=== PATIENT | female | born 1945 | race Caucasian/White ===

== ENCOUNTER 2020-03-27 21:11 | Outpatient (REF) | payer MEDICARE, SELFPAY ==
[2020-03-27 19:52] LABS: HCT 45.9 % (36.0-46.0); HGB 14.8 g/dL (12.0-15.5); Mean Corp. HGB Concentration 32.2 g/dL (32.0-36.0); Mean Corpuscular Hemoglobin 27.8 pg (27.0-33.0); Mean Corpuscular Volume 86.1 fL (80-95); Mean Platelet Volume 10.8 fL (8.0-11.0); Platelet Count 323 x1000/uL (130-400); RBC 5.33 m/cumm (4.00-5.20); White Blood Cell Count 10.05 k/cumm (4.4-10.8)
[2020-03-27 20:01] LABS: ALT 26 U/L (14-59); AST 21 U/L (15-37); Alkaline Phosphatase 86 U/L (46-116); BUN 9 mg/dL (7-18); Bilirubin, Total 0.5 mg/dL (0.2-1.0); CREATININE 0.69 mg/dL (0.55-1.02); Calcium 9.3 mg/dL (8.5-10.1); Calculated LDL 105 mg/dL (<100); Chloride 105 mmol/L (98-107); Cholesterol 199 mg/dL (<200); Glucose 90 mg/dL (74-106); HDL Cholesterol 75 mg/dL (40-60); Potassium 3.7 mmol/L (3.5-5.1); Sodium 143 mmol/L (136-145); TSH 2.55 uIU/mL (0.36-3.74); Total Protein 7.1 g/dL (6.4-8.2); Triglyceride 96 mg/dL (<150)
[2020-03-27 20:11] LABS: Hemoglobin A1C 6.1 % (3.8-5.6)
[2020-03-27 20:20] LABS: FREE T4 1.17 ng/dL (0.76-1.46)
== END 2020-03-27 21:31 ==
LOC: LBN 21:11
PROVIDERS: PCP Nurse Practitioner Family; Visit Provider Nurse Practitioner Family
DX: R73.01 Impaired fasting glucose (principal); I10 Essential (primary) hypertension
CPT/HCPCS: 80053; 80061; 85027; 83036; 84439; 84443

== ENCOUNTER 2021-03-07 19:21 | Emergency (ER) | payer MEDICARE, SELFPAY ==
[2021-03-07 19:28] VITALS: TEMP 36.6
--- NOTE | 2021-03-07 19:30 | DI.CT_ITS ---
Exam(s) CT HEAD WO EXAM: CT HEAD WO CLINICAL HISTORY: Fall, posterior trauma. TECHNIQUE: Imaging Protocol: Axial computed tomography images with coronal and sagittal reformatted images were created and reviewed COMPARISON: No exams were available for comparison FINDINGS: There are no skull fractures nor fluid in the visualized paranasal sinuses. There is no evidence of intracranial hemorrhage, mass effect, or shift of midline structures. There are no extra-axial fluid collections. The ventricles are not enlarged or shifted and there is no blo od within the ventricular system nor within the basal cisterns. There is moderate periventricular hypodensity consistent with chronic small vessel disease. Moderate atrophy noted. IMPRESSION: No acute intracranial findings on this noninfused CT scan of the brain. There is bilateral periventricular hypodensity consistent with chronic small vessel disease. Mild-mo derate atrophy noted. RADIATION DOSE DELIVERED: 678.4mGy.cm Total DLP DATA REPOSITORY: All CT scans at this facility are submitted to the National Radiology Data Registry (NRDR) Dose Index Registry (DIR) with the [employer] (ACR). RADIATION OPTIMIZATION: All CT scans at this facility use at least one of these dose optimization te chniques: automated exposure control; mA and/or kV adjustment per patient size (includes targeted exa ms where dose is matched to clinical indication); or iterative reconstruction.
--- NOTE | 2021-03-07 19:45 | W.ED.GENAD ---
Discharge Plan Disposition Patient Disposition: HOME Condition: Good Discharge Details Clinical Impression: Closed head injury Primary Care Provider: Miladis Medina ED Provider: Robert Houser Home Meds and New Rx's Prescriptions: Continued aspirin 81 mg tablet,delayed release (DR/EC) 81 mg PO DAILY Qty: 90 RF: 4 atorvastatin 80 mg tablet 80 mg PO DAILY Qty: 90 RF: 4 losartan 25 mg tablet 25 mg PO DAILY Qty: 90 RF: 4 montelukast 10 mg tablet 10 mg PO DAILY Qty: 90 RF: 4 cyanocobalamin (vitamin B-12) [Vitamin B-12] 500 mcg tablet 500 mcg PO DAILY Qty: 90 RF: 4 carbidopa-levodopa 25-100 mg tablet 2 tab PO TID RF: 0 donepezil 10 mg tablet 10 mg PO DAILY Qty: 90 RF: 4 calcium carb,lactat-vitamin D3 200 mg calcium -250 unit tablet 1 tab PO DAILY RF: 0 Discharge Instructions Instructions: Head Injury (ED) Additional Instructions: CT scan of the head shows no evidence of traumatic injury. You may use Tylenol if needed for mild headache. Follow-up with primary care as needed. Return to ED for severe worsening headache, neurologic change, persistent vomiting. Referrals: Miladis Medina, [employer]PH[employer] MECH[employer]IC [Primary Care Provider] - Medical Decision Making <Jacobo Samuel MD - Last Filed: 03/07/21 19:50> This is a 75-year-old female with Parkinson's disease who presents with family. She was walking outside when she stepped in a hole, fell backwards and struck her head. There was no loss of consciousness, patient recalls the event. She developed a subtle bruise and mild headache. She is not anticoagulated but does take an aspirin 81 mg daily. Patient arrives to the ER pleasant, interactive, with no neurologic deficits. She does have several areas of bruising on her left superior occiput. Out of an abundance of caution, will obtain CT scan to rule out intracranial hemorrhage or bony injury. As it is change of shift, patient will be signed out to Dr. Houser pending review of her CT findings. <Robert Houser MD - Last Filed: 03/07/21 20:26> Patient signed out to me pending CT head which is come back negative. She had presented status post fall with head injury. Please see Dr. Samuel's note for details. Patient has had no mental status or neurologic changes here. She will be discharged home. Follow-up with primary care as needed. Return to ED for neurologic change, severe headache, vomiting, other concerns. HPI <Jacobo Samuel MD - Last Filed: 03/07/21 19:50> General Mode of arrival: ambulatory. Date/Time Provider Initiated Documentation: 03/07/21 19:21. Limitations to Documentation: no limitations. Information obtained by: patient and family. History of Present Illness 75 year old F presents to the emergency department with the chief complaint of Fall, mild posterior headache, described as mild, Quality is described as dull, and is localized to the head. Patient reports no radiation. Patient started experiencing this hour(s) and it has been constant. No relieving factors improve symptom(s), No exacerbating factors reported . Patient notes denies chest pain, headaches, syncope and weakness. Patient did receive the following treatments prior to arrival, none Related Data Home Medications Medication Instructions Recorded Confirmed aspirin 81 mg tablet,delayed 81 mg PO DAILY #90 tab 04/04/20 03/07/21 release atorvastatin 80 mg tablet 80 mg PO DAILY #90 tab 04/04/20 03/07/21 cyanocobalamin (vitamin B-12) 500 500 mcg PO DAILY #90 tab 04/04/20 03/07/21 mcg tablet losartan 25 mg tablet 25 mg PO DAILY #90 tab 04/04/20 03/07/21 montelukast 10 mg tablet 10 mg PO DAILY #90 tab 04/04/20 03/07/21 carbidopa 25 mg-levodopa 100 mg 2 tab PO TID tab 12/26/20 03/07/21 tablet donepezil 10 mg tablet 10 mg PO DAILY #90 tab 12/26/20 03/07/21 calcium carb,lactat-vitamin D3 1 tab PO DAILY 03/07/21 03/07/21 Previous Rx's Medication Instructions Recorded aspirin 81 mg tablet,delayed 81 mg PO DAILY #90 tab 04/04/20 release atorvastatin 80 mg tablet 80 mg PO DAILY #90 tab 04/04/20 cyanocobalamin (vitamin B-12) 500 500 mcg PO DAILY #90 tab 04/04/20 mcg tablet losartan 25 mg tablet 25 mg PO DAILY #90 tab 04/04/20 montelukast 10 mg tablet 10 mg PO DAILY #90 tab 04/04/20 donepezil 10 mg tablet 10 mg PO DAILY #90 tab 12/26/20 Allergies Allergy/AdvReac Type Severity Reaction Status Date / Time No Known Allergies Allergy Verified 03/07/21 19:31 General Stated Complaint: HeadInjury SKY: 2 Review of Systems <Jacobo Saumel MD - Last Filed: 03/07/21 19:50> Narrative: No prolonged loss of consciousness, patient that she recalls the event. No neck or back pain. No numbness or weakness of the extremities. She has otherwise been well and lives near family. 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 Sister No problems noted. Brother , 42 of [place] Heart disease Myocardial infarction Brother , at 49 of [place] Heart disease Myocardial infarction Brother , at 58 of [place] Heart disease Myocardial infarction Brother , at 61 of [place] Heart disease Myocardial infarction Brother , at 80 of fall No problems noted. Son , at 45 of [place] Heart disease Myocardial infarction Daughter No problems noted. Maternal Grandfather No problems noted. Maternal Grandmother No problems noted. Paternal Grandfather No problems noted. Paternal Grandmother No problems noted. Social History Smoking/Tobacco Use Status: Never Smoking risk assessment performed?: Yes Alcohol Intake: current Alcohol Intake frequency: a few times a month Drug use: Never Counseling given: No Household members: other Details: Camper until get apartment by June Housing: other Details: Camper until get apartment by June Pets and animals: No Sexually active: No Do you think of yourself as: straight/heterosexual Current gender identity: female What is your relationship status?: How often do you talk on the phone with friends or family?: three or more times per week How often do you get together with friends or relatives?: three or more times per week Do you belong to any clubs or organized social groups?: no Panel score (0-1 are the most socially isolated patients): 1 What type of physical activity do you participate in: walking Frequency: other Details: Some Shivani/Jehovah'S Witness: Synagogue Seatbelt use: always Drive intox or ride w/intox school bus driver: No Do you feel safe at home: Yes Do you feel safe in your relationship?: Yes History History 2 Para 2 Hx # Term Pregnancies Multiple births Hx # Pregnancies Ectopic pregnancies AB induced Hx Number of Living Children 1 AB spontaneous Exam <Jacobo Samuel MD - Last Filed: 03/07/21 19:50> Narrative Exam Narrative: GEN: awake, alert. Pleasant, well groomed, interactive. HEAD: Normocephalic, subtle left posterior/superior occiput ecchymosis with minimal swelling, no cephalohematoma ENT: Mucous membranes moist, oropharynx unremarkable, External ear exam unremarkable EYES: PERRL, EOMI NECK: Full ROM, no LISA, no menigismus, nontender no step-off or deformity CHEST/RESP: Nontender, clear to auscultation bilateral, no wheeze/rhonchi/rales CARDIOVASCULAR: RRR, no murmur, rub adriel. 2+ Rad pulse bilateral ABDOMEN: Soft, nontender, no mass. +Bowel sounds EXT: Full ROM, no edema, no rash Neuro: Grossly normal neurologic exam, conversant, interactive. Psych: Speech fluent, thoughts congruent, affect normal Course <Jacobo Samuel MD - Last Filed: 03/07/21 19:50> Vital Signs Vital signs: Vital Signs Temperature 36.6 C 03/07/21 19:28 Temperature 36.6 C 03/07/21 19:28 Respiratory Effort Non-Labored 03/07/21 19:38 Respiratory Depth Normal 03/07/21 19:38 Respiratory Pattern Normal 03/07/21 19:38 Pain Level 4 03/07/21 19:28 Sign Out <Jacobo Samuel MD - Last Filed: 03/07/21 19:50> Sign Out Data: Sign Out Comment: CT pending. Last updated by Jacobo Samuel MD at 03/07/21 19:50
--- NOTE | 2021-03-07 20:15 | DI.VRAD_ITS ---
PROCEDURE INFORMATION: Exam: CT Head Without Contrast Exam date and time: 03/07/2021 7:45 PM Age: 75 years old Clinical indication: Injury or trauma; Blunt trauma (contusions or hematomas); Patient HX: Fall, posterior trauma TECHNIQUE: Imaging protocol: Computed tomography of the head without contrast. COMPARISON: No relevant prior studies available. FINDINGS: Brain: There is no evidence for acute intra-axial or extra-axial hemorrhage. There is no intracranial mass or mass effect. The basilar cisterns are patent. There is moderate diffuse cerebral volume loss. There is normal reyna-white differentiation throughout the brain. There is no CT evidence of acute cortical infarct. There is mild patchy hypodensity within the periventricular and subcortical white matter in the frontoparietal regions suggesting mild chronic small vessel ischemic changes. Cerebral ventricles: There is moderate ventriculomegaly in proportion to the moderate diffuse cerebral volume loss. Paranasal sinuses: Visualized sinuses are unremarkable. No fluid levels. Mastoid air cells: Visualized mastoid air cells are well aerated. Bones/joints: Unremarkable. No acute fracture. Soft tissues: Unremarkable. IMPRESSION: 1. No acute intracranial process identified. 2. Moderate diffuse cerebral volume loss. 3. Findings of mild chronic small vessel ischemic changes. Dictated and Authenticated by: Jeffery Bolton MD. Ordering:BENEDICT Centeno MD
[2021-03-07] MEDS: Acetaminophen 500 MG TAB 1000 MG PO (20:35)
== END 2021-03-07 20:39 | disposition home or self-care (01) ==
PROVIDERS: Emergency Provider Emergency Medicine; PCP Nurse Practitioner Family
DX: S09.8XXA Other specified injuries of head, initial encounter (principal); W18.39XA Other fall on same level, initial encounter
CPT/HCPCS: 99284; 70450; 99283

== ENCOUNTER 2021-03-12 11:08 | Outpatient (CLI) | payer MEDICARE, SELFPAY ==
--- NOTE | 2021-03-12 11:00 | RT.EKG_ITS ---
APPROVED REPORT Exam: Resting ECG Reason for Exam: Dizzness Patient Location: O HR:61 bpm ECG Measurements Heart Rate 61 AXIS RI 117 P 50 QRSd 82 QRS 33 QT 410 T 46 QTc 412 Conclusion Sinus rhythm...normal P axis, V-rate 60- 99 Normal Electrocardiogram
== END 2021-03-12 11:09 | disposition home or self-care (01) ==
LOC: DI.CM 11:08
PROVIDERS: PCP Nurse Practitioner Family; Visit Provider Nurse Practitioner Family
DX: R55 Syncope and collapse (principal)
CPT/HCPCS: 93010

== ENCOUNTER 2021-03-23 00:35 | Outpatient (CLI) | payer MEDICARE, SELFPAY ==
--- NOTE | 2021-04-09 09:00 | W.ZIOMONITOR ---
Date of service: 04/09/21 Time of Service: 09:[address] [employer] Referring Provider:: daniel Indications:: Syncope Note: This is a 14-day monitor ordered for syncope. ?The patient was in normal sinus rhythm for the majority the recording with an average heart rate of 68 bpm. ?There were 38 runs of SVT with the longest lasting 11 beats. None of these were symptomatic. There were rare PACs. ?There are no episodes of ventricular tachycardia and rare PVCs. ?There were no episodes of atrial fibrillation, no pauses greater than 3 seconds and no evidence of high degree heart block. ?There were no patient triggered events.
== END 2021-03-23 00:36 | disposition home or self-care (01) ==
LOC: RT 00:35
PROVIDERS: PCP Nurse Practitioner Family; Visit Provider Nurse Practitioner Family
DX: R55 Syncope and collapse (principal)
CPT/HCPCS: 93246

== ENCOUNTER 2021-03-24 04:17 | Outpatient (CLI) | payer MEDICARE, SELFPAY ==
[2021-03-24 13:12] LABS: Abs Immature Grans 0.02 10^3/uL (0.0-0.06); Absolute Basophil Count 0.06 10^3/uL (0.0-0.2); Absolute Eosinophil Count 0.09 10^3/uL (0.0-0.7); Absolute Lymphocyte Count 2.84 10^3/uL (1.2-3.4); Absolute Monocyte Count 0.46 10^3/uL (0.1-0.8); Basophils % 0.7; Eosinophils % 1.1; HCT 44.2 % (36.0-46.0); HGB 14.5 g/dL (11.2-15.7); Immature Grans % 0.2; Lymphocytes % 33.1; MCH 27.9 pg (27.0-33.0); MCHC 32.8 % (32.0-36.0); MCV 85.2 fL (80-95); MPV 10.3 fL (8.0-11.0); Monocytes % 5.4; Neutrophils % 59.5; Nucleated RBC 0 %; Platelet Count 347 10^3/uL (130-400); RBC 5.19 10^6/uL (3.93-5.22); RDW 14.5 % (11.7-14.6); WBC 8.57 10^3/uL (4.4-10.8)
[2021-03-24 13:38] LABS: Hemoglobin A1C 5.9 % (<5.7)
[2021-03-24 14:43] LABS: ALT 14 U/L (14-59); AST 21 U/L (15-37); Albumin 3.6 g/dL (3.4-5.0); Alkaline Phosphatase 99 U/L (46-116); Anion Gap 10.7 mmol/L (3-11); BUN 15 mg/dL (7-18); Bilirubin, Total 0.6 mg/dL (0.2-1.0); CO2 29.3 mmol/L (21.0-32.0); CREATININE 0.9 mg/dL (0.55-1.02); Calcium 9.1 mg/dL (8.5-10.1); Calculated LDL 66 mg/dL (<100); Chloride 106 mmol/L (98-107); Cholesterol 160 mg/dL (<200); Glucose 125 mg/dL (74-106); HDL Cholesterol 65 mg/dL (40-60); Potassium 3.6 mmol/L (3.5-5.1); Sodium 146 mmol/L (136-145); Total Protein 6.5 g/dL (6.4-8.2); Triglyceride 147 mg/dL (<150)
== END 2021-03-24 04:18 | disposition home or self-care (01) ==
LOC: LBO 04:17
PROVIDERS: PCP Nurse Practitioner Family; Visit Provider Nurse Practitioner Family
DX: R55 Syncope and collapse (principal); R73.03 Prediabetes; E78.5 Hyperlipidemia, unspecified
CPT/HCPCS: 36415; 80053; 80061; 83036; 85025

== ENCOUNTER 2021-04-09 09:00 | Outpatient (CLI) | payer MEDICARE, SELFPAY | END 2021-04-09 09:01 | LOC: CARDO 04-14 10:42 | PROVIDERS: PCP Nurse Practitioner Family; Referring Provider Nurse Practitioner Family; Visit Provider Internal Medicine Cardiovascular Disease | DX: R55 Syncope and collapse (principal); I47.1 Supraventricular tachycardia | CPT/HCPCS: 93248 ==

== ENCOUNTER 2021-06-17 01:57 | Outpatient (CLI) | payer MEDICARE, SELFPAY ==
--- NOTE | 2021-06-17 07:00 | DI.RAD_ITS ---
Exam(s) XR SHOULDER RT COMPLETE 2+V EXAM: XR SHOULDER RT COMPLETE 2+V CLINICAL HISTORY: right shoulder pain,M25.511. TECHNIQUE: 2D digital imaging was performed of the right shoulder. Five images were obtained. AP i nternal and external, Grashey, Y-view and axillary views were obtained. COMPARISON: No exams were available for comparison FINDINGS: BONES: No acute fracture is present. No bony destructive lesion is seen. JOINTS: No dislocation present. Mild degenerative changes are seen at the acromioclavicular joint. T he glenohumeral joint appears well maintained. SOFT TISSUE: Normal. IMPRESSION: Mild degenerative changes of the right AC joint. DATA REPOSITORY: RADIATION DOSE DELIVERED:
== END 2021-06-17 02:17 ==
PROVIDERS: PCP Nurse Practitioner Family; Visit Provider Nurse Practitioner Family
DX: M25.511 Pain in right shoulder (principal); M19.011 Primary osteoarthritis, right shoulder
CPT/HCPCS: 73030

== ENCOUNTER 2021-07-28 00:54 | Outpatient (CLI) | payer MEDICARE, SELFPAY ==
--- NOTE | 2021-07-28 06:45 | DI.MRI_ITS ---
Exam(s) MR BRAIN WO EXAM: MR BRAIN WO CLINICAL HISTORY: Frequent falls, balance and speech changes,parkinsons,r29.6,g20 TECHNIQUE: Multiplanar multisequence MRI of the brain was performed. COMPARISON: CT CT HEAD WO from 03/07/2021 FINDINGS: VENTRICLES AND EXTRA AXIAL SPACES: Normal in size and morphology for the patient's age. The degree of ventricular enlargement appears to be consistent with the degree of sulcal enlargement. MIDLINE SHIFT: None. CEREBRAL PARENCHYMA: No focus of restricted diffusion to suggest acute infarct. No space-occupying le manuel identified. There are areas of hyperintense signal in the white matter on the FLAIR and T2 weigh carmela images most consistent with chronic microvascular ischemic disease. HEMORRHAGE: On the gradient images, there are multiple ???black dots??? in the cerebral and cerebella r hemispheres. The findings are most marked in the right parietal region. BRAINSTEM/CEREBELLUM: Normal. CALVARIUM: Normal. VISUALIZED PARANASAL SINUSES/MASTOIDS:Clear. [place]: Normal flow void. PIT[place]ARY GL[place]: Unremarkable. OTHER FINDINGS: None. IMPRESSION: 1. Age-appropriate cerebral atrophy and findings suggestive of chronic microvascular ischemic disease . 2. Multiple ???black dots??? seen in the cerebral and cerebellar hemispheres on the gradient images. Differential considerations include cerebral amyloid disease, hypertensive microhemorrhages, multipl e vascular malformations, or multifocal trauma. DATA REPOSITORY:
== END 2021-07-28 01:14 ==
PROVIDERS: PCP Nurse Practitioner Family; Visit Provider Nurse Practitioner Family
DX: R47.89 Other speech disturbances (principal); R26.89 Other abnormalities of gait and mobility; R29.6 Repeated falls; G20 Parkinson's disease; G31.89 Other specified degenerative diseases of nervous system
CPT/HCPCS: 70551

== ENCOUNTER 2021-10-07 11:17 | Observation (INO) | payer MEDICARE, SELFPAY ==
[2021-10-07] VITALS (46 sets, daily range): BP systolic 163–184; BP diastolic 60–102; PULSE 46–87; RESP 14–31; TEMP 36.2–36.7; O2SAT 82–100
--- NOTE | 2021-10-07 11:00 | RT.EKG_ITS ---
APPROVED REPORT Exam: Resting ECG Reason for Exam: possible stroke Patient Location: E HR:58 bpm ECG Measurements Heart Rate 58 AXIS VT 134 P 70 QRSd 84 QRS 57 QT 420 T 56 QTc 413 Conclusion Sinus bradycardia...rate< 60 Atrial premature complex...SV complex w/ short R-R interval
--- NOTE | 2021-10-07 11:30 | DI.RAD_ITS ---
Exam(s) XR PELVIS AP EXAM: XR PELVIS AP CLINICAL HISTORY: fall TECHNIQUE: COMPARISON: No exams were available for comparison FINDINGS: Single AP view was obtained. The bones of the hips and pelvis appear intact, no obvious fracture on this view. Please note that a single AP view is not adequate to exclude pelvic fracture. IMPRESSION: RADIATION DOSE DELIVERED: Total DLP
--- NOTE | 2021-10-07 11:34 | DI.RAD_ITS ---
Exam(s) XR CHEST 1V IN DI DEPT EXAM: XR CHEST 1V IN DI DEPT CLINICAL HISTORY: fall. TECHNIQUE: 2D digital imaging was performed. COMPARISON: No exams were available for comparison FINDINGS: LUNGS: Clear. No pleural abnormality seen. HEART: Normal. MEDIASTINUM: Normal. OTHER FINDINGS: None. IMPRESSION: No acute pulmonary findings. DATA REPOSITORY: RADIATION DOSE DELIVERED: Total DLP
[2021-10-07 11:39] LABS: Abs Immature Grans 0.03 10^3/uL (0.0-0.06); Absolute Basophil Count 0.06 10^3/uL (0.0-0.2); Absolute Eosinophil Count 0.12 10^3/uL (0.0-0.7); Absolute Lymphocyte Count 3.08 10^3/uL (1.2-3.4); Absolute Monocyte Count 0.74 10^3/uL (0.1-0.8); Absolute Neutrophil Count 4.98 10^3/uL (1.2-6.7); Basophils % 0.7; Eosinophils % 1.3; HCT 46.8 % (36.0-46.0); HGB 14.5 g/dL (11.2-15.7); Immature Grans % 0.3; Lymphocytes % 34.2; MCH 27.8 pg (27.0-33.0); MCV 89.8 fL (80-95); MPV 10.5 fL (8.0-11.0); Monocytes % 8.2; Neutrophils % 55.3; Nucleated RBC 0 %; Platelet Count 330 10^3/uL (130-400); RBC 5.21 10^6/uL (3.93-5.22); RDW 14.1 % (11.7-14.6); WBC 9.01 10^3/uL (4.4-10.8)
--- NOTE | 2021-10-07 11:50 | DI.CT_ITS ---
Exam(s) CT HEAD - STROKE PROTOCOL CT CERVICAL SPINE WO EXAM: CT HEAD - STROKE PROTOCOL COMPARISON: CT CT HEAD WO from 03/07/2021 FINDINGS: CT examination of the cervical spine was performed without contrast administration. There are marked degenerative changes of the cervical spine. There is no evidence of acute cervical spine fracture or dislocation. Intervertebral disc spaces are narrowed at multiple levels. Tracheolaryngeal structures appear intact. No cervical mass or adenopathy. There is an apparent right lobe thyroid nodule measuring up to 18 millimeters in diameter and additio nal thyroid nodules are probably present on the left. Additional evaluation with thyroid ultrasound recommended. Noncontrast cranial CT was performed. There are mild changes of cerebral atrophy.. No evidence of acute intracranial hemorrhage, mass effect, or midline shift. No calvarial fracture. The orbital and temporal bone structures appear intact. Visualized mastoid air cells and paranasal sinuses appear clear. IMPRESSION: No evidence of acute cervical spine injury. No evidence of acute intracranial process. Incidental finding of thyroid nodules, thyroid ultrasound recommended for follow up. Incidental Findings RADIATION DOSE DELIVERED: Total DLP Total DLP CTDIvol DATA REPOSITORY: All CT scans at this facility are submitted to the National Radiology Data Registry (NRDR) Dose Index Registry (DIR) with the [employer] (ACR). RADIATION OPTIMIZATION: All CT scans at this facility use at least one of these dose optimization te chniques: automated exposure control; mA and/or kV adjustment per patient size (includes targeted exa ms where dose is matched to clinical indication); or iterative reconstruction.
[2021-10-07 11:53] LABS: AST 19 U/L (15-37); Albumin 3.9 g/dL (3.4-5.0); Alkaline Phosphatase 94 U/L (46-116); Anion Gap 4.9 mmol/L (3-11); BUN 19 mg/dL (7-18); Bilirubin, Total 0.9 mg/dL (0.2-1.0); CO2 32.1 mmol/L (21.0-32.0); CREATININE 0.8 mg/dL (0.55-1.02); Calcium 9.4 mg/dL (8.5-10.1); Chloride 104 mmol/L (98-107); Glucose 92 mg/dL (74-106); INR 1.1 (0.9-1.1); PTT Activated 26.8 sec (21.0-27.5); Potassium 3.9 mmol/L (3.5-5.1); Sodium 141 mmol/L (136-145); Total Protein 7.2 g/dL (6.4-8.2); Troponin I < 50 ng/L (<or=60)
[2021-10-07 12:00] LABS: ALT < 6 U/L (14-59)
--- NOTE | 2021-10-07 12:00 | DI.MRI_ITS ---
Exam(s) MR BRAIN WO EXAM: MR BRAIN WO CLINICAL HISTORY: expressive aphasia, ?left facial droop TECHNIQUE: Multiplanar multisequence MRI of the brain was performed. COMPARISON: MR MR BRAIN WO from 07/28/2021 MR MR ANGIO BRAIN WO from 10/07/2021 FINDINGS: There is moderate generalized cerebral atrophy. There are mild periventricular signal changes noted consistent with microvascular ischemic change. No other significant signal abnormality identified in the brain on the T2, T1, or FLAIR imaging.. The orbital and temporal bone structures appear intact as does the pituitary. Diffusion weighted imaging shows no evidence of infarction. Susceptibility weighted imaging shows numerous focal signal voids consistent with numerous micro hemo rrhages, predominantly in posterior fossa and right occipital parietal region but also seen elsewhere throughout the brain. Findings are quite similar to findings seen on July 28 2021. This appea alexis may be seen in chronic microhemorrhages, although other etiologies including amyloid angiopathy and multiple cerebral vascular malformations may cause similar appearance period. There is normal flow void in the [place] vasculature. IMPRESSION: Stable appearance of previously noted presumed chronic microhemorrhages. No evidence of acute infarction or other significant change. DATA REPOSITORY:
--- NOTE | 2021-10-07 12:00 | DI.MRI_ITS ---
Exam(s) MR ANGIO BRAIN WO EXAM: MR ANGIO BRAIN WO CLINICAL HISTORY: expressive aphasia, ?left facial droop. TECHNIQUE: Multiplanar multisequence MRI was performed. COMPARISON: MR MR BRAIN WO from 07/28/2021 FINDINGS: MR angiography of the brain was performed utilizing 3D umpd-ra-lzssca imaging. Examination is of goo d technical quality. Left posterior cerebral artery is supplied mainly across the posterior communic ating artery. The visualized vertebral, basilar, and internal carotid arteries show normal caliber a nd no evidence of aneurysm or significant stenosis. The anterior, middle, and posterior cerebral art eries are unremarkable appearance with no gross aneurysm or stenosis. IMPRESSION: Negative MR angiography of the brain. DATA REPOSITORY:
--- NOTE | 2021-10-07 12:00 | DI.MRI_ITS ---
Exam(s) MR ANGIO NECK WO EXAM: MR ANGIO NECK WO CLINICAL HISTORY: expressive aphasia, ?left facial droop. TECHNIQUE: Multiplanar multisequence MRI was performed. COMPARISON: No exams were available for comparison FINDINGS: The examination was technically limited due to patient motion. 2D and 3D [id number] acquisitions were obtained. No gross occlusive or high-grade stenotic lesion of the common or internal carotid a rtery seen. Vertebral arteries appear grossly intact. IMPRESSION: Limited scan. No gross vascular occlusive or high-grade stenotic lesion. DATA REPOSITORY:
--- NOTE | 2021-10-07 12:05 | ED.GENADUL_ITS ---
Discharge Plan Disposition Condition: Stable Discharge Details Chief Complaint: CVA/TIA Admit Date/Time: 10/07/21 14:48 Admit Provider: Barrington Monique Attending Provider: Barrington Monique Primary Care Provider: Miladis Medina ED Provider: Kuldip Lennon Discharge Instructions Activity:: Activity as Tolerated Equipment/Supplies:: No Equipment Needed Diet:: As Tolerated Discharge Orders Discharge Orders: Discharge Order (Routine); Ordered 10/09/21 Ordered By: Kinza Lu Discharge Data Discharge Date/Time-TO BE ENTERED AT DEPARTURE: 10/07/21 16:13 Medical Decision Making 1210 --76-year-old female with history of Parkinson's dementia, hyperlipidemia, hypertension, CVAs, here having been found down on the ground with expressive aphasia. Possible syncope. Consider head and neck trauma. Patient is hypertensive. Concern for acute CVA. CT of the head and cervical spine was interpreted by radiology who I spoke with: Negative for acute process, thyroid nodules incidentally noted. No hemorrhage. Plan to proceed to MRI to assess for CVA not apparent on CT. Considered arrhythmia, EKG was reviewed and interpreted by me: Please see report, sinus bradycardia 58 bpm Initial labs reviewed: Nondiagnostic. Will add TSH. UA pending. -- MRI negative per radiology. Plan to hospitalize for syncope and continued expressive aphasia. I spoke with hospitalist, discussed ED presentation and course. They will admit patient. HPI General Mode of arrival: ambulatory . Date/Time Provider Initiated Documentation: 10/07/21 11:34 . Limitations to Documentation: no limitations . Information obtained by: patient . HPI Narrative: 76-year-old female with [facility] local problems including history of Parkinson's dementia, hypertension, hyperlipidemia, CVA with TIAs, presents with expressive aphasia. Patient found down by EMS with concern for left-sided weakness, repetitive words. Apparently patient noted that she passed out. Last known normal was 6 PM when she spoke with her daughter last night. Patient denies pain. History and review of systems limited secondary to expressive aphasia. Related Data Home Medications Medication Instructions Recorded Confirmed aspirin 81 mg tablet,delayed 81 mg PO DAILY #90 tab 04/04/20 10/07/21 release cyanocobalamin (vitamin B-12) 500 500 mcg PO DAILY #90 tab 04/04/20 10/07/21 mcg tablet carbidopa 25 mg-levodopa 100 mg 2 tab PO TID tab 12/26/20 10/07/21 tablet donepezil 10 mg tablet 10 mg PO DAILY #90 tab 12/26/20 10/07/21 calcium carb,lactat-vitamin D3 1 tab PO DAILY 03/07/21 10/07/21 atorvastatin 80 mg tablet 80 mg PO DAILY #90 tab 04/22/21 10/07/21 losartan 25 mg tablet 25 mg PO DAILY #90 tab 04/22/21 10/07/21 montelukast 10 mg tablet 10 mg PO DAILY #90 tab 04/22/21 10/07/21 Previous Rx's Medication Instructions Recorded aspirin 81 mg tablet,delayed 81 mg PO DAILY #90 tab 04/04/20 release cyanocobalamin (vitamin B-12) 500 500 mcg PO DAILY #90 tab 04/04/20 mcg tablet donepezil 10 mg tablet 10 mg PO DAILY #90 tab 12/26/20 atorvastatin 80 mg tablet 80 mg PO DAILY #90 tab 04/22/21 losartan 25 mg tablet 25 mg PO DAILY #90 tab 04/22/21 montelukast 10 mg tablet 10 mg PO DAILY #90 tab 04/22/21 Allergies Allergy/AdvReac Type Severity Reaction Status Date / Time No Known Allergies Allergy Verified 10/07/21 12:28 General Stated Complaint: CVA/TIA SKY: 2 Review of Systems Narrative: Limited secondary to expressive aphasia Cardiovascular Cardiovascular: Denies chest pain and Denies dyspnea Respiratory Respiratory: Denies dyspnea Gastrointestinal Gastrointestinal: Denies abdominal pain PFSH All Active Problems (Updated 10/07/21 @ 14:56 by Kinza Lu NP) Discharge planning issues (Acute) Syncopal episodes (Chronic) Closed head injury (Acute) 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 Neuro Parkinson disease (Chronic) Followed by [facility] Neuro Cerebrovascular disease (Chronic) Prediabetes (Chronic) Hyperlipidemia (Chronic) Essential hypertension (Chronic) Medical History Thyroid nodule Benign Surgical History History of section S/P colonoscopy (03/18/15) Family History Mother , 71 Depression Stroke CKD (chronic kidney disease) Father , 68 Heart disease Myocardial infarction Parkinson disease Sister No problems noted. Sister No problems noted. Brother , 42 of [place] Heart disease Myocardial infarction Brother , at 49 of [place] Heart disease Myocardial infarction Brother , at 58 of [place] Heart disease Myocardial infarction Brother , at 61 of [place] Heart disease Myocardial infarction Brother , at 80 of [place] No problems noted. Son , at 45 of [place] Heart disease Myocardial infarction Daughter No problems noted. Maternal Grandfather No problems noted. Maternal Grandmother No problems noted. Paternal Grandfather No problems noted. Paternal Grandmother No problems noted. Social History Smoking/Tobacco Use Status: Never Smoking risk assessment performed?: Yes Alcohol Intake: current Alcohol Intake frequency: a few times a month Drug use: Never Substance use type: does not use Counseling given: No Household members: other Details: Camper until get apartment by June Housing: other Details: Camper until get apartment by June Pets and animals: No Sexually active: No Do you think of yourself as: straight/heterosexual Current gender identity: female What is your relationship status?: How often do you talk on the phone with friends or family?: three or more times per week How often do you get together with friends or relatives?: three or more times per week Do you belong to any clubs or organized social groups?: no Panel score (0-1 are the most socially isolated patients): 1 What type of physical activity do you participate in: walking Frequency: other Details: Some Shivani/Cheondoism: Anabaptism Seatbelt use: always 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 Do you feel safe at home: Yes Do you feel safe in your relationship?: Yes History History 2 Para 2 Hx # Term Pregnancies Multiple births Hx # Pregnancies Ectopic pregnancies AB induced Hx Number of Living Children 1 AB spontaneous Exam Const General: cooperative and no acute distress HENMT Head: normocephalic and atraumatic Mouth: moist mucous membranes Eyes Conjunctivae: normal conjunctivae Sclera: normal sclerae EOM: EOM intact bilaterally Neck Neck: trachea midline and supple Resp Auscultation: clear to auscultation bilaterally, no rales, no rhonchi and no whe ezes Cardio Rate: regular rate and not tachycardic Rhythm: regular rhythm GI Palpation: soft, not firm, no guarding, no masses, not rigid and nontender Skin General skin exam: no rashes or lesions noted Neuro General: patient alert, patient awake, patient oriented x3, tone normal and moves all extremities Cranial Nerves: PERRL, accommodation normal, EOM intact bilaterally, no nystagmus, facial strength abnormal and tongue midline Speech: expressive aphasia Motor: strength 5/5 throughout and other (Question mild left facial) Sensory Exam: no sensory deficits noted Extrem General: no edema Psych Appearance: grossly normal Course Vital Signs Vital signs: Vital Signs Temperature 36.2 C L 10/07/21 11:15 Pulse 69 10/07/21 11:15 Respiratory Rate 17 10/07/21 11:15 Blood Pressure 173/76 H 10/07/21 11:15 Pulse Oximetry 100 10/07/21 11:15 Temperature 36.2 C L 10/07/21 11:15 Temperature Source Skin 10/07/21 11:15 Pulse 69 10/07/21 11:15 Respiratory Rate 16 10/07/21 11:26 Respiratory Effort 10/07/21 11:34 Respiratory Depth Normal 10/07/21 11:26 Respiratory Pattern Normal 10/07/21 11:26 Blood Pressure 173/76 H 10/07/21 11:15 Blood Pressure Position Supine 10/07/21 11:15 Pulse Oximetry 100 10/07/21 11:15 Oxygen Delivery Method Room Air 10/07/21 11:15 Oxygen Flow Rate 0 10/07/21 11:15 Lab/Test Results Lab/Test Results: Laboratory Tests Range/Units 10/07/21 10/07/21 10/07/21 11:20 11:20 11:20 WBC (4.4-10.8) 10^3/uL 9.01 RBC (3.93-5.22) 10^6/uL 5.21 Hgb (11.2-15.7) g/dL 14.5 Hct (36.0-46.0) % 46.8 H MCV (80-95) fL 89.8 MCH (27.0-33.0) pg 27.8 MCHC (32.0-36.0) % 31.0 L RDW (11.7-14.6) % 14.1 Plt Count (130-400) 10^3/uL 330 MPV (8.0-11.0) fL 10.5 Immature Gran % 0.3 Neutrophils % 55.3 Lymphocytes % 34.2 Monocytes % 8.2 Eosinophils % 1.3 Basophils % 0.7 Nucleated RBC % % 0 Absolute Neutrophils (1.2-6.7) 10^3/uL 4.98 Absolute Lymphocytes (1.2-3.4) 10^3/uL 3.08 Absolute Monocytes (0.1-0.8) 10^3/uL 0.74 Absolute Eosinophils (0.0-0.7) 10^3/uL 0.12 Absolute Basophils (0.0-0.2) 10^3/uL 0.06 PT (9.3-11.0) sec 11.0 INR (0.9-1.1) 1.1 APTT (21.0-27.5) sec 26.8 Sodium (136-145) mmol/L 141 Potassium (3.5-5.1) mmol/L 3.9 Chloride (98-107) mmol/L 104 Carbon Dioxide (21.0-32.0) mmol/L 32.1 H Anion Gap (3-11) mmol/L 4.9 BUN (7-18) mg/dL 19 H Creatinine (0.55-1.02) mg/dL 0.8 Estimated GFR/1.73 m2 (mL/min/1.73m2) >= 60.00 Glucose (74-106) mg/dL 92 Calcium (8.5-10.1) mg/dL 9.4 Total Bilirubin (0.2-1.0) mg/dL 0.9 AST (15-37) U/L 19 ALT (14-59) U/L < 6 L Alkaline Phosphatase (46-116) U/L 94 Troponin I (<or=60) ng/L < 50 Total Protein (6.4-8.2) g/dL 7.2 Albumin (3.4-5.0) g/dL 3.9
[2021-10-07 12:06] LABS: Creatine Kinase 50 U/L (26-192)
--- NOTE | 2021-10-07 12:15 | DI.RAD_ITS ---
Exam(s) XR SHOULDER LT COMPLETE 2+V EXAM: XR SHOULDER LT COMPLETE 2+V CLINICAL HISTORY: pain, fall TECHNIQUE: COMPARISON: CR XR SHOULDER RT COMPLETE 2+V from 06/17/2021 FINDINGS: Three views were obtained. There are small soft tissue calcifications projected adjacent to the bernarda ral head consistent with calcific peritendinitis, probably involving infraspinatus and possibly supra spinatus tendons. There is no evidence of acute fracture or dislocation. IMPRESSION: RADIATION DOSE DELIVERED: Total DLP
[2021-10-07 12:42] LABS: Bilirubin Negative (Negative); Blood Negative (Negative); Clarity Sl Cloudy (Clear); Glucose Negative (Negative); Ketones Negative (Negative); Leukocyte Esterase Negative (Negative); Nitrite Negative (Negative); Specific Gravity 1.015 (1.005-1.025); Urobilinogen 0.2 EU/dL (Up TO 0.2)
[2021-10-07 13:13] LABS: Lab Add On Test DONE
[2021-10-07 13:36] LABS: TSH (W/Ref FT4) 2.88 uIU/mL (0.36-3.74)
[2021-10-07] MEDS: ACETAMINOPHEN 1,000 MG/100 ML BTL 400 MG IVPB (14:12)
--- NOTE | 2021-10-07 14:51 | W.PM.HP.N ---
Date of service: 10/07/21 Time of Service: 14:51 Assessment and Plan Assessment and plan (1) Syncopal episodes: Status: Chronic Assessment and plan: longstanding issue, followed by neurology at [facility], MRI unchanged. was previously on cardiac event recorder with some SVT, no other dysrhythmias. will place on telemetry. orthostatic vitals fall precaution. acute CVA ruled out. 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 (4) Essential hypertension: Status: Chronic Assessment and plan: blood pressures elevated. will continue home medications and monitor, adjust as needed (5) Hyperlipidemia: Status: Chronic Assessment and plan: continue statin. (6) Discharge planning issues: Status: Acute Assessment and plan: case management will be following. ? needs placement PT consulted discussed with Dr Monique History of Present Illness History of Present Illness Chief Complaint: fall Narrative: 76 year old female with history of parkinsons dementia, syncopal episodes, followed by neurology at [facility], who presented to the ED by EMS after a syncopal episode where she was noted to have gargled speech, worse than her baseline. her work up in the ED included CT scan which was unremarkable so MRI ordered and found to have no findings to explain symptoms. Her labs, urine and rest of exam unremarkable. she was c/o right shoulder pain from fall and imaging shows no acute bony abnormality. Hospitalist was contacted to admit to med/surg for further monitoring and management. 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 Sister No problems noted. Brother , 42 of [place] Heart disease Myocardial infarction Brother , at 49 of [place] Heart disease Myocardial infarction Brother , at 58 of [place] Heart disease Myocardial infarction Brother , at 61 of [place] Heart disease Myocardial infarction Brother , at 80 of [place] No problems noted. Son , at 45 of [place] Heart disease Myocardial infarction Daughter No problems noted. Maternal Grandfather No problems noted. Maternal Grandmother No problems noted. Paternal Grandfather No problems noted. Paternal Grandmother No problems noted. Social History Smoking/Tobacco Use Status: Never Smoking risk assessment performed?: Yes Alcohol Intake: current Alcohol Intake frequency: a few times a month Drug use: Never Substance use type: does not use Counseling given: No Household members: other Details: Camper until get apartment by June Housing: other Details: Camper until get apartment by June Pets and animals: No Sexually active: No Do you think of yourself as: straight/heterosexual Current gender identity: female What is your relationship status?: How often do you talk on the phone with friends or family?: three or more times per week How often do you get together with friends or relatives?: three or more times per week Do you belong to any clubs or organized social groups?: no Panel score (0-1 are the most socially isolated patients): 1 What type of physical activity do you participate in: walking Frequency: other Details: Some Shivani/Congregation: Spiritism Seatbelt use: always Drive intox 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 Do you feel safe at home: Yes Do you feel safe in your relationship?: Yes History History 2 Para 2 Hx # Term Pregnancies Multiple births Hx # Pregnancies Ectopic pregnancies AB induced Hx Number of Living Children 1 AB spontaneous Meds Allergies and Home Medications Allergies Allergy/AdvReac Type Severity Reaction Status Date / Time No Known Allergies Allergy Verified 01/19/22 12:28 Home Medications Medication Instructions Recorded Confirmed Type aspirin 81 mg tablet,delayed 81 mg PO DAILY #90 tab 04/04/20 10/07/21 Rx release cyanocobalamin (vitamin B-12) 500 500 mcg PO DAILY #90 tab 04/04/20 10/07/21 Rx mcg tablet carbidopa 25 mg-levodopa 100 mg 2 tab PO TID tab 12/26/20 10/07/21 History tablet donepezil 10 mg tablet 10 mg PO DAILY #90 tab 12/26/20 10/07/21 Rx calcium carb,lactat-vitamin D3 1 tab PO DAILY 03/07/21 10/07/21 History atorvastatin 80 mg tablet 80 mg PO DAILY #90 tab 04/22/21 10/07/21 Rx losartan 25 mg tablet 25 mg PO DAILY #90 tab 04/22/21 10/07/21 Rx montelukast 10 mg tablet 10 mg PO DAILY #90 tab 04/22/21 10/07/21 Rx Exam Const General: cooperative, comfortable and no acute distress Nutritional Appearance: average body habitus and well nourished Orientation: alert, awake, oriented to person and confused [facility] Head: normal to inspection, normocephalic and atraumatic Mouth: oral mucosae normal Resp Effort & Inspection: normal respiratory effort Auscultation: clear to auscultation bilaterally Cardio Rate: regular rate Rhythm: regular rhythm Skin General skin exam: no rashes or lesions noted Neuro General: tone normal, no focal motor deficits and other (gait assisted, walker.) Cognition: abnormal cognition Speech: abnormal speech stuttering Gait: gait assisted Method: walker Motor: muscle tone normal throughout and tremor Results Labs Result diagrams: 10/08/21 06:24 10/08/21 06:24 Labs: Laboratory Results - last 24 hr 10/07/21 10/07/21 10/07/21 11:20 11:20 11:20 WBC 9.01 RBC 5.21 Hgb 14.5 Hct 46.8 H MCV 89.8 MCH 27.8 MCHC 31.0 L RDW 14.1 Plt Count 330 MPV 10.5 Immature Gran % 0.3 Neutrophils % 55.3 Lymphocytes % 34.2 Monocytes % 8.2 Eosinophils % 1.3 Basophils % 0.7 Nucleated RBC % 0 Absolute Neutrophils 4.98 Absolute Lymphocytes 3.08 Absolute Monocytes 0.74 Absolute Eosinophils 0.12 Absolute Basophils 0.06 PT 11.0 INR 1.1 APTT 26.8 Sodium 141 Potassium 3.9 Chloride 104 Carbon Dioxide 32.1 H Anion Gap 4.9 BUN 19 H Creatinine 0.8 Estimated GFR/1.73 m2 >= 60.00 Glucose 92 Calcium 9.4 Total Bilirubin 0.9 AST 19 ALT < 6 L Alkaline Phosphatase 94 Creatine Kinase Troponin I < 50 Total Protein 7.2 Albumin 3.9 TSH Urine Color Urine Clarity Urine pH Ur Specific [place] Urine Protein Urine Ketones Urine Blood Urine Nitrite Urine Bilirubin Urine Urobilinogen Ur Leukocyte Esterase Urine Glucose Add-On Test Request 10/07/21 10/07/21 10/07/21 11:20 11:20 11:20 WBC RBC Hgb Hct MCV MCH MCHC RDW Plt Count MPV Immature Gran % Neutrophils % Lymphocytes % Monocytes % Eosinophils % Basophils % Nucleated RBC % Absolute Neutrophils Absolute Lymphocytes Absolute Monocytes Absolute Eosinophils Absolute Basophils PT INR APTT Sodium Potassium Chloride Carbon Dioxide Anion Gap BUN Creatinine Estimated GFR/1.73 m2 Glucose Calcium Total Bilirubin AST ALT Alkaline Phosphatase Creatine Kinase 50 Troponin I Total Protein Albumin TSH 2.88 Urine Color Urine Clarity Urine pH Ur Specific [place] Urine Protein Urine Ketones Urine Blood Urine Nitrite Urine Bilirubin Urine Urobilinogen Ur Leukocyte Esterase Urine Glucose Add-On Test Request DONE 10/07/21 12:25 WBC RBC Hgb Hct MCV MCH MCHC RDW Plt Count MPV Immature Gran % Neutrophils % Lymphocytes % Monocytes % Eosinophils % Basophils % Nucleated RBC % Absolute Neutrophils Absolute Lymphocytes Absolute Monocytes Absolute Eosinophils Absolute Basophils PT INR APTT Sodium Potassium Chloride Carbon Dioxide Anion Gap BUN Creatinine Estimated GFR/1.73 m2 Glucose Calcium Total Bilirubin AST ALT Alkaline Phosphatase Creatine Kinase Troponin I Total Protein Albumin TSH Urine Color Straw Urine Clarity Sl Cloudy Urine pH 7.0 Ur Specific [place] 1.015 Urine Protein Negative Urine Ketones Negative Urine Blood Negative Urine Nitrite Negative Urine Bilirubin Negative Urine Urobilinogen 0.2 Ur Leukocyte Esterase Negative Urine Glucose Negative Add-On Test Request Last Vital Signs Temp 36.2 C L 10/07/21 11:15 Pulse 48 L 10/07/21 12:45 Resp 14 10/07/21 12:45 BP 163/60 H 10/07/21 12:45 Pulse Ox 100 10/07/21 12:45
[2021-10-07 15:55] LABS: Source Nasal/Nares
--- NOTE | 2021-10-07 18:05 | NUR.NOTE ---
Nursing Note: Andree (daughter) came to visit after work. Andree states that she is burnt out and needs assistance with her mum's care. Andree wants her mum to return home. Tori needs assistance with ADLs and ambulation.
[2021-10-07 20:15] LABS: COVID-19 PCR Negative (Negative)
[2021-10-07] MEDS: Carbidopa 25/Levodopa 100 TAB PO (20:19)
[2021-10-08] VITALS (8 sets, daily range): BP systolic 115–173; BP diastolic 68–93; PULSE 57–76; RESP 14–18; TEMP 36.3–37.1; O2SAT 95–97
[2021-10-08] MEDS: Normal Saline Flush 10 ML SYR IVP (00:11)
--- NOTE | 2021-10-08 00:13 | NUR.NOTE ---
Nursing Note: Ordered Labetalol not administered at this time as HR currently 57 and BP 115/74. Unable to document not given in NOV.
[2021-10-08 06:53] LABS: Abs Immature Grans 0.03 10^3/uL (0.0-0.06); Absolute Basophil Count 0.05 10^3/uL (0.0-0.2); Absolute Eosinophil Count 0.14 10^3/uL (0.0-0.7); Absolute Monocyte Count 0.72 10^3/uL (0.1-0.8); Basophils % 0.5; Eosinophils % 1.3; HCT 48.2 % (36.0-46.0); Immature Grans % 0.3; Lymphocytes % 27.6; MCH 27.4 pg (27.0-33.0); MCHC 31.1 % (32.0-36.0); MCV 88.1 fL (80-95); MPV 10.8 fL (8.0-11.0); Monocytes % 6.6; Neutrophils % 63.7; Nucleated RBC 0 %; Platelet Count 320 10^3/uL (130-400); RBC 5.47 10^6/uL (3.93-5.22); RDW-SD 45.1 fL; WBC 10.87 10^3/uL (4.4-10.8)
[2021-10-08 06:55] LABS: Absolute Neutrophil Count 6.92 10^3/uL (1.2-6.7)
[2021-10-08 07:07] LABS: Anion Gap 8.2 mmol/L (3-11); BUN 17 mg/dL (7-18); CO2 27.8 mmol/L (21.0-32.0); CREATININE 0.7 mg/dL (0.55-1.02); Calcium 9.2 mg/dL (8.5-10.1); Chloride 105 mmol/L (98-107); Glucose 83 mg/dL (74-106); Potassium 3.5 mmol/L (3.5-5.1); Sodium 141 mmol/L (136-145)
[2021-10-08] MEDS: Atorvastatin 40 MG TAB 80 MG PO (07:59)
[2021-10-08] MEDS: Losartan 25 MG TAB PO (07:59)
[2021-10-08] MEDS: Aspirin E.C. 81 MG TABEC PO (07:59)
[2021-10-08] MEDS: Calcium 600mg/Vit D 200U TAB 1 TAB PO (07:59)
[2021-10-08] MEDS: Carbidopa 25/Levodopa 100 TAB PO ×3 (07:59→19:18)
[2021-10-08] MEDS: Cyanocobalamin 500 MCG TAB PO (07:59)
[2021-10-08] MEDS: Montelukast 10 MG TAB PO (08:00)
[2021-10-08] MEDS: Donepezil 5 MG TAB 10 MG PO (08:00)
--- NOTE | 2021-10-08 09:54 | IN_ITS ---
Date of service: 10/08/21 Time of Service: 09:54 PT Notes Visit Reasons: Syncope Physical Therapy Inpatient Initial Evaluation Date: 10/08/2019 Referring Doctor: Kinza Lu NP PT Orders: PT CONSULT: Eval/treat Precautions: Fall. Standard. Activity as tolerated. Patient Profile/Admitting Diagnosis: Tori is a 76-year-old female who presented to the ED on 10/07/2021 due to a unwitnessed fall and difficulty expressing self. Patient is diagnosed with syncopal episode, closed head injury, dementia due to Parkinson's disease with behavioral disturbance, essential hypertension, hyperlipidemia. 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 Patient states that daughter Andree helps with anything she needs. She adds however that time he works during the day. She is independent with all mobility ADL performance. Has a front wheeled walker at home Equipment Owned/DME: [facility] Subjective: Agreeable to PT consult. Reports discomfort in both legs with weight bearing but she clarifies that they have gotten better compared to when she came in to the hospital. Denies headache, chest pain, and lightheadedness throughout session. Objective: General Observation: Seated on chair. Swelling to B legs and feet with R >> L. Mild erythema to B legs with R >> L. Mental Status: Alert and oriented as to herself. Goes in and out of lucid moments. Redirectible. Able to pay attention, focus, and respond appropriately. Pain: Mild ache in B legs ROM: Right Upper Extremity: Shoulder Flexion WFL. Shoulder abduction WFL. Elbow flexion WFL. Wrist flexion WFL. Functional opening and closing of hand WFL. Left Upper Extremity: Shoulder Flexion WFL. Shoulder abduction WFL. Elbow flexion WFL. Wrist flexion WFL. Functional opening and closing of hand WFL. Right Lower Extremity: Hip flexion WFL. Hip abduction WFL. Knee flexion WFL. Ankle dorsiflexion WFL. Ankle plantarflexion WFL. Left Lower Extremity: Hip flexion WFL. Hip abduction WFL. Knee flexion WFL. Ankle dorsiflexion WFL. Ankle plantarflexion WFL. Strength: Right Upper Extremity: Shoulder flexors 4-/5. Shoulder abductors 4-/5. Elbow flexors 4-/5. Elbow extensors 4-/5. Director Revenue strong. Left Upper Extremity: Shoulder flexors 4-/5. Shoulder abductors 4-/5. Elbow flexors 4-/5. Elbow extensors 4-/5. Director Revenue strong. Right Lower Extremity: Hip flexors 3/5. Hip abductors 3/5. Knee flexors 4-/5. Knee extensors 4-/5. Ankle dorsiflexors 4-/5. Ankle plantarflexors 4-/5. Left Lower Extremity: Hip flexors 3/5. Hip abductors 3/5. Knee flexors 4-/5. Knee extensors 4-/5. Ankle dorsiflexors 4-/5. Ankle plantarflexors 4-/5. Bed Mobility/Transfers: Sit to stand with contact-guard assist with moderate cues for hand placement Stand to sit with contact-guard assist with moderate cues for hand placement Bed to reclining chair with with contact-guard assist with moderate cues for hand placement Gait: Instructed patient with level surface ambulation of 250 feet requiring contact guard assist. Gabriela decreased. Step height decreased. Step length decreased. Reports minimal pain with weight bearing. Balance: Static Sitting: Normal Dynamic Sitting: Normal Static Standing: Fair Dynamic Standing: Fair Special Tests: Mobility Limitations Standardized Measure [facility] 6 clicks Basic Mobility Inpatient Short Form: Raw Score: 20 CMS Score: 36% deficit Informed Consent/Education: Patient was instructed in purpose of PT consult and plan of care. Agreeable to proceed with established PT POC to achieve personal goals. Assessment: Tori demonstrates functional mobility decline requiring assistance of 1 in the use of a front wheeled walker for all mobility ADL performance. Patient presents with clinical signs and symptoms consistent with current/admitting diagnoses that have resulted to mobility limitations, gait instability, generalized weakness, and overall ADL decline as demonstrated by t he following impairment level findings: 1. Decreased strength to B UE/LE major muscle groups 2. Impaired standing balance 3. Impaired activity tolerance 5. Shortness of breath 6. Swelling in the legs and feet Impairments are contributing to the following functional limitations: 1. Decline in transfer skills 2. Difficulty with ambulation without assistive device and physical assistance 3. Increased completion time for mobility ADL performance 4. Increased risk for falls 5. Difficulty with managing steps alone safely Patient is assessed as a 86314 moderate complexity based on the following: History: 76-year-old female with past medical history as indicated above Examination: Demonstrable impairment in strength, balance, and mobility level with underlying impairments and functional limitations as exhibited above as well as deficit score of 36% utilizing the [facility] Mobility Inpatient Short Form Presentation: Evolving Decision Makin moderate complexity complexity Goals: Goals X1 week 1. Supine-Sit independent 2. Sit-Supine independent 3. Sit-Stand independent 4. Stand-Sit independent with FWW 5. Bed-Chair independent with FWW 6. Chair-Bed independent with FWW 7. Supervision gait on level surface with use of FWW for at least 300 feet without report of pain nor dyspnea 8. Good static and dynamic standing balance/tolerance Plan of Care/Treatment Plan: 1-2x/day, 7 days/week x 1 week. Plan of care has been reviewed with the INSPECTOR BICYCLE providing the service under Physical Therapy direction. Initiate Physical Therapy intervention for pain management as needed, strengthening, bed mobility, transfers, gait, stairs, balance training, and use of assistive device. DISCHARGE RECOMMENDATIONS: [] Home with no services [] [] Home with services [specify] [] Home with outpatient PT [] [] SNF for continued rehabilitation [] [] Wireless Store Manager Care [] [X] SNF vs LTC vs SKILLED NURSING based on ability to participate and progress TREATMENT CODE/TIME: 54265 x 29 minutes beginning at 9:54 AM. Thank you for the opportunity to participate in the care of this patient. Karla Rene PT, DPT, CLT [facility] [place], [place]
[2021-10-08] MEDS: Potassium Chloride 20 MEQ TABCR PO ×3 (10:25→17:02)
--- NOTE | 2021-10-08 13:05 | PT.INTREAT ---
Date of service: 10/08/21 Time of Service: 13:05 PT Notes Visit Reasons: Syncope Physical Therapy Inpatient Treatment Note Date: 10/08/2019 Precautions: Fall. Standard. Activity as tolerated. Subjective: Agreeable to PT consult. Reports discomfort in both legs with weight bearing but she clarifies that they have gotten better compared to when she came in to the hospital. Denies headache, chest pain, and lightheadedness throughout session. Objective: General Observation: Seated on chair. Swelling to B legs and feet with R >> L. Mild erythema to B legs with R >> L. Mental Status: Alert and oriented as to herself. Goes in and out of lucid moments. Redirectible. Able to pay attention, focus, and respond appropriately. Pain: Mild ache in B legs Bed Mobility/Transfers: Sit to stand with contact-guard assist with moderate cues for hand placement Stand to sit with contact-guard assist with moderate cues for hand placement Bed to reclining chair with with contact-guard assist with moderate cues for hand placement Gait: Instructed patient with level surface ambulation of 200 feet +200 ft requiring standby assist. Gabriela decreased. Step height decreased. Step length decreased. Did not report any leg pain. Much more able to fall use for safe walking. Balance: Static Sitting: Normal Dynamic Sitting: Normal Static Standing: Fair Dynamic Standing: Fair Assessment: Tori demonstrates functional mobility decline requiring assistance of 1 in the use of a front wheeled walker for all mobility ADL performance. Word finding difficulty limiting ability to communicate but is able to follow instrtcutions. DISCHARGE RECOMMENDATIONS: [] Home with no services [] [] Home with services [specify] [] Home with outpatient PT [] [] SNF for continued rehabilitation [] [] Custodial Care [] [X] SNF vs LTC vs [facility] based on ability to participate and progress. May also benefit from 11/04 care at home. TREATMENT CODE/TIME: 05468 x 15 minutes, 111750m 14 minutes beginning at 13:05 PM
--- NOTE | 2021-10-08 16:51 | INITIAL_ITS ---
- If Service Date Differs Date of service: 10/08/21 Time of Service: 16:51 Care Management Initial Assess REASON FOR HOSPITALIZATION:: Syncope PAST MEDICAL HISTORY/PAST SURGICAL HISTORY:: Medical History . Thyroid nodule. Benign. Surgical History . History of section. S/P colonoscopy (03/18/15) PREVIOUS FUNCTIONAL STATUS/SOCIAL/FAMILY SUPPORTS:: Resides alone in [place]. Daughter Jasmin reports she is the only support person and DPOA. Tori struggles with recent falls and her and her daughter reports seeking increased service supports since June of last year. CURRENT FUNCTIONAL STATUS:: Tori is sitting up in her chair, visiting with her daughter. She is friendly in interaction. Neither Tori or her daughter are agreeable to considering SNFs at this time, they advocate for returning home, CM reviews community based supports. ADVANCE DIRECTIVES:: DPOA: Jasmin Has patient been provided with info about the portal/API?: Yes Did the patient sign up for the portal?: No CODE STATUS:: Full Code INSURANCE COVERAGE / FINANCIAL ISSUES:: Medicare. [place] CURRENT HOME/COMMUNITY SERVICES/EQUIPMENT:: None, currently. PRIMARY CARE PHYSICIAN:: Miladis Medina POTENTIAL DISCHARGE NEEDS:: Palliative Consult, [facility], follow up appointments, orders for [facility]. PATIENT/FAMILY EDUCATION NEEDS:: Review of community based supports, discharge recommendations. Jasmin reports her mother is not eligible for [place] [facility] med[place] and is not agreeable to any [id number] services such as assisted living or SNF. She is agreeable to private care providers (resources provided) and [facility]. ANTICIPATED BARRIERS TO DISCHARGE:: None identified. TRANSPORTATION:: Via private vehicle with her daughter. PLAN:: Tori will return home with her daughter, Jasmin. Referral sent to [facility] to re-connect to day services, new orders coordinated with [facility]: RN (med mgmt), PT (fall reduction), OT (personal care), WEBFOCUS DEVELOPER-care attendent, COMMUNITY AMBASSADOR ([place] [facility] [place] [facility] planning and service connection), Palliative referral for code status, goals of care with equipment operator intermodal yard planning and evaluation for Hospice.
--- NOTE | 2021-10-08 17:20 | W.PM.PROGNOT ---
Date of Service Date of service: 10/08/21 Time of Service: 17:20 Assessment and Plan Assessment and plan (1) Syncopal episodes: Status: Chronic Assessment and plan: longstanding issue, followed by neurology at [facility], MRI unchanged. was previously on cardiac event recorder with some SVT, no other dysrhythmias. will place on telemetry. orthostatic vitals fall precaution. acute CVA ruled out. (2) Closed head injury: Status: Acute Assessment and plan: no acute intracranial injury monitor closely (3) 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: Status: Chronic Assessment and plan: continue home medication followed by neurology at [facility] anticipate acute delirium with admission. (4) Essential hypertension: Status: Chronic Assessment and plan: blood pressures elevated. will continue home medications and monitor, adjust as needed (5) Hyperlipidemia: Status: Chronic Assessment and plan: continue statin. (6) Discharge planning issues: Status: Acute Assessment and plan: case management will be following. ? needs placement PT consulted discussed with Dr Monique Subjective Subjective Patient reports: no new complaints, feels better, tolerating liquids well, tolerating a regular diet, voiding w/o difficulty and afebrile; denies shortness of breath Exam Const General: cooperative, comfortable and no acute distress Nutritional Appearance: average body habitus and well nourished Orientation: alert, awake, oriented to person and confused HENMT Head: normal to inspection, normocephalic and atraumatic Mouth: oral mucosae normal Resp Effort & Inspection: normal respiratory effort Auscultation: clear to auscultation bilaterally Cardio Rate: regular rate Rhythm: regular rhythm Skin General skin exam: no rashes or lesions noted Neuro General: tone normal, no focal motor deficits and other (gait assisted, walker.) Cognition: abnormal cognition Speech: abnormal speech stuttering Gait: gait assisted Method: walker Motor: muscle tone normal throughout and tremor Objective Last Vital Signs Temp 37.1 C 10/08/21 15:09 Pulse 75 10/08/21 15:09 Resp 14 10/08/21 15:09 BP 164/74 H 10/08/21 15:09 Pulse Ox 97 10/08/21 15:09 Laboratory Results - last 24 hr 10/07/21 10/08/21 10/08/21 15:17 06:24 06:24 WBC 10.87 H RBC 5.47 H Hgb 15.0 Hct 48.2 H MCV 88.1 MCH 27.4 MCHC 31.1 L RDW 14.0 Plt Count 320 MPV 10.8 Immature Gran % 0.3 Neutrophils % 63.7 Lymphocytes % 27.6 Monocytes % 6.6 Eosinophils % 1.3 Basophils % 0.5 Nucleated RBC % 0 Absolute Neutrophils 6.92 H Absolute Lymphocytes 3.00 Absolute Monocytes 0.72 Absolute Eosinophils 0.14 Absolute Basophils 0.05 Sodium 141 Potassium 3.5 Chloride 105 Carbon Dioxide 27.8 Anion Gap 8.2 BUN 17 Creatinine 0.7 Estimated GFR/1.73 m2 >= 60.00 Glucose 83 Calcium 9.2 SARS-CoV-2 (PCR) Negative
[2021-10-09 03:16] VITALS: BP 173/77; PULSE 78; RESP 14; TEMP 36.8; O2SAT 94
[2021-10-09 07:35] VITALS: BP 161/82; PULSE 67; RESP 14; TEMP 36.9; O2SAT 97
[2021-10-09] MEDS: Atorvastatin 40 MG TAB 80 MG PO (08:02)
[2021-10-09] MEDS: Aspirin E.C. 81 MG TABEC PO (08:02)
[2021-10-09] MEDS: Cyanocobalamin 500 MCG TAB PO (08:03)
[2021-10-09] MEDS: Calcium 600mg/Vit D 200U TAB 1 TAB PO (08:03)
[2021-10-09] MEDS: Carbidopa 25/Levodopa 100 TAB PO ×2 (08:03→14:34)
[2021-10-09] MEDS: Montelukast 10 MG TAB PO (08:04)
[2021-10-09] MEDS: Losartan 25 MG TAB PO (08:04)
[2021-10-09] MEDS: Donepezil 5 MG TAB 10 MG PO (08:04)
--- NOTE | 2021-10-09 09:44 | INDS_ITS ---
Date of service: 10/09/21 Time of Service: 09:44 PT Notes Visit Reasons: Syncope Physical Therapy Inpatient Discharge Summary Date: 10/09/2019 Date of service: 10/08/2020 through 10/09/2021 Referring Doctor: Kinza Lu NP PT Orders: PT CONSULT: Eval/treat Precautions: Fall. Standard. Activity as tolerated. Patient Profile/Admitting Diagnosis: Tori is a 76-year-old female who presented to the ED on 10/07/2021 due to a unwitnessed fall and difficulty expressing self. Patient is diagnosed with syncopal episode, closed head injury, dementia due to Parkinson's disease with behavioral disturbance, essential hypertension, hyperlipidemia. 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 Patient states that daughter Andree helps with anything she needs. She adds however that time he works during the day. She is independent with all mobility ADL performance. Has a front wheeled walker at home Equipment Owned/DME: FWW Subjective: Agreeable to PT session. Denies headache, chest pain, and lightheadedness throughout session. Objective: General Observation: Seated on chair. Swelling to B legs and feet with R >> L. Mild erythema to B legs with R >> L. Mental Status: Alert and oriented as to herself. Goes in and out of lucid moments. Redirectible. Able to pay attention, focus, and respond appropriately. Pain: Denies ROM: Right Upper Extremity: Shoulder Flexion WFL. Shoulder abduction WFL. Elbow flexion WFL. Wrist flexion WFL. Functional opening and closing of hand WFL. Left Upper Extremity: Shoulder Flexion WFL. Shoulder abduction WFL. Elbow flexion WFL. Wrist flexion WFL. Functional opening and closing of hand WFL. Right Lower Extremity: Hip flexion WFL. Hip abduction WFL. Knee flexion WFL. Ankle dorsiflexion WFL. Ankle plantarflexion WFL. Left Lower Extremity: Hip flexion WFL. Hip abduction WFL. Knee flexion WFL. Ankle dorsiflexion WFL. Ankle plantarflexion WFL. Strength: Right Upper Extremity: Shoulder flexors 4-/5. Shoulder abductors 4-/5. Elbow flexors 4-/5. Elbow extensors 4-/5. Civil Engineering Specialist strong. Left Upper Extremity: Shoulder flexors 4-/5. Shoulder abductors 4-/5. Elbow flexors 4-/5. Elbow extensors 4-/5. Civil Engineering Specialist strong. Right Lower Extremity: Hip flexors 3/5. Hip abductors 3/5. Knee flexors 4-/5. Knee extensors 4-/5. Ankle dorsiflexors 4-/5. Ankle plantarflexors 4-/5. Left Lower Extremity: Hip flexors 3/5. Hip abductors 3/5. Knee flexors 4-/5. Knee extensors 4-/5. Ankle dorsiflexors 4-/5. Ankle plantarflexors 4-/5. Bed Mobility/Transfers: Sit to stand with supervision Stand to sit with supervision Bed to reclining chair with with supervision Gait: Instructed patient with level surface ambulation of 250 feet+ 250 feeet requiring contact supervision t. Gabriela decreased. Step height decreased. Step length decreased. Denies pain in B legs with weight bearing. Balance: Static Sitting: Normal Dynamic Sitting: Normal Static Standing: Fair Dynamic Standing: Fair Assessment: Patient presents with clinical signs and symptoms consistent with current/admitting diagnoses that have resulted to mobility limitations, gait instability, generalized weakness, and overall ADL decline as demonstrated by the following impairment level findings: 1. Decreased strength to B UE/LE major muscle groups 2. Impaired standing balance 3. Impaired activity tolerance 5. Shortness of breath 6. Swelling in the legs and feet Impairments are contributing to the following functional limitations: 1. Decline in transfer skills 2. Difficulty with ambulation without assistive device and physical assistance 3. Increased completion time for mobility ADL performance 4. Increased risk for falls 5. Difficulty with managing steps alone safely Goals: Goals X1 week 1. Supine-Sit independent NOT MET 2. Sit-Supine independent NOT MET 3. Sit-Stand independent NOT MET 4. Stand-Sit independent with FWW NOT MET 5. Bed-Chair independent with FWW NOT MET 6. Chair-Bed independent with FWW NOT MET 7. Supervision gait on level surface with use of FWW for at least 300 feet without report of pain nor dyspnea NOT MET 8. Good static and dynamic standing balance/tolerance NOT MET DISCHARGE RECOMMENDATIONS: [] Home with no services [] [X] Home with services patient will benefit from home health PT services in order to progress mobility level using least restrictive assistive ambulatory device, assess home safety, identify additional equipment needs, and establish a functional maintenance program that will increase ability of patient to remain at home. Will thrive well at home with 11/04 care. [] Home with outpatient PT [] [] SNF for continued rehabilitation [] [] Assisted Care [] [] SNF vs LTC vs [facility] based on ability to participate and progress. TREATMENT CODE/TIME: 91809 x 29 minutes beginning at 9:44 AM. Thank you for the opportunity to participate in the care of this patient. Karla Rene PT, DPT, CLT [facility] [place], [place]
--- NOTE | 2021-10-09 09:45 | CMDISCH_ITS ---
- If Service Date Differs Date of service: 10/09/21 Time of Service: 09:45 LACE Index Scoring Tool - Questions: Length of Stay (in days): 2 Acuity (Admit via E.D.?): Yes Comorbidities: Cerebrovascular Disease, Dementia E.D. Visits: 2 - Answers: Total Score: 12 Risk of Readmission: High Risk Care Management Discharge Reason for Hospitalization: Syncope Discharge Plan: Tori will return home with her daughter, Jasmin. Referral sent to [facility] to re-connect to day services, new orders coordinated with [facility]: RN (med mgmt), PT (fall reduction), OT (personal care), SOIL CONSERVATIONIST-care attendent, PHYSICIAN OFFICE ASSISTANT (senior living planning and service connection), Palliative referral for code status, goals of care with intermission coordinator planning and evaluation for Hospice. Patient/Family Education Needs: Review discharge instructions, discuss Ask Me Three. Services Needed at Discharge: Day Care (Referral to [facility] for [facility] ), DME Agency ([facility] ), Home Health Care Services (RN/PT/OT/SOIL CONSERVATIONIST/PHYSICIAN OFFICE ASSISTANT)
--- NOTE | 2021-10-09 09:45 | PDOC.CMDIS ---
- If Service Date Differs Date of service: 10/09/21 Time of Service: 09:45 LACE Index Scoring Tool - Questions: Length of Stay (in days): 2 Acuity (Admit via E.D.?): Yes Comorbidities: Cerebrovascular Disease, Dementia E.D. Visits: 2 - Answers: Total Score: 12 Risk of Readmission: High Risk Care Management Discharge Reason for Hospitalization: Syncope Discharge Plan: Tori will return home with her daughter, Jasmin. Referral sent to [facility] to re-connect to day services, new orders coordinated with [facility]: RN (med mgmt), PT (fall reduction), OT (personal care), CONVEYOR CONSOLE OPERATOR-care attendent, BUSINESS REPORTER (shelter planning and service connection), Palliative referral for code status, goals of care with head baggage porter planning and evaluation for Hospice. Patient/Family Education Needs: Review discharge instructions, discuss Ask Me Three. Services Needed at Discharge: Day Care (Referral to [facility] for [facility] ), DME Agency ([facility] ), Home Health Care Services (RN/PT/OT/CONVEYOR CONSOLE OPERATOR/BUSINESS REPORTER)
[2021-10-09 11:13] VITALS: BP 133/75; PULSE 70; RESP 14; TEMP 37.1; O2SAT 95
--- NOTE | 2021-10-09 13:20 | W.PM.DS.N ---
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: Status: Chronic (4) Essential hypertension: Status: Chronic (5) Hyperlipidemia: Status: Chronic Discharge Plan Disposition Patient Disposition: HOME W/HOME HEALTH SERVICE Condition: Stable Discharge Details Reason For Visit: Syncope Admit Date/Time: 10/07/21 14:48 Admit Provider: Barrington Monique Attending Provider: Barrington Monique [facility] Course: This is a 76 year old female with history of parkinsons dementia, syncopal episodes, followed by neurology at [facility], who presented to the ED by EMS after a syncopal episode where she was noted to have gargled speech, worse than her baseline. her work up in the ED included CT scan which was unremarkable so MRI ordered and found to have no findings to explain symptoms. Her labs, urine and rest of exam unremarkable. she was c/o right shoulder pain from fall and imaging shows no acute bony abnormality. Hospitalist was contacted to admit to med/surg for further monitoring and management. she continued to remain stable, normal vitals and no further syncope. She was evaluated by PT and it is felt she would benefit from home health services. she is being discharged with home health nursing, PT/OT and medical transcription editor. discharge discussed with Dr Monique. Home Meds and New Rx's Prescriptions: Continued aspirin 81 mg tablet,delayed release (DR/EC) 81 mg PO DAILY Qty: 90 RF: 4 cyanocobalamin (vitamin B-12) [Vitamin B-12] 500 mcg tablet 500 mcg PO DAILY Qty: 90 RF: 4 carbidopa-levodopa 25-100 mg tablet 2 tab PO TID RF: 0 donepezil 10 mg tablet 10 mg PO DAILY Qty: 90 RF: 4 atorvastatin 80 mg tablet 80 mg PO DAILY Qty: 90 RF: 4 losartan 25 mg tablet 25 mg PO DAILY Qty: 90 RF: 4 montelukast 10 mg tablet 10 mg PO DAILY Qty: 90 RF: 4 calcium carb,lactat-vitamin D3 200 mg calcium -250 unit tablet 1 tab PO DAILY RF: 0 Discharge Instructions Instructions: Syncope (DC) Stand Alone Forms: Nursing Discharge Form Referrals: Miladis Medina NP [Primary Care Provider] - (CALL FOR AN APPOINTMENT IN THE NEXT 2-3 WEEKS ) Activity:: Activity as Tolerated Equipment/Supplies:: No Equipment Needed Diet:: As Tolerated Discharge Orders Discharge Orders: Discharge Order (Routine); Ordered 10/09/21 Ordered By: Kinza Lu DS: Summary Time Spent with Patient providing and/or coordinating discharge services: Less than 30 minutes Status at Discharge Functional status at discharge: uses cane/walker Overall status at discharge: patient is progressing back to baseline Mental Status: mental status grossly normal Speech and Movement: speech and movement normal Mood: congruent mood Affect: normal affect Exam Const General: cooperative, comfortable and no acute distress Nutritional Appearance: average body habitus and well nourished Orientation: alert, awake, oriented to person and confused HENMT Head: normal to inspection, normocephalic and atraumatic Mouth: oral mucosae normal Resp Effort & Inspection: normal respiratory effort Auscultation: clear to auscultation bilaterally Cardio Rate: regular rate Rhythm: regular rhythm Skin General skin exam: no rashes or lesions noted Neuro General: tone normal, no focal motor deficits and other (gait assisted, walker.) Cognition: abnormal cognition Speech: abnormal speech stuttering Gait: gait assisted Method: walker Motor: muscle tone normal throughout and tremor Psych Mental Status: mental status grossly normal Speech and Movement: speech and movement normal Mood: congruent mood Affect: normal affect DS: Data Vitals/I&O Vitals and I&O: Vital Signs Temperature 37.1 C 10/09/21 11:13 Temperature Source Tympanic 10/09/21 11:13 Pulse 70 10/09/21 11:13 Pulse Rhythm Regular 10/09/21 10:11 Pulse 80 10/07/21 16:01 Respiratory Rate 14 10/09/21 11:13 Respiratory Effort 10/09/21 10:11 Respiratory Depth Normal 10/09/21 10:11 Respiratory Pattern Normal 10/09/21 10:11 Blood Pressure 133/75 10/09/21 11:13 Blood Pressure Mean 97 10/07/21 16:01 Blood Pressure Position Supine 10/07/21 11:15 Pulse Oximetry 95 10/09/21 11:13 Oxygen Delivery Method Room Air 10/09/21 11:13 Oxygen Flow Rate 0 10/09/21 11:13 Pain Level 0 10/09/21 11:13 Comment 10/08/21 00:02 Intake & Output 10/08/21 10/09/21 10/09/21 23:59 11:59 23:59 Intake Total 720 / 960 Output Total 1350 / 1350 1450 / 1750 300 / 1750 Balance -630 / -390 -1450 / -1750 -300 / -1750 Intake: Oral 720 / 960 Output: Urine 1350 / 1350 1450 / 1750 300 / 1750 Other: Urine Color Yellow Yellow Yellow Urine Appearance Clear Clear Clear Urine Odor Normal None None Comment Incontinent in brief & voided in toilet Voiding Methods Bedside Commode Bedside Commode Bedside Commode [facility] All Active Problems (Updated 10/07/21 @ 14:56 by Kinza Lu NP) Discharge planning issues (Acute) Syncopal episodes (Chronic) Closed head injury (Acute) 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 Sister No problems noted. Brother , 42 of [place] Heart disease Myocardial infarction Brother , at 49 of [place] Heart disease Myocardial infarction Brother , at 58 of [place] Heart disease Myocardial infarction Brother , at 61 of [place] Heart disease Myocardial infarction Brother , at 80 of fall No problems noted. Son , at 45 of [place] Heart disease Myocardial infarction Daughter No problems noted. Maternal Grandfather No problems noted. Maternal Grandmother No problems noted. Paternal Grandfather No problems noted. Paternal Grandmother No problems noted. Social History Smoking/Tobacco Use Status: Never Smoking risk assessment performed?: Yes Alcohol Intake: current Alcohol Intake frequency: a few times a month Drug use: Never Substance use type: does not use Counseling given: No Household members: other Details: Camper until get apartment by June Housing: other Details: Camper until get apartment by June Pets and animals: No Sexually active: No Do you think of yourself as: straight/heterosexual Current gender identity: female What is your relationship status?: How often do you talk on the phone with friends or family?: three or more times per week How often do you get together with friends or relatives?: three or more times per week Do you belong to any clubs or organized social groups?: no Panel score (0-1 are the most socially isolated patients): 1 What type of physical activity do you participate in: walking Frequency: other Details: Some Shivani/Episcopalian: Catholic Seatbelt use: always Drive intox or ride w/intox local [place] truck driver: No Do you feel safe at home: Yes Do you feel safe in your relationship?: Yes History History 2 Para 2 Hx # Term Pregnancies Multiple births Hx # Pregnancies Ectopic pregnancies AB induced Hx Number of Living Children 1 AB spontaneous
--- NOTE | 2021-10-09 14:38 | PDOC.HHF2F ---
Home Health Certification Home Health Certification: 1. Encounter Date and Reason I certify that Tori Krause was seen by Kinza Lu on 10/09/21 and that I had a [id number] encounter with this patient that meets the physician face to face encounter requirements. 2. Clinical Findings Supporting Skilled Need and Homebound Status I certify that home health services are medically necessary, include either intermittent fci and/or physical/speech therapy, and that this patient is homebound in that absences from the home require considerable and taxing effort and are infrequent or of short duration, or are attributable to the need to receive medical care. [X] (a) Attached documentation from encounter provides clinical findings supporting skilled need and homebound status (including what assistance patient requires to leave the home). The encounter with the patient was in whole, or in part, for the following medical condition, which is the primary reason for home health care: Syncope Fdc: routine nursing for evaluation, medication oversight, care Physical and occupational Therapy: routine evaluation, safety, recommendations VETERINARY X RAY OPERATOR: routine oversight Homebound: patient unable to safely leave the house unattended d/t cognitive impairment, unsteady gait. 3. Certification and Authentication I certify that I composed the above information based on my clinical judgement relating to this patient's medical condition and, if applicable, clinical findings communicated to me by the NPP or inpatient physician who performed the Home Health Referral. All further orders will be obtained through Miladis Mendoza NP (Community Based Physician - PCP)
[2021-10-09 15:06] VITALS: BP 131/80; PULSE 81; RESP 15; TEMP 37.2; O2SAT 96
== END 2021-10-09 16:45 | disposition home health service (06) ==
LOC: ER 14:19 → MS 16:13
PROVIDERS: Nurse Practitioner Acute Care; Physician Assistant; Admitting Provider Family Medicine; Emergency Provider Student in an Organized Health Care Education/Training Program; PCP Nurse Practitioner Family; Visit Provider Family Medicine
DX: R55 Syncope and collapse (principal); S09.90XA Unspecified injury of head, initial encounter; G20 Parkinson's disease; F02.80 Dementia in other diseases classified elsewhere, unspecified severity, without behavioral disturbance, psychotic disturbance, mood disturbance, and anxiety; I10 Essential (primary) hypertension; E78.5 Hyperlipidemia, unspecified; Z79.899 Other long term (current) drug therapy; I67.9 Cerebrovascular disease, unspecified; R73.03 Prediabetes; M25.511 Pain in right shoulder; W19.XXXA Unspecified fall, initial encounter; I47.1 Supraventricular tachycardia
CPT/HCPCS: 36415; 70544; 70547; 80048; 80053; 82550; 87635; 93005; 96374; 97110; 97162; 97530; 99285; 70450; 70551; 71045; 72125; 72170; 73030; 81003; 84443; 84484; 85025; 85610; 85730; 93010; 99217; 99219; 99226; G0378; J0131

== ENCOUNTER 2021-10-16 10:03 | Outpatient (REF) | payer MEDICARE, SELFPAY ==
[2021-10-16 11:06] LABS: Bilirubin Negative (Negative); Blood Negative (Negative); Clarity Clear (Clear); Glucose Negative (Negative); Ketones Negative (Negative); Leukocyte Esterase Trace (Negative); Nitrite Negative (Negative); Specific Gravity 1.015 (1.005-1.025); Urobilinogen 0.2 EU/dL (Up TO 0.2)
[2021-10-16 11:14] LABS: Bacteria Negative HPF (Negative); C & S Indicated? Yes; Casts Negative LPF (Negative); Crystals Negative HPF (Negative); Epithelial Cells Few HPF (Negative); Mucus Negative (Negative); RBC Negative HPF (0-2); WBC 0-2 HPF (0-5)
== END 2021-10-16 10:04 | disposition home or self-care (01) ==
LOC: LBN 10:03
PROVIDERS: PCP Nurse Practitioner Family; Visit Provider Nurse Practitioner Family
DX: N39.0 Urinary tract infection, site not specified (principal)
CPT/HCPCS: 81003; 81015; 87086

== ENCOUNTER 2021-11-05 18:17 | Outpatient (REF) | payer MEDICARE, SELFPAY ==
[2021-11-07 11:55] LABS: COVID-19 RT-PCR UVMMC Result Negative (Negative)
== END 2021-11-05 18:18 | disposition home or self-care (01) ==
LOC: LBN 18:17
PROVIDERS: PCP Nurse Practitioner Family; Visit Provider Nurse Practitioner Family
DX: Z20.822 Contact with and (suspected) exposure to COVID-19 (principal); J06.9 Acute upper respiratory infection, unspecified; R11.2 Nausea with vomiting, unspecified; M54.9 Dorsalgia, unspecified
CPT/HCPCS: U0003

== ENCOUNTER 2021-12-03 09:17 | Inpatient (IN) | payer MEDICARE, SELFPAY ==
[2021-12-03] VITALS (7 sets, daily range): BP systolic 142–177; BP diastolic 57–79; PULSE 64–78; RESP 16–18; TEMP 36.9–38.4; O2SAT 97–98
--- NOTE | 2021-12-03 09:30 | DI.RAD_ITS ---
Exam(s) XR ANKLE RT COMPLETE EXAM: XR ANKLE RT COMPLETE CLINICAL HISTORY: Recurrent falls, pain. TECHNIQUE: 2D digital imaging was performed. COMPARISON: CR RIGHT ANKLE 2 VIEW from 03/24/2012 FINDINGS: 3 views Mild soft tissue swelling but no evidence of fracture or widening of the mortise. Talar dome appears unremarkable. No obvious degenerative changes nor osseous tarsal coalition. Moderate size inferior calcaneal spur at as well as calcification at the posterior calices insertion. There is indistinctn ess of the anterior border of the Achilles tendon and abnormal density within the pre Achilles fat pa d. No radiopaque foreign body. No osseous lesions. There is no radiographic evidence of osteomyeli tis. IMPRESSION: No acute osseous findings. There is diffuse subcutaneous edema. Also abnormal appearance of the posterior soft tissues at the level of the Achilles tendon and pre Ac hilles fat pad DATA REPOSITORY: RADIATION DOSE DELIVERED:
--- NOTE | 2021-12-03 09:30 | RT.EKG_ITS ---
APPROVED REPORT Exam: Resting ECG Reason for Exam: recurrent falls Patient Location: E HR:60 bpm ECG Measurements Heart Rate 60 AXIS CA 121 P 59 QRSd 86 QRS 55 QT 407 T 32 QTc 405 Conclusion Sinus rhythm...normal P axis, V-rate 60- 99 Artifact present
--- NOTE | 2021-12-03 09:35 | ED.GENADUL_ITS ---
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, Syncopal episodes, Back pain, Recurrent falls Primary Care Provider: Miladis Medina ED Provider: Jacobo Samuel Home Meds and New Rx's Prescriptions: No Action aspirin 81 mg tablet,delayed release (DR/EC) 81 mg PO DAILY Qty: 90 4RF cyanocobalamin (vitamin B-12) [Vitamin B-12] 500 mcg tablet 500 mcg PO DAILY Qty: 90 4RF carbidopa-levodopa 25-100 mg tablet 2 tab PO TID 0RF donepezil 10 mg tablet 10 mg PO DAILY Qty: 90 4RF atorvastatin 80 mg tablet 80 mg PO DAILY Qty: 90 4RF losartan 25 mg tablet 25 mg PO DAILY Qty: 90 4RF montelukast 10 mg tablet 10 mg PO DAILY Qty: 90 4RF calcium carb,lactat-vitamin D3 200 mg calcium -250 unit tablet 1 tab PO DAILY 0RF Medical Decision Making This is a pleasant and delightful 76-year-old female with a history of Parkinson's. She lives alone with the help of caregivers to leave the home approximately 4 PM and return at 8 AM. Patient states she had normal evening last night and got herself into bed. She believes while getting up to try and go to the bathroom from her recliner chair, she fell off the side and became immobilized in between the chair and the table. Caregivers found her this morning and pressed her medic alert button with response by EMS. Patient was transferred uneventfully. She complained primarily of lumbar pain but also left and right posterior thorax pain. She states she has had at least 3 falls this week. She has not had any focal neurologic deficits and has not been acutely ill. Patient arrives to ER alert and interactive with a blood pressure 154/57, pulse 64. She is afebrile and oxygenating normally. She has bruising of the left chest posteriorly & is tender in the posterior thorax. The cervical and thoracic spine exam is unremarkable but she does demonstrate tenderness of the lumbar spine as well as mild tenderness of the right ankle. Patient IV access established, given parenteral analgesia, screening labs, EKG obtained and she is referred for advanced imaging. Patient's labs note a white count of 13, hematocrit 46, platelets 336. Chemistries are reassuring as is renal function and LFTs. Troponin negative. Urinalysis without evidence of UTI. Imaging of head, cervical spine, chest, abdomen and pelvis, thoracic and lumbar spine does not reveal acute traumatic injury. Please see the formal reports. X-ray of the right ankle was obtained with soft tissue swelling present but no evidence of fracture. I reexamined the patient after analgesia and she is comfortable while lying in bed. With movement or attempts at sitting up she has significant increase in her lumbar pain and is unable to sit up on her own Given her recurrent falls, generalized weakness, dementia, Parkinson's disease, and now inability to perform needed activities of daily living, I do feel she merits admission to the hospital. Patient and her daughter states she wishes to be full code. HPI General Mode of arrival: ambulatory . Date/Time Provider Initiated Documentation: 12/03/21 09:56 . Limitations to Documentation: no limitations . Information obtained by: patient . History of Present Illness 76 year old F presents to the emergency department with the chief complaint of Low back pain and recurrent falls, described as moderate, Quality is described as dull, and is localized to the chest, back, left and right. Patient reports no radiation. Patient started experiencing this hour(s) and it has been intermittent. improves with Rest improves symptom(s), Movement worsens symptoms . Patient notes weakness; denies chest pain, headaches, nausea/vomiting and syncope. Patient did receive the following treatments prior to arrival, none Related Data Home Medications Medication Instructions Recorded Confirmed aspirin 81 mg tablet,delayed 81 mg PO DAILY #90 tab 04/04/20 12/03/21 release cyanocobalamin (vitamin B-12) 500 500 mcg PO DAILY #90 tab 04/04/20 12/03/21 mcg tablet (Vitamin B-12) carbidopa 25 mg-levodopa 100 mg 2 tab PO TID tab 12/26/20 12/03/21 tablet donepezil 10 mg tablet 10 mg PO DAILY #90 tab 12/26/20 12/03/21 calcium carb and lactate 200 1 tab PO DAILY 03/07/21 12/03/21 mg-vitamin D3 6.25 mcg (250 unit) tablet atorvastatin 80 mg tablet 80 mg PO DAILY #90 tab 04/22/21 12/03/21 losartan 25 mg tablet 25 mg PO DAILY #90 tab 04/22/21 12/03/21 montelukast 10 mg tablet 10 mg PO DAILY #90 tab 04/22/21 12/03/21 Previous Rx's Medication Instructions Recorded aspirin 81 mg tablet,delayed 81 mg PO DAILY #90 tab 04/04/20 release cyanocobalamin (vitamin B-12) 500 500 mcg PO DAILY #90 tab 04/04/20 mcg tablet (Vitamin B-12) donepezil 10 mg tablet 10 mg PO DAILY #90 tab 12/26/20 atorvastatin 80 mg tablet 80 mg PO DAILY #90 tab 04/22/21 losartan 25 mg tablet 25 mg PO DAILY #90 tab 04/22/21 montelukast 10 mg tablet 10 mg PO DAILY #90 tab 04/22/21 Allergies Allergy/AdvReac Type Severity Reaction Status Date / Time No Known Allergies Allergy Verified 12/03/21 09:33 General Stated Complaint: Trauma SKY: 3 Review of Systems Narrative: Denies loss of consciousness. States she has had at least 2-3 other falls from their recliner this week. Complains of right ankle pain, right and left posterior thorax pain, lumbar pain. No head or neck pain. 8 systems were reviewed and otherwise negative. 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 Head/neck imaging, heart monitor with no identifiable cause Hyperlipidemia (Chronic) Essential hypertension (Chronic) Medical History Thyroid nodule Benign Surgical History History of section S/P colonoscopy (03/18/15) Family History Mother , 71 Depression Stroke CKD (chronic kidney disease) Father , 68 Heart disease Myocardial infarction Parkinson disease Sister No problems noted. Sister No problems noted. Brother , 42 of [place] Heart disease Myocardial infarction Brother , at 49 of [place] Heart disease Myocardial infarction Brother , at 58 of [place] Heart disease Myocardial infarction Brother , at 61 of [place] Heart disease Myocardial infarction Brother , at 80 of fall No problems noted. Son , at 45 of [place] Heart disease Myocardial infarction Daughter No problems noted. Maternal Grandfather No problems noted. Maternal Grandmother No problems noted. Paternal Grandfather No problems noted. Paternal Grandmother No problems noted. Social History Smoking/Tobacco Use Status: Never Smoking risk assessment performed?: Yes Alcohol Intake: current Alcohol Intake frequency: a few times a month Drug use: Never Substance use type: does not use Counseling given: No Household members: other Details: Camper until get apartment by June Housing: other Details: Camper until get apartment by June Pets and animals: No Sexually active: No Do you think of yourself as: straight/heterosexual Current gender identity: female What is your relationship status?: How often do you talk on the phone with friends or family?: three or more times per week How often do you get together with friends or relatives?: three or more times per week Do you belong to any clubs or organized social groups?: no Panel score (0-1 are the most socially isolated patients): 1 What type of physical activity do you participate in: walking Frequency: other Details: Some Shivani/Yazidism: Mu-Ism Seatbelt use: always Drive intox or ride w/intox deliver driver: No Do you feel safe at home: Yes Do you feel safe in your relationship?: Yes History History 2 Para 2 Hx # Term Pregnancies Multiple births Hx # Pregnancies Ectopic pregnancies AB induced Hx Number of Living Children 1 AB spontaneous Exam Narrative Exam Narrative: GEN: awake, alert, oriented 3. Pleasant, well groomed, interactive. HEAD: Normocephalic, atraumatic ENT: Mucous membranes dry, oropharynx unremarkable, External ear exam unremarkable EYES: PERRL, EOMI NECK: Full ROM, no LISA, no menigismus, no posterior tenderness, step-off or deformity CHEST/RESP: Left posterior thorax with small area of bruising, tender right posterior chest without bruising, no posterior thoracic step-off, tenderness or deformity. Clear to auscultation bilateral, no wheeze/rhonchi/rales CARDIOVASCULAR: RRR, no murmur, rub adriel. 2+ Rad pulse bilateral ABDOMEN: Soft, nontender, no mass. +Bowel sounds Back: Lumbar midline tenderness to palpation, no pelvic rock. EXT: Full ROM, no edema, no rash. Right ankle is tender to palpation without deformity or bruising. Neuro: Grossly normal neurologic exam, conversant, interactive. Psych: Speech fluent, thoughts congruent, affect normal Course Vital Signs Vital signs: Vital Signs Temperature 37.1 C 12/03/21 09:25 Pulse 64 12/03/21 09:25 Respiratory Rate 16 12/03/21 09:25 Blood Pressure 154/57 H 12/03/21 09:25 Pulse Oximetry 98 12/03/21 09:25 Temperature 37.1 C 12/03/21 09:25 Temperature Source Temporal Artery Scan 12/03/21 09:25 Pulse 64 12/03/21 09:25 Respiratory Rate 16 12/03/21 09:25 Respiratory Effort Non-Labored 12/03/21 09:30 Blood Pressure 154/57 H 12/03/21 09:25 Blood Pressure Position Supine 12/03/21 09:25 Pulse Oximetry 98 12/03/21 09:25 Oxygen Delivery Method Room Air 12/03/21 09:25 Oxygen Flow Rate 0 12/03/21 09:25 Pain Level 10 12/03/21 09:25
[2021-12-03 09:53] LABS: Abs Immature Grans 0.04 10^3/uL (0.0-0.06); Absolute Eosinophil Count 0.14 10^3/uL (0.0-0.7); Absolute Monocyte Count 1.33 10^3/uL (0.1-0.8); Basophils % 0.4; HCT 46.6 % (36.0-46.0); HGB 14.7 g/dL (11.2-15.7); Immature Grans % 0.3; Lymphocytes % 23.6; MCH 27.7 pg (27.0-33.0); MCHC 31.5 % (32.0-36.0); MCV 87.8 fL (80-95); MPV 10.4 fL (8.0-11.0); Monocytes % 9.7; Nucleated RBC 0 %; Platelet Count 336 10^3/uL (130-400); RBC 5.31 10^6/uL (3.93-5.22); RDW 14.1 % (11.7-14.6); RDW-SD 45.4 fL; WBC 13.66 10^3/uL (4.4-10.8)
[2021-12-03 09:54] LABS: Absolute Basophil Count 0.05 10^3/uL (0.0-0.2); Absolute Lymphocyte Count 3.22 10^3/uL (1.2-3.4); Absolute Neutrophil Count 8.88 10^3/uL (1.2-6.7)
[2021-12-03] MEDS: ACETAMINOPHEN 1,000 MG/100 ML BTL 400 MG IVPB (10:12)
[2021-12-03 10:13] LABS: ALT 24 U/L (14-59); AST 27 U/L (15-37); Albumin 3.4 g/dL (3.4-5.0); Alkaline Phosphatase 83 U/L (46-116); Anion Gap 4.3 mmol/L (3-11); BUN 14 mg/dL (7-18); Bilirubin, Total 0.8 mg/dL (0.2-1.0); CO2 33.7 mmol/L (21.0-32.0); CREATININE 0.7 mg/dL (0.55-1.02); Calcium 9.2 mg/dL (8.5-10.1); Chloride 106 mmol/L (98-107); Glucose 101 mg/dL (74-106); Magnesium 2.3 mg/dL (1.8-2.4); Potassium 3.5 mmol/L (3.5-5.1); Sodium 144 mmol/L (136-145); Total Protein 7.5 g/dL (6.4-8.2); Troponin I < 50 ng/L (<or=60)
[2021-12-03] MEDS: Normal Saline 1,000 ML 150 ML IV ×2 (10:13→20:15)
[2021-12-03] MEDS: MORPHine 4 MG/ML SYR 2 MG IVP (10:24)
[2021-12-03] MEDS: Normal Saline Flush 10 ML SYR IVP ×2 (10:25→20:22)
[2021-12-03] MEDS: Omnipaque 350 MG/ML 100 ML BTL IJ (11:12)
--- NOTE | 2021-12-03 11:20 | DI.CT_ITS ---
Exam(s) CT HEAD CERVICAL SPINE WO EXAM: CT HEAD CERVICAL SPINE WO CLINICAL HISTORY: recurrent falls, Pain. TECHNIQUE: Imaging Protocol: Axial computed tomography images with coronal and sagittal reformatted images were created and reviewed COMPARISON: CT CT CERVICAL SPINE WO from 10/07/2021 FINDINGS: BRAIN: There are no skull fractures nor fluid in the visualized paranasal sinuses. There is no evidence of intracranial hemorrhage, mass effect, or shift of midline structures. There are no extra-axial fluid collections. The ventricles are not enlarged or shifted and there is no blo od within the ventricular system nor within the basal cisterns. Periventricular hypodensity is again noted consistent with chronic small vessel disease changes. No evidence of obvious acute infarct. CERVICAL SPINE: There is no evidence of fracture nor listhesis. No significant prevertebral soft tissue swelling. Multilevel degenerative disc disease and degenerative facet arthropathy. There is fusion of the face t joints at C2-3. There is no significant facet joint malalignment. No significant osseous lesions evident. IMPRESSION: No acute intracranial findings on this noninfused CT scan of the brain.Chronic small-vessel white mat ter ischemic changes. No evidence of acute cervical spine fracture, malalignment, nor acute compromise of the cervical spin al canal. Chronic degenerative changes as described above. RADIATION DOSE DELIVERED: 1,310.55mGy.cm Total DLP DATA REPOSITORY: All CT scans at this facility are submitted to the National Radiology Data Registry (NRDR) Dose Index Registry (DIR) with the [employer] (A[employer]). RADIATION OPTIMIZATION: All CT scans at this facility use at least one of these dose optimization te chniques: automated exposure control; mA and/or kV adjustment per patient size (includes targeted exa ms where dose is matched to clinical indication); or iterative reconstruction.
--- NOTE | 2021-12-03 11:20 | DI.CT_ITS ---
Exam(s) CT CHEST/ABD/PEL W EXAM: CT CHEST/ABD/PEL W CLINICAL HISTORY: Falls, pain. R>L posterior Chest pain. TECHNIQUE: Imaging Protocol: Axial computed tomography images with coronal and sagittal reformatted images were created and reviewed CONTRAST MATERIAL: Intravenous: Omnipaque 350 Contrast volume:100 ml Oral: None COMPARISON: CT CT THORACIC LUMBAR SPINE REC from 12/03/2021 FINDINGS: CHEST: LUNGS: Left lung is clear. Mild infiltrate noted in the lateral basal segment of the right lower lob e. No pleural effusions. No focal findings in trachea and mainstem bronchi. MEDIASTINUM: There is no hilar nor mediastinal adenopathy. No mediastinal hematoma.Multiple thyroid n odules evident. CARDIAC: Heart size is normal. There is no pericardial effusion.Caliber of the thoracic aorta is wit hin normal limits. OSSEOUS: No significant osseous lesions.No fractures evident. ABDOMEN: There is no ascites. LIVER: There are no focal hepatic lesions nor dilatation of intrahepatic ducts. No a patent lacerati on evident. GALLBLADDER/BILIARY: No obvious gallbladder pathology. CBD is not dilated. PANCREAS: No evidence of pancreatic mass nor dilatation of the pancreatic duct. SPLEEN: Spleen is not enlarged. There are no intrasplenic lesions. No splenic laceration. Splenic a nd portal veins are patent. ADRENALS: There are no significant adrenal masses. KIDNEYS: No calculi nor hydronephrosis. No solid renal masses. No cysts evident. ABDOMINAL AORTA: Abdominal aorta is calcified but not enlarged. Common iliac arteries are also calci fied but not enlarged. LYMPH NODES: There is no retroperitoneal nor paraaortic adenopathy. ABDOMINAL WALL: No evidence of significant anterior abdominal wall nor inguinal hernia. GI: There is gastric wall thickening, somewhat difficult to assess without intraluminal oral contrast . PELVIS: LYMPH NODES: There is no intrapelvic nor inguinal adenopathy. GI: No evidence of appendicitis.No evidence of sigmoid diverticulitis. URINARY BLADDER: No calculi nor masses evident REPRODUCTIVE: Uterus and adnexal regions appear age-appropriate. No free fluid. OSSEOUS: No fractures. No significant osseous lesions. IMPRESSION: 1. No significant trauma sequelae in the chest, abdomen, and pelvis. 2. No fractures evident 3. Multiple thyroid gland nodules are noted. This can be further studied with ultrasound. 4. Mild infiltrate noted in the lateral basal segment of the right lower lobe. No pleural effusions. Report called by myself to ER physician. RADIATION DOSE DELIVERED: 1239.51 mGy.cm Total DLP DATA REPOSITORY: All CT scans at this facility are submitted to the National Radiology Data Registry (NRDR) Dose Index Registry (DIR) with the [employer] (ACR). RADIATION OPTIMIZATION: All CT scans at this facility use at least one of these dose optimization te chniques: automated exposure control; mA and/or kV adjustment per patient size (includes targeted exa ms where dose is matched to clinical indication); or iterative reconstruction.
--- NOTE | 2021-12-03 11:30 | DI.CT_ITS ---
Exam(s) CT THORACIC LUMBAR SPINE REC EXAM: CT THORACIC LUMBAR SPINE REC CLINICAL HISTORY: recurrent falls,b back ( Lumbar )pain TECHNIQUE: COMPARISON: No exams were available for comparison FINDINGS: THORACIC SPINAL COLUMN: No fractures nor listhesis. No facet malalignment. No osseous lesions evide nt. LUMBOSACRAL SPINAL COLUMN: No evidence of fracture. Multilevel degenerative disc disease. Mild degene rative anterolisthesis of L4 upon L5. No osseous lesions. No evidence of sacral fracture. IMPRESSION: No fractures evident in the thoracic and lumbar spines. No osseous lesions
[2021-12-03 12:16] LABS: Creatine Kinase 54 U/L (26-192)
[2021-12-03 12:17] LABS: Bilirubin Negative (Negative); Blood Negative (Negative); Clarity Clear (Clear); Glucose Negative (Negative); Ketones Negative (Negative); Leukocyte Esterase Negative (Negative); Nitrite Negative (Negative); Specific Gravity 1.025 (1.005-1.025); Urobilinogen 0.2 EU/dL (Up TO 0.2)
[2021-12-03 14:04] LABS: COVID-19 PCR Negative (Negative); Influenza A PCR Negative (Negative); Influenza B PCR Negative (Negative); RSV PCR Negative (Negative)
[2021-12-03 14:05] LABS: Source Nasopharynx
--- NOTE | 2021-12-03 14:10 | PDOC.ERCMIN ---
- If Service Date Differs Date of service: 12/03/21 Time of Service: 14:10 Care Management Initial Assess REASON FOR HOSPITALIZATION:: Back pain. PAST MEDICAL HISTORY/PAST SURGICAL HISTORY:: All Active Problems: Back pain (Acute), Recurrent falls (Acute),. 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 Cerebrovascular disease (Chronic), Prediabetes (Chronic), Syncopal episodes (Chronic) - Intermittent syncope. Head/neck imaging, heart monitor with no identifiable cause, Hyperlipidemia (Chronic), and. Essential hypertension (Chronic). Medical History: Thyroid nodule - Benign. Surgical History: History of section and S/P colonoscopy (03/18/15). PREVIOUS FUNCTIONAL STATUS/SOCIAL/FAMILY SUPPORTS:: Tori resides alone in a mobile home that she owns in [place]. Her daughter Andree is her DPOA. Andree reports that her mom has experienced a rapid physical and cognitive decline since the of her a few years ago. CURRENT FUNCTIONAL STATUS:: Tori is laying in bed when CM comes to meet with her. Her daughter, Andree, is present in the room. Andree reports that her mom has fallen 3 times just this week and cannot safely be home alone. She states Tori has a private caregiver from 8:30 to 4:30 Tuesday through Tuesday but states her mom really needs 24/7 caregivers. Andree is in the process of trying to find additionally caregivers, so Tori will have around the clock care at home. ADVANCE DIRECTIVES:: On file; daughter Andree Blum is appointed as Health Care Agent. Has patient been provided with info about the portal/API?: Yes Did the patient sign up for the portal?: No CODE STATUS:: Full Code INSURANCE COVERAGE / FINANCIAL ISSUES:: Medicare and [employer] Supplemental Insurance. CURRENT HOME/COMMUNITY SERVICES/EQUIPMENT:: Tori owns a FWW, wheelchair and a hospital bed and has a private caregiver from 8:30 am to 4:30 pm Tuesday through Tuesday. She had Home Health RN, PT, OT and PHYSICAL EDUCATION PROFESSOR services up until last week when Home Health terminated services. PRIMARY CARE PHYSICIAN:: Miladis Medina NP ([facility]). POTENTIAL DISCHARGE NEEDS:: Follow up appointment with PCP, Palliative Care consult, and potential rehab placement. PATIENT/FAMILY EDUCATION NEEDS:: Review of discharge instructions with Tori and daughter Andree, including medications and limitations; discuss Ask Me Three and self management. ANTICIPATED BARRIERS TO DISCHARGE:: None identified at this time. TRANSPORTATION:: Via private vehicle with Andree ortiz. PLAN:: Tori will likely be discharged home when medically cleared by provider. She will follow up with her PCP and plan of care as directed. Tori will be transported home by her daughter, Andree, via private vehicle when ready. CM will continue to support Tori, her family, and any discharge planning needs.
--- NOTE | 2021-12-03 15:02 | W.PM.HP.N ---
Date of service: 12/03/21 Time of Service: 15:02 Assessment and Plan Assessment and plan (1) Back pain: Status: Acute Assessment and plan: no findings on imaging. 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: Status: Chronic Assessment and plan: continue home medication anticipate acute delirium while hospitalized monitor closely safety precaution (5) Essential hypertension: Status: Chronic Assessment and plan: monitor continue home medications and adjust as needed (6) Hyperlipidemia: Status: Chronic Assessment and plan: continue atorvastatin (7) Cerebrovascular disease: Status: Chronic Assessment and plan: stable, continue asa, atorvastatin, (8) Discharge planning issues: Status: Acute Assessment and plan: anticipate discharge to rehab with possible LTC placement case management following discussed with DR Lovett History of Present Illness History of Present Illness Chief Complaint: falls Narrative: presents to the ED after having several falls at home. most recent she was wedged between chair and table with c/o lower back pain. work up and imaging in ED with no fractures. 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 Head/neck imaging, heart monitor with no identifiable cause Hyperlipidemia (Chronic) Essential hypertension (Chronic) Medical History Thyroid nodule Benign Surgical History History of section S/P colonoscopy (03/18/15) Family History Mother , 71 Depression Stroke CKD (chronic kidney disease) Father , 68 Heart disease Myocardial infarction Parkinson disease Sister No problems noted. Sister No problems noted. Brother , 42 of ID Heart disease Myocardial infarction Brother , at 49 of ID Heart disease Myocardial infarction Brother , at 58 of ID Heart disease Myocardial infarction Brother , at 61 of ID Heart disease Myocardial infarction Brother , at 80 of fall No problems noted. Son , at 45 of ID Heart disease Myocardial infarction Daughter No problems noted. Maternal Grandfather No problems noted. Maternal Grandmother No problems noted. Paternal Grandfather No problems noted. Paternal Grandmother No problems noted. Social History Smoking/Tobacco Use Status: Never Smoking risk assessment performed?: Yes Alcohol Intake: current Alcohol Intake frequency: a few times a month Drug use: Never Substance use type: does not use Counseling given: No Household members: other Details: Camper until get apartment by June Housing: other Details: Camper until get apartment by June Pets and animals: No Sexually active: No Do you think of yourself as: straight/heterosexual Current gender identity: female What is your relationship status?: How often do you talk on the phone with friends or family?: three or more times per week How often do you get together with friends or relatives?: three or more times per week Do you belong to any clubs or organized social groups?: no Panel score (0-1 are the most socially isolated patients): 1 What type of physical activity do you participate in: walking Frequency: other Details: Some Shivani/Roman Catholic: Scientology Seatbelt use: always 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 Do you feel safe at home: Yes Do you feel safe in your relationship?: Yes History History 2 Para 2 Hx # Term Pregnancies Multiple births Hx # Pregnancies Ectopic pregnancies AB induced Hx Number of Living Children 1 AB spontaneous Meds Allergies and Home Medications Allergies Allergy/AdvReac Type Severity Reaction Status Date / Time No Known Allergies Allergy Verified 12/03/21 09:33 Home Medications Medication Instructions Recorded Confirmed Type aspirin 81 mg tablet,delayed 81 mg PO DAILY #90 tab 04/04/20 12/03/21 Rx release cyanocobalamin (vitamin B-12) 500 500 mcg PO DAILY #90 tab 04/04/20 12/03/21 Rx mcg tablet (Vitamin B-12) carbidopa 25 mg-levodopa 100 mg 2 tab PO TID tab 12/26/20 12/03/21 History tablet donepezil 10 mg tablet 10 mg PO DAILY #90 tab 12/26/20 12/03/21 Rx calcium carb and lactate 200 1 tab PO DAILY 03/07/21 12/03/21 History mg-vitamin D3 6.25 mcg (250 unit) tablet atorvastatin 80 mg tablet 80 mg PO DAILY #90 tab 04/22/21 12/03/21 Rx losartan 25 mg tablet 25 mg PO DAILY #90 tab 04/22/21 12/03/21 Rx montelukast 10 mg tablet 10 mg PO DAILY #90 tab 04/22/21 12/03/21 Rx Exam Const General: cooperative, no acute distress, frail appearing and ill appearing chronically Nutritional Appearance: overweight Orientation: alert, awake and oriented x3 HENMT Head: normal to inspection Resp Effort & Inspection: normal respiratory effort Cardio Rate: regular rate Rhythm: regular rhythm GI Inspection: normal to inspection Palpation: soft Auscultation: normal bowel sounds Skin General skin exam: ecchymosis (bruises of various stages of healing) Neuro General: patient alert, patient awake and oriented Patient Orientation: Person and Confused Motor: muscle tone normal throughout Extrem General: other (resting tremor) Results Labs Result diagrams: 12/03/21 09:44 12/03/21 09:44 Labs: Laboratory Results - last 24 hr 12/03/21 12/03/21 12/03/21 09:44 09:44 09:44 WBC 13.66 H RBC 5.31 H Hgb 14.7 Hct 46.6 H MCV 87.8 MCH 27.7 MCHC 31.5 L RDW 14.1 Plt Count 336 MPV 10.4 Immature Gran % 0.3 Neutrophils % 65.0 Lymphocytes % 23.6 Monocytes % 9.7 Eosinophils % 1.0 Basophils % 0.4 Nucleated RBC % 0 Absolute Neutrophils 8.88 H Absolute Lymphocytes 3.22 Absolute Monocytes 1.33 H Absolute Eosinophils 0.14 Absolute Basophils 0.05 Sodium 144 Potassium 3.5 Chloride 106 Carbon Dioxide 33.7 H Anion Gap 4.3 BUN 14 Creatinine 0.7 Estimated GFR/1.73 m2 >= 60.00 Glucose 101 Calcium 9.2 Magnesium 2.3 Total Bilirubin 0.8 AST 27 ALT 24 Alkaline Phosphatase 83 Creatine Kinase 54 Troponin I < 50 Total Protein 7.5 Albumin 3.4 Urine Color Urine Clarity Urine pH Ur Specific [place] Urine Protein Urine Ketones Urine Blood Urine Nitrite Urine Bilirubin Urine Urobilinogen Ur Leukocyte Esterase Urine Glucose COVID-19 Source SARS-CoV-2 (PCR) Influenza Type A (PCR) Influenza Type B (PCR) RSV (PCR) 12/03/21 12/03/21 11:57 13:20 WBC RBC Hgb Hct MCV MCH MCHC RDW Plt Count MPV Immature Gran % Neutrophils % Lymphocytes % Monocytes % Eosinophils % Basophils % Nucleated RBC % Absolute Neutrophils Absolute Lymphocytes Absolute Monocytes Absolute Eosinophils Absolute Basophils Sodium Potassium Chloride Carbon Dioxide Anion Gap BUN Creatinine Estimated GFR/1.73 m2 Glucose Calcium Magnesium Total Bilirubin AST ALT Alkaline Phosphatase Creatine Kinase Troponin I Total Protein Albumin Urine Color Yellow Urine Clarity Clear Urine pH 6.0 Ur Specific [place] 1.025 Urine Protein Negative Urine Ketones Negative Urine Blood Negative Urine Nitrite Negative Urine Bilirubin Negative Urine Urobilinogen 0.2 Ur Leukocyte Esterase Negative Urine Glucose Negative COVID-19 Source Nasopharynx SARS-CoV-2 (PCR) Negative Influenza Type A (PCR) Negative Influenza Type B (PCR) Negative RSV (PCR) Negative Last Vital Signs Temp 37.7 C H 12/03/21 14:16 Pulse 71 12/03/21 14:16 Resp 16 12/03/21 14:16 BP 177/79 H 12/03/21 14:16 Pulse Ox 97 12/03/21 14:16
[2021-12-03] MEDS: Acetaminophen 325 MG TAB 650 MG PO ×2 (15:55→20:19)
[2021-12-03 19:35] LABS: Procalcitonin < 0.1 ng/mL
[2021-12-03] MEDS: cefTRIAXone 1,000 MG in Normal Saline 50 ML 100 MG IVPB (20:20)
[2021-12-03] MEDS: Carbidopa 25/Levodopa 100 TAB PO (20:20)
[2021-12-03] MEDS: Lidocaine 5% Patch 2 PATCH TP (20:21)
[2021-12-03] MEDS: DOXYCYCLINE 100 MG in Normal Saline 100 ML IVPB (22:37)
[2021-12-04] MEDS: Ketorolac 15 MG/ML VIAL IVP (01:28)
[2021-12-04] MEDS: Normal Saline 1,000 ML 150 ML IV ×2 (03:58→10:39)
[2021-12-04 07:36] LABS: Abs Immature Grans 0.05 10^3/uL (0.0-0.06); Absolute Basophil Count 0.05 10^3/uL (0.0-0.2); Absolute Eosinophil Count 0.13 10^3/uL (0.0-0.7); Absolute Lymphocyte Count 2.47 10^3/uL (1.2-3.4); Absolute Monocyte Count 1.11 10^3/uL (0.1-0.8); Absolute Neutrophil Count 8.26 10^3/uL (1.2-6.7); Basophils % 0.4; Eosinophils % 1.1; HCT 40.5 % (36.0-46.0); HGB 12.9 g/dL (11.2-15.7); Immature Grans % 0.4; Lymphocytes % 20.5; MCH 27.4 pg (27.0-33.0); MCHC 31.9 % (32.0-36.0); MCV 86.2 fL (80-95); MPV 10.9 fL (8.0-11.0); Monocytes % 9.2; Neutrophils % 68.4; Nucleated RBC 0 %; Platelet Count 290 10^3/uL (130-400); RDW 13.8 % (11.7-14.6); WBC 12.07 10^3/uL (4.4-10.8)
[2021-12-04 07:47] LABS: Anion Gap 7.6 mmol/L (3-11); BUN 14 mg/dL (7-18); CO2 27.4 mmol/L (21.0-32.0); CREATININE 0.6 mg/dL (0.55-1.02); Calcium 8.1 mg/dL (8.5-10.1); Chloride 105 mmol/L (98-107); Glucose 97 mg/dL (74-106); Potassium 3.2 mmol/L (3.5-5.1); Sodium 140 mmol/L (136-145)
[2021-12-04 08:00] VITALS: BP 168/85; PULSE 59; RESP 17; TEMP 37.3; O2SAT 96
--- NOTE | 2021-12-04 08:44 | IN_ITS ---
Date of service: 12/04/21 Time of Service: 08:54 PT Notes Visit Reasons: Back Pain Physical Therapy Inpatient Initial Evaluation Date: 12/04/2021 Referring Doctor: Kinza Lu NP PT Orders: PT CONSULT: Eval/treat Precautions: Fall. Standard. Activity as tolerated. Patient Profile/Admitting Diagnosis: Tori is a 76-year-old female with Parkinson's disease who presented to the ED on 12/03/2021 due to repeated falls.? Patient is diagnosed with back pain, dementia due to Parkinson's disease with behavioral disturbance, essential hypertension, hyperlipidemia and CVD. PMHX: All Active Problems?(Updated 12/03/21 @ 17:28 by Kinza Lu NP) Discharge planning issues (Acute) Back pain (Acute) Recurrent falls (Acute) Onychomycosis (Acute) Onychogryphosis (Acute) Parkinson disease (Chronic) 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 (Chronic) Followed by [facility]erebrovascular disease (Chronic) Prediabetes (Chronic) Syncopal episodes (Chronic) Intermittent syncope. Head/neck imaging, heart monitor with no identifiable causeHyperlipidemia (Chronic) Essential hypertension (Chronic) Medical History? Thyroid nodule Benign Surgical History? History of section S/P colonoscopy (03/18/15) Social History/Home Situation: Lives alone in a private home with 4 steps to enter.? has a caregiver during the day from 8 am to 4 pm. Patient states that daughter Andree helps with anything she needs.? She is independent with all mobility ADL performance using the FWW.? Has a front wheeled walker at home Equipment Owned/DME: [facility] Subjective:? Agreeable to PT consult.? Denies headache, chest pain, and lightheadedness throughout session. Objective: General Observation: Seated on chair.? TEDS to B legs.? IV through R UE. Mental Status: Alert and oriented x 4.?? Able to pay attention, focus, and respond appropriately. Pain: None reported ROM: Right Upper Extremity: ?Shoulder Flexion allows up to 75% of available motion. Shoulder abduction allows up to 75% of available motion. Elbow flexion WFL. Wrist flexion WFL. Functional opening and closing of hand WFL. Left Upper Extremity:? Shoulder Flexion allows up to 75% of available motion. Shoulder abduction allows up to 75% of available motion. Elbow flexion WFL. Wrist flexion WFL. Functional opening and closing of hand WFL. Right Lower Extremity: Hip flexion WFL. Hip abduction WFL. Knee flexion 30 to 90 degrees. Knee extension -30 degrees. Ankle dorsiflexion 10 degrees. Ankle plantarflexion WFL. Left Lower Extremity: Hip flexion WFL. Hip abduction WFL. Knee flexion 30 to 90 degrees. Knee extension -30 degrees. Ankle dorsiflexion 10 degrees. Ankle plantarflexion WFL. Strength: Right Upper Extremity: Shoulder flexors 3-/5. Shoulder abductors 3-/5. Elbow flexors 4-/5. Elbow extensors 4-/5. Product Marketing Consultant strong. Left Upper Extremity: Shoulder flexors 3-/5. Shoulder abductors 3-/5. Elbow flexors 4-/5. Elbow extensors 4-/5. Product Marketing Consultant strong. Right Lower Extremity: Hip flexors 3/5. Hip abductors 3/5. Knee flexors 3-/5. Knee extensors 3-/5. Ankle dorsiflexors 3-/5. Ankle plantarflexors 4-/5. Left Lower Extremity: Hip flexors 3/5. Hip abductors 3/5. Knee flexors 3-/5. Knee extensors 3-/5. Ankle dorsiflexors 3-/5. Ankle plantarflexors 4-/5. Bed Mobility/Transfers: Sit to stand with minimal assist with moderate cues for hand placement Stand to sit with contact-guard assist with moderate cues for hand placement Bed to reclining chair with with minimal assist of 2 with moderate cues for hand placement and walker management Reclining chair to bedside commode minimal assist of 2 with morning care provided with RODERICK [place] Gait: Instructed patient with level surface ambulation of 5 steps + 3 steps requiring minimal assist of 2. Gabriela decreased. Gait festinating. Pushes back upon standing up initially. Balance: Static Sitting: Normal Dynamic Sitting: Normal Static Standing: Fair Dynamic Standing: Fair Special Tests: Mobility Limitations Standardized Measure [facility] 6 clicks Basic Mobility Inpatient Short Form: Raw Score: 12? CMS Score: 69% deficit? ? ? Informed Consent/Education:? Patient was instructed in purpose of PT consult and plan of care. Agreeable to proceed with established PT POC to achieve personal goals. Assessment: Tori demonstrates functional mobility decline requiring assistance of 2 and the use of a front-wheeled walker for all mobility ADL performance.? Patient presents with clinical signs and symptoms consistent with current/admitting diagnoses that have resulted to mobility limitations, gait instability, generalized weakness, and overall ADL decline as demonstrated by the following impairment level findings: 1.? Decreased strength to B UE/LE? major muscle groups 2.? Impaired standing balance 3.? Impaired activity tolerance 5.? Shortness of breath 6.? Swelling in the legs and feet 7. Festinating gait Impairments are contributing to the following functional limitations: 1.? Decline in transfer skills 2.? Difficulty with ambulation without assistive device and physical assistance 3.? Increased completion time for mobility ADL performance 4.? Increased risk for falls 5.? Difficulty with managing steps alone safely Patient is assessed as a 97609 moderate complexity based on the following: History: 76-year-old female with past medical history as indicated above Examination: Demonstrable impairment in strength, balance, and mobility level with underlying impairments and functional limitations as exhibited above as well as deficit score of 69% utilizing the [facility] Mobility Inpatient Short Form Presentation: Evolving Decision Makin moderate complexity complexity Goals: Goals X1 week 1. Supine-Sit independent 2. Sit-Supine independent 3. Sit-Stand contact guard assist 4. Stand-Sit contact guard assist FWW 5. Bed-Chair contact guard assist with FWW 6. Chair-Bed contact guard assist with FWW 7.?Contact guard assist gait on level surface with use of FWW for at least 300 feet without report of pain nor dyspnea 8. Fair static and dynamic standing balance/tolerance Plan of Care/Treatment Plan: 1-2x/day, 7 days/week x 1 week. Plan of care has been reviewed with the GRAPPLER providing the service under Physical Therapy direction. Initiate Physical Therapy intervention for pain management as needed, strengthening, bed mobility, transfers, gait, stairs, balance training, and use of assistive device. DISCHARGE RECOMMENDATIONS: [] ? Home with no services [] [] ? Home with services [specify] [] ? Home with outpatient PT [] [] ? SNF for continued rehabilitation [] [] ? Penitentiary Care [] [X] ? SNF vs LTC vs [facility] based on ability to participate and progress TREATMENT CODE/TIME: 59245 x 20 minutes, 56205 x 40 minutes beginning at 8:44 AM. Thank you for the opportunity to participate in the care of this patient. Karla Rene PT, DPT, CLT [facility] [place], [place]
[2021-12-04] MEDS: Donepezil 5 MG TAB 10 MG PO (08:57)
[2021-12-04] MEDS: Losartan 25 MG TAB PO (08:57)
[2021-12-04] MEDS: Montelukast 10 MG TAB PO (08:57)
[2021-12-04] MEDS: Acetaminophen 325 MG TAB 650 MG PO ×4 (08:57→20:06)
[2021-12-04] MEDS: Cyanocobalamin 500 MCG TAB PO (08:57)
[2021-12-04] MEDS: Atorvastatin 40 MG TAB 80 MG PO (08:57)
[2021-12-04] MEDS: Carbidopa 25/Levodopa 100 TAB PO ×3 (08:57→20:06)
[2021-12-04] MEDS: Aspirin E.C. 81 MG TABEC PO (08:57)
[2021-12-04 09:50] LABS: Lab Add On Test DONE
[2021-12-04 10:05] LABS: Creatine Kinase 31 U/L (26-192)
--- NOTE | 2021-12-04 10:08 | PGE_ITS ---
Date of Service Date of service: 12/04/21 Time of Service: 10:19 Assessment and Plan Assessment and plan (1) Back pain: Start date: 12/04/21 Start time: 10:33 Status: Acute Assessment and plan: no findings on imaging. 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: Start date: 12/04/21 Start time: 10:34 Status: Chronic Assessment and plan: continue home medication anticipate acute delirium while hospitalized monitor closely safety precaution (5) Essential hypertension: Start date: 12/04/21 Start time: 10:34 Status: Chronic Assessment and plan: monitor continue home medications and adjust as needed (6) Hyperlipidemia: Start date: 12/04/21 Start time: 10:35 Status: Chronic Assessment and plan: continue atorvastatin (7) Cerebrovascular disease: Start date: 12/04/21 Start time: 10:35 Status: Chronic Assessment and plan: stable, continue asa, atorvastatin, (8) Discharge planning issues: Start date: 12/04/21 Start time: 10:35 Status: Acute Assessment and plan: anticipate discharge to rehab with possible LTC placement case management following discussed with DR Lovett Subjective Subjective Patient reports: no new complaints Interval history since last seen: Patient sitting up in chair. AAOx 3 at the time. she denies pain. Large Bm this am. Eating and drinking but not well. LE swollen, teds ordered. Patient will likely require SNIF. CK this am is improved. D/c IVF. She has had multiple falls at home and continues to fail at home. Would benefit from placement. Exam Const General: cooperative, no acute distress, frail appearing and ill appearing chronically Nutritional Appearance: overweight Orientation: alert, awake and oriented x3 HENMT Head: normal to inspection Resp Effort & Inspection: normal respiratory effort Cardio Rate: regular rate Rhythm: regular rhythm GI Inspection: normal to inspection Palpation: soft Auscultation: normal bowel sounds Skin General skin exam: ecchymosis (bruises of various stages of healing) Neuro General: patient alert, patient awake, patient oriented x3 and oriented Patient Orientation: Person and Confused (at times though not at this time.) Motor: muscle tone normal throughout Extrem General: other (resting tremor) Objective Last Vital Signs Temp 37.3 C 12/04/21 08:00 Pulse 59 L 12/04/21 08:00 Resp 17 12/04/21 08:00 BP 168/85 H 12/04/21 08:00 Pulse Ox 96 12/04/21 08:00 Laboratory Results - last 24 hr 12/03/21 12/03/21 12/03/21 09:44 09:44 11:57 WBC RBC Hgb Hct MCV MCH MCHC RDW Plt Count MPV Immature Gran % Neutrophils % Lymphocytes % Monocytes % Eosinophils % Basophils % Nucleated RBC % Absolute Neutrophils Absolute Lymphocytes Absolute Monocytes Absolute Eosinophils Absolute Basophils Sodium 144 Potassium 3.5 Chloride 106 Carbon Dioxide 33.7 H Anion Gap 4.3 BUN 14 Creatinine 0.7 Estimated GFR/1.73 m2 >= 60.00 Glucose 101 Calcium 9.2 Magnesium 2.3 Total Bilirubin 0.8 AST 27 ALT 24 Alkaline Phosphatase 83 Creatine Kinase 54 Troponin I < 50 Total Protein 7.5 Albumin 3.4 Procalcitonin Urine Color Yellow Urine Clarity Clear Urine pH 6.0 Ur Specific [place] 1.025 Urine Protein Negative Urine Ketones Negative Urine Blood Negative Urine Nitrite Negative Urine Bilirubin Negative Urine Urobilinogen 0.2 Ur Leukocyte Esterase Negative Urine Glucose Negative COVID-19 Source SARS-CoV-2 (PCR) Influenza Type A (PCR) Influenza Type B (PCR) RSV (PCR) Add-On Test Request 12/03/21 12/03/21 12/04/21 13:20 18:35 07:06 WBC RBC Hgb Hct MCV MCH MCHC RDW Plt Count MPV Immature Gran % Neutrophils % Lymphocytes % Monocytes % Eosinophils % Basophils % Nucleated RBC % Absolute Neutrophils Absolute Lymphocytes Absolute Monocytes Absolute Eosinophils Absolute Basophils Sodium 140 Potassium 3.2 L Chloride 105 Carbon Dioxide 27.4 Anion Gap 7.6 BUN 14 Creatinine 0.6 Estimated GFR/1.73 m2 >= 60.00 Glucose 97 Calcium 8.1 L Magnesium Total Bilirubin AST ALT Alkaline Phosphatase Creatine Kinase Troponin I Total Protein Albumin Procalcitonin < 0.1 Urine Color Urine Clarity Urine pH Ur Specific [place] Urine Protein Urine Ketones Urine Blood Urine Nitrite Urine Bilirubin Urine Urobilinogen Ur Leukocyte Esterase Urine Glucose COVID-19 Source Nasopharynx SARS-CoV-2 (PCR) Negative Influenza Type A (PCR) Negative Influenza Type B (PCR) Negative RSV (PCR) Negative Add-On Test Request 12/04/21 12/04/21 12/04/21 07:06 07:06 07:06 WBC 12.07 H RBC 4.70 Hgb 12.9 Hct 40.5 MCV 86.2 MCH 27.4 MCHC 31.9 L RDW 13.8 Plt Count 290 MPV 10.9 Immature Gran % 0.4 Neutrophils % 68.4 Lymphocytes % 20.5 Monocytes % 9.2 Eosinophils % 1.1 Basophils % 0.4 Nucleated RBC % 0 Absolute Neutrophils 8.26 H Absolute Lymphocytes 2.47 Absolute Monocytes 1.11 H Absolute Eosinophils 0.13 Absolute Basophils 0.05 Sodium Potassium Chloride Carbon Dioxide Anion Gap BUN Creatinine Estimated GFR/1.73 m2 Glucose Calcium Magnesium Total Bilirubin AST ALT Alkaline Phosphatase Creatine Kinase 31 Troponin I Total Protein Albumin Procalcitonin Urine Color Urine Clarity Urine pH Ur Specific [place] Urine Protein Urine Ketones Urine Blood Urine Nitrite Urine Bilirubin Urine Urobilinogen Ur Leukocyte Esterase Urine Glucose COVID-19 Source SARS-CoV-2 (PCR) Influenza Type A (PCR) Influenza Type B (PCR) RSV (PCR) Add-On Test Request DONE
[2021-12-04] MEDS: Potassium Chloride 20 MEQ TABCR 40 MEQ PO ×2 (10:39→16:16)
[2021-12-04] MEDS: DOXYCYCLINE 100 MG in Normal Saline 100 ML IVPB ×2 (10:39→21:19)
[2021-12-04] MEDS: Polyethylene Glycol 3350 17 GM PACKET PO (10:40)
[2021-12-04] MEDS: MAGNESIUM SULFATE 4 GM/100 ML BAG IVPB (10:40)
[2021-12-04] MEDS: Lidocaine Patch Removal 2 EACH TP (10:48)
--- NOTE | 2021-12-04 11:32 | PTTR_ITS ---
Date of service: 12/04/21 Time of Service: 11:32 PT Notes Visit Reasons: Back Pain Physical Therapy Inpatient treatment Note Date: 12/04/2021 Precautions: Fall. Standard. Activity as tolerated. Subjective:? Seeing a red baby behind PT early on. Agreeable to walking outside room. Objective: General Observation: Seated on chair.? TEDS to B legs.? IV through R UE. Mental Status: Hallucinating. Alert and oriented x 4.?? Able to pay attention, focus, and respond appropriately. Pain: None reported Bed Mobility/Transfers: Sit to stand with contact guard assist with moderate cues for hand placement Stand to sit with contact-guard assist with moderate cues for hand placement Gait: Instructed patient with level surface ambulation of 250 feet requiring contact guard assist with wheelchair follow of Nurse Narayan. Increasing step heigh and length with less festination. Balance: Static Sitting: Normal Dynamic Sitting: Normal Static Standing: Fair Dynamic Standing: Fair Assessment: Hallucinating at start of second session however patient performed much better with ambulation during the second session after intake of antiPD medications. DISCHARGE RECOMMENDATIONS: [] ? Home with no services [] [] ? Home with services [specify] [] ? Home with outpatient PT [] [] ? SNF for continued rehabilitation [] [] ? Residential Care [] [X] ? SNF vs LTC vs [facility] based on ability to participate and progress TREATMENT CODE/TIME: 30169 x 20 minutes, 53003 x 12 minutes beginning at 11:32 AM.
[2021-12-04] MEDS: Diclofenac 1% Gel 100 GM TUBE TP ×3 (13:48→21:19)
--- NOTE | 2021-12-04 14:18 | CMPROGNOTE_ITS ---
- If Service Date Differs Date of service: 12/04/21 Time of Service: 14:18 Care Management Progress Note S/O: Tori was sitting in her recliner chair visiting with her daughter when CM met with her. Tori has caregiver's Tuesday through Tuesday, but no weekend support. She would benefit from additional rehab to increase her strength and mobility prior to returning home. Tori has been working with PT and they recommend SNF vs LTC vs [facility] (based on ability to participate and progress). Tori along with her daughter agree to SNF placement for short term rehab, with a goal of Tori returning home to enjoy the summer months, with the help of her caregivers. They are not interested in LTC or an [facility] at this time. CM sent referral's to the [facility] at their request. In addition, CM provided patient and her daughter with LTM forms in the event that Tori needs intermediate designer care coverage in the future. A: 76 year old female admitted to [facility] on 12/03/2021 for Back Pain P: Tori will likely discharge to SNF for short term rehab when medically cleared by [facility]. Transportation will be dependent on her disposition. She will follow up with community providers and plan of care as directed.
[2021-12-04 15:34] VITALS: BP 164/75; PULSE 80; RESP 18; TEMP 37.7; O2SAT 94
[2021-12-04 20:04] LABS: Legionella Ag Detection Urine Negative (Negative)
[2021-12-04] MEDS: cefTRIAXone 1 GM/50 ML BAG IVPB (20:06)
[2021-12-04] MEDS: Docusate Sodium 100 MG CAP PO (20:06)
[2021-12-04] MEDS: Normal Saline Flush 10 ML SYR IVP (20:07)
[2021-12-04 23:25] VITALS: BP 148/69; PULSE 72; RESP 18; TEMP 37.2; O2SAT 97
[2021-12-05 06:57] VITALS: BP 168/76; PULSE 73; RESP 19; TEMP 36.8; O2SAT 96
[2021-12-05] MEDS: Diclofenac 1% Gel 100 GM TUBE TP ×4 (07:37→19:58)
[2021-12-05] MEDS: Atorvastatin 40 MG TAB 80 MG PO (07:37)
[2021-12-05] MEDS: Polyethylene Glycol 3350 17 GM PACKET PO (07:37)
[2021-12-05] MEDS: Cyanocobalamin 500 MCG TAB PO (07:38)
[2021-12-05] MEDS: Donepezil 5 MG TAB 10 MG PO (07:38)
[2021-12-05] MEDS: Carbidopa 25/Levodopa 100 TAB PO ×3 (07:38→19:56)
[2021-12-05] MEDS: Montelukast 10 MG TAB PO (07:38)
[2021-12-05] MEDS: Aspirin E.C. 81 MG TABEC PO (07:38)
[2021-12-05] MEDS: Acetaminophen 325 MG TAB 650 MG PO ×4 (07:38→19:56)
[2021-12-05] MEDS: Losartan 25 MG TAB PO (07:38)
[2021-12-05] MEDS: Docusate Sodium 100 MG CAP PO (07:38)
--- NOTE | 2021-12-05 08:58 | PGE_ITS ---
Date of Service Date of service: 12/05/21 Time of Service: 08:58 Assessment and Plan Assessment and plan (1) Pneumonia: Status: Acute Assessment and plan: respiratory status stable, has been afebrile and hemodynamically stable. continue ceftriaxone and doxycycline day 3/5 cultures remain negative acapella and i/s \ (2) Back pain: Status: Acute Assessment and plan: no findings on imaging. 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 increase losartan to 50 mg daily and continue to monitor. (6) Hyperlipidemia: Status: Chronic Assessment and plan: continue atorvastatin (7) DVT prophylaxis: Status: Acute Assessment and plan: teds enoxaparin (8) Discharge planning issues: Status: Acute Assessment and plan: patient changed to acute status in setting of pneumonia case management following anticipate discharge to senior living facility. discussed with DR Lovett (9) Hypokalemia: Status: Acute Assessment and plan: replete and follow. Exam Const General: cooperative, no acute distress, frail appearing and ill appearing chronically Nutritional Appearance: overweight Orientation: alert, awake and oriented x3 HENMT Head: normal to inspection Resp Effort & Inspection: normal respiratory effort Cardio Rate: regular rate Rhythm: regular rhythm GI Inspection: normal to inspection Palpation: soft Auscultation: normal bowel sounds Skin General skin exam: ecchymosis (bruises of various stages of healing) Neuro General: patient alert, patient awake and oriented Patient Orientation: Person and Confused Motor: muscle tone normal throughout Extrem General: other (resting tremor) Objective Last Vital Signs Temp 36.8 C 12/05/21 06:57 Pulse 73 12/05/21 06:57 Resp 19 12/05/21 06:57 BP 168/76 H 12/05/21 06:57 Pulse Ox 96 12/05/21 06:57 Laboratory Results - last 24 hr 12/03/21 12/04/21 12/04/21 11:57 07:06 07:06 Creatine Kinase 31 Urine Legionella Ag Negative Add-On Test Request DONE
--- NOTE | 2021-12-05 09:48 | PT.INTREAT ---
PT Notes Visit Reasons: Back Pain 12/05/2021 SUBJECTIVE: Pt is pleasant. She notes her back is feeling better. OBJECTIVE: TRANSFERS: Sit to stand: CGA with verbal cues Stand to sit: CGA with verbal cues GAIT Device: FWW Weight bearing: full Assist: CGA distance: 250' Deviation: cues for long stride length, assist with steering walker, w/c follow although she did not need this today. ASSESSMENT: Tolerating longer gait distance well. Toward the end of the walk she did not some low back discomfort. No LOB during gait. Some shuffling type gait pattern but able to correct with cues. PLAN: Continue per POC. Treatment time: 15' [id number] Deisi Nolan PTA Clinic location: [facility] [place], [place]
[2021-12-05 10:30] LABS: Anion Gap 7.5 mmol/L (3-11); BUN 9 mg/dL (7-18); CO2 26.5 mmol/L (21.0-32.0); CREATININE 0.7 mg/dL (0.55-1.02); Calcium 8.5 mg/dL (8.5-10.1); Chloride 106 mmol/L (98-107); Glucose 102 mg/dL (74-106); Magnesium 2.4 mg/dL (1.8-2.4); Sodium 140 mmol/L (136-145)
[2021-12-05] MEDS: DOXYCYCLINE 100 MG in Normal Saline 100 ML IVPB ×2 (11:00→22:06)
[2021-12-05 15:41] VITALS: BP 172/74; PULSE 73; RESP 17; TEMP 37.3; O2SAT 99
[2021-12-05] MEDS: Lidocaine 5% Patch 2 PATCH TP (19:56)
[2021-12-05] MEDS: cefTRIAXone 1 GM/50 ML BAG IVPB (19:56)
[2021-12-05] MEDS: Normal Saline Flush 10 ML SYR IVP (19:58)
[2021-12-05 23:40] VITALS: BP 173/75; PULSE 77; RESP 18; TEMP 36.9; O2SAT 97
[2021-12-06] MEDS: Enoxaparin 40 MG/0.4 ML SYR SC (08:05)
[2021-12-06] MEDS: Acetaminophen 325 MG TAB 650 MG PO ×4 (08:06→19:34)
[2021-12-06] MEDS: Docusate Sodium 100 MG CAP PO ×2 (08:06→19:34)
[2021-12-06] MEDS: Diclofenac 1% Gel 100 GM TUBE TP ×4 (08:06→19:33)
[2021-12-06] MEDS: Donepezil 5 MG TAB 10 MG PO (08:06)
[2021-12-06] MEDS: Polyethylene Glycol 3350 17 GM PACKET PO (08:06)
[2021-12-06] MEDS: Montelukast 10 MG TAB PO (08:07)
[2021-12-06] MEDS: Losartan 25 MG TAB PO ×2 (08:07→13:09)
[2021-12-06] MEDS: Carbidopa 25/Levodopa 100 TAB PO ×3 (08:07→19:34)
[2021-12-06] MEDS: Cyanocobalamin 500 MCG TAB PO (08:07)
[2021-12-06] MEDS: Aspirin E.C. 81 MG TABEC PO (08:07)
[2021-12-06] MEDS: Atorvastatin 40 MG TAB 80 MG PO (08:07)
[2021-12-06 08:08] VITALS: BP 146/79; PULSE 81; RESP 13; TEMP 38; O2SAT 98
[2021-12-06] MEDS: DOXYCYCLINE 100 MG in Normal Saline 100 ML IVPB ×2 (10:27→21:26)
[2021-12-06] MEDS: Lidocaine Patch Removal 2 EACH TP (10:27)
[2021-12-06] MEDS: Lactobacillus Acidophilus CAP 1 CAP PO ×2 (10:27→19:34)
--- NOTE | 2021-12-06 10:27 | PTTR_ITS ---
PT Notes Visit Reasons: Back Pain 12/06/2021 Declined x 2 due to back pain. Nursing aware. eDisi Nolan, RENAL DIALYSIS TECHNICIAN
--- NOTE | 2021-12-06 11:31 | PGE_ITS ---
Date of Service Date of service: 12/06/21 Time of Service: 11:31 Assessment and Plan Assessment and plan (1) Pneumonia: Status: Acute Assessment and plan: respiratory status stable,no oxygen requirements, temp max 38 this am. hemodynamically stable. continue ceftriaxone and doxycycline day 4/5 cultures remain negative continue to encourage acapella and i/s she has not agreed to get out of bed today, ? atelectasis. will repeat urine culture and CXR (2) Back pain: Status: Acute Assessment and plan: no findings on imaging. reports no pain to nursing, refused PT today secondary to reports of pain? continue scheduled apap and lidocaine patch, can have tramadol prn that she has not needed since admission ? back pain from remaining in bed too long. 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 increase losartan to 50 mg daily and continue to monitor. (6) Hyperlipidemia: Status: Chronic Assessment and plan: continue atorvastatin (7) DVT prophylaxis: Status: Acute Assessment and plan: teds enoxaparin (8) Discharge planning issues: Status: Acute Assessment and plan: patient changed to acute status in setting of pneumonia yesterday case management following anticipate [facility]. discussed with DR Lovett (9) Hypokalemia: Status: Resolved Assessment and plan: replete and follow. Subjective Subjective Patient reports: no new complaints, tolerating liquids well, tolerating a regular diet, voiding w/o difficulty and afebrile; denies shortness of breath Interval history since last seen: Exam Const General: cooperative, no acute distress, frail appearing and ill appearing chronically Nutritional Appearance: overweight Orientation: alert, awake and oriented x3 HENMT Head: normal to inspection Resp Effort & Inspection: normal respiratory effort Cardio Rate: regular rate Rhythm: regular rhythm GI Inspection: normal to inspection Palpation: soft Auscultation: normal bowel sounds Skin General skin exam: ecchymosis (bruises of various stages of healing) Neuro General: patient alert, patient awake and oriented Patient Orientation: Person and Confused Motor: muscle tone normal throughout Extrem General: other (resting tremor) Objective Last Vital Signs Temp 38 C H 03/20/22 08:08 Pulse 81 12/06/21 08:08 Resp 13 12/06/21 08:08 BP 146/79 H 12/06/21 08:08 Pulse Ox 98 12/06/21 08:08
[2021-12-06 12:12] LABS: HGB 13.9 g/dL (11.2-15.7); MCH 27.4 pg (27.0-33.0); MCHC 31.6 % (32.0-36.0); MCV 86.8 fL (80-95); MPV 10.4 fL (8.0-11.0); Platelet Count 391 10^3/uL (130-400); RBC 5.07 10^6/uL (3.93-5.22); RDW-SD 44.7 fL; WBC 11.21 10^3/uL (4.4-10.8)
[2021-12-06 12:23] LABS: Anion Gap 8.5 mmol/L (3-11); BUN 11 mg/dL (7-18); CO2 29.5 mmol/L (21.0-32.0); CREATININE 0.7 mg/dL (0.55-1.02); Calcium 8.8 mg/dL (8.5-10.1); Chloride 102 mmol/L (98-107); Glucose 89 mg/dL (74-106); Potassium 3.9 mmol/L (3.5-5.1); Sodium 140 mmol/L (136-145)
--- NOTE | 2021-12-06 12:38 | DI.RAD_ITS ---
Exam(s) XR CHEST 2V PA LATERAL EXAM: XR CHEST 2V PA LATERAL CLINICAL HISTORY: pneumonia. TECHNIQUE: 2D digital imaging was performed. COMPARISON: CR XR CHEST 1V IN DI DEPT from 10/07/2021 FINDINGS: 2 views: Heart size is normal. The mediastinum is not widened. Lungs are clear. No infiltrates nor pleural effusions. IMPRESSION: No acute pulmonary findings. DATA REPOSITORY: RADIATION DOSE DELIVERED:
--- NOTE | 2021-12-06 12:58 | DI.VRAD_ITS ---
PROCEDURE INFORMATION: Exam: XR Chest Exam date and time: 12/06/2021 12:38 PM Age: 76 years old Clinical indication: Other: Pneumonia TECHNIQUE: Imaging protocol: XR of the chest. Views: 2 views. COMPARISON: CT CHEST/ABD/PEL W 12/03/2021 11:20 AM FINDINGS: Lungs: No consolidation. Pleural spaces: No sizable pleural effusion. No pneumothorax. Heart/Mediastinum: Cardiomediastinal silhouette is within normal limits. Bones/joints: No acute displaced fracture or dislocation. IMPRESSION: No acute cardiopulmonary process. Dictated and Authenticated by: Gerry Soni MD. Ordering:NICOLE Echols MD
[2021-12-06 14:55] LABS: Bilirubin Negative (Negative); Blood Negative (Negative); Clarity Clear (Clear); Glucose Negative (Negative); Ketones Negative (Negative); Leukocyte Esterase Negative (Negative); Nitrite Negative (Negative); Urobilinogen 0.2 EU/dL (Up TO 0.2)
[2021-12-06 16:00] VITALS: BP 144/72; PULSE 57; RESP 12; TEMP 37.3; O2SAT 96
[2021-12-06] MEDS: Lidocaine 5% Patch 2 PATCH TP (19:33)
[2021-12-06] MEDS: cefTRIAXone 1 GM/50 ML BAG IVPB (19:33)
[2021-12-07 01:21] VITALS: BP 162/75; PULSE 72; RESP 14; TEMP 37.1; O2SAT 95
[2021-12-07 07:02] LABS: Abs Immature Grans 0.03 10^3/uL (0.0-0.06); Absolute Basophil Count 0.04 10^3/uL (0.0-0.2); Absolute Eosinophil Count 0.32 10^3/uL (0.0-0.7); Absolute Lymphocyte Count 2.47 10^3/uL (1.2-3.4); Absolute Monocyte Count 0.62 10^3/uL (0.1-0.8); Absolute Neutrophil Count 4.73 10^3/uL (1.2-6.7); Basophils % 0.5; Eosinophils % 3.9; HCT 45.4 % (36.0-46.0); HGB 14.1 g/dL (11.2-15.7); Immature Grans % 0.4; Lymphocytes % 30.1; MCH 27.1 pg (27.0-33.0); MCHC 31.1 % (32.0-36.0); MCV 87.3 fL (80-95); Monocytes % 7.6; Neutrophils % 57.5; Nucleated RBC 0 %; Platelet Count 380 10^3/uL (130-400); RDW 14.1 % (11.7-14.6); RDW-SD 45.6 fL; WBC 8.21 10^3/uL (4.4-10.8)
[2021-12-07 07:29] LABS: ALT 11 U/L (14-59); AST 14 U/L (15-37); Albumin 2.7 g/dL (3.4-5.0); Alkaline Phosphatase 82 U/L (46-116); Anion Gap 7.8 mmol/L (3-11); BUN 10 mg/dL (7-18); Bilirubin, Total 0.4 mg/dL (0.2-1.0); CO2 29.2 mmol/L (21.0-32.0); CREATININE 0.7 mg/dL (0.55-1.02); Calcium 9.1 mg/dL (8.5-10.1); Chloride 105 mmol/L (98-107); Glucose 117 mg/dL (74-106); Potassium 3.4 mmol/L (3.5-5.1); Sodium 142 mmol/L (136-145); Total Protein 6.9 g/dL (6.4-8.2)
[2021-12-07 07:42] VITALS: BP 112/64; PULSE 73; RESP 18; TEMP 36.7; O2SAT 96
[2021-12-07] MEDS: Diclofenac 1% Gel 100 GM TUBE TP ×4 (07:42→20:32)
[2021-12-07] MEDS: Polyethylene Glycol 3350 17 GM PACKET PO (07:42)
[2021-12-07] MEDS: Docusate Sodium 100 MG CAP PO ×2 (07:43→20:26)
[2021-12-07] MEDS: Losartan 25 MG TAB 50 MG PO (07:43)
[2021-12-07] MEDS: Acetaminophen 325 MG TAB 650 MG PO ×4 (07:43→20:25)
[2021-12-07] MEDS: Lactobacillus Acidophilus CAP 1 CAP PO ×2 (07:43→20:26)
[2021-12-07] MEDS: Atorvastatin 40 MG TAB 80 MG PO (07:45)
[2021-12-07] MEDS: Cyanocobalamin 500 MCG TAB PO (07:45)
[2021-12-07] MEDS: Aspirin E.C. 81 MG TABEC PO (07:45)
[2021-12-07] MEDS: Carbidopa 25/Levodopa 100 TAB PO ×3 (07:46→20:26)
[2021-12-07] MEDS: Donepezil 5 MG TAB 10 MG PO (07:46)
[2021-12-07] MEDS: Montelukast 10 MG TAB PO (07:46)
[2021-12-07] MEDS: Enoxaparin 40 MG/0.4 ML SYR SC (07:46)
[2021-12-07] MEDS: Lidocaine Patch Removal 2 EACH TP (07:47)
[2021-12-07 09:21] LABS: Streptococcus Pneumoniae Ag, U Negative (Negative)
--- NOTE | 2021-12-07 09:25 | W.PM.PROGNOT ---
Date of Service Date of service: 12/07/21 Time of Service: 09:25 Assessment and Plan Assessment and plan (1) Pneumonia: Status: Acute Assessment and plan: respiratory status stable,no oxygen requirements, continue ceftriaxone and doxycycline day 01/21 cultures remain negative continue to encourage acapella and i/s she has not agreed to get out of bed today, ? atelectasis. will repeat urine culture and CXR (2) Back pain: Status: Acute Assessment and plan: no findings on imaging. 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 . continue losartan at 50 mg daily and continue to monitor, adjust as needed. (6) Hyperlipidemia: Status: Chronic Assessment and plan: continue atorvastatin (7) Hypokalemia: Status: Resolved Assessment and plan: replete and follow. (8) DVT prophylaxis: Status: Acute Assessment and plan: teds enoxaparin (9) Discharge planning issues: Status: Acute Assessment and plan: patient changed to acute status in setting of pneumonia case management following [facility], referrals placed. will place palliative care consult for goals of care discussed with DR Lovett Subjective Subjective Patient reports: no new complaints, tolerating liquids well, tolerating a regular diet and afebrile; denies shortness of breath Interval history since last seen: no oxygen requirements or cough Exam Const General: cooperative, no acute distress, frail appearing and ill appearing chronically Nutritional Appearance: overweight Orientation: alert, awake and oriented x3 HENMT Head: normal to inspection Resp Effort & Inspection: normal respiratory effort Cardio Rate: regular rate Rhythm: regular rhythm GI Inspection: normal to inspection Palpation: soft Auscultation: normal bowel sounds Skin General skin exam: ecchymosis (bruises of various stages of healing) Neuro General: patient alert, patient awake and oriented Patient Orientation: Person and Confused Motor: muscle tone normal throughout Extrem General: other (resting tremor) Objective Last Vital Signs Temp 36.7 C 12/07/21 07:42 Pulse 73 03/21/22 07:42 Resp 18 12/07/21 07:42 BP 112/64 12/07/21 07:42 Pulse Ox 96 12/07/21 07:42 Laboratory Results - last 24 hr 12/06/21 12/06/21 12/06/21 12:00 12:00 14:45 WBC 11.21 H RBC 5.07 Hgb 13.9 Hct 44.0 MCV 86.8 MCH 27.4 MCHC 31.6 L RDW 14.0 Plt Count 391 D MPV 10.4 Immature Gran % Neutrophils % Lymphocytes % Monocytes % Eosinophils % Basophils % Nucleated RBC % Absolute Neutrophils Absolute Lymphocytes Absolute Monocytes Absolute Eosinophils Absolute Basophils Sodium 140 Potassium 3.9 Chloride 102 Carbon Dioxide 29.5 Anion Gap 8.5 BUN 11 Creatinine 0.7 Estimated GFR/1.73 m2 >= 60.00 Glucose 89 Calcium 8.8 Total Bilirubin AST ALT Alkaline Phosphatase Total Protein Albumin Urine Color Yellow Urine Clarity Clear Urine pH 6.0 Ur Specific [place] 1.010 Urine Protein Negative Urine Ketones Negative Urine Blood Negative Urine Nitrite Negative Urine Bilirubin Negative Urine Urobilinogen 0.2 Ur Leukocyte Esterase Negative Urine Glucose Negative 12/07/21 12/07/21 06:24 06:24 WBC 8.21 RBC 5.20 Hgb 14.1 Hct 45.4 MCV 87.3 MCH 27.1 MCHC 31.1 L RDW 14.1 Plt Count 380 MPV 11.0 Immature Gran % 0.4 Neutrophils % 57.5 Lymphocytes % 30.1 Monocytes % 7.6 Eosinophils % 3.9 Basophils % 0.5 Nucleated RBC % 0 Absolute Neutrophils 4.73 Absolute Lymphocytes 2.47 Absolute Monocytes 0.62 Absolute Eosinophils 0.32 Absolute Basophils 0.04 Sodium 142 Potassium 3.4 L Chloride 105 Carbon Dioxide 29.2 Anion Gap 7.8 BUN 10 Creatinine 0.7 Estimated GFR/1.73 m2 >= 60.00 Glucose 117 H Calcium 9.1 Total Bilirubin 0.4 AST 14 L ALT 11 L Alkaline Phosphatase 82 Total Protein 6.9 Albumin 2.7 L Urine Color Urine Clarity Urine pH Ur Specific [place] Urine Protein Urine Ketones Urine Blood Urine Nitrite Urine Bilirubin Urine Urobilinogen Ur Leukocyte Esterase Urine Glucose
--- NOTE | 2021-12-07 09:26 | CMPROGNOTE_ITS ---
- If Service Date Differs Date of service: 12/07/21 Time of Service: 09:26 Care Management Progress Note S/O: Tori was sitting up in her recliner chair when CM met with her. She denies pain and shared that she is agreeable to SNF for continued rehab. She would benefit from additional rehab to increase her strength and mobility prior to returning home. CM sent referral's to the [facility] and [facility] at pt's request. In addition, CM provided patient and her daughter with LTM forms in the event that Tori needs manager long term care care coverage in the future. Palliative met with patient today and the provider will plan to readdress her code status when her daughter (AMANUEL) is present. A: 76 year old female admitted to [facility] on 12/03/2021 for Back Pain P: Tori will likely discharge to SNF for short term rehab when medically cleared by M.D. SNF referral's are pending at [facility] and the [facility]. Transportation will be dependent on her disposition. She will follow up with community providers and plan of care as directed.
[2021-12-07] MEDS: DOXYCYCLINE 100 MG in Normal Saline 100 ML IVPB ×2 (10:14→21:23)
[2021-12-07] MEDS: Potassium Chloride 20 MEQ TABCR PO ×2 (10:15→16:13)
--- NOTE | 2021-12-07 11:32 | PT.INTREAT ---
Date of service: 12/07/21 Time of Service: 13:20 PT Notes Visit Reasons: Back Pain Physical Therapy Inpatient treatment Note Date: 12/07/2021 Precautions: Fall. Standard. Activity as tolerated. Subjective:? Seeing shoes under the bed this afternoon. Patient was informed that these shoes are actually bed controls in matias color. Reports pain in her R heel with ambulation but when given her padded slippers, she states she felt better. Agreeable to short-term rehab but wants to ultimately go home if she can. Objective: General Observation: Seated on chair.? TEDS to B legs.? IV through R UE. Mental Status: Hallucinating.? Alert and oriented x 4.?? Able to pay attention, focus, and respond appropriately. Pain: None reported Bed Mobility/Transfers: Sit to stand with minimal assist with moderate cues for hand placement Stand to sit with contact-guard assist with moderate cues for hand placement Gait: Instructed patient with level surface ambulation of 150 feet +150 feet requiring standby assist with wheelchair follow. Tremors and bradykinesia really limited patient's performance today. Step length decreased. Gait festinating. THERA EX: Patient with seated level exercises stand seated hip flexion x 10 and seated hip x 10 Balance: Static Sitting: Normal Dynamic Sitting: Normal Static Standing: Fair Dynamic Standing: Fair Assessment: Patient continuing to hallucinate. 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 DISCHARGE RECOMMENDATIONS: [] ? Home with no services [] [] ? Home with services [specify] [] ? Home with outpatient PT [] [X] ? SNF for continued rehabilitation. Patient will benefit from [facility] facility placement for continued skilled physical therapy services in order to progress mobility level, strength, and balance in preparation for a safe discharge to home. [] ? [facility] [] [] ? SNF vs LTC based on ability to participate and progress TREATMENT CODE/TIME: 05836 x 20 minutes, 14333 x 12 minutes beginning at 11:32 AM.
--- NOTE | 2021-12-07 14:27 | W.PALLCONSUL ---
Date of service: 12/07/21 Time of Service: 11:00 History of Present Illness Narrative: Ms. Valle is a 76 y/o F currently inpatient at [facility] after presentation to ED s/p falls at home, inpt for pain management, weakness, dementia and PD, needs ADL assistance; PMHx sig for Parkinson?s disease w/ dementia, HTN, CVD Hospital course: pt presented to [facility] ED on 12/03/21 s/p fall at home while alone the previous night, w/LB and R ankle pain; work up w/no acute findings, some soft tissue swelling in R ankle, no evidence of fracture; Tx for PNA w/ceftriaxone and doxycycline, stable, last abx dose administered today; plans for discharge to SNF; [facility] consult to review goals of care Pt sitting comfortably in recliner throughout visit; denies pain or discomfort, denies breathing complaints; appetite appropriate; aware of falls at home, does not remember falls bc was asleep at time of falls; Andree, daughter, is [facility], agreeable to provider calling daughter; aware of plan for discharge to SNF, agreeable, reports ?anything to keep me safe?, knows need additional assistance and therapy to work on ADL functions; Spoke to [facility]/daughter Andree: has not been able to find caregivers for 24/7 care required for pt to remain at home, 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; reports moved pt from [place] in November of 2019 after , has seen rapid decline in strength and mind over previous 3-4 mos w/increased caregiver requirements; Andree visits daily, often has to help w/pt?s hallucinations of believing children are in home, able to soothe appropriately, non-distressing; no hallucinations while hospitalized, pt w/confusion on location occassional; pain controlled, swelling improving Pt remains FULL CODE, not able to follow conversation during visit, will readdress outpatient w/[facility] present; daughter has AD forms on her, will f/u Goal: to go family camp in [place] this summer; remain safe Assessment and Plan Assessment and plan (1) Parkinson disease: Status: Chronic (2) 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: Status: Chronic (3) Pneumonia: Status: Acute (4) Recurrent falls: Status: Acute (5) Decreased activities of daily living (ADL): Status: Acute (6) Discharge planning issues: Status: Acute Assessment and plan: continue to follow, 1 mo f/u outpatient to review COLST at f/u w/[facility] present completed abx course for PNA today not safe to return home w/o 11/04 caregiving,requires assistance w/most ADLs, plan to move to SNF on d/c, pending usp placement; to continue OT/PT therapies at SNF Review of Systems Narrative: as per HPI PFSH All Active Problems (Updated 12/07/21 @ 14:33 by Karina Schwartz NP) Decreased activities of daily living (ADL) (Acute) DVT prophylaxis (Acute) Pneumonia (Acute) Discharge planning issues (Acute) Back pain (Acute) Recurrent falls (Acute) Onychomycosis (Acute) Onychogryphosis (Acute) Parkinson disease (Chronic) Followed by [facility] Neuro 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 Head/neck imaging, heart monitor with no identifiable cause Hyperlipidemia (Chronic) Essential hypertension (Chronic) Medical History Thyroid nodule Benign Surgical History History of section S/P colonoscopy (03/18/15) Family History Mother , 71 Depression Stroke CKD (chronic kidney disease) Father , 68 Heart disease Myocardial infarction Parkinson disease Sister No problems noted. Sister No problems noted. Brother , 42 of [place] Heart disease Myocardial infarction Brother , at 49 of [place] Heart disease Myocardial infarction Brother , at 58 of [place] Heart disease Myocardial infarction Brother , at 61 of [place] Heart disease Myocardial infarction Brother , at 80 of fall No problems noted. Son , at 45 of [place] Heart disease Myocardial infarction Daughter No problems noted. Maternal Grandfather No problems noted. Maternal Grandmother No problems noted. Paternal Grandfather No problems noted. Paternal Grandmother No problems noted. Social History Smoking/Tobacco Use Status: Never Smoking risk assessment performed?: Yes Alcohol Intake: current Alcohol Intake frequency: a few times a month Drug use: Never Substance use type: does not use Counseling given: No Household members: other Details: Camper until get apartment by June Housing: other Details: Camper until get apartment by June Pets and animals: No Sexually active: No Do you think of yourself as: straight/heterosexual Current gender identity: female What is your relationship status?: How often do you talk on the phone with friends or family?: three or more times per week How often do you get together with friends or relatives?: three or more times per week Do you belong to any clubs or organized social groups?: no Panel score (0-1 are the most socially isolated patients): 1 What type of physical activity do you participate in: walking Frequency: other Details: Some Shivani/Episcopalian: Episcopalian Seatbelt use: always Drive intox or ride w/intox bulk tank driver: No Do you feel safe at home: Yes Do you feel safe in your relationship?: Yes History History 2 Para 2 Hx # Term Pregnancies Multiple births Hx # Pregnancies Ectopic pregnancies AB induced Hx Number of Living Children 1 AB spontaneous Exam Const General: cooperative, comfortable and no acute distress Nutritional Appearance: overweight HENMT Head: normal to inspection Ears: hearing grossly normal bilaterally Resp Effort & Inspection: normal respiratory effort, able to speak in complete sentences, no audible wheezes and no cough Skin General skin exam: ecchymosis (bruises of various stages of healing, LUE dorsal hand) Neuro General: patient alert, patient awake and oriented Patient Orientation: Person and Confused Motor: muscle tone normal throughout Extrem General: other (resting tremor) Psych Appearance: grossly normal Attitude: cooperative Insight: limited Results Last Vital Signs Temp 98.1 F 12/07/21 07:42 Pulse 73 12/07/21 07:42 Resp 18 12/07/21 07:42 BP 112/64 12/07/21 07:42 Pulse Ox 96 12/07/21 07:42 Labs Result diagrams: 12/07/21 06:24 12/07/21 06:24 Labs: Laboratory Results - last 24 hr 12/03/21 12/06/21 12/07/21 11:57 14:45 06:24 WBC RBC Hgb Hct MCV MCH MCHC RDW Plt Count MPV Immature Gran % Neutrophils % Lymphocytes % Monocytes % Eosinophils % Basophils % Nucleated RBC % Absolute Neutrophils Absolute Lymphocytes Absolute Monocytes Absolute Eosinophils Absolute Basophils Sodium 142 Potassium 3.4 L Chloride 105 Carbon Dioxide 29.2 Anion Gap 7.8 BUN 10 Creatinine 0.7 Estimated GFR/1.73 m2 >= 60.00 Glucose 117 H Calcium 9.1 Total Bilirubin 0.4 AST 14 L ALT 11 L Alkaline Phosphatase 82 Total Protein 6.9 Albumin 2.7 L Urine Color Yellow Urine Clarity Clear Urine pH 6.0 Ur Specific [place] 1.010 Urine Protein Negative Urine Ketones Negative Urine Blood Negative Urine Nitrite Negative Urine Bilirubin Negative Urine Urobilinogen 0.2 Ur Leukocyte Esterase Negative Urine Glucose Negative Ur Strep pneumoniae Ag Negative 12/07/21 06:24 WBC 8.21 RBC 5.20 Hgb 14.1 Hct 45.4 MCV 87.3 MCH 27.1 MCHC 31.1 L RDW 14.1 Plt Count 380 MPV 11.0 Immature Gran % 0.4 Neutrophils % 57.5 Lymphocytes % 30.1 Monocytes % 7.6 Eosinophils % 3.9 Basophils % 0.5 Nucleated RBC % 0 Absolute Neutrophils 4.73 Absolute Lymphocytes 2.47 Absolute Monocytes 0.62 Absolute Eosinophils 0.32 Absolute Basophils 0.04 Sodium Potassium Chloride Carbon Dioxide Anion Gap BUN Creatinine Estimated GFR/1.73 m2 Glucose Calcium Total Bilirubin AST ALT Alkaline Phosphatase Total Protein Albumin Urine Color Urine Clarity Urine pH Ur Specific [place] Urine Protein Urine Ketones Urine Blood Urine Nitrite Urine Bilirubin Urine Urobilinogen Ur Leukocyte Esterase Urine Glucose Ur Strep pneumoniae Ag
[2021-12-07 15:44] VITALS: BP 138/75; PULSE 79; RESP 18; TEMP 36.9; O2SAT 96
[2021-12-07] MEDS: cefTRIAXone 1 GM/50 ML BAG IVPB (20:21)
[2021-12-07] MEDS: Normal Saline Flush 10 ML SYR IVP (20:21)
[2021-12-07] MEDS: Lidocaine 5% Patch 2 PATCH TP (20:29)
[2021-12-07 22:42] VITALS: BP 163/4; PULSE 57; RESP 18; TEMP 36.3; O2SAT 94
[2021-12-08 06:42] LABS: Abs Immature Grans 0.01 10^3/uL (0.0-0.06); Absolute Basophil Count 0.06 10^3/uL (0.0-0.2); Absolute Eosinophil Count 0.24 10^3/uL (0.0-0.7); Absolute Lymphocyte Count 2.49 10^3/uL (1.2-3.4); Absolute Monocyte Count 0.71 10^3/uL (0.1-0.8); Absolute Neutrophil Count 4.07 10^3/uL (1.2-6.7); Basophils % 0.8; Eosinophils % 3.2; HCT 42.9 % (36.0-46.0); HGB 13.2 g/dL (11.2-15.7); Immature Grans % 0.1; Lymphocytes % 32.8; MCH 27.2 pg (27.0-33.0); MCHC 30.8 % (32.0-36.0); MCV 88.5 fL (80-95); MPV 10.3 fL (8.0-11.0); Monocytes % 9.4; Neutrophils % 53.7; Nucleated RBC 0 %; Platelet Count 390 10^3/uL (130-400); RBC 4.85 10^6/uL (3.93-5.22); RDW 14.2 % (11.7-14.6); RDW-SD 45.7 fL; WBC 7.58 10^3/uL (4.4-10.8)
[2021-12-08 06:51] LABS: Anion Gap 5.3 mmol/L (3-11); BUN 12 mg/dL (7-18); CO2 30.7 mmol/L (21.0-32.0); CREATININE 0.7 mg/dL (0.55-1.02); Calcium 9.2 mg/dL (8.5-10.1); Chloride 106 mmol/L (98-107); Glucose 98 mg/dL (74-106); Potassium 4.3 mmol/L (3.5-5.1); Sodium 142 mmol/L (136-145)
[2021-12-08] MEDS: Diclofenac 1% Gel 100 GM TUBE TP ×4 (07:42→22:10)
[2021-12-08] MEDS: Enoxaparin 40 MG/0.4 ML SYR SC (07:42)
[2021-12-08] MEDS: Losartan 25 MG TAB 50 MG PO (07:43)
[2021-12-08] MEDS: Lactobacillus Acidophilus CAP 1 CAP PO ×2 (07:43→22:10)
[2021-12-08] MEDS: Montelukast 10 MG TAB PO (07:43)
[2021-12-08] MEDS: Donepezil 5 MG TAB 10 MG PO (07:43)
[2021-12-08] MEDS: Carbidopa 25/Levodopa 100 TAB PO ×3 (07:43→22:10)
[2021-12-08] MEDS: Cyanocobalamin 500 MCG TAB PO (07:43)
[2021-12-08] MEDS: Docusate Sodium 100 MG CAP PO ×2 (07:43→22:10)
[2021-12-08] MEDS: Acetaminophen 325 MG TAB 650 MG PO ×4 (07:43→22:10)
[2021-12-08] MEDS: Aspirin E.C. 81 MG TABEC PO (07:44)
[2021-12-08] MEDS: Potassium Chloride 20 MEQ TABCR PO (07:44)
[2021-12-08] MEDS: Lidocaine Patch Removal 2 EACH TP (07:44)
[2021-12-08] MEDS: Polyethylene Glycol 3350 17 GM PACKET PO (07:44)
[2021-12-08] MEDS: Atorvastatin 40 MG TAB 80 MG PO (07:44)
[2021-12-08] MEDS: DOXYCYCLINE 100 MG in Normal Saline 100 ML IVPB (10:09)
[2021-12-08 10:26] VITALS: BP 170/74; PULSE 67; RESP 18; TEMP 36.7; O2SAT 98
--- NOTE | 2021-12-08 11:08 | PT.INTREAT ---
Date of service: 12/08/21 Time of Service: 10:25 PT Notes Visit Reasons: Back Pain Inpatient Physical Therapy Treatment Note [facility] Date: 12/08/2021 PRECAUTIONS:Fall, Activities as tolerated. SUBJECTIVE: Stated she use to like to walk more but her foot hurts her now when she tries to walk. Kept asking if her brother was still here. Indicated in pm that she had to have a bowel movement. OBJECTIVE: PAIN: Sore right heel with walking BED MOBILITY/TRANSFERS Sit-stand: Min assist and verbal cueing Stand-sit: CGA GAIT Assistive Device: FWW Weight bearing: FWB Assist: SBA Distance: 190ft in am and 190ft in pm Ambulated chair to commode for bowel movement prior to ambulation in [place]. Deviation: Increased tremors with movement Ther exercises: Performed seated LAQs, hip flexion and hip abd/ add for 10 reps each. ASSESSMENT: Tolerated ambulation well with good effort given despite heel sensitivity. PLAN: Continue with strengthening and ambulation activity for improved ADL function. TREATMENT CODE/TIME: [id number] (15 minutes), 10:25 to 10:40 am, [id number] (30 minutes) 2:15 to 2:45 pm
--- NOTE | 2021-12-08 14:10 | W.PM.PROGNOT ---
Date of Service Date of service: 12/08/21 Time of Service: 14:17 Assessment and Plan Assessment and plan (1) Pneumonia: Status: Resolved Assessment and plan: respiratory status stable,no oxygen requirements, completed a 5 day course for CAP, cultures remain negative continue to encourage acapella and i/s (2) Back pain: Status: Acute Assessment and plan: no findings on imaging. 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 . continue losartan at 50 mg daily and continue to monitor, adjust as needed. (6) Hyperlipidemia: Status: Chronic Assessment and plan: continue atorvastatin (7) Hypokalemia: Status: Resolved Assessment and plan: replete and follow. (8) DVT prophylaxis: Status: Acute Assessment and plan: teds enoxaparin (9) Discharge planning issues: Status: Acute Assessment and plan: patient changed to acute status in setting of pneumonia case management following anticipate discharge to retirement facility, referrals placed. will place palliative care consult for goals of care discussed with DR Jett Subjective Subjective Patient reports: no new complaints, tolerating liquids well, tolerating a regular diet and afebrile Interval history since last seen: no oxygen requirements or cough Exam Const General: cooperative, no acute distress, frail appearing and ill appearing chronically Nutritional Appearance: overweight Orientation: alert, awake and oriented x3 HENMT Head: normal to inspection Resp Effort & Inspection: normal respiratory effort Cardio Rate: regular rate Rhythm: regular rhythm GI Inspection: normal to inspection Palpation: soft Auscultation: normal bowel sounds Skin General skin exam: ecchymosis (bruises of various stages of healing) Neuro General: patient alert, patient awake and oriented Patient Orientation: Person and Confused Motor: muscle tone normal throughout Extrem General: other (resting tremor) Objective Last Vital Signs Temp 36.7 C 12/08/21 10:26 Pulse 67 12/08/21 10:26 Resp 18 12/08/21 10:26 BP 170/74 H 12/08/21 10:26 Pulse Ox 98 12/08/21 10:26 Laboratory Results - last 24 hr 12/08/21 12/08/21 06:35 06:35 WBC 7.58 RBC 4.85 Hgb 13.2 Hct 42.9 MCV 88.5 MCH 27.2 MCHC 30.8 L RDW 14.2 Plt Count 390 MPV 10.3 Immature Gran % 0.1 Neutrophils % 53.7 Lymphocytes % 32.8 Monocytes % 9.4 Eosinophils % 3.2 Basophils % 0.8 Nucleated RBC % 0 Absolute Neutrophils 4.07 Absolute Lymphocytes 2.49 Absolute Monocytes 0.71 Absolute Eosinophils 0.24 Absolute Basophils 0.06 Sodium 142 Potassium 4.3 D Chloride 106 Carbon Dioxide 30.7 Anion Gap 5.3 BUN 12 Creatinine 0.7 Estimated GFR/1.73 m2 >= 60.00 Glucose 98 Calcium 9.2
--- NOTE | 2021-12-08 16:46 | NCONE_ITS ---
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 Krause is a 76 year-old, right-handed woman with Parkinsons and dementia. I was not able to get a very good exam today as I woke her from sleep. She was quite confused. What exam I did see is concerning for a component of Essential Tremor. I would not recommend making any changes today to her Sinemet regimen other than changing dosing times to her usual home times at [phone]. I will re- assess her tomorrow. History of Present Illness History of Present Illness Chief Complaint: Parkinsons Narrative: Handedness: right. Ms. Krause is a 76 year-old woman with Parkinsons, dementia, hypertension, and prior reported stroke. She was admitted on 12/03/21 after she fell at home where she lives alone. She was down from ~4pm until 8am the next morning. She has been treated for pneumonia. I have been consulted to review her PD medications in anticipation of discharge to SNF as she has been deemed no longer to live safely alone at home - and 11/04 home care is not available at this time. She has previously been seen by PD-specialist Dr. Omar Mccarthy at [facility], last seen May 2021. Per those notes, she had onset of tremors in 2017. She has a Fx of PD in her father. She was started Sinemet in April 2020 with good response. She is currently on Sinemet 2x25/100mg TID with home dosing at [id number]. At last visit, seen by KEVIN Valdez who wanted to increase Sinemet to QID - not clear why from the note. Perhaps there was some wearing off? Instead rec'd increasing to 2.5 tab TID. Unclear if this occurred. Otherwise, Ms. Krause was quite asleep when I saw her today. She was easily awoken but quite confused. She denied ever living in [place] and told me that she lives in [facility] with her parents and sister. 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 Head/neck imaging, heart monitor with no identifiable cause Hyperlipidemia (Chronic) Essential hypertension (Chronic) Medical History Thyroid nodule Benign Surgical History History of section S/P colonoscopy (03/18/15) Family History Mother , 71 Depression Stroke CKD (chronic kidney disease) Father , 68 Heart disease Myocardial infarction Parkinson disease Sister No problems noted. Sister No problems noted. Brother , 42 of [place] Heart disease Myocardial infarction Brother , at 49 of [place] Heart disease Myocardial infarction Brother , at 58 of [place] Heart disease Myocardial infarction Brother , at 61 of [place] Heart disease Myocardial infarction Brother , at 80 of fall No problems noted. Son , at 45 of [place] Heart disease Myocardial infarction Daughter No problems noted. Maternal Grandfather No problems noted. Maternal Grandmother No problems noted. Paternal Grandfather No problems noted. Paternal Grandmother No problems noted. Social History Smoking/Tobacco Use Status: Never Smoking risk assessment performed?: Yes Alcohol Intake: current Alcohol Intake frequency: a few times a month Drug use: Never Substance use type: does not use Counseling given: No Household members: other Details: Camper until get apartment by June Housing: other Details: Camper until get apartment by June Pets and animals: No Sexually active: No Do you think of yourself as: straight/heterosexual Current gender identity: female What is your relationship status?: How often do you talk on the phone with friends or family?: three or more times per week How often do you get together with friends or relatives?: three or more times per week Do you belong to any clubs or organized social groups?: no Panel score (0-1 are the most socially isolated patients): 1 What type of physical activity do you participate in: walking Frequency: other Details: Some Shivani/Confucianist: Yazdanism Seatbelt use: always Drive intox or ride w/intox hazardous materials driver: No Do you feel safe at home: Yes Do you feel safe in your relationship?: Yes History History 2 Para 2 Hx # Term Pregnancies Multiple births Hx # Pregnancies Ectopic pregnancies AB induced Hx Number of Living Children 1 AB spontaneous Visit Medication and Allergies Active Medications Generic Name Dose Route Start Last Admin Trade Name Freq PRN Reason Stop Dose Admin Acetaminophen 650 mg 12/03/21 16:00 12/08/21 16:21 Acetaminophen 325 Mg Tab PO 650 mg QID YVONNE Administration Acidophilus/Pectin 1 cap 12/06/21 08:30 12/08/21 07:43 Lactobacillus Acidophilus Cap PO 1 cap BID YVONNE Administration Albuterol/Ipratropium 3 ml 12/03/21 18:07 Albuterol/Ipratropium 3 Ml Upd Vial UPD Q4H PRN PRN Aspirin 81 mg 12/04/21 08:30 12/08/21 07:44 Aspirin E.C. 81 Mg Tabec PO 81 mg DAILY YVONNE Administration Atorvastatin Calcium 80 mg 12/04/21 08:30 12/08/21 07:44 Atorvastatin 40 Mg Tab PO 80 mg DAILY YVONNE Administration Calcium/Vitamin D 1 tab 12/04/21 08:30 12/08/21 07:42 Calcium 500mg/Vit D 200u Tab PO 1 tab DAILY YVONNE Administration Carbidopa/Levodopa 2 tab 12/03/21 20:00 12/08/21 13:05 Carbidopa 25/Levodopa 100 Tab PO 2 tab TID YVONNE Administration Cyanocobalamin 500 mcg 12/04/21 08:30 12/08/21 07:43 Cyanocobalamin 500 Mcg Tab PO 500 mcg DAILY YVONNE Administration Diclofenac Sodium 0 gm 12/04/21 12:00 12/08/21 16:21 Diclofenac 1% Gel 100 Gm Tube TP 1 applic QID YVONNE Administration Dimethicone/Zinc Oxide 0 gm 12/03/21 13:14 Jamila Protect Cream 142 Gm Tube TP PRN PRN Docusate Sodium 100 mg 12/04/21 20:00 12/08/21 07:43 Docusate Sodium 100 Mg Cap PO 100 mg BID YVONNE Administration Donepezil HCl 10 mg 12/04/21 08:30 12/08/21 07:43 Donepezil 5 Mg Tab PO 10 mg DAILY YVONNE Administration Enoxaparin Sodium 40 mg 12/06/21 08:30 12/08/21 07:42 Enoxaparin 40 Mg/0.4 Ml Syr SC 40 mg DAILY YVONNE Administration Sodium Chloride 500 mls @ 0 mls/hr 12/03/21 09:30 Saline 500ml Bag IV PRN PRN As Directed IV Miscellaneous Supplies 1 each 12/03/21 09:30 Iv Access IV DIRECTED YVONNE Lidocaine 2 patch 12/03/21 20:00 12/07/21 20:29 Lidocaine 5% Patch TP 2 patch Q24H YVONNE Administration Losartan Potassium 50 mg 12/07/21 08:30 12/08/21 07:43 Losartan 25 Mg Tab PO 50 mg DAILY YVONNE Administration Miscellaneous 2 each 12/04/21 08:00 12/08/21 07:44 Lidocaine Patch Removal TP 2 each Q24H YVONNE Administration Montelukast Sodium 10 mg 12/04/21 08:30 12/08/21 07:43 Montelukast 10 Mg Tab PO 10 mg DAILY YVONNE Administration Polyethylene Glycol 17 gm 12/04/21 08:30 12/08/21 07:44 Polyethylene Glycol 3350 17 Gm Packet PO 17 gm DAILY YVONNE Administration Potassium Chloride 20 meq 12/07/21 09:35 12/08/21 07:44 Potassium Chloride 20 Meq Tabcr PO 20 meq DAILY YVONNE Administration Sodium Chloride 0 ml 12/03/21 09:30 12/07/21 20:21 Normal Saline Flush 10 Ml Syr IVP 20 ml PRN PRN Administration Tramadol HCl 50 mg 12/03/21 16:03 Tramadol 50 Mg Tab PO TID PRN PRN Allergies No Known Allergies Allergy (Verified 12/03/21 09:33) Exam Narrative Exam Narrative: Physical Exam: Sinemet taken ~3hr prior Constitutional: Patient of apparent stated age, well nourished, well developed, sleeping Neck: Supple, no meningismus CV: RRR, S1, S2, no murmur Resp: CTAB Abd: Soft, nontender, nondistended Neuro: MS/Language/Speech: sleepy, easily arousable but keeps wanting to fall back asleep, oriented to self only, clear language (fluency and comprehension), mild- moderate dysarthria, mild-moderate hypophonia CN: PERRL, EOMI, visual resendez full, trigeminal sensation intact, no facial asymmetry, hearing intact, palate elevates symmetrically, tongue protrudes midline, SCM and trap strength intact Motor: Normal bulk and tone. Mild R cogwheel rigidity. FMM intact, no pronator drift. Mild diffuse bradykinesia. 5/5 strength in bilateral upper extremities. She told me that she could not move her legs and did not move them at the hips or knees. Did move at the ankles with 4/5 bilateral ankle dorsiflexion. Mild- moderate postural and action tremor of the UE. Sensation: Intact to PP throughout Reflexes: hyporeflexic throughout, downgoing toes Coordination: Finger to nose performed without dysmetria Gait: not tested Results Last Vital Signs Temp 98.1 F 12/08/21 10:26 Pulse 67 12/08/21 10:26 Resp 18 12/08/21 10:26 BP 170/74 H 12/08/21 10:26 Pulse Ox 98 12/08/21 10:26 Labs Result diagrams: 12/08/21 06:35 12/08/21 06:35 Labs: Laboratory Results - last 24 hr 12/08/21 12/08/21 06:35 06:35 WBC 7.58 RBC 4.85 Hgb 13.2 Hct 42.9 MCV 88.5 MCH 27.2 MCHC 30.8 L RDW 14.2 Plt Count 390 MPV 10.3 Immature Gran % 0.1 Neutrophils % 53.7 Lymphocytes % 32.8 Monocytes % 9.4 Eosinophils % 3.2 Basophils % 0.8 Nucleated RBC % 0 Absolute Neutrophils 4.07 Absolute Lymphocytes 2.49 Absolute Monocytes 0.71 Absolute Eosinophils 0.24 Absolute Basophils 0.06 Sodium 142 Potassium 4.3 D Chloride 106 Carbon Dioxide 30.7 Anion Gap 5.3 BUN 12 Creatinine 0.7 Estimated GFR/1.73 m2 >= 60.00 Glucose 98 Calcium 9.2
--- NOTE | 2021-12-08 18:43 | PDOC.CMPRO ---
- If Service Date Differs Date of service: 12/08/21 Time of Service: 18:43 Care Management Progress Note S/O: Tori was sitting up in her chair when CM met with her. She was pleasant in interaction. Tori has been declined by the [facility], and [facility] is currently not open to admission, therefore additional referrals will need to be sent for her placement. Family was not available to discuss this. Tori had a Neurology consultation today to discuss her Parkinson's medications. CM will continue to follow. A: 76 year old female admitted to [facility] on 12/03/2021 for Back Pain P: Tori will likely discharge to SNF for short term rehab when medically cleared by M.D. SNF referral's are pending at [facility] and the [facility]. Transportation will be dependent on her disposition. She will follow up with community providers and plan of care as directed.
[2021-12-08] MEDS: Lidocaine 5% Patch 2 PATCH TP (22:12)
[2021-12-08 22:17] VITALS: BP 170/75; PULSE 69; RESP 16; TEMP 36.7; O2SAT 96
[2021-12-09 07:22] VITALS: BP 146/81; PULSE 56; RESP 16; TEMP 36.1; O2SAT 98
[2021-12-09] MEDS: Enoxaparin 40 MG/0.4 ML SYR SC (09:15)
[2021-12-09] MEDS: Atorvastatin 40 MG TAB 80 MG PO (09:16)
[2021-12-09] MEDS: Montelukast 10 MG TAB PO (09:16)
[2021-12-09] MEDS: Acetaminophen 325 MG TAB 650 MG PO ×4 (09:16→20:45)
[2021-12-09] MEDS: Donepezil 5 MG TAB 10 MG PO (09:17)
[2021-12-09] MEDS: Carbidopa 25/Levodopa 100 TAB PO ×3 (09:17→20:46)
[2021-12-09] MEDS: Aspirin E.C. 81 MG TABEC PO (09:17)
[2021-12-09] MEDS: Cyanocobalamin 500 MCG TAB PO (09:18)
[2021-12-09] MEDS: Potassium Chloride 20 MEQ TABCR PO (09:18)
[2021-12-09] MEDS: Lactobacillus Acidophilus CAP 1 CAP PO ×2 (09:18→20:46)
[2021-12-09] MEDS: Lidocaine Patch Removal 2 EACH TP (09:20)
[2021-12-09] MEDS: Docusate Sodium 100 MG CAP PO (09:20)
[2021-12-09] MEDS: Polyethylene Glycol 3350 17 GM PACKET PO (09:21)
[2021-12-09] MEDS: Diclofenac 1% Gel 100 GM TUBE TP ×3 (09:25→20:46)
[2021-12-09] MEDS: Losartan 25 MG TAB 50 MG PO (09:25)
--- NOTE | 2021-12-09 11:57 | PTTR_ITS ---
Date of service: 12/09/21 Time of Service: 09:00 PT Notes Visit Reasons: Back Pain Inpatient Physical Therapy Treatment Note [facility] Date: 12/09/2021 PRECAUTIONS:Fall and activities as tolerated SUBJECTIVE: Indicated her right heel did not bother her walking today. Did have her slippers on instead of her hospital socks. OBJECTIVE: PAIN: No reports of pain offered, right heel is doing good today. Very talkative. Discussing her 2 marriages and traveling to [place]. BED MOBILITY/TRANSFERS Sit-stand: Min assist with hand placement and verbal cueing Stand-sit: Min assist with hand placement and verbal cueing GAIT Assistive Device: FWW Weight bearing: FWB Assist: SBA Distance: 150ft in am and 150ft in pm Also, ambulated chair to commode to urinate in am, nursing staff was informed of this. Did require assist with wiping post urination. Did not seem interesting trying to do this for herself. THEREX: Ankle pumps, LAQs, seated hip abd/add, seated hip flexion and bilateral UE shoulder flexion and shoulder horizontal abd/add for 10 reps each both in am and pm. UE rows and bicep curls also performed in pm. ASSESSMENT: Tolerated am session very well. Appeared more alert and eager to do exercises / walking. PLAN: Continue with current plan of care with focus on increased mobility. TREATMENT CODE/TIME: 75400 (15')/79255 (20') , 9:00 to 9:15 and 10:15 -10:35 am and 85673/ 92030 (25') 1:05 to 1:30 pm
--- NOTE | 2021-12-09 14:54 | CHAPLAIN ---
Tori was sitting up in her chair when I visited. She asked for a drink of Coke. After checking with her CRM MANAGER, I got the drink for her. She was watching tv and commenting on the footage recent hurricanes. She has a phone with her, but I wasn't clear if she uses it to call her daughter or not. I will continue to visit.
[2021-12-09 16:10] VITALS: BP 145/76; PULSE 72; RESP 20; TEMP 37; O2SAT 96
--- NOTE | 2021-12-09 16:10 | PGE_ITS ---
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 Krause is a 76 year-old, right-handed woman with Parkinsons and dementia. She also appears to have a component of Essential Tremor. Please change her Sinemet regimen to 25/100mg x2 TID to her home schedule at [phone]. I would also consider adding propranolol to 10mg BID for Essential Tremor component. I will continue to follow along. Subjective Subjective Interval history since last seen: I was able to speak with daughter Andree today. She felt PD symptoms were well- controlled at home with no wearing off. Dosing schedule currently not at same time as home dosing. Does have action tremor of the upper extremities. Andree isn't sure if she has had a prior stroke or not. Notes that Tori has favored the left hemibody for the last 1-2 years. Exam Narrative Exam Narrative: Physical Exam: Sinemet taken ~2hr prior Constitutional: Patient of apparent stated age, well nourished, well developed, sleeping Neuro: MS/Language/Speech: alert, oriented to self only, clear language (fluency and comprehension), mild dysarthria, mild-moderate hypophonia Motor: Normal bulk. Mild bilateral UE cogwheel rigidity complicated by bilateral grasp reflex. FMM intact, no pronator drift. Mild diffuse bradykinesia. 5/5 strength in bilateral upper extremities. Mild-moderate postural and action tremor of the UE bilaterally. Coordination: Finger to nose performed without dysmetria Gait: not tested Objective Last Vital Signs Temp 98.6 F 12/09/21 16:10 Pulse 72 12/09/21 16:10 Resp 20 12/09/21 16:10 BP 145/76 H 12/09/21 16:10 Pulse Ox 96 12/09/21 16:10
--- NOTE | 2021-12-09 17:02 | CMPROGNOTE_ITS ---
- If Service Date Differs Date of service: 12/09/21 Time of Service: 17:02 Care Management Progress Note S/O: Tori was sitting up in her chair when CM met with her. She was pleasant in interaction. Tori has been declined by the [facility], and [facility] is currently not open to admission. CM discussed this with Tori and her daughter Andree and additional referral's were then sent to [facility], [facility] and [facility] at their request. CM also discuss with Tori and Andree that there is a greater chance of SNF placement when referral's can be sent to all (or most) available SNF facilities. However, Andree has limited referral's to the nearest SNF's due to how far she can travel. Tori had a Neurology consultation yesterday to discuss her Parkinson's medications. CM will continue to follow. A: 76 year old female admitted to [facility] on 12/03/2021 for Back Pain P: Tori will likely discharge to SNF for short term rehab when medically cleared by M.D. SNF referral's are pending at [facility] and [facility]. [facility] declined. Transportation will be dependent on her disposition. She will follow up with community providers and plan of care as directed.
--- NOTE | 2021-12-09 17:39 | PGE_ITS ---
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 Denton. Medications retimed. Also started on propranolol for resting tremor 10 mg BID per her recommendation (2) Back pain: Start date: 12/09/21 Start time: 15:15 Status: Acute Assessment and plan: no findings on imaging. Improved pain continue scheduled apap and lidocaine patch, can have tramadol prn that she has not needed since admission continue PT/OT (3) Recurrent falls: Start date: 12/09/21 Start time: 15:15 Status: Acute Assessment and plan: fall precautions PT/OT (4) Essential hypertension: Start date: 12/09/21 Start time: 15:15 Status: Chronic Assessment and plan: blood pressure today with sbp 112, was running 150-170's, she is asymptomatic. . continue losartan at 50 mg daily and continue to monitor, adjust as needed. continue to monitor as she was also started on propranolol for essential tremor (5) Hyperlipidemia: Start date: 12/09/21 Start time: 15:15 Status: Chronic Assessment and plan: continue atorvastatin (6) Pneumonia: Start date: 12/09/21 Start time: 15:15 Status: Resolved Assessment and plan: respiratory status stable,no oxygen requirements, completed a 5 day course for CAP, cultures remain negative continue to encourage acapella and i/s (7) DVT prophylaxis: Start date: 12/09/21 Start time: 15:15 Status: Acute Assessment and plan: teds enoxaparin (8) Discharge planning issues: Start date: 12/09/21 Start time: 15:15 Status: Acute Assessment and plan: patient changed to acute status in setting of pneumonia case management following anticipate discharge to [place] [facility], referrals placed. will place palliative care consult for goals of care discussed with DR Jett Subjective Subjective Patient reports: feels better Interval history since last seen: Sitting up in chair. Daughter with her at bedside. States she feels better. Exam Const General: cooperative, no acute distress, frail appearing and ill appearing chronically Nutritional Appearance: overweight Orientation: alert, awake and oriented x3 HENMT Head: normal to inspection Eyes Pupils: PERRL EOM: EOM intact bilaterally Neck Neck: normal visual inspection, full ROM and no lymphadenopathy Chest Chest: normal inspection of the chest Resp Effort & Inspection: normal respiratory effort Auscultation: clear to auscultation bilaterally Cardio Jugular venous pressure: no JVD Rate: regular rate Rhythm: regular rhythm GI Inspection: normal to inspection Palpation: soft Auscultation: normal bowel sounds Skin General skin exam: ecchymosis (bruises of various stages of healing) Neuro General: patient alert, patient awake and oriented (Was able to carry conversation with this provider while daughter present. ) Patient Orientation: Person Motor: muscle tone normal throughout Extrem General: other (resting tremor) Objective Last Vital Signs Temp 37 C 12/09/21 16:10 Pulse 72 12/09/21 16:10 Resp 20 12/09/21 16:10 BP 145/76 H 12/09/21 16:10 Pulse Ox 96 12/09/21 16:10
[2021-12-09] MEDS: Normal Saline Flush 10 ML SYR IVP (20:46)
[2021-12-09] MEDS: Propranolol 10 MG TAB PO (20:46)
[2021-12-09] MEDS: Lidocaine 5% Patch 2 PATCH TP (21:40)
[2021-12-09 23:32] VITALS: BP 145/82; PULSE 59; RESP 17; TEMP 36.3; O2SAT 97
[2021-12-10 07:50] VITALS: BP 146/49; PULSE 66; RESP 17; TEMP 37; O2SAT 99
[2021-12-10 08:08] LABS: Platelet Count 466 10^3/uL (130-400)
[2021-12-10] MEDS: Enoxaparin 40 MG/0.4 ML SYR SC (08:38)
[2021-12-10] MEDS: Montelukast 10 MG TAB PO (08:38)
[2021-12-10] MEDS: Atorvastatin 40 MG TAB 80 MG PO (08:39)
[2021-12-10] MEDS: Potassium Chloride 20 MEQ TABCR PO (08:39)
[2021-12-10] MEDS: Acetaminophen 325 MG TAB 650 MG PO ×3 (08:39→21:44)
[2021-12-10] MEDS: Aspirin E.C. 81 MG TABEC PO (08:39)
[2021-12-10] MEDS: Cyanocobalamin 500 MCG TAB PO (08:39)
[2021-12-10] MEDS: Carbidopa 25/Levodopa 100 TAB PO ×3 (08:39→21:43)
[2021-12-10] MEDS: Donepezil 5 MG TAB 10 MG PO (08:39)
[2021-12-10] MEDS: Losartan 25 MG TAB 50 MG PO (08:40)
[2021-12-10] MEDS: Diclofenac 1% Gel 100 GM TUBE TP ×2 (08:40→21:44)
[2021-12-10] MEDS: Lidocaine Patch Removal 2 EACH TP (08:40)
[2021-12-10] MEDS: Lactobacillus Acidophilus CAP 1 CAP PO ×2 (08:40→21:44)
[2021-12-10] MEDS: Propranolol 10 MG TAB PO ×2 (08:41→21:44)
--- NOTE | 2021-12-10 09:32 | CMPROGNOTE_ITS ---
- If Service Date Differs Date of service: 12/10/21 Time of Service: 09:32 Care Management Progress Note S/O: Tori was sitting up in her reclining chair visiting with her daughter Andree when CM met with her. Tori was alert and pleasantly confused. SNF referral's are still pending. Pts daughter is going to call [place] tomorrow. A: 76 year old female admitted to [facility] on 12/03/2021 for Back Pain P: Tori will likely discharge to SNF for short term rehab when medically cleared by MSammiD. SNF referral's are pending at [facility] and [facility]. [facility]. Transportation will be dependent on her disposition. She will follow up with community providers and plan of care as directed.
--- NOTE | 2021-12-10 13:42 | PGE_ITS ---
Date of Service Date of service: 12/10/21 Time of Service: 13:42 Assessment and Plan Assessment and plan (1) Back pain: Status: Acute Assessment and plan: She suffered a fall at home with minor back injury. At this point her pain is well controlled. We will change her scheduled Tylenol to as needed as her only complaint today was too many pills. (2) Essential tremor: Status: Acute Assessment and plan: She started on propranolol yesterday. Only small amount of tremor today. (3) Decreased activities of daily living (ADL): Status: Acute Assessment and plan: She is very limited and unable to care for herself independently at this time. The plan is for correction facility referral. To date no available beds. (4) Recurrent falls: Status: Acute Assessment and plan: Unsteady on her feet. She continues to work with PT/OT. She is using a walker. (5) Parkinson disease: Status: Chronic Assessment and plan: Dose adjustment as per Dr. Denton. Appears well controlled at this time. 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 She states her daughter is working with her. Will likely need long-term support. (7) Discharge planning issues: Status: Acute Assessment and plan: Working with PT/OT, plan is for correction facility for short-term possible long-term placement. Subjective Subjective Interval history since last seen: Patient is calm and pleasantly demented. She states she did not know she had Parkinson's disease. The nurse says her memory waxes and wanes. At times she feels there someone else in the room with her, at other times she is able to recall when she went to bed, when she got up, what she ate. She is not complaining of any back pain or other discomfort at this time. She has been a 1 person assist to the commode. Exam Narrative Exam Narrative: On exam she is very pleasant and attentive. She is fully awake and alert. Her speech is clear. She is somewhat tremulous and has some obvious problems with overall cognition. Exam of her upper extremities show a mild baseline tremor and some cogwheeling on the right and left arm. Overall strength appears normal she is able to flex both legs at the knee and lift them off the chair. There is no focal weakness. Heart sounds are regular and strong, no detectable murmur. Lung sounds are clear on the right and left. No abdominal tenderness. Objective Last Vital Signs Temp 37.0 C 12/10/21 07:50 Pulse 66 12/10/21 07:50 Resp 17 12/10/21 07:50 BP 146/49 H 12/10/21 07:50 Pulse Ox 99 12/10/21 07:50 Laboratory Results - last 24 hr 12/10/21 07:06 Plt Count 466 H Reviewed Pertinent PMH: Yes
--- NOTE | 2021-12-10 15:09 | PTTR_ITS ---
Date of service: 12/10/21 Time of Service: 15:09 PT Notes Visit Reasons: Back Pain Physical Therapy Inpatient treatment Note Date: 12/11/2021 Precautions: Fall. Standard. Activity as tolerated. Subjective:?Did report pain in right heel at start of walking activity. Objective: General Observation: Seated on chair.? TEDS to B legs.? IV through R UE. Mental Status: Chronic word finding difficulty. Able to follow 2-step commands. Motor and verbal responses delayed. Pain: MIld discomfort in R heel that resolved with ambulation Bed Mobility/Transfers: Sit to stand with contact-guard assist with moderate cues for hand placement Stand to sit with standby assist with moderate cues for hand placement Gait: 300 feet with FWW, no wheelchair follow. Festinating gait, moderate cues given for increased step heigh and length. THERA EX: LAQ x 10, seated hip flexion x 10, seated hip abduction/adduction x 10, chair push ups x 10 4-stage Balance test: Unable to perform any of the 4 positions and therefore has increased risk for falls at this time. Balance: Static Sitting: Normal Dynamic Sitting: Normal Static Standing: Fair Dynamic Standing: Fair ASSESSMENT: Quality of gait performance primarily dependent on time when antiPD meds have been taken, patient performs better if therapy session is done within an hour or two of antiPD med intake. Risk for falls high DISCHARGE RECOMMENDATIONS: [] ? Home with no services [] [] ? Home with services [specify] [] ? Home with outpatient PT [] [X] ? SNF for continued rehabilitation.? Patient will benefit from intermediate facility placement for continued skilled physical therapy services in order to progress mobility level, strength, and balance in preparation for a safe discharge to home. [] ? [facility] [] [] ? SNF vs LTC based on ability to participate and progress TREATMENT CODE/TIME: 60647 x 15 minutes, 71864 x 13 minutes beginning at 15:09 PM.
[2021-12-10 15:29] VITALS: BP 131/71; PULSE 58; RESP 16; TEMP 36.3; O2SAT 95
[2021-12-10] MEDS: Docusate Sodium 100 MG CAP PO (21:43)
[2021-12-10] MEDS: Lidocaine 5% Patch 2 PATCH TP (21:45)
[2021-12-10 23:42] VITALS: BP 119/61; PULSE 60; RESP 16; TEMP 36.5; O2SAT 95
[2021-12-11] MEDS: traMADol 50 MG TAB PO (01:46)
[2021-12-11 07:32] VITALS: BP 146/77; PULSE 59; RESP 17; TEMP 36.6; O2SAT 96
[2021-12-11] MEDS: Potassium Chloride 20 MEQ TABCR PO (07:43)
[2021-12-11] MEDS: Enoxaparin 40 MG/0.4 ML SYR SC (07:43)
[2021-12-11] MEDS: Atorvastatin 40 MG TAB 80 MG PO (07:43)
[2021-12-11] MEDS: Montelukast 10 MG TAB PO (07:44)
[2021-12-11] MEDS: Lactobacillus Acidophilus CAP 1 CAP PO (07:44)
[2021-12-11] MEDS: Propranolol 10 MG TAB PO (07:44)
[2021-12-11] MEDS: Losartan 25 MG TAB 50 MG PO (07:44)
[2021-12-11] MEDS: Cyanocobalamin 500 MCG TAB PO (07:44)
[2021-12-11] MEDS: Donepezil 5 MG TAB 10 MG PO (07:44)
[2021-12-11] MEDS: Docusate Sodium 100 MG CAP PO (07:44)
[2021-12-11] MEDS: Aspirin E.C. 81 MG TABEC PO (07:44)
[2021-12-11] MEDS: Carbidopa 25/Levodopa 100 TAB PO ×2 (07:44→13:10)
[2021-12-11] MEDS: Lidocaine Patch Removal 2 EACH TP (07:45)
--- NOTE | 2021-12-11 11:09 | PT.INDS ---
Date of service: 12/11/21 Time of Service: 11:09 PT Notes Visit Reasons: Back Pain Physical Therapy Inpatient Discharge Summary Date: 12/11/2021 Dates of Service: 12/04/2021 through 12/11/2021 Referring Doctor: Kinza Lu NP PT Orders: PT CONSULT: Eval/treat Precautions: Fall. Standard. Activity as tolerated. Patient Profile/Admitting Diagnosis: Tori converts to swing bed level I as of today for continued rehabilitation. Tori is a 76-year-old female with Parkinson's disease who presented to the ED on 12/03/2021 due to repeated falls.? Patient is diagnosed with back pain,? dementia due to Parkinson's disease with behavioral disturbance, essential hypertension, hyperlipidemia and CVD. 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 Head/neck imaging, heart monitor with no identifiable causeHyperlipidemia (Chronic) Essential hypertension (Chronic) Medical History? Thyroid nodule Benign Surgical History? History of section S/P colonoscopy (03/18/15) Social History/Home Situation: Lives alone in a private home with 4 steps to enter.? has a caregiver during the day from 8 am to 4 pm.? Patient states that daughter Andree helps with anything she needs.?? She is independent with all mobility ADL performance using the FWW.? Has a front wheeled walker at home Equipment Owned/DME: FWW Subjective:? Agreeable to PT session.? Denies headache, chest pain, and lightheadedness throughout session. Did report mild discomfort on her R heel at start of ambulation activity. Objective: General Observation: Seated on chair.? TEDS to B legs.? IV access through R UE. Parkinsonian tremors to B UE that increases with movement. Mental Status: Alert and oriented x 4.?? Able to pay attention, focus, and respond appropriately. Pain: 1-2/10 in R heel ROM: Right Upper Extremity: ?Shoulder Flexion allows up to 75% of available motion. Shoulder abduction allows up to 75% of available motion. Elbow flexion WFL. Wrist flexion WFL. Functional opening and closing of hand WFL. Left Upper Extremity:? Shoulder Flexion allows up to 75% of available motion. Shoulder abduction allows up to 75% of available motion. Elbow flexion WFL. Wrist flexion WFL. Functional opening and closing of hand WFL. Right Lower Extremity: Hip flexion WFL. Hip abduction WFL. Knee flexion 30 to 90 degrees. Knee extension -30 degrees.? Ankle dorsiflexion 10 degrees. Ankle plantarflexion WFL. Left Lower Extremity:? Hip flexion WFL. Hip abduction WFL. Knee flexion 30 to 90 degrees. Knee extension -30 degrees.? Ankle dorsiflexion 10 degrees. Ankle plantarflexion WFL. Strength: Right Upper Extremity: Shoulder flexors 3-/5. Shoulder abductors 3-/5. Elbow flexors 4-/5. Elbow extensors 4-/5. Data Processing Systems Consultant strong. Left Upper Extremity: Shoulder flexors 3-/5. Shoulder abductors 3-/5. Elbow flexors 4-/5. Elbow extensors 4-/5. Data Processing Systems Consultant strong. Right Lower Extremity: Hip flexors 3/5. Hip abductors 3/5. Knee flexors 3-/5. Knee extensors 3-/5. Ankle dorsiflexors 3-/5. Ankle plantarflexors 4-/5. Left Lower Extremity: Hip flexors 3/5. Hip abductors 3/5. Knee flexors 3-/5. Knee extensors 3-/5. Ankle dorsiflexors 3-/5. Ankle plantarflexors 4-/5. Bed Mobility/Transfers: Sit to stand with standby assist Stand to sit with standby assist Bed to reclining chair with standby assist Reclining chair to bedside commode standby assist Gait: 200 + 100 feet using FWW with moderate cue given for increased step height and step length with standby assist. Requires walker assistance and verbal as well as tactile cueing during directional changes for safety. MIld limp on R noted. THERA EX: LAQ, seated hip flexion, seated hip abduction x 10 reps using 3 pound ankle weights. Chair push-ups x10. NuStep with resistance of 9 for a duration of 3 minutes with good response. Balance: Static Sitting: Normal Dynamic Sitting: Normal Static Standing: Fair Dynamic Standing: Fair Assessment: Tori demonstrates functional mobility decline requiring assistance of 2 and the use of a front-wheeled walker for all mobility ADL performance.? Patient presents with clinical signs and symptoms consistent with current/admitting diagnoses that have resulted to mobility limitations, gait instability, generalized weakness, and overall ADL decline as demonstrated by the following impairment level findings: 1.? Decreased strength to B UE/LE? major muscle groups 2.? Impaired standing balance 3.? Impaired activity tolerance 5.? Shortness of breath 6.? Swelling in the legs and feet 7.? Festinating gait Impairments are contributing to the following functional limitations: 1.? Decline in transfer skills 2.? Difficulty with ambulation without assistive device and physical assistance 3.? Increased completion time for mobility ADL performance 4.? Increased risk for falls 5.? Difficulty with managing steps alone safely Goals: Goals X1 week 1. Supine-Sit independent NOT MET 2. Sit-Supine independent NOT MET 3. Sit-Stand contact guard assist MET 4. Stand-Sit contact guard assist FWW MET 5. Bed-Chair contact guard assist with FWW MET 6. Chair-Bed contact guard assist with FWW MET 7.?Contact guard assist gait on level surface with use of FWW for at least 300 feet without report of pain nor dyspnea MET 8. Fair static and dynamic standing balance/tolerance MET DISCHARGE RECOMMENDATIONS: [] ? Home with no services [] [] ? Home with services [specify] [] ? Home with outpatient PT [] [X] ? SNF for continued rehabilitation. Patient will benefit from detention facility placement for continued skilled physical therapy services in order to progress mobility level, strength, and balance in preparation for a safe discharge to home. [] ? [facility] [] TREATMENT CODE/TIME: 67243 x 20 minutes, 69601 x 16 minutes beginning at 11:09 AM. Thank you for the opportunity to participate in the care of this patient. Karla Rene PT, DPT, CLT [facility] [place], [place]
[2021-12-11 15:42] VITALS: BP 147/68; PULSE 57; RESP 20; TEMP 36.6; O2SAT 97
--- NOTE | 2021-12-11 16:21 | PHA.REVIEW ---
Pharmacy Admission Review - Admission Clinical Review (Last Reviewed 12/03/21 @ 09:37 by Jacobo Samuel MD) Essential tremor (Acute) Decreased activities of daily living (ADL) (Acute) DVT prophylaxis (Acute) Discharge planning issues (Acute) Back pain (Acute) Recurrent falls (Acute) No Known Allergies Allergy (Verified 12/03/21 09:33) Resuscitation Status Full Code Height 5 ft Weight 67.3 kg - Renal Dosing Renal Dosing: BUN 12 mg/dL (7-18) 12/08/21 06:35 Creatinine 0.7 mg/dL (0.55-1.02) 12/08/21 06:35 Medications needing adjustments: Reviewed (SCr: 0.7, eCrCl: 59.4mL/min (using adjusted body weight). All medications dosed appropriately.) - Anticoagulation Anticoagulation: Hgb 13.2 g/dL (11.2-15.7) 12/08/21 06:35 Hct 42.9 % (36.0-46.0) 12/08/21 06:35 Plt Count 466 10^3/uL (130-400) H 12/10/21 07:06 Creatinine 0.7 mg/dL (0.55-1.02) 12/08/21 06:35 DVT Prophylaxis: Reviewed Medications: Enoxaparin (Enoxaparin 40mg SC Q24H.) - Opiate Usage Evaluate Pain Scale/Pains Meds: Reviewed (Pain scale ratings 0 since 12/04/21. PRN Tramadol ordered.) Scheduled Bowel Reg ordered if on Opiates?: Yes (Miralax [facility]) - Relevant Labs Sodium 142 mmol/L (136-145) 12/08/21 06:35 Potassium 4.3 mmol/L (3.5-5.1) D 12/08/21 06:35 Chloride 106 mmol/L (98-107) 12/08/21 06:35 Magnesium 2.4 mg/dL (1.8-2.4) 12/05/21 10:00 Electrolytes, C-Reactive P, ESR: Reviewed - DM Control DM Control: Glucose 98 mg/dL (74-106) 12/08/21 06:35 Insulin Dosing: N/A - Heart Failure/ME Heart Failure/ME: Troponin I < 50 ng/L (<or=60) 12/03/21 09:44 EF%, DEENA's, B-Blockers, Diuretics: N/A - BP Control BP Control: Blood Pressure 147/68 Blood Pressure 146/77 If elevated: Reviewed (Blood pressure slightly elevated. Home dose of Losartan increased to 50mg daily.) - Qtc Review If Elevated: N/A (QTc: 405 on admission.) - IV to PO Switch IV Medications: Reviewed - Home Meds Home Med List reviewed: Reviewed Relevent Home Meds Not ordered & why?: All home meds ordered. - Current meds Current Medication Order Review: Reviewed - Comments Comments/Follow Ups: Continue to monitor labs, vitals and for medication changes.
--- NOTE | 2021-12-11 16:47 | DSE_ITS ---
Date of service: 12/11/21 Time of Service: 16:47 DS: Diagnosis Discharge Diagnosis (1) Back pain: Status: Acute Asessment and Plan: Patient suffered a fall at home. The injuries were mostly superficial and she has largely recovered from them. She is working with physical therapy and receiving as needed pain medication. (2) Essential tremor: Status: Acute Asessment and Plan: Seen by neurology during this admission. She was started on propranolol 10 mg twice daily. (3) Decreased activities of daily living (ADL): Status: Acute Asessment and Plan: Patient has worsening dementia and is no longer able to care for herself at home independently. (4) Recurrent falls: Status: Acute Asessment and Plan: Patient has underlying Parkinson's disease and is unstable on her feet. She is now at the point where she is having frequent falls with injury. (5) Parkinson disease: Status: Chronic Asessment and Plan: She is on Sinemet 3 times daily with reasonable control of her Diana's. Discharge Plan Disposition Patient Disposition: [facility] SWING BED LEVEL 1 Condition: Stable Discharge Details Reason For Visit: Back Pain Admit Date/Time: 12/06/21 08:00 Admit Provider: Tong Lovett Attending Provider: Tong Lovett [facility] Hospital Course: This is a 76-year-old woman who came to the ED after some falls at home. She injured her back when she was wedged between the bed table in her bed. She has a known history of Parkinson's and dementia. Work-up in the ED showed no evidence of any fracture. She has some swelling of her right ankle. She worked with physical therapy and received as needed pain medication and is now doing well from a pain control point of view. The feeling is she is not appropriate for discharge home. Family has not been able to secure 24/7 care at home and is interested in rehab placement. She is being discharged to swing bed level 1 for continued physical therapy in anticipation of eventual SNF placement. Home Meds and New Rx's Prescriptions: New diclofenac sodium 1 % Gel 2 g topical QID Qty: 100 0RF tramadol 50 mg Tablet 50 mg PO TID PRN PRNQty: 20 0RF Continued aspirin 81 mg tablet,delayed release (DR/EC) 81 mg PO DAILY Qty: 90 4RF cyanocobalamin (vitamin B-12) [Vitamin B-12] 500 mcg tablet 500 mcg PO DAILY Qty: 90 4RF carbidopa-levodopa 25-100 mg tablet 2 tab PO TID 0RF donepezil 10 mg tablet 10 mg PO DAILY Qty: 90 4RF atorvastatin 80 mg tablet 80 mg PO DAILY Qty: 90 4RF losartan 25 mg tablet 25 mg PO DAILY Qty: 90 4RF montelukast 10 mg tablet 10 mg PO DAILY Qty: 90 4RF calcium carb,lactat-vitamin D3 200 mg calcium -250 unit tablet 1 tab PO DAILY 0RF Discharge Instructions Activity:: Activity as Tolerated Equipment/Supplies:: No Equipment Needed Diet:: As Tolerated Discharge Orders Discharge Orders: Discharge Order (Routine); Ordered 12/11/21 Ordered By: Eliceo Martines DS: Summary Time Spent with Patient providing and/or coordinating discharge services: Greater than 30 minutes Status at Discharge Functional status at discharge: uses cane/walker Overall status at discharge: patient is back to baseline Mental Status: other (Progressive dementia) Speech and Movement: speech and movement normal (Tremor is diminished) Mood: other (Progressive dementia) Affect: normal affect Exam Narrative Exam Narrative: Exam on the day of discharge she was pleasantly demented. She seemed to remember me from yesterday. She was sitting comfortably in her recliner. She seems to attend to TV and seems very content and comfortable. She had no labored respiration, no cough. Her vitals were all stable. Neurologically there were no changes from the exam yesterday. Tremor was notably diminished. Psych Mental Status: other (Progressive dementia) Speech and Movement: speech and movement normal (Tremor is diminished) Mood: other (Progressive dementia) Affect: normal affect DS: Data Vitals/I&O Vitals and I&O: Vital Signs Temperature 36.6 C 12/11/21 15:42 Temperature Source Tympanic 12/11/21 15:42 Pulse 57 L 12/11/21 15:42 Pulse Rhythm Regular 12/11/21 07:45 Respiratory Rate 20 12/11/21 15:42 Respiratory Effort Non-Labored 12/11/21 07:45 Respiratory Depth Normal 12/11/21 07:45 Respiratory Pattern Normal 12/11/21 07:45 Blood Pressure 147/68 H 12/11/21 15:42 Blood Pressure Position Supine 12/03/21 09:25 Pulse Oximetry 97 12/11/21 15:42 Oxygen Delivery Method Room Air 12/11/21 15:42 Oxygen Flow Rate 0 12/11/21 15:42 Pain Level 0 12/11/21 07:32 Comment 12/03/21 22:18 Intake & Output 12/10/21 12/11/21 12/11/21 23:59 11:59 23:59 Intake Total 300 / 850 780 / 1020 240 / 1020 Output Total 725 / 1875 750 / 1050 300 / 1050 Balance -425 / -1025 30 / -30 -60 / -30 Intake: Oral 300 / 850 780 / 1020 240 / 1020 Output: Urine 725 / 1875 750 / 1050 300 / 1050 Other: Urine Color Yellow Yellow Yellow Urine Appearance Cloudy Clear Clear Urine Odor Normal None None Comment Could not measure void patient was dry Voiding Methods Bedside Commode Bedside Commode Bedside Commode [facility] All Active Problems Essential tremor (Acute) Decreased activities of daily living (ADL) (Acute) DVT prophylaxis (Acute) Discharge planning issues (Acute) Back pain (Acute) Recurrent falls (Acute) Onychomycosis (Acute) Onychogryphosis (Acute) Parkinson disease (Chronic) Followed by [facility] 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 Head/neck imaging, heart monitor with no identifiable cause Hyperlipidemia (Chronic) Essential hypertension (Chronic) Medical History Thyroid nodule Benign Surgical History History of section S/P colonoscopy (03/18/15) Family History Mother , 71 Depression Stroke CKD (chronic kidney disease) Father , 68 Heart disease Myocardial infarction Parkinson disease Sister No problems noted. Sister No problems noted. Brother , 42 of [place] Heart disease Myocardial infarction Brother , at 49 of [place] Heart disease Myocardial infarction Brother , at 58 of [place] Heart disease Myocardial infarction Brother , at 61 of [place] Heart disease Myocardial infarction Brother , at 80 of fall No problems noted. Son , at 45 of [place] Heart disease Myocardial infarction Daughter No problems noted. Maternal Grandfather No problems noted. Maternal Grandmother No problems noted. Paternal Grandfather No problems noted. Paternal Grandmother No problems noted. Social History Smoking/Tobacco Use Status: Never Smoking risk assessment performed?: Yes Alcohol Intake: current Alcohol Intake frequency: a few times a month Drug use: Never Substance use type: does not use Counseling given: No Household members: other Details: Camper until get apartment by June Housing: other Details: Camper until get apartment by June Pets and animals: No Sexually active: No Do you think of yourself as: straight/heterosexual Current gender identity: female What is your relationship status?: How often do you talk on the phone with friends or family?: three or more times per week How often do you get together with friends or relatives?: three or more times per week Do you belong to any clubs or organized social groups?: no Panel score (0-1 are the most socially isolated patients): 1 What type of physical activity do you participate in: walking Frequency: other Details: Some Shivani/Scientology: [employer] Seatbelt use: always Drive intox or ride w/intox wheelchair van driver: No Do you feel safe at home: Yes Do you feel safe in your relationship?: Yes History History 2 Para 2 Hx # Term Pregnancies Multiple births Hx # Pregnancies Ectopic pregnancies AB induced Hx Number of Living Children 1 AB spontaneous
== END 2021-12-11 17:13 | disposition swing bed (61) | DRG 551 ==
LOC: ER 13:06 → MS 12-04 09:42
PROVIDERS: Nurse Practitioner Acute Care; Nurse Practitioner Family; Admitting Provider Internal Medicine; Emergency Provider Emergency Medicine; PCP Nurse Practitioner Family; Visit Provider Internal Medicine
DX: M54.9 Dorsalgia, unspecified (principal); J18.9 Pneumonia, unspecified organism; W07.XXXA Fall from chair, initial encounter; Z91.81 History of falling; G20 Parkinson's disease; S20.222A Contusion of left back wall of thorax, initial encounter; F02.80 Dementia in other diseases classified elsewhere, unspecified severity, without behavioral disturbance, psychotic disturbance, mood disturbance, and anxiety; E78.5 Hyperlipidemia, unspecified; I67.9 Cerebrovascular disease, unspecified; R73.03 Prediabetes; R55 Syncope and collapse; E87.6 Hypokalemia; G25.0 Essential tremor; Y92.009 Unspecified place in unspecified non-institutional (private) residence as the place of occurrence of the external cause
CPT/HCPCS: 36415; 74177; 80048; 80053; 82550; 84145; 85027; 87040; 87449; 87637; 93005; 96361; 96365; 96375; 97110; 97161; 97530; 99222; 99232; 99285; J1650; 70450; 71046; 71260; 72125; 73610; 81003; 83735; 84484; 85025; 85049; 87899; 93010; 99219; 99220; 99225; 99233; 99239; G0378; J0131; J0696; J1885; J2270; J3475; J3490

== ENCOUNTER → 2021-12-08 14:11 | Outpatient (BNVA) | payer MEDICARE, SELFPAY | PROVIDERS: PCP Nurse Practitioner Family; Referring Provider Nurse Practitioner Family; Visit Provider Psychiatry & Neurology Neurology | DX: R69 Illness, unspecified (principal) ==

== ENCOUNTER 2021-12-11 17:06 | Inpatient (IN) | payer MEDICARE, SELFPAY ==
--- NOTE | 2021-12-11 17:10 | W.PM.HP.N ---
Date of service: 12/11/21 Time of Service: 17:10 Assessment and Plan Assessment and plan (1) Back pain: Status: Acute Assessment and plan: She suffered a fall at home with minor back injury. At this point her pain is well controlled. We will change her scheduled Tylenol to as needed as her only complaint today was too many pills. (2) Essential tremor: Status: Acute Assessment and plan: She started on propranolol yesterday. Only small amount of tremor today. (3) Decreased activities of daily living (ADL): Status: Acute Assessment and plan: She is very limited and unable to care for herself independently at this time. The plan is for fpc facility referral. To date no available beds. (4) Recurrent falls: Status: Acute Assessment and plan: Unsteady on her feet. She continues to work with PT/OT. She is using a walker. (5) Parkinson disease: Status: Chronic Assessment and plan: Dose adjustment as per Dr. Denton. Appears well controlled at this time. 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 She states her daughter is working with her. Will likely need long-term support. (7) Discharge planning issues: Status: Acute Assessment and plan: Working with PT/OT, plan is for fpc facility for short-term possible long-term placement. History of Present Illness History of Present Illness Chief Complaint: Parkinson's disease/dementia/loss of ADLs Narrative: This is a 76-year-old woman who is transitioning from acute to swing bed status. She was admitted because of a fall with back injury. The back injuries were superficial and she is largely recovered from them but still has an inability to care for self at home and remains a fall risk. She is transitioning to a fpc facility when a bed becomes available. Review of Systems Narrative: Patient has dementia and is unable to give much of a review of systems but in general she is comfortable and with minimal complaints. She does not have a cough, no shortness of breath. She has not complained of any chest pain. She is eating and drinking fine. No problems with bowel or bladder function. 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 Head/neck imaging, heart monitor with no identifiable cause Hyperlipidemia (Chronic) Essential hypertension (Chronic) Medical History Thyroid nodule Benign Surgical History History of section S/P colonoscopy (03/18/15) Family History Mother , 71 Depression Stroke CKD (chronic kidney disease) Father , 68 Heart disease Myocardial infarction Parkinson disease Sister No problems noted. Sister No problems noted. Brother , 42 of [place] Heart disease Myocardial infarction Brother , at 49 of [place] Heart disease Myocardial infarction Brother , at 58 of [place] Heart disease Myocardial infarction Brother , at 61 of [place] Heart disease Myocardial infarction Brother , at 80 of fall No problems noted. Son , at 45 of [place] Heart disease Myocardial infarction Daughter No problems noted. Maternal Grandfather No problems noted. Maternal Grandmother No problems noted. Paternal Grandfather No problems noted. Paternal Grandmother No problems noted. Social History Smoking/Tobacco Use Status: Never Smoking risk assessment performed?: Yes Alcohol Intake: current Alcohol Intake frequency: a few times a month Drug use: Never Substance use type: does not use Counseling given: No Household members: other Details: Camper until get apartment by June Housing: other Details: Camper until get apartment by June Pets and animals: No Sexually active: No Do you think of yourself as: straight/heterosexual Current gender identity: female What is your relationship status?: How often do you talk on the phone with friends or family?: three or more times per week How often do you get together with friends or relatives?: three or more times per week Do you belong to any clubs or organized social groups?: no Panel score (0-1 are the most socially isolated patients): 1 What type of physical activity do you participate in: walking Frequency: other Details: Some Shivani/Samaritan: Episcopal Seatbelt use: always Drive intox or ride w/intox bellman driver: No Do you feel safe at home: Yes Do you feel safe in your relationship?: Yes History History 2 Para 2 Hx # Term Pregnancies Multiple births Hx # Pregnancies Ectopic pregnancies AB induced Hx Number of Living Children 1 AB spontaneous Meds Allergies and Home Medications Allergies Allergy/AdvReac Type Severity Reaction Status Date / Time No Known Allergies Allergy Verified 12/03/21 09:33 Home Medications Medication Instructions Recorded Confirmed Type aspirin 81 mg tablet,delayed 81 mg PO DAILY #90 tab 04/04/20 12/03/21 Rx release cyanocobalamin (vitamin B-12) 500 500 mcg PO DAILY #90 tab 04/04/20 12/03/21 Rx mcg tablet (Vitamin B-12) carbidopa 25 mg-levodopa 100 mg 2 tab PO TID tab 12/26/20 12/03/21 History tablet donepezil 10 mg tablet 10 mg PO DAILY #90 tab 12/26/20 12/03/21 Rx calcium carb and lactate 200 1 tab PO DAILY 03/07/21 12/03/21 History mg-vitamin D3 6.25 mcg (250 unit) tablet atorvastatin 80 mg tablet 80 mg PO DAILY #90 tab 04/22/21 12/03/21 Rx losartan 25 mg tablet 25 mg PO DAILY #90 tab 04/22/21 12/03/21 Rx montelukast 10 mg tablet 10 mg PO DAILY #90 tab 04/22/21 12/03/21 Rx diclofenac sodium 1 % topical gel 2 g TOPICAL QID #100 g 12/11/21 Rx tramadol 50 mg tablet 50 mg PO TID PRN PRN #20 tab 12/11/21 Rx Exam Narrative Exam Narrative: On exam she is a pleasantly demented female with out significant distress. She can answer questions but they are somewhat repetitive. She had a resting tremor on admission which has since improved since starting propranolol. She still has some cogwheeling on both upper extremities. She has been working with physical therapy and is weightbearing and using a walker reasonably well. Her vital signs have all been stable. She is showing no new neurologic deficits. PAWSS Pt Consumed Any Amount of Alcohol Within the Last 30 days OR had positive SAHIL Upon Admission: No
--- NOTE | 2021-12-11 17:24 | PT.INIE ---
Date of service: 12/11/21 Time of Service: 15:49 PT Notes Visit Reasons: SWING BED 1 Swing Bed Level 1 Physical Therapy Initial Evaluation Date: 12/11/2021 Referring Doctor: Eliceo Martines MD PT Orders: PT CONSULT: Extended stay weakness Precautions: Fall. Standard. Activity as tolerated. Patient Profile/Admitting Diagnosis: Tori converts to swing bed level I as of today for continued rehabilitation.? Tori is a 76-year-old female with Parkinson's disease who presented to the ED on 12/03/2021 due to repeated falls.? Patient is diagnosed with back pain,? dementia due to Parkinson's disease with behavioral disturbance, essential hypertension, hyperlipidemia and CVD. PMHX: All Active Problems?(Updated 12/03/21 @ 17:28 by Kinza Lu NP) Discharge planning issues (Acute) Back pain (Acute) Recurrent falls (Acute) Onychomycosis (Acute) Onychogryphosis (Acute) Parkinson disease (Chronic) Followed by [facility] Neuro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 (Chronic) Followed by [facility] NeuroCerebrovascular disease (Chronic) Prediabetes (Chronic) Syncopal episodes (Chronic) Intermittent syncope. Head/neck imaging, heart monitor with no identifiable causeHyperlipidemia (Chronic) Essential hypertension (Chronic) Medical History? Thyroid nodule Benign Surgical History? History of section S/P colonoscopy (03/18/15) Social History/Home Situation: Lives alone in a private home with 4 steps to enter.? has a caregiver during the day from 8 am to 4 pm.? Patient states that daughter Andree helps with anything she needs.?? She is independent with all mobility ADL performance using the FWW.? Has a front wheeled walker at home Equipment Owned/DME: FWW Subjective:? Agreeable to PT consult.? Denies headache, chest pain, and lightheadedness throughout session.? Did report mild discomfort on her R heel at start of ambulation activity. Objective: General Observation: Seated on chair.? TEDS to B legs.? IV access through R UE. Parkinsonian tremors to B UE that increases with movement. Mental Status: Alert and oriented x 4.?? Able to pay attention, focus, and respond appropriately. Word finding difficulty. Pain: 1-2/10 in R heel ROM: Right Upper Extremity: ?Shoulder Flexion allows up to 75% of available motion. Shoulder abduction allows up to 75% of available motion. Elbow flexion WFL. Wrist flexion WFL. Functional opening and closing of hand WFL. Left Upper Extremity:? Shoulder Flexion allows up to 75% of available motion. Shoulder abduction allows up to 75% of available motion. Elbow flexion WFL. Wrist flexion WFL. Functional opening and closing of hand WFL. Right Lower Extremity: Hip flexion WFL. Hip abduction WFL. Knee flexion WFL. Knee extension WFL.? Ankle dorsiflexion to neutral. Ankle plantarflexion WFL. Left Lower Extremity:? Hip flexion WFL. Hip abduction WFL. Knee flexion WFL. Knee extension WFL.? Ankle dorsiflexion to neutral. Ankle plantarflexion WFL. Strength: Right Upper Extremity: Shoulder flexors 3-/5. Shoulder abductors 3-/5. Elbow flexors 4-/5. Elbow extensors 4-/5. Cardiovascular Specialist strong. Left Upper Extremity: Shoulder flexors 3-/5. Shoulder abductors 3-/5. Elbow flexors 4-/5. Elbow extensors 4-/5. Cardiovascular Specialist strong. Right Lower Extremity: Hip flexors 4-/5. Hip abductors 4-/5. Knee flexors 4-/5. Knee extensors 4-/5. Ankle dorsiflexors 4-/5. Ankle plantarflexors 4-/5. Left Lower Extremity: Hip flexors 4-/5. Hip abductors 4-/5. Knee flexors 4-/5. Knee extensors 4-/5. Ankle dorsiflexors 4-/5. Ankle plantarflexors 4-/5. Bed Mobility/Transfers: Sit to stand with standby assist Stand to sit with standby assist Bed to reclining chair with standby assist Reclining chair to bedside commode standby assist Gait: 200 + 100 feet using FWW with moderate cue given for increased step height and step length with standby assist.? Requires walker assistance and verbal as well as tactile cueing during directional changes for safety. No limp on R seen. THERA EX: LAQ, seated hip flexion, seated hip abduction x 10 reps using 3 pound ankle weights.? Chair push-ups x10.? NuStep with resistance of 9 for a duration of 3 minutes with good response. Balance: Static Sitting: Normal Dynamic Sitting: Normal Static Standing: Fair Dynamic Standing: Fair Special Tests: Mobility Limitations Standardized Measure [facility] AM-PAC 6 clicks Basic Mobility Inpatient Short Form: Raw Score: 23? CMS Score: 11% deficit? ? ? Informed Consent/Education:? Patient was instructed in purpose of PT consult and plan of care. Agreeable to proceed with established PT POC to achieve personal goals. Assessment: Tori demonstrates functional mobility decline requiring assistance of 1 and the use of a front-wheeled walker for all mobility ADL performance.? Patient presents with clinical signs and symptoms consistent with current/admitting diagnoses that have resulted to mobility limitations, gait instability, generalized weakness, and overall ADL decline as demonstrated by the following impairment level findings: 1.? Decreased strength to B UE/LE? major muscle groups 2.? Impaired standing balance 3.? Impaired activity tolerance 5.? Shortness of breath 6.? Swelling in the legs and feet 7.? Festinating gait Impairments are contributing to the following functional limitations: 1.? Decline in transfer skills 2.? Difficulty with ambulation without assistive device and physical assistance 3.? Increased completion time for mobility ADL performance 4.? Increased risk for falls 5.? Difficulty with managing steps alone safely Patient is assessed as a [id number] moderate complexity based on the following: History: 76-year-old female with past medical history as indicated above Examination: Demonstrable impairment in strength, balance, and mobility level with underlying impairments and functional limitations as exhibited above as well as deficit score of 69% utilizing the [facility] Mobility Inpatient Short Form Presentation: Evolving Decision Makin moderate complexity complexity Goals: Goals X1 week 1. Supine-Sit independent 2. Sit-Supine independent 3. Sit-Stand independent 4. Stand-Sit independent FWW 5. Bed-Chair independent with FWW 6. Chair-Bed independent with FWW 7.? Supervision gait on level surface with use of FWW for at least 300 feet without report of pain nor dyspnea 8. Good static and dynamic standing balance/tolerance Plan of Care/Treatment Plan: 1-2x/day, 7 days/week x 1 week. Plan of care has been reviewed with the DIRECTOR MORTGAGE providing the service under Physical Therapy direction. Continue Physical Therapy intervention for pain management as needed, strengthening, bed mobility, transfers, gait, stairs, balance training, and use of assistive device. DISCHARGE RECOMMENDATIONS: [] ? Home with no services [] [] ? Home with services [specify] [] ? Home with outpatient PT [] [X] ? SNF for continued rehabilitation.? Patient will benefit from snf facility placement for continued skilled physical therapy services in order to progress mobility level, strength, and balance in preparation for a safe discharge to home. [] ? [facility] [facility] [employer]ing Machine Operator [facility] [] TREATMENT CODE/TIME: 26543 x 20 minutes, 54227? x 10 minutes beginning at 15:49 PM. Thank you for the opportunity to participate in the care of this patient. Karla Rene PT, DPT, CLT [facility] [place], [place]
[2021-12-11 19:35] VITALS: BP 148/82; PULSE 70; RESP 18; TEMP 37; O2SAT 96
[2021-12-11] MEDS: Lactobacillus Acidophilus CAP 1 CAP PO (19:45)
[2021-12-11] MEDS: Docusate Sodium 100 MG CAP PO (19:45)
[2021-12-11] MEDS: Propranolol 10 MG TAB PO (19:45)
[2021-12-11] MEDS: Carbidopa 25/Levodopa 100 TAB PO (19:45)
[2021-12-11] MEDS: Diclofenac 1% Gel 100 GM TUBE TP (19:46)
[2021-12-11] MEDS: Lidocaine 5% Patch 2 PATCH TP (19:46)
[2021-12-12 07:45] VITALS: BP 154/70; PULSE 61; RESP 17; TEMP 36.9; O2SAT 95
[2021-12-12] MEDS: Polyethylene Glycol 3350 17 GM PACKET PO (07:46)
[2021-12-12] MEDS: Montelukast 10 MG TAB PO (07:46)
[2021-12-12] MEDS: Atorvastatin 40 MG TAB 80 MG PO (07:46)
[2021-12-12] MEDS: Aspirin E.C. 81 MG TABEC PO (07:47)
[2021-12-12] MEDS: Losartan 25 MG TAB 50 MG PO (07:47)
[2021-12-12] MEDS: Donepezil 5 MG TAB 10 MG PO (07:47)
[2021-12-12] MEDS: Carbidopa 25/Levodopa 100 TAB PO ×3 (07:47→20:12)
[2021-12-12] MEDS: Propranolol 10 MG TAB PO ×2 (07:47→20:11)
[2021-12-12] MEDS: Potassium Chloride 20 MEQ TABCR PO (07:47)
[2021-12-12] MEDS: Lactobacillus Acidophilus CAP 1 CAP PO ×2 (07:48→20:11)
[2021-12-12] MEDS: Lidocaine Patch Removal 2 EACH TP (07:48)
[2021-12-12] MEDS: Docusate Sodium 100 MG CAP PO ×2 (07:48→20:11)
[2021-12-12] MEDS: Cyanocobalamin 500 MCG TAB PO (07:48)
[2021-12-12] MEDS: Normal Saline Flush 10 ML SYR IVP (07:49)
[2021-12-12] MEDS: Enoxaparin 40 MG/0.4 ML SYR SC (07:49)
[2021-12-12] MEDS: Diclofenac 1% Gel 100 GM TUBE TP ×4 (07:49→20:16)
--- NOTE | 2021-12-12 13:22 | PT.INTREAT ---
Date of service: 12/12/21 Time of Service: 09:15 PT Notes Visit Reasons: Parkinson's/dementia/frequent falls/loss of ADLs Inpatient Physical Therapy Treatment Note [facility] Date: 12/12/2021 PRECAUTIONS:Fall and activities as tolerated SUBJECTIVE: Stated she was too tired to walk first thing this morning, but willing prior to lunch. Did not sleep well last night. OBJECTIVE: PAIN: Pain with walking in right heel again today, despite use of slippers. BED MOBILITY/TRANSFERS Up in chair when I arrived today Sit-stand: CGA Stand-sit: CGA GAIT Assistive Device: FWW Weight bearing: FWB Assist: SBA to CGA Distance: 100ft and 160ft THEREX: LAQs, seated hip flexion, seated hip abduction, each with 3# ankle weights and tactile/ verbal guidance for 10 reps x 2 sets. NuStep prior to lunch for 3 minutes 5 seconds. ASSESSMENT: Tolerated ther exercises in internet project manager and ambulation/NuStep prior to lunch well. PLAN: Continue with current POC with focus on improved functional mobility. TREATMENT CODE/TIME: 93357 (15') 9:15 to 9:30 am and 77291 (18') 12:00 to 12:18 pm
[2021-12-12 19:55] VITALS: BP 122/74; PULSE 68; RESP 20; TEMP 36.7; O2SAT 94
[2021-12-12] MEDS: Lidocaine 5% Patch 2 PATCH TP (20:12)
[2021-12-13 07:55] VITALS: BP 121/72; PULSE 68; RESP 18; TEMP 37.2; O2SAT 96
[2021-12-13] MEDS: Diclofenac 1% Gel 100 GM TUBE TP ×4 (08:20→20:11)
[2021-12-13] MEDS: Atorvastatin 40 MG TAB 80 MG PO (08:20)
[2021-12-13] MEDS: Enoxaparin 40 MG/0.4 ML SYR SC (08:20)
[2021-12-13] MEDS: Polyethylene Glycol 3350 17 GM PACKET PO (08:20)
[2021-12-13] MEDS: Montelukast 10 MG TAB PO (08:20)
[2021-12-13] MEDS: Potassium Chloride 20 MEQ TABCR PO (08:21)
[2021-12-13] MEDS: Donepezil 5 MG TAB 10 MG PO (08:21)
[2021-12-13] MEDS: Aspirin E.C. 81 MG TABEC PO (08:21)
[2021-12-13] MEDS: Propranolol 10 MG TAB PO ×2 (08:21→20:10)
[2021-12-13] MEDS: Docusate Sodium 100 MG CAP PO ×2 (08:21→20:10)
[2021-12-13] MEDS: Losartan 25 MG TAB 50 MG PO (08:21)
[2021-12-13] MEDS: Lactobacillus Acidophilus CAP 1 CAP PO ×2 (08:21→20:10)
[2021-12-13] MEDS: Carbidopa 25/Levodopa 100 TAB PO ×3 (08:21→20:10)
[2021-12-13] MEDS: Cyanocobalamin 500 MCG TAB PO (08:21)
--- NOTE | 2021-12-13 09:15 | CM.SWINGPC ---
- If Service Date Differs Date of service: 12/11/21 Time of Service: 09:15 Swingbed Plan of Care Plan of care: SWING BED PROGRAM ACTIVITIES/DISCHARGE PLAN OF CARE ACTIVITIES PLAN Date: 12/11/21 Identified Need: Life Enrichment during extended hospitalization Intervention/Plan: Activity CART, visitors Initials: SUSIE DISCHARGE PLAN Date: 12/11/21 Identified Need: SNF, disposition, L/T Medicaid attainment Intervention/Plan: Skilled services for rehab while awaiting placement; coordinated discharge efforts ongoin, application provided to daughter. Initials: SUSIE
--- NOTE | 2021-12-13 09:18 | CMSA_ITS ---
- If Service Date Differs Date of service: 12/13/21 Time of Service: 09:18 SB Psychosocial/Act.Assessment - Hospital Admission Admission Date: 12/06/21 Admission From:: Home Diagnosis:: Back Pain, frequent falls - Swing Bed Admission Swing Bed Admit Date:: 12/11/21 Swing Bed Level of Care: Level 1/SNF - Social Supports PREVIOUS FUNCTIONAL STATUS/SOCIAL/FAMILY SUPPORTS:: Tori resides alone in a mobile home that she owns in [place]. Her daughter Andree is her DPOA. Andree reports that her mom has experienced a rapid physical and cognitive decline since the of her a few years ago. - Prior to Admission Living Arrangements/Environment Prior to Admission:: Tori has a private caregiver from 8:30 to 4:30 Tuesday through Tuesday, Andree states her mom really needs 24/7 caregivers. Andree is in the process of trying to find additionally caregivers, so Tori will have around the clock care at home. Tori owns a FWW, wheelchair and a hospital bed. She had Home Health RN, PT, OT and MANAGER STEEL services up until a week before admission-when Home Health terminated services. - Work History Employment Status:: Retired - Lyons: No Lyons's Spouse: No - Benefits Financial: Medicare, Commerical ([place] ) - Voodoo Active Latter Day Member:: No Will Latter Day Members or Anesthesia Tech Visit:: No - Advance Directives for Healthcare Advance Directives for Healthcare: Advance Directives If no AD, do you want more information:: Yes Advance Directive Agent: On file; daughter Andree Blum is appointed as Health Care Agent. - Medical History PAST MEDICAL HISTORY/PAST SURGICAL HISTORY:: All Active Problems: Back pain (Acute), Recurrent falls (Acute),. 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 Cerebrovascular disease (Chronic), Prediabetes (Chronic), Syncopal episodes (Chronic) - Intermittent syncope. Head/neck imaging, heart monitor with no identifiable cause, Hyperlipidemia (Chronic), and. Essential hypertension (Chronic). Medical History: Thyroid nodule - Benign. Surgical History: History of section and S/P colonoscopy (03/18/15). - Admission Data Reason for Swing Bed Admission:: Outpatient service fail. Referrals placed September 2021 for MANAGER STEEL-specific to L/T Care planning and service connection. Services terminated one week prior to admission-additional lack of service availability for time clock mechanic care. Patient has declined further since September admission with no known community based intervention to ensure success or deter admission to [facility]. Now, Tori and her daughter require the same support to complete long-term planning, without the safety and benefit of Tori remaining at home and at a diminished functional level than two monthes prior. CM will support Tori in securing SNF placement, completing L/T JACY brenda, connecting with manager beverage or specialist on asset management and long-term care planning. Discharge Plan:: As above; SNF, L/T care planning. Assessment: SNF-L/T planning. Psychiatric Secretary: Nanette Tellez Date Assessment was completed:: 12/13/21
[2021-12-13 11:28] LABS: Platelet Count 531 10^3/uL (130-400)
--- NOTE | 2021-12-13 12:40 | PT.INTREAT ---
Date of service: 12/13/21 Time of Service: 09:15 PT Notes Visit Reasons: Parkinson's/Dementia/Frequent Falls/Loss of ADLs Inpatient Physical Therapy Treatment Note [facility] Date: 12/13/2021 PRECAUTIONS:Fall and activities as tolerated SUBJECTIVE: Stated she was too tired to walk first thing this morning, but willing prior to lunch. Did not sleep well last night. OBJECTIVE: ? PAIN: No pain in back or feet today with mobilization. ? BED MOBILITY/TRANSFERS? Up in chair when I arrived today? Sit-stand: CGA? Stand-sit: CGA ? GAIT? Assistive Device: FWW ? Weight bearing: FWB Assist: SBA to CGA ? Distance:? 160ft x 2? THEREX: LAQs, seated hip flexion, seated hip abduction, each with 3# ankle weights and tactile/ verbal guidance for 10 reps x 2 sets. NuStep prior to lunch for 4 minutes 5 seconds, but noted patient having difficulties with keeping left hand on handle today. ? ASSESSMENT:? Tolerated skilled PT session well today. But did find it interesting that she was having a hard time remembering to keep her leftt hand on NuStep handle today, had been able to do this yesterday. PLAN: Continue with current POC, with focus on improved functional mobility. TREATMENT CODE/TIME: 67609 / 02739, (30') 9:15 to 9:45 am
[2021-12-13 19:31] VITALS: BP 124/62; PULSE 73; RESP 15; TEMP 37.2; O2SAT 96
[2021-12-13] MEDS: Lidocaine 5% Patch 2 PATCH TP (20:10)
[2021-12-14 08:14] VITALS: BP 117/76; PULSE 64; RESP 18; TEMP 36.6; O2SAT 97
[2021-12-14] MEDS: Montelukast 10 MG TAB PO (08:22)
[2021-12-14] MEDS: Polyethylene Glycol 3350 17 GM PACKET PO (08:22)
[2021-12-14] MEDS: Donepezil 5 MG TAB 10 MG PO (08:22)
[2021-12-14] MEDS: Potassium Chloride 20 MEQ TABCR PO (08:22)
[2021-12-14] MEDS: Atorvastatin 40 MG TAB 80 MG PO (08:22)
[2021-12-14] MEDS: Carbidopa 25/Levodopa 100 TAB PO ×3 (08:22→19:51)
[2021-12-14] MEDS: Propranolol 10 MG TAB PO ×2 (08:22→19:51)
[2021-12-14] MEDS: Lactobacillus Acidophilus CAP 1 CAP PO ×2 (08:22→19:51)
[2021-12-14] MEDS: Aspirin E.C. 81 MG TABEC PO (08:23)
[2021-12-14] MEDS: Diclofenac 1% Gel 100 GM TUBE TP ×4 (08:23→19:51)
[2021-12-14] MEDS: Losartan 25 MG TAB 50 MG PO (08:23)
[2021-12-14] MEDS: Lidocaine Patch Removal 2 EACH TP (08:23)
[2021-12-14] MEDS: Enoxaparin 40 MG/0.4 ML SYR SC (08:23)
[2021-12-14] MEDS: Docusate Sodium 100 MG CAP PO ×2 (08:23→19:51)
[2021-12-14] MEDS: Cyanocobalamin 500 MCG TAB PO (08:23)
--- NOTE | 2021-12-14 10:57 | PTTR_ITS ---
Date of service: 12/14/21 Time of Service: 10:57 PT Notes Visit Reasons: Parkinson's/Dementia/Frequent Falls/Loss of ADLs Inpatient Physical Therapy Treatment [facility] Date: 12/14/2021 PRECAUTIONS: Fall. Activity as tolerated. SUBJECTIVE: Agreeable to PT session. States that her right heel does not hurt as much. OBJECTIVE:? PAIN: 2?3/10 pain in the right heel that subsided with ambulation ? BED MOBILITY/TRANSFERS? Sit-stand: Standby assist? Stand-sit: Standby assist ? GAIT? Assistive Device: FWW ? Weight bearing: FWB Assist: Standby assist ? Distance: 200 feet +200 feet Deviation: Height and length increasing. Posture improving. ? THEREX: Chair push-ups x10 with cues for hand placement onto armrest. NuStep with a duration of 5 minutes and 27 seconds with a resistance of 13 however had a hard time keeping left hand on hand requiring tactile assistance from PT for re-positioning. ? ASSESSMENT: Quality of gait and posture improving. Pain in the right heel diminishing. Tremor continuing to limit ability to grasp onto objects with left hand more affected than the right. DISCHARGE RECOMMENDATIONS: [] Home with no services [] [] Home with services [specify] [] Home with outpatient PT [] [X] SNF for continued rehabilitation. Patient will benefit from group home facility placement for continued skilled physical therapy services in order to progress mobility level, strength, and balance in preparation for a safe discharge to home. [] Environmental Services Coordinator Care [] [] SNF versus LTC based on ability to participate and progress [] TREATMENT CODE/TIME: 68949 x 15 minutes, 12127 x 13 minutes beginning at 10:57 AM. ?
--- NOTE | 2021-12-14 13:12 | CMPROGNOTE_ITS ---
- If Service Date Differs Date of service: 12/14/21 Time of Service: 13:12 Care Management Progress Note S/O: Tori was sitting up in her reclining chair when CM met with her. She was pleasant and able to engage in conversation. CM spoke with pts daughter Andree to discuss correction planning. CM provided Andree with LTM forms to fill out when Tori was first admitted. Yesterday, Andree notified CM that she is unwilling to submit the LTM application stating that her mom has assets and would be penalized 40% if she were to get LTM. Andree is aware that LTC placement requires a payer source such as LTM or would need to be self pay. Andree reiterates that she is not interested in LTC placement. CM shared that with Andree that the Hospitalists feel that Tori will require 24/7 caregivers moving forward, and Andree verbalizes understanding. Andree shared that Tori has caregivers M-F, and she is actively seeing full caregiver support for weekends. Andree is going reach out to her family and friends via Facebook and see if she can hire weekend caregivers out of pocket. CM provided Andree with multiple home caregiver resources. Andree has also been in contact with the [facility]. A: 76 year old female admitted to [facility] on 12/03/2021 for Back Pain P: Tori transitioned to SWB1 status for additional rehab prior to returning home. Pts daughter Andree elects not to fill out LTM forms for LTC placement, due to Tori's ability to afford her own caregivers. Tori will discharge home with 24/7 caregiver support per [facility] when SWB1 stay is complete. Tori will transport via [facility] and follow up with community providers and plan of care as directed.
[2021-12-14] MEDS: Lidocaine 5% Patch 2 PATCH TP (19:50)
[2021-12-14 20:23] VITALS: BP 118/62; PULSE 64; RESP 18; TEMP 37.1; O2SAT 97
--- NOTE | 2021-12-15 06:56 | PGE_ITS ---
Date of Service Date of service: 12/14/21 Time of Service: 06:56 Assessment and Plan Assessment and plan (1) Back pain: Assessment and plan: She suffered a fall at home with minor back injury. At this point her pain is well controlled. We will change her scheduled Tylenol to as needed as her only complaint today was too many pills. (2) Essential tremor: Assessment and plan: She started on propranolol yesterday. Only small amount of tremor today. (3) Decreased activities of daily living (ADL): Assessment and plan: She is very limited and unable to care for herself independently at this time. The plan is for senior living facility referral. To date no available beds. (4) Recurrent falls: Assessment and plan: Unsteady on her feet. She continues to work with PT/OT. She is using a walker. (5) Parkinson disease: Assessment and plan: Dose adjustment as per Dr. Denton. Appears well controlled at this time. (6) 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: Assessment and plan: Limited cognition. She states her daughter is working with her. Will likely need long-term support. (7) Discharge planning issues: Status: Deleted Assessment and plan: Working with PT/OT, plan is for senior living facility for short-term possible long-term placement. Exam Narrative Exam Narrative: On exam she is a pleasantly demented female with out significant distress. She can answer questions but they are somewhat repetitive. She had a resting tremor on admission which has since improved since starting propranolol. She still has some cogwheeling on both upper extremities. She has been working with physical therapy and is weightbearing and using a walker reasonably well. Her vital signs have all been stable. She is showing no new neurologic deficits. Objective Last Vital Signs Temp 37.1 C 12/14/21 20:23 Pulse 64 12/14/21 20:23 Resp 18 12/14/21 20:23 BP 118/62 12/14/21 20:23 Pulse Ox 97 12/14/21 20:23 PAWSS Pt Consumed Any Amount of Alcohol Within the Last 30 days OR had positive SAHIL Upon Admission: No
[2021-12-15 07:47] VITALS: BP 137/76; PULSE 61; RESP 17; TEMP 36.7; O2SAT 95
[2021-12-15] MEDS: Lidocaine Patch Removal 2 EACH TP (09:00)
[2021-12-15] MEDS: Carbidopa 25/Levodopa 100 TAB PO ×3 (09:28→19:34)
[2021-12-15] MEDS: Polyethylene Glycol 3350 17 GM PACKET PO (09:28)
[2021-12-15] MEDS: Atorvastatin 40 MG TAB 80 MG PO (09:29)
[2021-12-15] MEDS: Lactobacillus Acidophilus CAP 1 CAP PO ×2 (09:29→19:34)
[2021-12-15] MEDS: Potassium Chloride 20 MEQ TABCR PO (09:30)
[2021-12-15] MEDS: Cyanocobalamin 500 MCG TAB PO (09:31)
[2021-12-15] MEDS: Losartan 25 MG TAB 50 MG PO (09:31)
[2021-12-15] MEDS: Montelukast 10 MG TAB PO (09:31)
[2021-12-15] MEDS: Aspirin E.C. 81 MG TABEC PO (09:31)
[2021-12-15] MEDS: Donepezil 5 MG TAB 10 MG PO (09:32)
[2021-12-15] MEDS: Propranolol 10 MG TAB PO ×2 (09:32→19:34)
[2021-12-15] MEDS: Docusate Sodium 100 MG CAP PO ×2 (09:32→19:34)
[2021-12-15] MEDS: Enoxaparin 40 MG/0.4 ML SYR SC (09:34)
[2021-12-15] MEDS: Diclofenac 1% Gel 100 GM TUBE TP ×3 (11:59→16:26)
--- NOTE | 2021-12-15 13:28 | PT.INTREAT ---
PT Notes Visit Reasons: Parkinson's/Dementia/Frequent Falls/Loss of ADLs Inpatient Physical Therapy Treatment Note [facility] Date: 12/15/21 OBJECTIVE: Sit-stand: CGA/min assist Stand-sit: CGA GAIT Assistive Device: FWW Weight bearing: Full Assist: CGA Distance: 200ft THEREX: Pt completed UE and LE strengthening ther ex as per flow sheet while seated. Pt completed sit to stands x 4 due to pts requiring a change of her under garments and robe. ASSESSMENT: Pt tolerated today's session well. Pt has difficulty with her initial standing but once standing does well. PLAN: Cont as per PT POC as per pacheco. TREATMENT CODE/TIME: 25 min ARTURO YOO
--- NOTE | 2021-12-15 15:33 | PT.INTREAT ---
Date of service: 12/15/21 Time of Service: 14:15 PT Notes Visit Reasons: Parkinson's/Dementia/Frequent Falls/Loss of ADLs Inpatient Physical Therapy Treatment Note [facility] Date: 12/15/2021 PRECAUTIONS:Fall and activities as tolerated SUBJECTIVE: Very upset that her daughter came to visit her but did not wake her up from her nap to talk with her. OBJECTIVE: PAIN: Back sensitivity requiring readjustment of pillow in her recliner chair to get it comfortable. No other complaints of pain offered. BED MOBILITY/TRANSFERS Up in chair when I arrived. Sit-stand: CGA and verbal cueing Stand-sit: CGA and verbal cueing GAIT Assistive Device: FWW Weight bearing: FWB Assist: SBA Distance: 200ft x 2 Upon arrival to patient's room she indicated she needed to use restroom to have a bowel movement, but only urinated. Did wipe herself post urination today and wash hands in sink with assistance to adjust water and get soap/ paper towels. THEREX: Performed NuStep x 5 minutes 17 seconds while in PT office. Continues to have difficulty keeping left hand on the handle. Was able to get hand back on left handle with verbal cueing this afternoon. ASSESSMENT: Tolerated pm session with good effort given. PLAN: Continue with current plan of care with focus on improved functional mobility. TREATMENT CODE/TIME: 13536/56526, (35') 2:15 to 2:50 pm
[2021-12-15] MEDS: Lidocaine 5% Patch 2 PATCH TP (19:33)
[2021-12-15 19:39] VITALS: BP 139/63; PULSE 73; RESP 20; TEMP 37; O2SAT 96
[2021-12-16 08:01] VITALS: BP 116/74; PULSE 76; RESP 18; TEMP 37.3; O2SAT 96
[2021-12-16] MEDS: Polyethylene Glycol 3350 17 GM PACKET PO (08:37)
[2021-12-16] MEDS: Atorvastatin 40 MG TAB 80 MG PO (08:37)
[2021-12-16] MEDS: Enoxaparin 40 MG/0.4 ML SYR SC (08:37)
[2021-12-16] MEDS: Aspirin E.C. 81 MG TABEC PO (08:38)
[2021-12-16] MEDS: Potassium Chloride 20 MEQ TABCR PO (08:38)
[2021-12-16] MEDS: Donepezil 5 MG TAB 10 MG PO (08:38)
[2021-12-16] MEDS: Diclofenac 1% Gel 100 GM TUBE TP ×4 (08:38→20:16)
[2021-12-16] MEDS: Docusate Sodium 100 MG CAP PO ×2 (08:38→20:14)
[2021-12-16] MEDS: Losartan 25 MG TAB 50 MG PO (08:38)
[2021-12-16] MEDS: Montelukast 10 MG TAB PO (08:38)
[2021-12-16] MEDS: Propranolol 10 MG TAB PO ×2 (08:38→20:14)
[2021-12-16] MEDS: Carbidopa 25/Levodopa 100 TAB PO ×3 (08:38→20:14)
[2021-12-16] MEDS: Cyanocobalamin 500 MCG TAB PO (08:38)
[2021-12-16] MEDS: Lidocaine Patch Removal 2 EACH TP (08:39)
[2021-12-16] MEDS: Lactobacillus Acidophilus CAP 1 CAP PO ×2 (08:39→20:14)
--- NOTE | 2021-12-16 14:44 | PTTR_ITS ---
PT Notes Visit Reasons: Parkinson's/Dementia/Frequent Falls/Loss of ADLs Inpatient Physical Therapy Treatment Note [facility] Date: 12/16/21 SUBJECTIVE: Tori states that she is really tired this am. Indicated that she stayed up late last night and has been up since 4am. She just got out of the shower, of which she walked to and from. She is tired. She refuses PT this pm stating she just vomited and loose stools. She currently is not well, and afraid to move. OBJECTIVE: [] BED MOBILITY/TRANSFERS Sit-stand: CGA Stand-sit: CGA GAIT Assistive Device: FWW Weight bearing: FWB Assist: CGA Distance: 320' THEREX: attempted a global strengthening routine with her, however she only pe rforms 5 sit to stand ex, and decided she was done. Refused to participate in any further ex. ASSESSMENT: tolerated session fair. C/o feeling tired t/o am session. Refused pm session. PLAN: will continue to work on her global LE strengthening to improve her functional mobility following PT POC. TREATMENT CODE/TIME: am: 20 min [id number]
[2021-12-16 19:37] VITALS: BP 155/76; PULSE 70; RESP 17; TEMP 36.4; O2SAT 95
[2021-12-16] MEDS: Lidocaine 5% Patch 2 PATCH TP (20:15)
[2021-12-17 07:03] LABS: Platelet Count 497 10^3/uL (130-400)
[2021-12-17 07:38] VITALS: BP 137/78; PULSE 58; RESP 16; TEMP 36.2; O2SAT 96
[2021-12-17] MEDS: Carbidopa 25/Levodopa 100 TAB PO ×3 (08:27→19:43)
[2021-12-17] MEDS: Montelukast 10 MG TAB PO (08:27)
[2021-12-17] MEDS: Atorvastatin 40 MG TAB 80 MG PO (08:27)
[2021-12-17] MEDS: Aspirin E.C. 81 MG TABEC PO (08:27)
[2021-12-17] MEDS: Potassium Chloride 20 MEQ TABCR PO (08:27)
[2021-12-17] MEDS: Losartan 25 MG TAB 50 MG PO (08:27)
[2021-12-17] MEDS: Cyanocobalamin 500 MCG TAB PO (08:27)
[2021-12-17] MEDS: Propranolol 10 MG TAB PO ×2 (08:28→19:43)
[2021-12-17] MEDS: Enoxaparin 40 MG/0.4 ML SYR SC (08:28)
[2021-12-17] MEDS: Lactobacillus Acidophilus CAP 1 CAP PO ×2 (08:28→19:43)
[2021-12-17] MEDS: Donepezil 5 MG TAB 10 MG PO (08:28)
[2021-12-17] MEDS: Docusate Sodium 100 MG CAP PO ×2 (08:28→19:43)
[2021-12-17] MEDS: Polyethylene Glycol 3350 17 GM PACKET PO (08:28)
[2021-12-17] MEDS: Lidocaine Patch Removal 2 EACH TP (09:17)
[2021-12-17] MEDS: Diclofenac 1% Gel 100 GM TUBE TP ×3 (09:23→17:38)
--- NOTE | 2021-12-17 11:30 | W.NUTRFU ---
Date of service: 12/17/21 Time of Service: 11:30 Nutrition Note NOTE: Tori is following regular meal plan. Daughter helps with menus. PO intake excellent and weight stable and appropriate for age. Not at nutritional risk. Will continue to follow and support. Time Spent in Nutritional Counseling and Treatment: 0
--- NOTE | 2021-12-17 12:36 | PCNE_ITS ---
Date of service: 12/17/21 Time of Service: 12:36 History of Present Illness Narrative: Toir is a 76 year old female with a past medical history significant for dementia and parkinsons who had a fall at home. She was home with caregivers (not 24/7) prior to being admitted. She was seen by Karina Schwartz NP during her acute admission. She has since transitioned to swing bed level of care. Her daughter is working on securing 24/7 caregivers in Tori's home for discharge. Tori was seen in her hospital room. She was up in the recliner at the time of the visit. She thought she was in [place], [place] at the hospital, she also thought it was the beginning of December, both very close. She was easily reoriented. She reports that she lives in [place]. She verbalizes the plan to return to her home. She states the only half-way she would go to is the [facility], she has had family there in the past. She was able to tell me that her granddaughter, Karlie, is in college in [place] and has one year left. Tori has advanced directives on file. Her daughter, Andree, is her health care agent. Her advanced directives state that she would want CPR and also that she would only want treatment to sustain her life if she an communicate with friends and family, be able to care for herself, not be in pain, and be conscious and aware of her surroundings. They also state that she would be willing to be on a ventilator for a short time to see if she will get better. She is not sure today if she would want to be on a ventilator. She does not want a feeding tube and she would want Abx. We reviewed her CODE status. She states she has not thought a lot about it. We will continue to discuss, hopefully next time with her daughter present. Assessment and Plan Assessment and plan (1) 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: (2) Parkinson disease: (3) Cerebrovascular disease: (4) Recurrent falls: (5) Decreased activities of daily living (ADL): (6) Palliative care patient: Status: Acute Assessment and plan: Tori is a very pleasant 76 year old female with a past medical history significant for Parkinson's with dementia and falls at home. She is currently admitted to swing bed level of care while her daughter, Andree arranges for her to have 24/7 caregivers at home. She was able to engage in the conversation and provide what appears to be accurate information. She has advanced directives on file. Her daughter, Andree, is her health care agent. She is a FULL CODE. We reviewed CODE STATUS. She is not sure she would want to be on a ventilator. She would like to review this again in the presence of her daughter. She will benefit from ongoing Palliative care in the setting of parkinson's disease with dementia and decreased ability to care for herself at home. She is agreeable to be followed by Palliative. Follow up PRN while hospitalized and after discharge home. Review of Systems Narrative: as per HPI PFSH All Active Problems (Updated 12/17/21 @ 13:33 by Justyna Gutiererz NP) Palliative care patient (Acute) Onychomycosis (Acute) Onychogryphosis (Acute) Prediabetes (Chronic) Medical History Back pain Cerebrovascular disease Decreased activities of daily living (ADL) 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 Followed by [facility] [place] [facility] Essential hypertension Essential tremor Hyperlipidemia Parkinson disease Followed by [facility] Recurrent falls Syncopal episodes Intermittent syncope. Head/neck imaging, heart monitor with no identifiable cause Thyroid nodule Benign Surgical History History of section S/P colonoscopy (03/18/15) Family History Mother , 71 Depression Stroke CKD (chronic kidney disease) Father , 68 Heart disease Myocardial infarction Parkinson disease Sister No problems noted. Sister No problems noted. Brother , 42 of [place] Heart disease Myocardial infarction Brother , at 49 of [place] Heart disease Myocardial infarction Brother , at 58 of [place] Heart disease Myocardial infarction Brother , at 61 of [place] Heart disease Myocardial infarction Brother , at 80 of fall No problems noted. Son , at 45 of [place] Heart disease Myocardial infarction Daughter No problems noted. Maternal Grandfather No problems noted. Maternal Grandmother No problems noted. Paternal Grandfather No problems noted. Paternal Grandmother No problems noted. Social History (Reviewed 12/17/21 @ 13:25 by TAWNYA Murdock Smoking/Tobacco Use Status: Never Smoking risk assessment performed?: Yes Alcohol Intake: current Alcohol Intake frequency: a few times a month Drug use: Never Substance use type: does not use Counseling given: No Household members: other Details: Camper until get apartment by June Housing: other Details: Camper until get apartment by June Pets and animals: No Sexually active: No Do you think of yourself as: straight/heterosexual Current gender identity: female What is your relationship status?: How often do you talk on the phone with friends or family?: three or more times per week How often do you get together with friends or relatives?: three or more times per week Do you belong to any clubs or organized social groups?: no Panel score (0-1 are the most socially isolated patients): 1 What type of physical activity do you participate in: walking Frequency: other Details: Some Shivani/Church: [employer] Seatbelt use: always Drive intox or ride w/intox local bulk driver: No Do you feel safe at home: Yes Do you feel safe in your relationship?: Yes History History 2 Para 2 Hx # Term Pregnancies Multiple births Hx # Pregnancies Ectopic pregnancies AB induced Hx Number of Living Children 1 AB spontaneous Exam Narrative Exam Narrative: General: elderly female, sitting up in the recliner in her hospital room. She is awake and alert. She was able to hold a conversation and give what appears to be accurate information. She thought she was in [place], [place] at the hospital and thought it was early December but was reoriented easily. Speech is slow. HEENT: normocephalic, atraumatic, EOMI, mucous membranes moist. Neck: supple, no JVD. Cardiovascular: heart sounds regular, nontachycardic. Respiratory: respirations appear even and unlabored, lung sounds are clear throughout. GI: +BS, abdomen soft, nondistended, nontender on palpation. Extremities: moves all 4 extremities, no edema. Results Last Vital Signs Temp 36.2 C L 12/17/21 07:38 Pulse 58 L 12/17/21 07:38 Resp 16 12/17/21 07:38 BP 137/78 12/17/21 07:38 Pulse Ox 96 12/17/21 07:38 Labs Result diagrams: 12/17/21 06:30 Labs: Laboratory Results - last 24 hr 12/17/21 06:30 Plt Count 497 H
--- NOTE | 2021-12-17 15:11 | PT.INTREAT ---
PT Notes Visit Reasons: Parkinson's/Dementia/Frequent Falls/Loss of ADLs Inpatient Physical Therapy Treatment Note [facility] Date: 12/17/21 SUBJECTIVE: Tori states that she is very sleepy today. She offers no other complaints. OBJECTIVE: [] BED MOBILITY/TRANSFERS pt seated in recliner Sit-stand: CGA Stand-sit: CGA GAIT Assistive Device: FWW Weight bearing: FWB Assist: CGA Distance: 300' in am and 300' in pm THEREX: global LE strength and stabilization routine. See flowsheet for details. ASSESSMENT: tolerated session well. Pt did not feel as though she could do any more due to fatigue. PLAN: continue to progress her strength and functional mobility following PT POC. TREATMENT CODE/TIME: 20 min in am and 15 min in pm. [id number]
[2021-12-17] MEDS: Lidocaine 5% Patch 2 PATCH TP (19:44)
[2021-12-17 19:54] VITALS: BP 130/80; PULSE 72; RESP 16; TEMP 36.6; O2SAT 93
[2021-12-18 07:32] VITALS: BP 105/70; PULSE 70; RESP 16; TEMP 37.2; O2SAT 97
[2021-12-18] MEDS: Polyethylene Glycol 3350 17 GM PACKET PO (08:29)
[2021-12-18] MEDS: Enoxaparin 40 MG/0.4 ML SYR SC (08:29)
[2021-12-18] MEDS: Diclofenac 1% Gel 100 GM TUBE TP ×4 (08:29→20:16)
[2021-12-18] MEDS: Cyanocobalamin 500 MCG TAB PO (08:30)
[2021-12-18] MEDS: Atorvastatin 40 MG TAB 80 MG PO (08:30)
[2021-12-18] MEDS: Propranolol 10 MG TAB PO ×2 (08:30→20:03)
[2021-12-18] MEDS: Carbidopa 25/Levodopa 100 TAB PO ×3 (08:30→20:03)
[2021-12-18] MEDS: Losartan 25 MG TAB 50 MG PO (08:30)
[2021-12-18] MEDS: Lactobacillus Acidophilus CAP 1 CAP PO ×2 (08:30→20:02)
[2021-12-18] MEDS: Donepezil 5 MG TAB 10 MG PO (08:30)
[2021-12-18] MEDS: Docusate Sodium 100 MG CAP PO ×2 (08:30→20:02)
[2021-12-18] MEDS: Montelukast 10 MG TAB PO (08:30)
[2021-12-18] MEDS: Potassium Chloride 20 MEQ TABCR PO (08:31)
[2021-12-18] MEDS: Aspirin E.C. 81 MG TABEC PO (08:31)
[2021-12-18] MEDS: Lidocaine Patch Removal 2 EACH TP (08:52)
[2021-12-18 15:09] VITALS: BP 95/60; PULSE 79; RESP 15; TEMP 37; O2SAT 96
--- NOTE | 2021-12-18 15:28 | PT.INTREAT ---
PT Notes Visit Reasons: Parkinson's/Dementia/Frequent Falls/Loss of ADLs Inpatient Physical Therapy Treatment Note [facility] Date: 12/18/21 SUBJECTIVE: Tori states that she is tired of sitting. OBJECTIVE: [] BED MOBILITY/TRANSFERS pt seated in recliner Sit-stand:SBA Stand-sit: SBA GAIT Assistive Device: FWW Weight bearing: FWB Assist: CGA/SBA Distance: 400' in pm THEREX: global LE strength and stabilization routine. See flowsheet for details. ASSESSMENT: tolerated session well. Offered no complaints to me during todays pm session. She did seem a little more confused. PLAN: continue to progress her strength and functional mobility following PT POC. TREATMENT CODE/TIME: 22 min [id number], [id number]
[2021-12-18] MEDS: Lidocaine 5% Patch 2 PATCH TP (20:03)
[2021-12-18] MEDS: traMADol 50 MG TAB PO (21:02)
[2021-12-19 08:15] VITALS: BP 107/75; PULSE 68; RESP 16; TEMP 36.7; O2SAT 98
[2021-12-19] MEDS: Diclofenac 1% Gel 100 GM TUBE TP ×4 (08:35→20:38)
[2021-12-19] MEDS: Enoxaparin 40 MG/0.4 ML SYR SC (08:35)
[2021-12-19] MEDS: Potassium Chloride 20 MEQ TABCR PO (08:36)
[2021-12-19] MEDS: Cyanocobalamin 500 MCG TAB PO (08:36)
[2021-12-19] MEDS: Docusate Sodium 100 MG CAP PO ×2 (08:36→20:38)
[2021-12-19] MEDS: Lactobacillus Acidophilus CAP 1 CAP PO ×2 (08:36→20:37)
[2021-12-19] MEDS: Montelukast 10 MG TAB PO (08:36)
[2021-12-19] MEDS: Donepezil 5 MG TAB 10 MG PO (08:36)
[2021-12-19] MEDS: Carbidopa 25/Levodopa 100 TAB PO ×3 (08:36→20:38)
[2021-12-19] MEDS: Polyethylene Glycol 3350 17 GM PACKET PO (08:36)
[2021-12-19] MEDS: Atorvastatin 40 MG TAB 80 MG PO (08:36)
[2021-12-19] MEDS: Losartan 25 MG TAB 50 MG PO (08:36)
[2021-12-19] MEDS: Propranolol 10 MG TAB PO ×2 (08:37→20:38)
[2021-12-19] MEDS: Lidocaine Patch Removal 2 EACH TP (08:37)
[2021-12-19] MEDS: Aspirin E.C. 81 MG TABEC PO (08:37)
--- NOTE | 2021-12-19 11:26 | PT.INTREAT ---
PT Notes Visit Reasons: Parkinson's/Dementia/Frequent Falls/Loss of ADLs Inpatient Physical Therapy Treatment Note [facility] Date: 12/19/21 OBJECTIVE: Sit-stand: CGA/Min assistx1 Stand-sit: CGA GAIT Assistive Device: FWW Weight bearing: full Assist: CGA/SBA Distance: 400ft THEREX: Pt completed UE and LE strengthening ther ex as per flow sheet. ASSESSMENT: Pt tolerated today's session well. Pt did c/o some slight dizziness upon standing but resolved quickly and did not reoccur. PLAN: Cont as per PT POC. TREATMENT CODE/TIME: 9:05-9:27 (23) ARTURO TP
--- NOTE | 2021-12-19 16:26 | PGE_ITS ---
Date of Service Date of service: 12/19/21 Time of Service: 16:26 Assessment and Plan Assessment and plan (1) Back pain: Start date: 12/19/21 Start time: 12:00 Assessment and plan: She suffered a fall at home with minor back injury. At this point her pain is well controlled. Tylenol as needed (2) Essential tremor: Start date: 12/19/21 Start time: 12:00 Assessment and plan: She started on propranolol yesterday. Only small amount of tremor today. (3) Decreased activities of daily living (ADL): Start date: 12/19/21 Start time: 12:00 Assessment and plan: She is very limited and unable to care for herself independently at this time. (4) Recurrent falls: Start date: 12/19/21 Start time: 12:00 Assessment and plan: Unsteady on her feet. She continues to work with PT/OT. She is using a walker. Will stay in SB 1 then return home when time frame completed (5) Parkinson disease: Start date: 12/19/21 Start time: 12:00 Assessment and plan: Dose adjustment as per Dr. Denton. Appears well controlled at this time. 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 She states her daughter is working with her. Will likely need long-term support. (7) Discharge planning issues: Start date: 12/19/21 Start time: 12:00 Status: Deleted Assessment and plan: Working with PT/OT, plan for her to stay here on SB 1 then return home with home care. Discussed with Dr. Lovett Subjective Subjective Patient reports: no new complaints Interval history since last seen: Sitting up in chair asleep. Wakes easily, confused. Oriented to self. No comp laints. Exam Narrative Exam Narrative: General: elderly female, sitting up in the recliner in her hospital room. She is asleep, wakes easily oriented only to self, likely though due to being tired. Speech is slow. HEENT: normocephalic, atraumatic, EOMI, mucous membranes moist. Neck: supple, no JVD. Cardiovascular: heart sounds regular, nontachycardic. Respiratory: respirations appear even and unlabored, lung sounds are clear throughout. GI: +BS, abdomen soft, nondistended, nontender on palpation. Extremities: moves all 4 extremities, no edema. Objective Last Vital Signs Temp 36.7 C 12/19/21 08:15 Pulse 68 12/19/21 08:15 Resp 16 12/19/21 08:15 BP 107/75 12/19/21 08:15 Pulse Ox 98 12/19/21 08:15 PAWSS Pt Consumed Any Amount of Alcohol Within the Last 30 days OR had positive SAHIL Upon Admission: No
[2021-12-19 20:13] VITALS: BP 146/82; PULSE 79; RESP 16; TEMP 36.3; O2SAT 94
[2021-12-19] MEDS: Lidocaine 5% Patch 2 PATCH TP (20:38)
[2021-12-20 08:05] VITALS: BP 121/69; PULSE 68; RESP 18; TEMP 37.8; O2SAT 96
[2021-12-20] MEDS: Enoxaparin 40 MG/0.4 ML SYR SC (08:53)
[2021-12-20] MEDS: Diclofenac 1% Gel 100 GM TUBE TP ×4 (08:54→20:12)
[2021-12-20] MEDS: Cyanocobalamin 500 MCG TAB PO (08:54)
[2021-12-20] MEDS: Docusate Sodium 100 MG CAP PO ×2 (08:54→20:11)
[2021-12-20] MEDS: Aspirin E.C. 81 MG TABEC PO (08:54)
[2021-12-20] MEDS: Donepezil 5 MG TAB 10 MG PO (08:54)
[2021-12-20] MEDS: Losartan 25 MG TAB 50 MG PO (08:54)
[2021-12-20] MEDS: Carbidopa 25/Levodopa 100 TAB PO ×3 (08:54→20:11)
[2021-12-20] MEDS: Polyethylene Glycol 3350 17 GM PACKET PO (08:54)
[2021-12-20] MEDS: Propranolol 10 MG TAB PO ×2 (08:55→20:11)
[2021-12-20] MEDS: Lactobacillus Acidophilus CAP 1 CAP PO ×2 (08:55→20:11)
[2021-12-20] MEDS: Montelukast 10 MG TAB PO (08:55)
[2021-12-20] MEDS: Atorvastatin 40 MG TAB 80 MG PO (08:55)
[2021-12-20] MEDS: Potassium Chloride 20 MEQ TABCR PO (08:55)
[2021-12-20] MEDS: Lidocaine Patch Removal 2 EACH TP (08:55)
--- NOTE | 2021-12-20 12:16 | PT.INTREAT ---
PT Notes Visit Reasons: Parkinson's/Dementia/Frequent Falls/Loss of ADLs Inpatient Physical Therapy Treatment Note [facility] Date: 12/20/21 PRECAUTIONS:[] SUBJECTIVE: Pt reports that her back is sore today. OBJECTIVE: Sit-stand: Min x q Stand-sit: CGA GAIT Assistive Device: FWW Weight bearing: Full Assist: CGA Distance: Approx 400ft THEREX: Pt refused exercises today due to back and hip pain. ASSESSMENT: Pt was slightly confused today. Pt was not able to tolerate as much with her session today due to pain. PLAN: Cont as per PT POC. TREATMENT CODE/TIME: ARTURO
[2021-12-20] MEDS: traMADol 50 MG TAB PO (13:39)
[2021-12-20 20:04] VITALS: BP 123/62; PULSE 76; RESP 19; TEMP 37.5; O2SAT 96
[2021-12-20] MEDS: Lidocaine 5% Patch 2 PATCH TP (20:11)
[2021-12-21 07:58] VITALS: BP 131/80; PULSE 66; RESP 17; TEMP 36.3; O2SAT 97
--- NOTE | 2021-12-21 08:59 | INPN_ITS ---
Date of service: 12/21/21 Time of Service: 08:59 PT Notes Visit Reasons: Parkinson's/Dementia/Frequent Falls/Loss of ADLs Swing Bed Level 1 Physical Therapy Progress Notes Date: 12/21/2021 Dates of Service: 12/12/2021 through 12/21/2021 Precautions: Fall. Standard. Activity as tolerated. Subjective:? Agreeable to PT. Denies any pain in right heel. Objective: General Observation: Seated on chair.? Parkinsonian tremors to B UE that increase with movement. Mental Status: Alert and oriented to self.? Word finding difficulty. Pain: Denies ROM: Right Upper Extremity: Shoulder Flexion WFL. Shoulder abduction WFL. Elbow flexion WFL. Wrist flexion WFL. Functional opening and closing of hand WFL. Left Upper Extremity: Shoulder Flexion WFL. Shoulder abduction WFL. Elbow flexion WFL. Wrist flexion WFL. Functional opening and closing of hand WFL. Right Lower Extremity: Hip flexion WFL. Hip abduction WFL. Knee flexion WFL. Ankle dorsiflexion WFL. Ankle plantarflexion WFL. Left Lower Extremity: Hip flexion WFL. Hip abduction WFL. Knee flexion Strength: Right Upper Extremity: Shoulder flexors 4/5. Shoulder abductors 4/5. Elbow flexors 4/5. Elbow extensors 4/5. Executive Sales Assistant strong. Left Upper Extremity: Shoulder flexors 4/5. Shoulder abductors 4/5. Elbow flexors 4/5. Elbow extensors 4/5. Executive Sales Assistant strong. Right Lower Extremity: Hip flexors 4/5. Hip abductors 4/5. Knee flexors 4/5. Knee extensors 4/5. Ankle dorsiflexors 4/5. Ankle plantarflexors 4/5. Left Lower Extremity: HHip flexors 4/5. Hip abductors 4/5. Knee flexors 4/5. Knee extensors 4/5. Ankle dorsiflexors 4/5. Ankle plantarflexors 4/5. Bed Mobility/Transfers: Sit to stand with standby assist Stand to sit with standby assist Bed to reclining chair with standby assist Reclining chair to bedside commode standby assist Gait: 460 feet using FWW with minimal cue given for increased step height and step length with standby assist.? Continues to require moderate verbal cueing for improved step pattern. THERA EX: Sidestep to right and left x10 for 2 sets, mini squats with bilateral UV support x10 for 2 sets, and bilateral braces with UEs support x7 sets, and chair push-ups x10. Balance: Static Sitting: Normal Dynamic Sitting: Normal Static Standing: Fair Dynamic Standing: Fair Special Tests: Mobility Limitations Standardized Measure [facility] AM-PAC 6 clicks Basic Mobility Inpatient Short Form: Raw Score: 23? CMS Score: 11% deficit? ? ? Informed Consent/Education:? Patient was instructed in purpose of PT consult and plan of care. Agreeable to proceed with established PT POC to achieve personal goals. Assessment: Tori demonstrates functional mobility decline requiring assistance of 1 and the use of a front-wheeled walker for all mobility ADL performance.? Patient presents with clinical signs and symptoms consistent with current/admitting diagnoses that have resulted to mobility limitations, gait instability, generalized weakness, and overall ADL decline as demonstrated by the following impairment level findings: 1.? Increasing strength to B UE/LE? major muscle groups 2.? Increasing standing balance 3.? Increasing activity tolerance 4.? Festinating gait Impairments are contributing to the following functional limitations: 1.? Decline in transfer skills 2.? Difficulty with ambulation without assistive device 3.? Increased completion time for mobility ADL performance 4.? Increased risk for falls 5.? Difficulty with managing steps alone safely Patient is assessed as a 09707 moderate complexity based on the following: History: 76-year-old female with past medical history as indicated above Examination: Demonstrable impairment in strength, balance, and mobility level with underlying impairments and functional limitations as exhibited above as well as deficit score of 69% utilizing the [facility] Mobility Inpatient Short Form Presentation: Evolving Decision Makin moderate complexity complexity Goals: Goals X1 week 1. Supine-Sit independent NOT MET 2. Sit-Supine independent NOT MET 3. Sit-Stand independent NOT MET 4. Stand-Sit independent FWW NOT MET 5. Bed-Chair independent with FWW NOT MET 6. Chair-Bed independent with FWW NOT MET 7.? Supervision gait on level surface with use of FWW for at least 300 feet without report of pain nor dyspnea NOT MET 8.? Good static and dynamic standing balance/tolerance NOT MET Plan of Care/Treatment Plan: 1-2x/day, 7 days/week x 1 week. Plan of care has been reviewed with the CHARTER BUS DRIVER providing the service under Physical Therapy direction. Continue Physical Therapy intervention for pain management as needed, strengthening, bed mobility, transfers, gait, stairs, balance training, and use of assistive device. DISCHARGE RECOMMENDATIONS: [] ? Home with no services [] [] ? Home with services [specify] [] ? Home with outpatient PT [] [X] ? SNF for continued rehabilitation.? Patient will benefit from half-way facility placement for continued skilled physical therapy services in order to progress mobility level, strength, and balance in preparation for a safe discharge to home. [X] ? Jail Care. May potentially be a long-term care resident due to impaired cognition and limited safety awareness. TREATMENT CODE/TIME: 66942 x 21 minutes beginning at 8:59 AM. Thank you for the opportunity to participate in the care of this patient. Karla Rene PT, DPT, CLT [facility] [place], [place]
[2021-12-21] MEDS: Enoxaparin 40 MG/0.4 ML SYR SC (09:40)
[2021-12-21] MEDS: Polyethylene Glycol 3350 17 GM PACKET PO (09:40)
[2021-12-21] MEDS: Lidocaine Patch Removal 2 EACH TP (09:41)
[2021-12-21] MEDS: Diclofenac 1% Gel 100 GM TUBE TP ×3 (09:41→19:12)
[2021-12-21] MEDS: Carbidopa 25/Levodopa 100 TAB PO ×3 (09:42→19:09)
[2021-12-21] MEDS: Lactobacillus Acidophilus CAP 1 CAP PO ×2 (09:42→19:09)
[2021-12-21] MEDS: Montelukast 10 MG TAB PO (09:42)
[2021-12-21] MEDS: Docusate Sodium 100 MG CAP PO ×2 (09:43→19:09)
[2021-12-21] MEDS: Cyanocobalamin 500 MCG TAB PO (09:43)
[2021-12-21] MEDS: Losartan 25 MG TAB 50 MG PO (09:43)
[2021-12-21] MEDS: Potassium Chloride 20 MEQ TABCR PO (09:43)
[2021-12-21] MEDS: Donepezil 5 MG TAB 10 MG PO (09:44)
[2021-12-21] MEDS: Atorvastatin 40 MG TAB 80 MG PO (09:44)
[2021-12-21] MEDS: Aspirin E.C. 81 MG TABEC PO (09:44)
[2021-12-21] MEDS: Propranolol 10 MG TAB PO ×2 (09:45→19:09)
--- NOTE | 2021-12-21 12:59 | PT.INTREAT ---
Date of service: 12/21/21 Time of Service: 11:44 PT Notes Visit Reasons: Parkinson's/Dementia/Frequent Falls/Loss of ADLs Inpatient Physical Therapy Treatment Note [facility] Date: 12/21/2021 PRECAUTIONS: Dementia, activity as tolerated SUBJECTIVE: Tori is pleasant and agreeable to participating in PT. She states that she is feeling tired today, but otherwise feels good. OBJECTIVE: PAIN: No c/o pain BED MOBILITY/TRANSFERS Sit-stand: CGA Stand-sit: CGA GAIT Assistive Device: FWW Weight bearing: Full Assist: SBA Distance: 600' Deviation: Minimal cueing required for increased step height THEREX: Patient was instructed in a standing LE strengthening program, as per flow sheet. She requires CGA with all exercises completed in standing due to confusion and slight unsteadiness. She also requires visual and verbal cueing for proper exercise performance. ASSESSMENT: Patient tolerated session without complaint. She tolerated a progression in gait distance with FWW support, requiring minimal cueing for increased step height for safety. She demonstrates steady gait and pacing. PLAN: Continue with gait training and global strengthening for improved activity tolerance and mobility. TREATMENT CODE/TIME: 16 minutes; 88503 (11:44)
--- NOTE | 2021-12-21 18:23 | W.PALLCONSUL ---
Date of service: 12/21/21 Time of Service: 15:30 History of Present Illness Narrative: Ms. Valle is a 76 y/o F currently inpatient at [facility] 2/ weakness w/decreased ADL, pending SNF bed availability; PMHx sig for Parkinson?s disease w/ dementia, HTN, CVD; present today is daughter/HCA Andree Interval Hx since 12/07/21 [facility] consult: previous hospitalization 12/03-12/11 r/t PD w/dementia, pain, weakness requiring ADL assistance; swing bed on 12/11/21 pending SNF bed availability; [facility] visit 12/17: AD states would want CPD, only wants Tx to sustain life and communicate w/friends/family, care for self, not in pain, be conscious and aware of surroundings; would try ventilator for short time if would get better but maybe not today (to be readdressed); no feeding tube, yes antibiotics Andree reports still working on caregivers for /7 care at home, cannot find weekend/overnight coverage, has 3-4 willing caregivers lined up for other shifts, will continue to work on this; plan to stay in hospital through 30 days of coverage while lining up home caregivers; will not go to SNF during interim; Andree concern over upcoming personal procedure and if pt d/c?d during this time, wants to ensure pt will still be in hospital; wondering about living will updates, was given trial attorney?s name by staff; already established w/[facility], [facility] not enough but willing to have on board w/d/c; continues w/goals of going to camp in [place], has caregiver lined up already; pt denies pain, appetite; reports continues to work w/PT, feeling weak; CM reports spoke to Andree regarding payment coverage for hospital stay and different options for discharge; Assessment and Plan Assessment and plan (1) Palliative care patient: Status: Acute Assessment and plan: continue to follow through discharge (2) Decreased activities of daily living (ADL): Assessment and plan: AMANUEL Candelario to work on 7 caregiver support/schedule; already working w/CoA, CC; will have [facility] upon discharge as well; reviewed family member/non-medical support for gap coverage; reviewed SNF for safer placement, do not want to pay for this; CM involved and reviewed all medical, legal and financial information w/HCA (3) 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: (4) Essential tremor: Assessment and plan: started propranolol 12/18, no tremor noted during visit Review of Systems Constitutional Constitutional: Reports as per [facility] PFSH All Active Problems Palliative care patient (Acute) Onychomycosis (Acute) Onychogryphosis (Acute) Prediabetes (Chronic) Medical History Back pain Cerebrovascular disease Decreased activities of daily living (ADL) 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 Head/neck imaging, heart monitor with no identifiable cause Thyroid nodule Benign Surgical History History of section S/P colonoscopy (03/18/15) Family History Mother , 71 Depression Stroke CKD (chronic kidney disease) Father , 68 Heart disease Myocardial infarction Parkinson disease Sister No problems noted. Sister No problems noted. Brother , 42 of ID Heart disease Myocardial infarction Brother , at 49 of ID Heart disease Myocardial infarction Brother , at 58 of ID Heart disease Myocardial infarction Brother , at 61 of ID Heart disease Myocardial infarction Brother , at 80 of fall No problems noted. Son , at 45 of ID Heart disease Myocardial infarction Daughter No problems noted. Maternal Grandfather No problems noted. Maternal Grandmother No problems noted. Paternal Grandfather No problems noted. Paternal Grandmother No problems noted. Social History Smoking/Tobacco Use Status: Never Smoking risk assessment performed?: Yes Alcohol Intake: current Alcohol Intake frequency: a few times a month Drug use: Never Substance use type: does not use Counseling given: No Household members: other Details: Camper until get apartment by June Housing: other Details: Camper until get apartment by June Pets and animals: No Sexually active: No Do you think of yourself as: straight/heterosexual Current gender identity: female What is your relationship status?: How often do you talk on the phone with friends or family?: three or more times per week How often do you get together with friends or relatives?: three or more times per week Do you belong to any clubs or organized social groups?: no Panel score (0-1 are the most socially isolated patients): 1 What type of physical activity do you participate in: walking Frequency: other Details: Some Shivani/Rastafari: Anglican Seatbelt use: always Drive intox or ride w/intox parts delivery driver: No Do you feel safe at home: Yes Do you feel safe in your relationship?: Yes History History 2 Para 2 Hx # Term Pregnancies Multiple births Hx # Pregnancies Ectopic pregnancies AB induced Hx Number of Living Children 1 AB spontaneous Exam Narrative Exam Narrative: pt sitting comfortably in chair at time of visit; daughter Andree visiting, daughter spoke over pt frequently Const General: cooperative, comfortable and no acute distress HENMT Head: normocephalic and atraumatic Ears: hearing grossly normal bilaterally Resp Effort & Inspection: normal respiratory effort, able to speak in complete sentences, no audible wheezes and no cough Skin General skin exam: no rashes or lesions noted Neuro Cognition: abnormal cognition Psych Appearance: grossly normal Speech and Movement: speech clear Mood: congruent mood Affect: normal affect Attitude: cooperative Insight: limited Judgment: limited Results Last Vital Signs Temp 97.3 F L 12/21/21 07:58 Pulse 66 12/21/21 07:58 Resp 17 12/21/21 07:58 BP 131/80 12/21/21 07:58 Pulse Ox 97 12/21/21 07:58 Labs Result diagrams: 12/17/21 06:30
[2021-12-21 19:00] VITALS: BP 125/75; PULSE 77; RESP 16; O2SAT 95
[2021-12-21] MEDS: Lidocaine 5% Patch 2 PATCH TP (19:08)
[2021-12-21 19:15] VITALS: BP 125/75; PULSE 77; RESP 18; TEMP 37.1; O2SAT 97
[2021-12-21] MEDS: traMADol 50 MG TAB PO (20:43)
[2021-12-22 08:00] VITALS: BP 108/68; PULSE 61; RESP 16; TEMP 36.8; O2SAT 96
[2021-12-22] MEDS: Potassium Chloride 20 MEQ TABCR PO (08:10)
[2021-12-22] MEDS: Carbidopa 25/Levodopa 100 TAB PO ×3 (08:10→19:16)
[2021-12-22] MEDS: Aspirin E.C. 81 MG TABEC PO (08:10)
[2021-12-22] MEDS: Losartan 25 MG TAB 50 MG PO (08:10)
[2021-12-22] MEDS: Docusate Sodium 100 MG CAP PO ×2 (08:11→19:13)
[2021-12-22] MEDS: Propranolol 10 MG TAB PO ×2 (08:11→19:15)
[2021-12-22] MEDS: Donepezil 5 MG TAB 10 MG PO (08:11)
[2021-12-22] MEDS: Montelukast 10 MG TAB PO (08:11)
[2021-12-22] MEDS: Lactobacillus Acidophilus CAP 1 CAP PO ×2 (08:11→19:16)
[2021-12-22] MEDS: Cyanocobalamin 500 MCG TAB PO (08:12)
[2021-12-22] MEDS: Atorvastatin 40 MG TAB 80 MG PO (08:12)
[2021-12-22] MEDS: Polyethylene Glycol 3350 17 GM PACKET PO (08:12)
[2021-12-22] MEDS: Enoxaparin 40 MG/0.4 ML SYR SC (08:12)
[2021-12-22] MEDS: Diclofenac 1% Gel 100 GM TUBE TP ×4 (08:13→19:17)
[2021-12-22] MEDS: Lidocaine Patch Removal 2 EACH TP (08:14)
[2021-12-22 15:47] VITALS: BP 118/71; PULSE 68; RESP 18; TEMP 36.9; O2SAT 94
--- NOTE | 2021-12-22 15:53 | PT.INTREAT ---
Date of service: 12/22/21 Time of Service: 11:26 PT Notes Visit Reasons: Parkinson's/Dementia/Frequent Falls/Loss of ADLs Inpatient Physical Therapy Treatment Note [facility] Date: 12/22/2021 PRECAUTIONS: Dementia, activity as tolerated SUBJECTIVE: Tori is pleasant and agreeable to participating in PT. She states that she is not feeling well today. OBJECTIVE: PAIN: No c/o pain BED MOBILITY/TRANSFERS Sit-stand: SBA Stand-sit: SBA GAIT Assistive Device: FWW Weight bearing: Full Assist: SBA Distance: 300' THEREX: Patient was instructed in a resisted UE and LE strengthening program, as per flow sheet. She utilizes 2.5# ankle weights and yellow Theraband with all exercises. She requires visual and verbal cueing for proper exercise performance. TOILETING: Patient toileted with assist. ASSESSMENT: Patient tolerated session without complaint. She tolerated a progression in ther ex, tolerating the addition of resistance. She demonstrates steady gait and pacing. PLAN: Continue with gait training and global strengthening for improved activity tolerance and mobility. TREATMENT CODE/TIME: Session 1: 24 minutes; [id number], 76740 (11:26) Session 2: 17 minutes; [id number] (14:23)
[2021-12-22] MEDS: Lidocaine 5% Patch 2 PATCH TP (19:16)
[2021-12-22 19:27] VITALS: BP 119/81; PULSE 74; RESP 20; TEMP 37.2; O2SAT 94
[2021-12-23] MEDS: traMADol 50 MG TAB PO (01:01)
[2021-12-23 08:00] VITALS: BP 146/75; PULSE 60; RESP 18; TEMP 36.8; O2SAT 97
[2021-12-23] MEDS: Polyethylene Glycol 3350 17 GM PACKET PO (09:02)
[2021-12-23] MEDS: Enoxaparin 40 MG/0.4 ML SYR SC (09:02)
[2021-12-23] MEDS: Potassium Chloride 20 MEQ TABCR PO (09:03)
[2021-12-23] MEDS: Carbidopa 25/Levodopa 100 TAB PO ×3 (09:03→20:52)
[2021-12-23] MEDS: Montelukast 10 MG TAB PO (09:03)
[2021-12-23] MEDS: Losartan 25 MG TAB 50 MG PO (09:03)
[2021-12-23] MEDS: Atorvastatin 40 MG TAB 80 MG PO (09:04)
[2021-12-23] MEDS: Docusate Sodium 100 MG CAP PO ×2 (09:04→20:53)
[2021-12-23] MEDS: Aspirin E.C. 81 MG TABEC PO (09:04)
[2021-12-23] MEDS: Donepezil 5 MG TAB 10 MG PO (09:04)
[2021-12-23] MEDS: Cyanocobalamin 500 MCG TAB PO (09:04)
[2021-12-23] MEDS: Propranolol 10 MG TAB PO ×2 (09:04→20:53)
[2021-12-23] MEDS: Lactobacillus Acidophilus CAP 1 CAP PO ×2 (09:05→20:53)
[2021-12-23] MEDS: Diclofenac 1% Gel 100 GM TUBE TP ×4 (09:05→21:26)
[2021-12-23] MEDS: Lidocaine Patch Removal 2 EACH TP (09:26)
[2021-12-23 19:31] VITALS: BP 127/72; PULSE 75; RESP 16; TEMP 37.1; O2SAT 95
[2021-12-23] MEDS: Lidocaine 5% Patch 2 PATCH TP (20:52)
[2021-12-24 07:29] VITALS: BP 120/72; PULSE 59; RESP 16; TEMP 36.6; O2SAT 99
[2021-12-24] MEDS: Polyethylene Glycol 3350 17 GM PACKET PO (09:35)
[2021-12-24] MEDS: Enoxaparin 40 MG/0.4 ML SYR SC (09:36)
[2021-12-24] MEDS: Diclofenac 1% Gel 100 GM TUBE TP ×4 (09:36→19:59)
[2021-12-24] MEDS: Losartan 25 MG TAB 50 MG PO (09:36)
[2021-12-24] MEDS: Donepezil 5 MG TAB 10 MG PO (09:37)
[2021-12-24] MEDS: Lactobacillus Acidophilus CAP 1 CAP PO ×2 (09:37→19:59)
[2021-12-24] MEDS: Carbidopa 25/Levodopa 100 TAB PO ×3 (09:38→19:59)
[2021-12-24] MEDS: Montelukast 10 MG TAB PO (09:38)
[2021-12-24] MEDS: Aspirin E.C. 81 MG TABEC PO (09:38)
[2021-12-24] MEDS: Atorvastatin 40 MG TAB 80 MG PO (09:38)
[2021-12-24] MEDS: Cyanocobalamin 500 MCG TAB PO (09:38)
[2021-12-24] MEDS: Propranolol 10 MG TAB PO ×2 (09:38→19:59)
[2021-12-24] MEDS: Potassium Chloride 20 MEQ TABCR PO (09:38)
[2021-12-24] MEDS: Docusate Sodium 100 MG CAP PO ×2 (09:38→19:59)
[2021-12-24] MEDS: Lidocaine Patch Removal 2 EACH TP (09:40)
[2021-12-24 09:45] VITALS: PULSE 73
--- NOTE | 2021-12-24 09:49 | CMPROGNOTE_ITS ---
- If Service Date Differs Date of service: 12/24/21 Time of Service: 09:49 Care Management Progress Note S/O: Tori was sitting in her chair with her cell phone in her lap when CM met with her. Tori has been visiting with her daughter daily, watching TV, using a sensory blanket. Increased confusion is noted by this sheet writer today. Tori shared with CM that she didn't know she was in the hospital and she wondered if her daughter knew she was here. Tori has been pleasant and agreeable thr oughout her admission. She continues to work with PT to improve her ability to transfer, mobility and strength. Per PT, Tori's ability to participate in PT this afternoon was limited d/t increased confusion. Anticipate Tori may discharge home next week 12/31/21 with pole shaver helper caregivers. SNF referral's are still pending in an effort to keep SNF option open if 24/7 caregiver support is not found. If SNF offer is received, Andree will need to accept or decline the offer. CM called each of the SNF's again today ([facility], [facility], [facility] and [facility]), no offers as of 12/25/21. CM will reach out to patient's daughter Andree early next week, to discuss discharge plans. Andree is aware that pt will need 24/7 caregivers to safely discharge home. A: 76 year old female admitted to [facility] on 12/03/2021 for Back Pain P: Tori transitioned to SWB1 status for additional rehab prior to returning home. Pts daughter Andree elects not to fill out LTM forms for LTC placement, due to Tori's ability to afford her own caregiver's. Tori will discharge home with 24/7 caregiver support per daughter Andree/HCA when SWB1 stay is complete. SNF referral's are still pending at [facility], [facility], [facility] and [facility]. CM called each facility again today on 12/25/21, no offers. Tori will transport home via angel Candelario, with 24/7 caregivers support and follow up with community providers and plan of care as directed.
--- NOTE | 2021-12-24 15:30 | PT.INTREAT ---
Date of service: 12/24/21 Time of Service: 11:10 PT Notes Visit Reasons: Parkinson's/Dementia/Frequent Falls/Loss of ADLs Inpatient Physical Therapy Treatment Note [facility] Date: 12/24/2021 PRECAUTIONS: Dementia, Activity as tolerated SUBJECTIVE: Tori is pleasant and agreeable to participating in PT. She states that she is feeling good today. OBJECTIVE: PAIN: NO c/o pain BED MOBILITY/TRANSFERS Sit-stand: CGA Stand-sit: CGA GAIT Assistive Device: FWW Weight bearing: Full Assist: SBA Distance: 10' + 75' + 225' Deviation: Brief LE tremor and Parkinsonian gait THEREX: Patient completes NuStep biking x10 minutes at level 5 resistance with direct supervision for safety. TOILETING: Patient toileted with assist ASSESSMENT: Patient tolerated session well without complaint. She continues to tolerate gait training well, although today demonstrates brief instances of LE tremors and Parkinsonian gait patterns. PLAN: Continue with global strengthening and gait and transfer training for improved mobility. TREATMENT CODE/TIME: 31 minutes; 46162 x2 (14:23)
[2021-12-24] MEDS: Lidocaine 5% Patch 2 PATCH TP (19:59)
[2021-12-24 22:12] VITALS: BP 104/66; PULSE 68; RESP 18; TEMP 36.9; O2SAT 99
[2021-12-25 08:12] VITALS: BP 145/85; PULSE 66; RESP 20; TEMP 36.5; O2SAT 93
[2021-12-25] MEDS: Polyethylene Glycol 3350 17 GM PACKET PO (09:49)
[2021-12-25] MEDS: Montelukast 10 MG TAB PO (09:51)
[2021-12-25] MEDS: Carbidopa 25/Levodopa 100 TAB PO ×3 (09:51→19:42)
[2021-12-25] MEDS: Atorvastatin 40 MG TAB 80 MG PO (09:52)
[2021-12-25] MEDS: Cyanocobalamin 500 MCG TAB PO (09:52)
[2021-12-25] MEDS: Donepezil 5 MG TAB 10 MG PO (09:52)
[2021-12-25] MEDS: Potassium Chloride 20 MEQ TABCR PO (09:52)
[2021-12-25] MEDS: Losartan 25 MG TAB 50 MG PO (09:52)
[2021-12-25] MEDS: Lactobacillus Acidophilus CAP 1 CAP PO ×2 (09:52→19:42)
[2021-12-25] MEDS: Propranolol 10 MG TAB PO ×2 (09:53→19:42)
[2021-12-25] MEDS: Diclofenac 1% Gel 100 GM TUBE TP ×3 (09:53→14:14)
[2021-12-25] MEDS: Aspirin E.C. 81 MG TABEC PO (09:53)
[2021-12-25] MEDS: Docusate Sodium 100 MG CAP PO ×2 (09:53→19:42)
[2021-12-25] MEDS: Enoxaparin 40 MG/0.4 ML SYR SC (09:53)
[2021-12-25] MEDS: Lidocaine Patch Removal 2 EACH TP (10:12)
--- NOTE | 2021-12-25 13:14 | PT.INTREAT ---
Date of service: 12/25/21 Time of Service: 11:23 PT Notes Visit Reasons: Parkinson's/Dementia/Frequent Falls/Loss of ADLs Inpatient Physical Therapy Treatment Note [facility] Date: 12/25/2021 PRECAUTIONS: Dementia, Activity as tolerated SUBJECTIVE: Tori is pleasant and agreeable to participating in PT. She reports that she is very tired today. OBJECTIVE: Patient appears more confused today than during previous sessions, reported observation to nursing staff. Patient refused afternoon PT session and continues to demonstrate increased confusion. PAIN: No c/o pain GAIT: Refused gait training in a.m. THEREX: Patient was instructed in a LE and UE strengthening program, completed in a seated position. Patient utilizes 2.5# ankle weights with all LE exercises, however was unable to utilize Theraband with UE exercises due to increased confusion today. ASSESSMENT: Patient tolerated session without complaint. She appears limited in ability to participate today due to increased confusion. PLAN: Continue with global strengthening and gait and transfer training for improved mobility. TREATMENT CODE/TIME: 10 minutes; [id number] (11:23)
--- NOTE | 2021-12-25 16:37 | PDOC.CMPRO ---
- If Service Date Differs Date of service: 12/25/21 Time of Service: 16:37 Care Management Progress Note Sharon checked with Tori's insurance. SWB1/SNF Coverage: 100 days total. 0-21 days: 100% Medicare 21-100 days: 20% [place], 80% Medicare
[2021-12-25] MEDS: Lidocaine 5% Patch 2 PATCH TP (19:42)
[2021-12-25 21:07] LABS: Bilirubin Negative (Negative); Blood Negative (Negative); Clarity Clear (Clear); Glucose Negative (Negative); Ketones Negative (Negative); Leukocyte Esterase Negative (Negative); Nitrite Negative (Negative); Specific Gravity 1.015 (1.005-1.025); Urobilinogen 0.2 EU/dL (Up TO 0.2)
[2021-12-26] MEDS: Melatonin 3 MG TAB PO (01:15)
[2021-12-26 07:20] VITALS: BP 145/77; PULSE 58; RESP 18; TEMP 36.6; O2SAT 100
[2021-12-26] MEDS: Potassium Chloride 20 MEQ TABCR PO (08:44)
[2021-12-26] MEDS: Polyethylene Glycol 3350 17 GM PACKET PO (08:44)
[2021-12-26] MEDS: Enoxaparin 40 MG/0.4 ML SYR SC (08:44)
[2021-12-26] MEDS: Atorvastatin 40 MG TAB 80 MG PO (08:45)
[2021-12-26] MEDS: Donepezil 5 MG TAB 10 MG PO (08:45)
[2021-12-26] MEDS: Propranolol 10 MG TAB PO ×2 (08:45→19:32)
[2021-12-26] MEDS: Carbidopa 25/Levodopa 100 TAB PO ×3 (08:45→19:31)
[2021-12-26] MEDS: Lactobacillus Acidophilus CAP 1 CAP PO ×2 (08:46→19:31)
[2021-12-26] MEDS: Docusate Sodium 100 MG CAP PO ×2 (08:46→19:31)
[2021-12-26] MEDS: Aspirin E.C. 81 MG TABEC PO (08:47)
[2021-12-26] MEDS: Cyanocobalamin 500 MCG TAB PO (08:47)
[2021-12-26] MEDS: Losartan 25 MG TAB 50 MG PO (08:47)
[2021-12-26] MEDS: Montelukast 10 MG TAB PO (08:47)
[2021-12-26] MEDS: Lidocaine Patch Removal 2 EACH TP (08:48)
[2021-12-26] MEDS: Diclofenac 1% Gel 100 GM TUBE TP ×3 (08:49→16:17)
--- NOTE | 2021-12-26 14:33 | W.PM.PROGNOT ---
Date of Service Date of service: 12/26/21 Time of Service: 10:15 Subjective Subjective Patient reports: no new complaints Interval history since last seen: sitting up in chair. She was sleeping. awoken. oriented to self. Follows commands. no new complaints. Exam Narrative Exam Narrative: General: elderly female, sitting up in the recliner in her hospital room. She is asleep, wakes easily oriented only to self, likely though due to being tired. Speech is slow. HEENT: normocephalic, atraumatic, EOMI, mucous membranes moist. Neck: supple, no JVD. Cardiovascular: heart sounds regular, nontachycardic. Respiratory: respirations appear even and unlabored, lung sounds are clear throughout. GI: +BS, abdomen soft, nondistended, nontender on palpation. Extremities: moves all 4 extremities, no edema. slight tremors when resting. skin is dry to bilateral LE Objective Last Vital Signs Temp 36.6 C 12/26/21 07:20 Pulse 58 L 12/26/21 07:20 Resp 18 12/26/21 07:20 BP 145/77 H 12/26/21 07:20 Pulse Ox 100 12/26/21 07:20 Laboratory Results - last 24 hr 12/25/21 17:12 Urine Color Yellow Urine Clarity Clear Urine pH 7.0 Ur Specific [place] 1.015 Urine Protein Negative Urine Ketones Negative Urine Blood Negative Urine Nitrite Negative Urine Bilirubin Negative Urine Urobilinogen 0.2 Ur Leukocyte Esterase Negative Urine Glucose Negative PAWSS Pt Consumed Any Amount of Alcohol Within the Last 30 days OR had positive SAHIL Upon Admission: No
[2021-12-26 16:06] VITALS: BP 107/62; PULSE 64; RESP 16; TEMP 36.9; O2SAT 98
[2021-12-26] MEDS: Lidocaine 5% Patch 2 PATCH TP (19:32)
[2021-12-27 07:45] VITALS: BP 140/67; PULSE 61; RESP 18; TEMP 36.4; O2SAT 96
[2021-12-27] MEDS: Aspirin E.C. 81 MG TABEC PO (09:28)
[2021-12-27] MEDS: Atorvastatin 40 MG TAB 80 MG PO (09:29)
[2021-12-27] MEDS: Docusate Sodium 100 MG CAP PO ×2 (09:30→20:50)
[2021-12-27] MEDS: Carbidopa 25/Levodopa 100 TAB PO ×3 (09:30→20:50)
[2021-12-27] MEDS: Cyanocobalamin 500 MCG TAB PO (09:30)
[2021-12-27] MEDS: Enoxaparin 40 MG/0.4 ML SYR SC (09:31)
[2021-12-27] MEDS: Lactobacillus Acidophilus CAP 1 CAP PO ×2 (09:31→20:50)
[2021-12-27] MEDS: Donepezil 5 MG TAB 10 MG PO (09:31)
[2021-12-27] MEDS: Losartan 25 MG TAB 50 MG PO (09:31)
[2021-12-27] MEDS: Montelukast 10 MG TAB PO (09:32)
[2021-12-27] MEDS: Lidocaine Patch Removal 2 EACH TP (09:32)
[2021-12-27] MEDS: Polyethylene Glycol 3350 17 GM PACKET PO (09:32)
[2021-12-27] MEDS: Propranolol 10 MG TAB PO ×2 (09:33→20:50)
[2021-12-27] MEDS: Potassium Chloride 20 MEQ TABCR PO (09:33)
[2021-12-27] MEDS: Diclofenac 1% Gel 100 GM TUBE TP ×4 (09:41→20:50)
[2021-12-27] MEDS: Lidocaine 5% Patch 2 PATCH TP (21:05)
[2021-12-28 02:40] VITALS: BP 143/81; PULSE 60; RESP 18; TEMP 36.7; O2SAT 95
[2021-12-28 07:34] VITALS: BP 127/72; PULSE 60; RESP 18; TEMP 36.2; O2SAT 98
[2021-12-28] MEDS: Atorvastatin 40 MG TAB 80 MG PO (08:59)
[2021-12-28] MEDS: Aspirin E.C. 81 MG TABEC PO (08:59)
[2021-12-28] MEDS: Cyanocobalamin 500 MCG TAB PO (09:00)
[2021-12-28] MEDS: Carbidopa 25/Levodopa 100 TAB PO ×3 (09:00→20:02)
[2021-12-28] MEDS: Docusate Sodium 100 MG CAP PO ×2 (09:01→20:02)
[2021-12-28] MEDS: Diclofenac 1% Gel 100 GM TUBE TP ×4 (09:01→20:03)
[2021-12-28] MEDS: Donepezil 5 MG TAB 10 MG PO (09:01)
[2021-12-28] MEDS: Enoxaparin 40 MG/0.4 ML SYR SC (09:01)
[2021-12-28] MEDS: Montelukast 10 MG TAB PO (09:02)
[2021-12-28] MEDS: Losartan 25 MG TAB 50 MG PO (09:02)
[2021-12-28] MEDS: Lactobacillus Acidophilus CAP 1 CAP PO ×2 (09:02→20:02)
[2021-12-28] MEDS: Lidocaine Patch Removal 2 EACH TP (09:02)
[2021-12-28] MEDS: Potassium Chloride 20 MEQ TABCR PO (09:02)
[2021-12-28] MEDS: Polyethylene Glycol 3350 17 GM PACKET PO (09:02)
[2021-12-28] MEDS: Propranolol 10 MG TAB PO ×2 (09:03→20:02)
--- NOTE | 2021-12-28 10:39 | INPN_ITS ---
Date of service: 12/28/21 Time of Service: 10:39 PT Notes Visit Reasons: Parkinson's/Dementia/Frequent Falls/Loss of ADLs Swing Bed Level 1 Physical Therapy Progress Notes Date: 12/28/2021 Dates of Service: 12/22/2021 through 12/28/2021 Precautions: Fall. Standard. Activity as tolerated. Subjective:? Agreeable to PT.? Denies any pain in right heel. Wants to go to the bank to make sure that her house gets taken away by nobody. Objective: General Observation: Seated on chair.? Parkinsonian tremors to B UE that increase with movement. Mental Status: Alert and oriented to self.?? Word finding difficulty. Stutters. Pain: Denies ROM: Right Upper Extremity: ? Shoulder Flexion WFL. Shoulder abduction WFL. Elbow flexion WFL. Wrist flexion WFL. Functional opening and closing of hand WFL. Left Upper Extremity:? Shoulder Flexion WFL. Shoulder abduction WFL. Elbow flexion WFL. Wrist flexion WFL. Functional opening and closing of hand WFL. Right Lower Extremity: Hip flexion WFL. Hip abduction WFL. Knee flexion WFL. Ankle dorsiflexion WFL. Ankle plantarflexion WFL. Left Lower Extremity: Hip flexion WFL. Hip abduction WFL. Knee flexion Strength: Right Upper Extremity: Shoulder flexors 4/5. Shoulder abductors 4/5. Elbow flexors 4/5. Elbow extensors 4/5. Spooling Operator strong. Left Upper Extremity: Shoulder flexors 4/5. Shoulder abductors 4/5. Elbow flexors 4/5. Elbow extensors 4/5. Spooling Operator strong. Right Lower Extremity: Hip flexors 4/5. Hip abductors 4/5. Knee flexors 4/5. Kn ee extensors 4/5. Ankle dorsiflexors 4/5. Ankle plantarflexors 4/5. Left Lower Extremity: HHip flexors 4/5. Hip abductors 4/5. Knee flexors 4/5. Knee extensors 4/5. Ankle dorsiflexors 4/5. Ankle plantarflexors 4/5. Bed Mobility/Transfers: Sit to stand with standby assist Stand to sit with standby assist Bed to reclining chair with standby assist Reclining chair to bedside commode standby assist Gait: 300 feet + 300 feet using FWW with minimal cue given for increased step height and step length with standby assist.? Continues to require moderate verbal cueing for improved step pattern. Trialled unassisted ambulation for 15 feet with no loss of balance. No shortness of breath. THERA EX: NuStep x 5 minutes with a resistance of 13. Balance: Static Sitting: Normal Dynamic Sitting: Normal Static Standing: Fair Dynamic Standing: Fair Special Tests: Mobility Limitations Standardized Measure [facility] AM-PAC 6 clicks Basic Mobility Inpatient Short Form: Raw Score: 23? CMS Score: 11% deficit? ? ? Informed Consent/Education:? Patient was instructed in purpose of PT consult and plan of care. Agreeable to proceed with established PT POC to achieve personal goals. Assessment: Tori is progressing well in terms of mobility level.? Barriers to thriving alone at home include impaired cognition and safety awareness. Will require 24/7 supervision. Patient presents with clinical signs and symptoms consistent with current/admitting diagnoses that have resulted to mobility limitations, gait instability, generalized weakness, and overall ADL decline as demonstrated by the following impairment level findings: 1.? Increasing strength to B UE/LE? major muscle groups 2.? Increasing standing balance 3.? Increasing activity tolerance 4.? Festinating gait Impairments are contributing to the following functional limitations: 1.? Decline in transfer skills 2.? Difficulty with ambulation without assistive device 3.? Increased completion time for mobility ADL performance 4.? Increased risk for falls 5.? Difficulty with managing steps alone safely Patient is assessed as a 07956 moderate complexity based on the following: History: 76-year-old female with past medical history as indicated above Examination: Demonstrable impairment in strength, balance, and mobility level with underlying impairments and functional limitations as exhibited above as well as deficit score of 69% utilizing the [facility] Mobility Inpatient Short Form Presentation: Evolving Decision Makin moderate complexity complexity Goals: Goals X1 week 1. Supine-Sit independent NOT MET, CONTINUE 2. Sit-Supine independent NOT MET, CONTINUE 3. Sit-Stand independent NOT MET, CONTINUE 4. Stand-Sit independent FWW NOT MET, CONTINUE 5. Bed-Chair independent with FWW NOT MET, CONTINUE 6. Chair-Bed independent with FWW NOT MET, CONTINUE 7.? Supervision gait on level surface with use of FWW for at least 300 feet without report of pain nor dyspnea NOT MET, CONTINUE 8.? Good static and dynamic standing balance/tolerance NOT MET, CONTINUE Plan of Care/Treatment Plan: 1-2x/day, 7 days/week x 1 week. Plan of care has been reviewed with the ENGINEERING INTERN providing the service under Physical Therapy direction. Continue Physical Therapy intervention for pain management as needed, strengthening, bed mobility, transfers, gait, stairs, balance training, and use of assistive device. DISCHARGE RECOMMENDATIONS: [] ? Home with no services [] [X] ? Home with services requiring 24/7 supervision for safety. [] ? Home with outpatient PT [] [X] ? SNF for continued rehabilitation.? Patient will benefit from [facility] facility placement for continued skilled physical therapy services in order to progress mobility level, strength, and balance. [] ? Assisted Care [] TREATMENT CODE/TIME: 89356 x 15 minutes, 48545 x 10 minutes beginning at 10:39 AM. Thank you for the opportunity to participate in the care of this patient. Karla Rene PT, DPT, CLT [facility] [place], [place]
[2021-12-28 19:43] VITALS: BP 106/69; PULSE 77; RESP 18; TEMP 36.7; O2SAT 94
[2021-12-28] MEDS: Lidocaine 5% Patch 2 PATCH TP (20:02)
[2021-12-29 06:25] VITALS: BP 136/74; PULSE 67; RESP 18; TEMP 36.8; O2SAT 97
[2021-12-29] MEDS: Lidocaine Patch Removal 2 EACH TP (08:16)
[2021-12-29] MEDS: Polyethylene Glycol 3350 17 GM PACKET PO (08:16)
[2021-12-29] MEDS: Enoxaparin 40 MG/0.4 ML SYR SC (08:16)
[2021-12-29] MEDS: Montelukast 10 MG TAB PO (08:17)
[2021-12-29] MEDS: Carbidopa 25/Levodopa 100 TAB PO ×3 (08:17→20:46)
[2021-12-29] MEDS: Potassium Chloride 20 MEQ TABCR PO (08:17)
[2021-12-29] MEDS: Donepezil 5 MG TAB 10 MG PO (08:17)
[2021-12-29] MEDS: Atorvastatin 40 MG TAB 80 MG PO (08:17)
[2021-12-29] MEDS: Losartan 25 MG TAB 50 MG PO (08:17)
[2021-12-29] MEDS: Aspirin E.C. 81 MG TABEC PO (08:18)
[2021-12-29] MEDS: Diclofenac 1% Gel 100 GM TUBE TP ×4 (08:18→20:48)
[2021-12-29] MEDS: Docusate Sodium 100 MG CAP PO ×2 (08:18→20:46)
[2021-12-29] MEDS: Cyanocobalamin 500 MCG TAB PO (08:18)
[2021-12-29] MEDS: Lactobacillus Acidophilus CAP 1 CAP PO ×2 (08:18→20:46)
[2021-12-29] MEDS: Propranolol 10 MG TAB PO ×2 (08:18→20:46)
[2021-12-29 13:49] VITALS: BP 119/71; PULSE 77; RESP 16; TEMP 36.7; O2SAT 96
--- NOTE | 2021-12-29 14:14 | PT.INTREAT ---
Date of service: 12/29/21 Time of Service: 11:29 PT Notes Visit Reasons: Parkinson's/Dementia/Frequent Falls/Loss of ADLs Inpatient Physical Therapy Treatment Note [facility] Date: 12/29/2021 PRECAUTIONS: Fall, activity as tolerated, Dementia SUBJECTIVE: Tori is pleasant and agreeable to participating in PT. She reports that she does not use an assistive device at home, and would like to be able to return to home without one. In p.m. she reports feeling nauseous and dizzy. She also discusses having Parkinson's and states that she does not know how to get rid of it. She also states that she thinks she is scheduled to discharge to home this week, but isn't sure. OBJECTIVE: Discussed patient's reports and concerns with primary nurse and Chantelle Arias NP. PAIN: No c/o pain BED MOBILITY/TRANSFERS Sit-supine: S with HOB flat Sit-stand: SBA in a.m.; Mod A in p.m. Stand-sit: SBA in a.m.l CGA in p.m. GAIT Assistive Device: No AD in a.m.; FWW in p.m. Weight bearing: Full Assist: CGA Distance: 250' + 350' in a.m.; 400' in p.m. Deviation: Slight tremors globally, seated rest and cueing for increased step length VITALS: Obtained by primary nurseGreta. VS all WNL. ASSESSMENT: Patient tolerated a.m. session well, without complaint. She was able to tolerate gait training without use of assistive device, although does require CGA for safety, and demonstrates slight global tremors. She was limited in p.m. due to dizziness and nausea. PLAN: Continue with global strengthening and gait training with least restrictive device. TREATMENT CODE/TIME: Session 1: 20 minutes; 25516 (11:29) Session 2: 18 minutes; 19690 x2 (13:53)
[2021-12-29] MEDS: Ondansetron 4 MG TAB PO (14:30)
--- NOTE | 2021-12-29 17:47 | CMPROGNOTE_ITS ---
- If Service Date Differs Date of service: 12/29/21 Time of Service: 17:47 Care Management Progress Note S/O: CM spoke with pts daughter/HCA Andree via phone to discuss discharge planning. Tori currently has a skilled need for SWB1 while working with PT, however PT reported to CM today that they anticipate Tori will no longer have a skilled need with PT services after since Tori is nearing her baseline. Andree requests that Tori discharge before she goes into SWB2 status. Tori will have 24/7 caregivers Tue-Tuesday, and will stay with Andree Sat and Sun. In 2 weeks, Tori will have horse race timer caregiver support at her home in [place]. Andree is planning on picking Tori up at 12pm as Tuesday/Tuesday discharge dates do not work Andree. CM will continue to support discharge planning needs. A: 76 year old female admitted to [facility] on 12/03/2021 for Back Pain P: Tori transitioned to SWB1 status for additional rehab prior to returning home. Pts daughter Andree elects not to fill out LTM forms for LTC placement, due to Tori's ability to afford her own caregiver's. Tori will discharge home with 24/7 caregiver support per daughter Andree/HCA when SWB1 stay is complete. SNF referral's are still pending at [facility], [facility], [facility] and [facility]. CM called each facility again today on 12/25/21, no offers. Tori will transport home via daughter Andree, with 24/7 caregivers support and follow up with community providers and plan of care as directed.
[2021-12-29] MEDS: Lidocaine 5% Patch 2 PATCH TP (20:47)
[2021-12-29 23:15] VITALS: BP 111/73; PULSE 70; RESP 18; TEMP 37; O2SAT 95
[2021-12-29] MEDS: traMADol 50 MG TAB PO (23:28)
[2021-12-30 08:01] VITALS: BP 115/65; PULSE 63; RESP 17; TEMP 36.5; O2SAT 97
[2021-12-30] MEDS: Enoxaparin 40 MG/0.4 ML SYR SC (09:06)
[2021-12-30] MEDS: Polyethylene Glycol 3350 17 GM PACKET PO (09:06)
[2021-12-30] MEDS: Potassium Chloride 20 MEQ TABCR PO (09:07)
[2021-12-30] MEDS: Losartan 25 MG TAB 50 MG PO (09:07)
[2021-12-30] MEDS: Cyanocobalamin 500 MCG TAB PO (09:07)
[2021-12-30] MEDS: Diclofenac 1% Gel 100 GM TUBE TP ×4 (09:07→20:59)
[2021-12-30] MEDS: Aspirin E.C. 81 MG TABEC PO (09:07)
[2021-12-30] MEDS: Carbidopa 25/Levodopa 100 TAB PO ×3 (09:07→20:55)
[2021-12-30] MEDS: Docusate Sodium 100 MG CAP PO ×2 (09:08→20:55)
[2021-12-30] MEDS: Lactobacillus Acidophilus CAP 1 CAP PO ×2 (09:08→20:55)
[2021-12-30] MEDS: Atorvastatin 40 MG TAB 80 MG PO (09:08)
[2021-12-30] MEDS: Donepezil 5 MG TAB 10 MG PO (09:08)
[2021-12-30] MEDS: Lidocaine Patch Removal 2 EACH TP (09:08)
[2021-12-30] MEDS: Montelukast 10 MG TAB PO (09:08)
[2021-12-30] MEDS: Propranolol 10 MG TAB PO ×2 (09:08→20:56)
--- NOTE | 2021-12-30 15:32 | PTTR_ITS ---
Date of service: 12/30/21 Time of Service: 11:09 PT Notes Visit Reasons: Parkinson's/Dementia/Frequent Falls/Loss of ADLs Inpatient Physical Therapy Treatment Note [facility] Date: 12/30/2021 PRECAUTIONS: Fall, activity as tolerated, Dementia SUBJECTIVE: Tori is pleasant and agreeable to participating in PT. She reports that she is feeling good today, although a little tired. OBJECTIVE: PAIN: No c/o pain BED MOBILITY/TRANSFERS Sit-stand: SBA Stand-sit: SBA GAIT Assistive Device: FWW Weight bearing: Full Assist: SBA Distance: ~15 minutes Deviation: Slight tremors globally, cueing for increased step length and height Completed gait training with FWW on changing surfaces including linoleum, carpet, cement, bumpy, and uneven. Patient demonstrates good control and appropriate pacing. ASSESSMENT: Patient tolerated session well, without complaint. She was able to tolerate a progression in gait training with use of FWW, over changing surfaces. She would benefit from continued use of FWW upon discharge for increased sta bility and safety with ambulation. PLAN: Continue with global strengthening and gait training with FWW. TREATMENT CODE/TIME: 24 minutes; 15592 x2 (11:09)
--- NOTE | 2021-12-30 16:18 | NUR.NOTE ---
Patients Daughter took home 2 bags of her mothers clothing, medical necklace and bracelet and medication. daughter only left 1 outfit for her mother in the room for tomorrow for when she goes home and her clothing that she has on now. Nursing Note:
[2021-12-30 20:05] VITALS: BP 138/67; PULSE 75; RESP 17; TEMP 36.7; O2SAT 96
[2021-12-30] MEDS: Lidocaine 5% Patch 2 PATCH TP (20:56)
[2021-12-31 07:36] VITALS: BP 111/77; PULSE 66; RESP 18; TEMP 36.6; O2SAT 98
[2021-12-31] MEDS: Polyethylene Glycol 3350 17 GM PACKET PO (07:47)
[2021-12-31] MEDS: Enoxaparin 40 MG/0.4 ML SYR SC (07:48)
[2021-12-31] MEDS: Potassium Chloride 20 MEQ TABCR PO (07:49)
[2021-12-31] MEDS: Aspirin E.C. 81 MG TABEC PO (07:49)
[2021-12-31] MEDS: Montelukast 10 MG TAB PO (07:49)
[2021-12-31] MEDS: Diclofenac 1% Gel 100 GM TUBE TP (07:49)
[2021-12-31] MEDS: Atorvastatin 40 MG TAB 80 MG PO (07:49)
[2021-12-31] MEDS: Propranolol 10 MG TAB PO (07:49)
[2021-12-31] MEDS: Losartan 25 MG TAB 50 MG PO (07:50)
[2021-12-31] MEDS: Cyanocobalamin 500 MCG TAB PO (07:50)
[2021-12-31] MEDS: Docusate Sodium 100 MG CAP PO (07:50)
[2021-12-31] MEDS: Carbidopa 25/Levodopa 100 TAB PO (07:50)
[2021-12-31] MEDS: Donepezil 5 MG TAB 10 MG PO (07:50)
[2021-12-31] MEDS: Lactobacillus Acidophilus CAP 1 CAP PO (07:50)
[2021-12-31] MEDS: Lidocaine Patch Removal 2 EACH TP (07:51)
--- NOTE | 2021-12-31 10:44 | PDOC.CMDIS ---
- If Service Date Differs Date of service: 12/31/21 Time of Service: 10:44 LACE Index Scoring Tool - Questions: Length of Stay (in days): 14 or more Acuity (Admit via E.D.?): Yes Comorbidities: Cerebrovascular Disease, Dementia E.D. Visits: 3 - Answers: Total Score: 18 Risk of Readmission: High Risk Care Management Discharge Reason for Hospitalization: Back Pain, frequent falls Discharge Plan: Discharge home with new [facility] PT,OT,WAREHOUSE UNLOADER via private vehicle with Caregiver Ingris. Patient's daughter Andree ([facility]) verbalizes understanding that Tori requires 11/04 caregiver support. Andree has coordinated full-time family and caregiver support. Tori will follow up with her community providers and discharge plan of care as prescribed. CM reviewed [facility] discharge paperwork with Andree via phone, Andree's consent was provided. Patient/Family Education Needs: Review discharge instructions, limitations, medications and plan to follow up with community providers. ask me three. Services Needed at Discharge: Home Health Care Services ([facility] PT, OT,WAREHOUSE UNLOADER, CM notified [facility] of discharge.)
--- NOTE | 2021-12-31 10:53 | W.PM.DS.N ---
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 The back injuries were superficial and she was largely recovered from them but still has an inability to care for self at home and remains a fall risk.? She was discharged to a custodial rehab here while working with physical therapy. She has remained medically stable and has met her rehab potential. She was followed by palliative care and will continue to follow outpatient. Case management has been also following and plan is to discharge to home with home health services including nursing, PT/OT, medical records tech. discharge discussed with Dr Monique. Home Meds and New Rx's Prescriptions: Continued aspirin 81 mg tablet,delayed release (DR/EC) 81 mg PO DAILY Qty: 90 4RF cyanocobalamin (vitamin B-12) [Vitamin B-12] 500 mcg tablet 500 mcg PO DAILY Qty: 90 4RF carbidopa-levodopa 25-100 mg tablet 2 tab PO TID 0RF donepezil 10 mg tablet 10 mg PO DAILY Qty: 90 4RF atorvastatin 80 mg tablet 80 mg PO DAILY Qty: 90 4RF losartan 25 mg tablet 25 mg PO DAILY Qty: 90 4RF montelukast 10 mg tablet 10 mg PO DAILY Qty: 90 4RF calcium carb,lactat-vitamin D3 200 mg calcium -250 unit tablet 1 tab PO DAILY 0RF diclofenac sodium 1 % Gel 2 g topical QID Qty: 100 0RF tramadol 50 mg Tablet 50 mg PO TID PRN PRNQty: 20 0RF Discharge Instructions Instructions: Parkinson Disease (ED) Stand Alone Forms: Nursing Discharge Form Referrals: Miladis Medina NP [Primary Care Provider] - Activity:: Activity as Tolerated Equipment/Supplies:: No Equipment Needed Diet:: As Tolerated Discharge Orders Discharge Orders: Discharge Order (Routine); Ordered 12/31/21 Ordered By: Kinza Lu DS: Summary Time Spent with Patient providing and/or coordinating discharge services: Less than 30 minutes Status at Discharge Functional status at discharge: uses cane/walker Overall status at discharge: patient is progressing back to baseline Mental Status: mental status grossly normal Speech and Movement: speech clear Mood: congruent mood Affect: normal affect Exam Const General: cooperative, comfortable and no acute distress HENMT Head: normocephalic and atraumatic Ears: hearing grossly normal bilaterally Resp Effort & Inspection: normal respiratory effort and able to speak in complete sentences Skin General skin exam: no rashes or lesions noted Neuro Cognition: abnormal cognition Psych Appearance: grossly normal Mental Status: mental status grossly normal Speech and Movement: speech clear Mood: congruent mood Affect: normal affect Attitude: cooperative Insight: limited Judgment: limited DS: Data Vitals/I&O Vitals and I&O: Vital Signs Temperature 36.6 C 12/31/21 07:36 Temperature Source Tympanic 12/31/21 07:36 Pulse 66 12/31/21 07:36 Pulse Rhythm Regular 12/31/21 10:17 Respiratory Rate 18 12/31/21 07:36 Respiratory Effort Non-Labored 12/31/21 10:17 Respiratory Depth Normal 12/31/21 10:17 Respiratory Pattern Normal 12/31/21 10:17 Blood Pressure 111/77 12/31/21 07:36 Pulse Oximetry 98 12/31/21 07:36 Oxygen Delivery Method Room Air 12/31/21 07:36 Oxygen Flow Rate 0 12/31/21 07:36 Pain Level 0 12/31/21 07:36 Comment 12/24/21 09:45 Intake & Output 12/30/21 12/30/21 12/31/21 11:59 23:59 11:59 Intake Total 480 / 960 480 / 960 480 / 480 Output Total 800 / 1750 950 / 1750 500 / 500 Balance -320 / -790 -470 / -790 -20 / -20 Intake: Oral 480 / 960 480 / 960 480 / 480 Output: Urine 800 / 1750 950 / 1750 500 / 500 Other: Urine Color Straw Pale Yellow Urine Appearance Clear Clear Clear Urine Odor Normal Normal None Comment Could not measure void. 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 Head/neck imaging, heart monitor with no identifiable cause Thyroid nodule Benign Surgical History History of section S/P colonoscopy (03/18/15) Family History Mother , 71 Depression Stroke CKD (chronic kidney disease) Father , 68 Heart disease Myocardial infarction Parkinson disease Sister No problems noted. Sister No problems noted. Brother , 42 of [place] Heart disease Myocardial infarction Brother , at 49 of [place] Heart disease Myocardial infarction Brother , at 58 of [place] Heart disease Myocardial infarction Brother , at 61 of [place] Heart disease Myocardial infarction Brother , at 80 of fall No problems noted. Son , at 45 of [place] Heart disease Myocardial infarction Daughter No problems noted. Maternal Grandfather No problems noted. Maternal Grandmother No problems noted. Paternal Grandfather No problems noted. Paternal Grandmother No problems noted. Social History Smoking/Tobacco Use Status: Never Smoking risk assessment performed?: Yes Alcohol Intake: current Alcohol Intake frequency: a few times a month Drug use: Never Substance use type: does not use Counseling given: No Household members: other Details: Camper until get apartment by June Housing: other Details: Camper until get apartment by June Pets and animals: No Sexually active: No Do you think of yourself as: straight/heterosexual Current gender identity: female What is your relationship status?: How often do you talk on the phone with friends or family?: three or more times per week How often do you get together with friends or relatives?: three or more times per week Do you belong to any clubs or organized social groups?: no Panel score (0-1 are the most socially isolated patients): 1 What type of physical activity do you participate in: walking Frequency: other Details: Some Shivani/Sabianism: Rastafari Seatbelt use: always Drive intox or ride w/intox compressed air pile driver operator: No Do you feel safe at home: Yes Do you feel safe in your relationship?: Yes History History 2 Para 2 Hx # Term Pregnancies Multiple births Hx # Pregnancies Ectopic pregnancies AB induced Hx Number of Living Children 1 AB spontaneous
--- NOTE | 2021-12-31 11:02 | PDOC.HHF2F ---
Home Health Certification Home Health Certification: 1. Encounter Date and Reason I certify that Tori Krause was seen by Kinza Lu on 12/31/21 and that I had a [id number] encounter with this patient that meets the physician face to face encounter requirements. 2. Clinical Findings Supporting Skilled Need and Homebound Status I certify that home health services are medically necessary, include either intermittent retirement and/or physical/speech therapy, and that this patient is homebound in that absences from the home require considerable and taxing effort and are infrequent or of short duration, or are attributable to the need to receive medical care. [X] (a) Attached documentation from encounter provides clinical findings supporting skilled need and homebound status (including what assistance patient requires to leave the home). The encounter with the patient was in whole, or in part, for the following medical condition, which is the primary reason for home health care: Parkinson's/Dementia/Frequent Falls/Loss of ADLs Nursing Home: routine nursing evaluation and medication oversight Physical and occupational Therapy: routine evaluation, home safety, gait, fall, strengthening and treatment CHANGE MANAGEMENT ADMINISTRATOR: routine management Homebound: patient is unable to safely leave the house unattended due to cognitive impairment, gait instability 3. Certification and Authentication I certify that I composed the above information based on my clinical judgement relating to this patient's medical condition and, if applicable, clinical findings communicated to me by the NPP or inpatient physician who performed the Home Health Referral. All further orders will be obtained through _Miladis Medina__(Community Based Physician - PCP)
--- NOTE | 2021-12-31 11:23 | PDOC.CMPRO ---
- If Service Date Differs Date of service: 12/31/21 Time of Service: 11:23 Care Management Progress Note S/O: CM spoke with pts daughter/HCA Andree via phone to solidify discharge plans for today and review SWB1 discharge paperwork. Andree reports that Tori will discharge home via private vehicle this morning with her caregiver Ingris. Per Andree, she has established 24/7 caregiver support for Tori to safely discharge home. In addition to full-time caregivers, Andree is also aware that Tori will have the support of [facility] PT, OT, AGRICULTURAL EQUIPMENT SALES ENGINEER and follow up with community providers. Of note during this conversation, Andree shared with CM that although she has caregivers for her mother, however she anticipates she will just go home and fall again, break bones and come right back to the hospital and start the process all over again. CM discussed additional discharge considerations including SWB2 level care and LTC placement. In addition, CM recommended that Andree reconsider filling out the LTM application provided by CM to help with truck terminal manager placement as LTM may be beneficial as a payer source. Andree declines SWB2 level care, and again states that she will not submit LTM forms for Tori, as Medicaid will penalize her and take 40% of her assets and she can't afford it. A: 76 year old female admitted to [facility] on 12/03/2021 for Back Pain P: Tori transitioned to SWB1 status for additional rehab prior to returning home. Pts daughter Andree elects not to fill out LTM forms for LTC placement, due to Tori's ability to afford her own caregiver's. Tori will discharge home with 24/7 caregiver support per daughter Andree/HCA when SWB1 stay is complete. SNF referral's are still pending at [facility], [facility], [facility] and [facility]. CM called each facility again today on 12/25/21, no offers. Tori will transport home via [employer], with 24/7 caregivers support and follow up with community providers and plan of care as directed.
--- NOTE | 2021-12-31 19:14 | INDS_ITS ---
Date of service: 12/31/21 Time of Service: 19:15 PT Notes Visit Reasons: Parkinson's/Dementia/Frequent Falls/Loss of ADLs Physical Therapy Inpatient Discharge Summary Date: 12/31/2021 Dates of Service: 12/11/2021 through 12/30/2021 This is a clinical summary of care provided for the duration of dates listed above. No charge was made in the completion of this documentation. Precautions: Fall. Standard. Activity as tolerated. Subjective: NT. See most recent [employer] notes. Objective: General Observation: NT. See most recent [employer] notes. Mental Status: NT. See most recent [employer] notes. Pain: NT. See most recent [employer] notes. ROM: Right Upper Extremity: ? Shoulder Flexion WFL. Shoulder abduction WFL. Elbow flexion WFL. Wrist flexion WFL. Functional opening and closing of hand WFL. Left Upper Extremity:? Shoulder Flexion WFL. Shoulder abduction WFL. Elbow flexion WFL. Wrist flexion WFL. Functional opening and closing of hand WFL. Right Lower Extremity: Hip flexion WFL. Hip abduction WFL. Knee flexion WFL. Ankle dorsiflexion WFL. Ankle plantarflexion WFL. Left Lower Extremity: Hip flexion WFL. Hip abduction WFL. Knee flexion Strength: Right Upper Extremity: Shoulder flexors 4/5. Shoulder abductors 4/5. Elbow flexors 4/5. Elbow extensors 4/5. [employer]inator strong. Left Upper Extremity: Shoulder flexors 4/5. Shoulder abductors 4/5. Elbow flexors 4/5. Elbow extensors 4/5. W[employer] Site Coordinator strong. Right Lower Extremity: Hip flexors 4/5. Hip abductors 4/5. Knee flexors 4/5. Knee extensors 4/5. Ankle dorsiflexors 4/5. Ankle plantarflexors 4/5. Left Lower Extremity: HHip flexors 4/5. Hip abductors 4/5. Knee flexors 4/5. Knee extensors 4/5. Ankle dorsiflexors 4/5. Ankle plantarflexors 4/5. Bed Mobility/Transfers: Sit to stand with standby assist Stand to sit with standby assist Bed to reclining chair with standby assist Reclining chair to bedside commode standby assist Gait: 300 feet + 300 feet using FWW with minimal cue given for increased step height and step length with standby assist.? Continues to require moderate verbal cueing for improved step pattern.? Trialled unassisted ambulation for 15 feet with no loss of balance. No shortness of breath. THERA EX: NuStep x 5 minutes with a resistance of 13. Balance: Static Sitting: Normal Dynamic Sitting: Normal Static Standing: Fair Dynamic Standing: Fair Assessment: Tori is progressing well in terms of mobility level.? Barriers to thriving alone at home include impaired cognition and safety awareness.? Will require 24/7 supervision.? Patient presents with clinical signs and symptoms consistent with current/admitting diagnoses that have resulted to mobility limitations, gait instability, generalized weakness, and overall ADL decline as demonstrated by the following impairment level findings: 1.? Increasing strength to B UE/LE? major muscle groups 2.? Increasing standing balance 3.? Increasing activity tolerance 4.? Festinating gait Impairments are contributing to the following functional limitations: 1.? Decline in transfer skills 2.? Difficulty with ambulation without assistive device 3.? Increased completion time for mobility ADL performance 4.? Increased risk for falls 5.? Difficulty with managing steps alone safely Goals: Goals X1 week 1. Supine-Sit independent NOT MET, CONTINUE with HH PT 2. Sit-Supine independent NOT MET, CONTINUE with HH PT 3. Sit-Stand independent NOT MET, CONTINUE with HH PT 4. Stand-Sit independent FWW NOT MET, CONTINUE with HH PT 5. Bed-Chair independent with FWW NOT MET, CONTINUE with HH PT 6. Chair-Bed independent with FWW NOT MET, CONTINUE with HH PT 7.? Supervision gait on level surface with use of FWW for at least 300 feet without report of pain nor dyspnea NOT MET, CONTINUE with HH PT 8.? Good static and dynamic standing balance/tolerance NOT MET, CONTINUE with HH PT DISCHARGE RECOMMENDATIONS: [] ? Home with no services [] [X] ? Home with services requiring 24/7 supervision for safety. [] ? Home with outpatient PT [] [X] ? SNF for continued rehabilitation.? Patient will benefit from intermediate facility placement for continued skilled physical therapy services in order to progress mobility level, strength, and balance. [] ? Assisted Care [] TREATMENT CODE/TIME: [place] Thank you for the opportunity to participate in the care of this patient. Karla Rene PT, DPT, CLT [facility] [place], [place]
== END 2021-12-31 11:24 | disposition home health service (06) | DRG 57 ==
PROVIDERS: Family Medicine; Admitting Provider Family Medicine; PCP Nurse Practitioner Family; Visit Provider Family Medicine
DX: G20 Parkinson's disease (principal); M54.9 Dorsalgia, unspecified; W19.XXXA Unspecified fall, initial encounter; F02.80 Dementia in other diseases classified elsewhere, unspecified severity, without behavioral disturbance, psychotic disturbance, mood disturbance, and anxiety; G25.0 Essential tremor; R29.6 Repeated falls; Z91.81 History of falling; I67.9 Cerebrovascular disease, unspecified; R73.03 Prediabetes; I10 Essential (primary) hypertension; E78.5 Hyperlipidemia, unspecified; B35.1 Tinea unguium
CPT/HCPCS: 36415; 97110; 97162; 97530; 99305; 99307; 99315; J1650; 81003; 85049; 99308; J3490; J8597

== ENCOUNTER 2023-07-04 21:18 | Emergency (ER) | payer MEDICARE, SELFPAY ==
--- NOTE | 2023-07-04 21:15 | RT.EKG_ITS ---
APPROVED REPORT Exam: Resting ECG Reason for Exam: weakness Patient Location: E HR:63 bpm ECG Measurements Heart Rate 63 AXIS IL 157 P 60 QRSd 84 QRS 45 QT 445 T 46 QTc 457 Conclusion normal sinus rhythm borderline QT prolongation No ST segment or T wave abnormalities to suggest occlusive [place]
[2023-07-04 21:17] VITALS: BP 121/98; PULSE 66; RESP 20; TEMP 36.6; O2SAT 99
--- NOTE | 2023-07-04 21:30 | DI.CT_ITS ---
Exam(s) CT HEAD WO EXAM: CT HEAD WO CLINICAL HISTORY: vomiting. TECHNIQUE: Imaging Protocol: Axial computed tomography images with coronal and sagittal reformatted images were created and reviewed COMPARISON: CT CT HEAD CERVICAL SPINE WO from 12/03/2021 FINDINGS: There are no skull fractures. There is no fluid in the visualized paranasal sinuses. There is no evidence of intracranial hemorrhage, mass effect, or shift of midline structures. There are no extra-axial fluid collections. The ventricles are unchanged in size, slightly prominent but n ot at a proportion when compared to the overlying cortical sulci. Again noted is bilateral periventricular hypodensity consistent with chronic small vessel disease. N o acute areas of infarct noted. IMPRESSION: No acute intracranial findings on this noninfused CT scan of the brain. Chronic small-vessel white matter ischemic changes again noted, unchanged from CT scan of November 2021. RADIATION DOSE DELIVERED: Total DLP DATA REPOSITORY: All CT scans at this facility are submitted to the National Radiology Data Registry (NRDR) Dose Index Registry (DIR) with the [employer] (ACR). RADIATION OPTIMIZATION: All CT scans at this facility use at least one of these dose optimization te chniques: automated exposure control; mA and/or kV adjustment per patient size (includes targeted exa ms where dose is matched to clinical indication); or iterative reconstruction.
--- NOTE | 2023-07-04 21:30 | DI.CT_ITS ---
Exam(s) CT CHEST/ABD/PEL W EXAM: CT CHEST/ABD/PEL W CLINICAL HISTORY: left flank ecchymosis, vomiting, back pain, weakne. TECHNIQUE: Imaging Protocol: Axial computed tomography images with coronal and sagittal reformatted images were created and reviewed CONTRAST MATERIAL: Intravenous: Omnipaque 350 Contrast volume:100 ml Oral: None COMPARISON: CT CT CHEST/ABD/PEL W from 12/03/2021 FINDINGS: CHEST: LUNGS: No confluent pulmonary infiltrates nor pleural effusions. No lung contusion. No pneumothorax .. MEDIASTINUM: There is no hilar nor mediastinal adenopathy. Small nodules are noted in both thyroid lo bes, similar to previous study. CARDIAC: Heart size is normal. There is no pericardial effusion.Caliber of the thoracic aorta is wit hin normal limits. OSSEOUS: No significant osseous lesions.. OTHER: Mild subcutaneous streaking posterior left side. No distinct fluid collection in the subcutan eous tissues. ABDOMEN: There is no ascites. No evidence of mesenteric nor bowel wall hematoma. LIVER: Solitary small benign cyst in the medial left hepatic lobe which measures 9 x 6 mm. No other focal hepatic findings. No dilated intrahepatic ducts. GALLBLADDER/BILIARY: No obvious gallbladder pathology. CBD is not dilated. PANCREAS: No evidence of pancreatic mass nor dilatation of the pancreatic duct. SPLEEN: Spleen is not enlarged. There are no intrasplenic lesions. Splenic and portal veins are simmons nt. ADRENALS: There are no significant adrenal masses. KIDNEYS: No calculi nor hydronephrosis. No solid renal masses. No cysts evident. ABDOMINAL AORTA: Calcified but not enlarged. Common iliac arteries are also calcified but not enlarg ed. LYMPH NODES: There is no retroperitoneal nor paraaortic adenopathy. ABDOMINAL WALL: No evidence of significant anterior abdominal wall nor inguinal hernia. GI: There is no evidence of bowel obstruction. PELVIS: LYMPH NODES: There is no intrapelvic nor inguinal adenopathy. GI: No evidence of appendicitis.No evidence of sigmoid diverticulitis. URINARY BLADDER: Mild uniform thickening of the urinary bladder wall. Possibly related to under dist ension. REPRODUCTIVE: Uterus and adnexal regions appear age-appropriate. No free fluid. OSSEOUS: No significant osseous lesions. No fractures. IMPRESSION: 1. No significant acute intrathoracic findings. Also no significant acute findings in the abdomen an d pelvis. 2. There is mild subcutaneous streaking in the posterior left lower chest wall, possibly mild contusi on in the setting of trauma. No distinct hematoma nor foreign body at this level. No underlying fra ctures evident. 3. Small benign cyst in the liver which is not require further workup. 4. Thickening of the wall the urinary bladder. Possibly related to cystitis. May also be exaggerate d by under distension. Recommend urinalysis. RADIATION DOSE DELIVERED: Total DLP DATA REPOSITORY: All CT scans at this facility are submitted to the National Radiology Data Registry (NRDR) Dose Index Registry (DIR) with the [employer] (ACR). RADIATION OPTIMIZATION: All CT scans at this facility use at least one of these dose optimization te chniques: automated exposure control; mA and/or kV adjustment per patient size (includes targeted exa ms where dose is matched to clinical indication); or iterative reconstruction.
[2023-07-04 21:49] LABS: Abs Immature Grans 0.06 10^3/uL (0.0-0.06); Absolute Basophil Count 0.09 10^3/uL (0.0-0.2); Absolute Eosinophil Count 0.23 10^3/uL (0.0-0.7); Absolute Monocyte Count 0.58 10^3/uL (0.1-0.8); Absolute Neutrophil Count 7.26 10^3/uL (1.2-6.7); Basophils % 0.8; Eosinophils % 2.1; HCT 47.2 % (36.0-46.0); HGB 15.1 g/dL (11.2-15.7); Immature Grans % 0.5; Lymphocytes % 25.4; MCV 87 fL (80-95); MPV 10.5 fL (8.0-11.0); Monocytes % 5.3; Neutrophils % 65.9; Platelet Count 402 10^3/uL (130-400); RDW 13.7 % (11.7-14.6); RDW-SD 43.8 fL; WBC 11.02 10^3/uL (4.4-10.8)
[2023-07-04 22:08] LABS: AST 20 U/L (15-37); Albumin 3.4 g/dL (3.4-5.0); Alkaline Phosphatase 131 U/L (46-116); Anion Gap 5.9 mmol/L (3-11); BUN 17 mg/dL (7-18); Bilirubin, Total 0.4 mg/dL (0.2-1.0); CO2 30.1 mmol/L (21.0-32.0); CREATININE 0.9 mg/dL (0.55-1.02); Calcium 9.5 mg/dL (8.5-10.1); Chloride 104 mmol/L (98-107); Estimated GFR 65.84 (mL/min/1.73m2); Glucose 146 mg/dL (74-106); Lipase 78 U/L (16-77); Magnesium 2.3 mg/dL (1.8-2.4); Potassium 4.3 mmol/L (3.5-5.1); Sodium 140 mmol/L (136-145); Total Protein 7.4 g/dL (6.4-8.2); Troponin I < 50 ng/L (<or=60)
[2023-07-04 22:14] LABS: ALT < 6 U/L (14-59)
--- NOTE | 2023-07-04 22:28 | W.ED.GENAD ---
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, Parkinson disease Primary Care Provider: Miladis Medina ED Provider: Karla Ocampo Home Meds and New Rx's Prescriptions: Continued Nuplazid 34 mg capsule 34 mg PO DAILY carbidopa-levodopa 25-100 mg tablet 2 tab PO TID Qty: 540 3RF aspirin 81 mg tablet,delayed release (DR/EC) 81 mg PO DAILY Qty: 90 4RF cyanocobalamin (vitamin B-12) [Vitamin B-12] 500 mcg tablet 500 mcg PO DAILY Qty: 90 4RF atorvastatin 80 mg tablet 80 mg PO DAILY Qty: 90 3RF losartan 25 mg tablet 25 mg PO DAILY Qty: 90 3RF donepezil 10 mg tablet 10 mg PO DAILY Qty: 90 3RF calcium carb,lactat-vitamin D3 200 mg calcium -250 unit tablet 1 tab PO DAILY Discharge Instructions Instructions: Acute Nausea and Vomiting (ED) Additional Instructions: Please take the Compazine as needed for nausea and vomiting, clear liquid diet only until you are feeling symptomatically improved Please follow-up with your doctor tomorrow and return earlier should you have new or worsening complaints You are leaving prior to your CT images being read, your labs are reassuring You have declined any additional intervention or waiting for imaging, please be reassessed at your earliest Referrals: Miladis Medina, KEVIN [Primary Care Provider] - Discharge Data Discharge Date/Time-TO BE ENTERED AT DEPARTURE: 07/04/23 23:27 Medical Decision Making 78-year-old female presenting with report of vomiting x3 after dinner, fine prior to that presentation, did have a fall 3 days ago with injury to flank, ecchymosis noted Patient comorbidities include complaints, with recent fall I did order CT head, chest abdomen pelvis as patient has an ecchymosis over her left flank and has started vomiting, neurosurgery CT head, no cervical spine tenderness, alert and at baseline, DPOA in room, comfortable with patient's current cognition Alert and oriented x4, GCS 7, able to follow basic commands, no active vomiting in the emergency department, given Compazine and fluids Patient went over to imaging and head CT, daughter is requesting discharge as patient is requesting discharge, they are both alert, oriented, of decisional capacity and they understand that there leaving against medical recommendation as the test results have not returned Pending CT reads at this time, diagnostic labs do not show significant acute abnormality per radiology interpretation my review On reassessment patient's DPOA and daughter are requesting discharge home in addition to patient, intervals alert, daughter is oriented and of decisional capacity, they understand that CTs have not resulted and will call for results, they understand that They understand that they are leaving AGAINST MEDICAL ADVICE that patient's not been fully evaluated HPI General Date/Time Provider Initiated Documentation: 07/04/23 21:22. HPI Narrative: 78-year-old female presents with report of vomiting x3 after dinner. Asymptomatic at 4:00. Did have a fall 4 days ago, fall from standing while using her walker backward, has a bruise on her flank, daughter concerned about this. Denies any change in mentation. Denies any fever or chills. Denies any known hematuria. Denies any blood in vomitus. Denies any history of coagulopathy. Related Data Home Medications Medication Instructions Recorded Confirmed aspirin 81 mg tablet,delayed 81 mg PO DAILY #90 tabs 04/04/20 07/05/23 release cyanocobalamin (vitamin B-12) 500 500 mcg PO DAILY #90 tabs 04/04/20 07/05/23 mcg tablet (Vitamin B-12) calcium carb and lactate 200 1 tab PO DAILY 03/07/21 07/05/23 mg-vitamin D3 6.25 mcg (250 unit) tablet atorvastatin 80 mg tablet 80 mg PO DAILY #90 tabs 03/23/23 07/05/23 losartan 25 mg tablet 25 mg PO DAILY #90 tabs 03/23/23 07/05/23 donepezil 10 mg tablet 10 mg PO DAILY #90 tabs 05/27/23 07/05/23 carbidopa 25 mg-levodopa 100 mg 2 tab PO TID #540 tabs 06/06/23 07/05/23 tablet pimavanserin 34 mg capsule 34 mg PO DAILY 06/06/23 07/05/23 (Nuplazid) Previous Rx's Medication Instructions Recorded aspirin 81 mg tablet,delayed 81 mg PO DAILY #90 tabs 04/04/20 release cyanocobalamin (vitamin B-12) 500 500 mcg PO DAILY #90 tabs 07/17/20 mcg tablet (Vitamin B-12) atorvastatin 80 mg tablet 80 mg PO DAILY #90 tabs 03/23/23 losartan 25 mg tablet 25 mg PO DAILY #90 tabs 03/23/23 donepezil 10 mg tablet 10 mg PO DAILY #90 tabs 05/27/23 carbidopa 25 mg-levodopa 100 mg 2 tab PO TID #540 tabs 06/06/23 tablet Allergies Allergy/AdvReac Type Severity Reaction Status Date / Time No Known Allergies Allergy Verified 06/06/23 14:20 General Stated Complaint: Nausea/Vomit/Diar SKY: 3 PFSH All Active Problems (Updated 07/04/23 @ 23:05 by MELANI Magdaleno) Traumatic ecchymosis of flank (Acute) Nausea & vomiting (Acute) 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 Head/neck imaging, heart monitor with no identifiable cause Thyroid nodule Benign Surgical History S/P colonoscopy (03/18/15) History of section Family History Mother , 71 Depression Stroke CKD (chronic kidney disease) Father , 68 Heart disease Myocardial infarction Parkinson disease Sister No problems noted. Sister No problems noted. Brother , 42 of [place] Heart disease Myocardial infarction Brother , at 49 of [place] Heart disease Myocardial infarction Brother , at 58 of [place] Heart disease Myocardial infarction Brother , at 61 of [place] Heart disease Myocardial infarction Brother , at 80 of fall No problems noted. Son , at 45 of [place] Heart disease Myocardial infarction Daughter No problems noted. Maternal Grandfather No problems noted. Maternal Grandmother No problems noted. Paternal Grandfather No problems noted. Paternal Grandmother No problems noted. Social History (Reviewed 12/21/21 @ 18:24 by TAWNYA Garay Smoking/Tobacco Use Status: Never Smoking risk assessment performed?: Yes Alcohol Intake: current Alcohol Intake frequency: a few times a month Drug use: Never Substance use type: does not use Counseling given: No Household members: other Details: Camper until get apartment by June Housing: other Details: Camper until get apartment by June Pets and animals: No Sexually active: No Do you think of yourself as: straight/heterosexual Current gender identity: female What is your relationship status?: How often do you talk on the phone with friends or family?: three or more times per week How often do you get together with friends or relatives?: three or more times per week Do you belong to any clubs or organized social groups?: no Panel score (0-1 are the most socially isolated patients): 1 What type of physical activity do you participate in: walking Frequency: other Details: Some Shivani/Judaism: Moravian Seatbelt use: always Drive intox or ride w/intox courtesy van driver: No Do you feel safe at home: Yes Do you feel safe in your relationship?: Yes History History 2 Para 2 Hx # Term Pregnancies Multiple births Hx # Pregnancies Ectopic pregnancies AB induced Hx Number of Living Children 1 AB spontaneous Course Vital Signs Vital signs: Vital Signs Temperature 36.6 C 07/04/23 21:17 Pulse 66 07/04/23 21:17 Respiratory Rate 20 07/04/23 21:17 Blood Pressure 121/98 H 07/04/23 21:17 Pulse Oximetry 99 07/04/23 21:17 Temperature 36.6 C 07/04/23 21:17 Temperature Source Oral 07/04/23 21:17 Pulse 66 07/04/23 21:17 Respiratory Rate 20 07/04/23 21:17 Respiratory Effort Normal, Non-Labored 07/04/23 21:25 Blood Pressure 121/98 H 07/04/23 21:17 Pulse Oximetry 99 07/04/23 21:17 Oxygen Delivery Method Room Air 07/04/23 21:17 Oxygen Flow Rate 0 07/04/23 21:17 Lab/Test Results Lab/Test Results: Laboratory Tests Range/Units 07/04/23 21:24 WBC (4.4-10.8) 10^3/uL 11.02 H RBC (3.93-5.22) 10^6/uL 5.40 H Hgb (11.2-15.7) g/dL 15.1 Hct (36.0-46.0) % 47.2 H MCV (80-95) fL 87 MCH (27.0-33.0) pg 28.0 MCHC (32.0-36.0) % 32.0 RDW (11.7-14.6) % 13.7 Plt Count (130-400) 10^3/uL 402 H MPV (8.0-11.0) fL 10.5 Immature Gran % 0.5 Neutrophils % 65.9 Lymphocytes % 25.4 Monocytes % 5.3 Eosinophils % 2.1 Basophils % 0.8 Nucleated RBC % (0.0-0.3) % 0.0 Absolute Neutrophils (1.2-6.7) 10^3/uL 7.26 H Absolute Lymphocytes (1.2-3.4) 10^3/uL 2.80 Absolute Monocytes (0.1-0.8) 10^3/uL 0.58 Absolute Eosinophils (0.0-0.7) 10^3/uL 0.23 Absolute Basophils (0.0-0.2) 10^3/uL 0.09 Sodium (136-145) mmol/L 140 Potassium (3.5-5.1) mmol/L 4.3 Chloride (98-107) mmol/L 104 Carbon Dioxide (21.0-32.0) mmol/L 30.1 Anion Gap (3-11) mmol/L 5.9 BUN (7-18) mg/dL 17 Creatinine (0.55-1.02) mg/dL 0.9 Est GFR (CKD-EPI 2020) (mL/min/1.73m2) 65.84 Glucose (74-106) mg/dL 146 H Calcium (8.5-10.1) mg/dL 9.5 Magnesium (1.8-2.4) mg/dL 2.3 Total Bilirubin (0.2-1.0) mg/dL 0.4 AST (15-37) U/L 20 ALT (14-59) U/L < 6 L Alkaline Phosphatase (46-116) U/L 131 H Troponin I (<or=60) ng/L < 50 Total Protein (6.4-8.2) g/dL 7.4 Albumin (3.4-5.0) g/dL 3.4 Lipase (16-77) U/L 78 H
[2023-07-04] MEDS: Lactated Ringers 500 ML IV (22:50)
[2023-07-04] MEDS: Omnipaque 350 MG/ML 100 ML BTL IJ (22:53)
[2023-07-04] MEDS: Normal Saline - Diluent 50 ML VIAL IJ (22:54)
[2023-07-04] MEDS: Normal Saline Flush 10 ML SYR IVP (22:55)
[2023-07-04] MEDS: Prochlorperazine 10 MG/2 ML VIAL 2.5 MG IVP (23:03)
--- NOTE | 2023-07-04 23:09 | DI.VRAD_ITS ---
PROCEDURE INFORMATION: Exam: CT Head Without Contrast Exam date and time: 07/04/2023 10:43 PM Age: 78 years old Clinical indication: Other: Vomiting; Patient HX: HX of parkinsons TECHNIQUE: Imaging protocol: Computed tomography of the head without contrast. Radiation optimization: All CT scans at this facility use at least one of these dose optimization techniques: automated exposure control; mA and/or kV adjustment per patient size (includes targeted exams where dose is matched to clinical indication); or iterative reconstruction. COMPARISON: CT HEAD CERVICAL SPINE WO 12/03/2021 11:15 AM FINDINGS: Brain: Mild volume loss No hemorrhage. Mild white matter disease. No mass effect. Cerebral ventricles: No ventriculomegaly. Paranasal sinuses: Visualized sinuses are unremarkable. No fluid levels. Mastoid air cells: Visualized mastoid air cells are well aerated. Bones/joints: Unremarkable. No acute fracture. Soft tissues: Unremarkable. IMPRESSION: No acute intracranial abnormality. Dictated and Authenticated by: Hai Joya MD. Ordering:FRANDY Acosta MD
[2023-07-04] MEDS: Prochlorperazine 5 MG TAB PO (23:29)
[2023-07-04 23:32] VITALS: BP 121/98; PULSE 66; RESP 16; O2SAT 99
--- NOTE | 2023-07-04 23:50 | DI.VRAD_ITS ---
PROCEDURE INFORMATION: Exam: CT Chest With Contrast; Diagnostic Exam date and time: 07/04/2023 10:47 PM Age: 78 years old Clinical indication: Other: L flank; Other: Weakness; Patient HX: Left flank ecchymosis, vomiting, back pain, weakne TECHNIQUE: Imaging protocol: Diagnostic computed tomography of the chest with contrast. 3D rendering (Not supervised by radiologist): MIP and/or 3D reconstructed images were created by the technologist. Radiation optimization: All CT scans at this facility use at least one of these dose optimization techniques: automated exposure control; mA and/or kV adjustment per patient size (includes targeted exams where dose is matched to clinical indication); or iterative reconstruction. Contrast material: OMNIPAQUE 350; Contrast volume: 100 ml; Contrast route: INTRAVENOUS (IV); COMPARISON: CT CHEST/ABD/PEL W 12/03/2021 11:20 AM FINDINGS: Thyroid: Small bilateral thyroid nodules measuring up to 8 mm in size, which do not require further assessment based on current consensus criteria. Lungs: No acute tracheobronchial abnormalities. No infiltrates or edema. Minor dependent atelectasis in the lung bases. No pulmonary mass lesions are identified. Pleural spaces: No pleural effusions. No pneumothorax. Heart: Heart size normal. Mild coronary artery calcification. There is mild calcification of the aortic valve. Mild aortic ectasia/tortuosity and calcific atherosclerosis. No mediastinal hematoma. Lymph nodes: No supraclavicular or axillary adenopathy. No mediastinal or hilar adenopathy. Vasculature: The pulmonary arteries demonstrate no gross abnormality. Diaphragm: Small hiatal hernia. Mild distal esophageal wall thickening which may represent reactive changes of clinically described recent vomiting, versus esophagitis. No evidence of perforation or obstruction. Bones/joints: No acute osseous abnormalities are identified. Mild thoracic spondylosis. Slight superior endplate compression deformity of T1-T3 are unchanged from 12/03/2021. Soft tissues: Minor subcutaneous swelling in the lower left posterior chest wall, possibly mild contusion. No hematoma or foreign body. IMPRESSION: 1. Minor subcutaneous swelling in the posterior left lower chest wall, possibly mild contusion. No hematoma or foreign body. No underlying fractures. 2. Small hiatal hernia with mild distal esophageal wall thickening which may represent reactive changes of clinically described recent vomiting, versus mild esophagitis. No evidence of perforation or obstruction. 3. Additional nonemergent findings detailed above. PROCEDURE INFORMATION: Exam: CT Abdomen And Pelvis With Contrast Exam date and time: 07/04/2023 10:47 PM Age: 78 years old Clinical indication: Other: L flank; Other: Weakness; Patient HX: Left flank ecchymosis, vomiting, back pain, weakne TECHNIQUE: Imaging protocol: Computed tomography of the abdomen and pelvis with contrast. 3D rendering (Not supervised by radiologist): MIP and/or 3D reconstructed images were created by the technologist. Contrast material: OMNIPAQUE 350; Contrast volume: 100 ml; Contrast route: INTRAVENOUS (IV); COMPARISON: CT CHEST/ABD/PEL W 12/03/2021 11:20 AM FINDINGS: Liver: Normal contour. Well-circumscribed low-density probable cyst in the left hepatic lobe which does not require further assessment based on current consensus criteria. No intrahepatic biliary ductal dilatation. Gallbladder and bile ducts: The gallbladder is partially contracted but otherwise unremarkable. Nondilated common bile duct. Small periampullary duodenal diverticulum noted. Pancreas: Normal. No inflammatory changes or ductal dilation. Spleen: Normal. No splenomegaly. Adrenal glands: Normal. No adrenal mass. Kidneys and ureters: No acute abnormalities. No hydronephrosis or hydroureter. No urinary tract stones are identified. Stomach and bowel: Stomach is partially contracted. The small bowel is nondilated with no gross abnormality. No acute colonic abnormalities. Mild diverticulosis involving the distal colon without evidence of acute diverticulitis. Appendix: The appendix is normal in caliber and demonstrates no evidence of appendicitis. Intraperitoneal space: No free fluid or air. Vasculature: No acute process. No abdominal aortic aneurysm. Moderate calcific atherosclerosis. Lymph nodes: No adenopathy. Urinary bladder: Questionable mild urinary bladder wall thickening and minimal adjacent stranding. Correlate with UA for evidence of cystitis. Reproductive: Unremarkable as visualized. Bones/joints: No acute osseous abnormalities. Osteopenia. Moderate lumbar facet osteoarthritic hypertrophy. Moderate-severe disc degenerative changes L1-L2 and L2-L3. Grade 1 anterolisthesis L4-L5. Soft tissues: Small fatty umbilical hernia . No evidence of associated bowel herniation or strangulation. IMPRESSION: 1. No definite acute intra-abdominal/intrapelvic findings. 2. Mild diverticulosis without diverticulitis. 3. Questionable mild changes of cystitis in the bladder, correlate with UA. 4. Additional nonemergent findings detailed above. Dictated and Authenticated by: Jeffery López MD. Ordering:FRANDY Acosta MD
--- NOTE | 2023-07-06 07:13 | NUR.NOTE ---
Accessed pt chart to cancel duplicate EKG order. Nursing Note:
== END 2023-07-04 23:27 | disposition left against medical advice (07) ==
PROVIDERS: Emergency Provider Physician Assistant; PCP Nurse Practitioner Family
DX: R11.2 Nausea with vomiting, unspecified (principal); G20.A1 Parkinson's disease without dyskinesia, without mention of fluctuations; F02.80 Dementia in other diseases classified elsewhere, unspecified severity, without behavioral disturbance, psychotic disturbance, mood disturbance, and anxiety; S80.11XA Contusion of right lower leg, initial encounter; R94.31 Abnormal electrocardiogram [ECG] [EKG]; I10 Essential (primary) hypertension; Z53.29 Procedure and treatment not carried out because of patient's decision for other reasons; W18.39XA Other fall on same level, initial encounter
CPT/HCPCS: 36415; 74177; 80053; 83690; 93005; 96361; 96374; 99285; 70450; 71260; 83735; 84484; 85025; 93010; 99284; J0780; J3490

== ENCOUNTER → 2023-08-17 14:26 | Outpatient (BNVA) | payer MEDICARE, SELFPAY | PROVIDERS: PCP Nurse Practitioner Family; Referring Provider Nurse Practitioner Family; Visit Provider Psychiatry & Neurology Neurology | DX: G20.A1 Parkinson's disease without dyskinesia, without mention of fluctuations (principal); H53.8 Other visual disturbances; F03.92 Unspecified dementia, unspecified severity, with psychotic disturbance; E85.4 Organ-limited amyloidosis; I68.0 Cerebral amyloid angiopathy; N32.81 Overactive bladder; K59.00 Constipation, unspecified; I10 Essential (primary) hypertension | CPT/HCPCS: 99215; G2212 ==

== ENCOUNTER 2023-08-18 09:22 | Inpatient (IN) | payer MEDICARE, SELFPAY ==
[2023-08-18] VITALS (32 sets, daily range): BP systolic 93–185; BP diastolic 52–88; PULSE 56–77; RESP 10–28; TEMP 36.1–36.6; O2SAT 90–100
--- NOTE | 2023-08-18 09:15 | RT.EKG_ITS ---
APPROVED REPORT Exam: Resting ECG Reason for Exam: lethargic, syncope Patient Location: E HR:64 bpm ECG Measurements Heart Rate 64 AXIS NV 154 P 64 QRSd 95 QRS 46 QT 414 T 63 QTc 429 Conclusion Sinus rhythm normal P axis I have reviewed and interpreted ECG and agree with software generated interpretation. There are no significant changes compared to prior EKG performed on 12/03/2021 at 09:55.
--- NOTE | 2023-08-18 09:15 | DI.CT_ITS ---
Exam(s) CT HEAD WO EXAM: CT HEAD WO CLINICAL HISTORY: altered mental status. TECHNIQUE: Imaging Protocol: Axial computed tomography images with coronal and sagittal reformatted images were created and reviewed COMPARISON: CT CT HEAD WO from 07/04/2023 FINDINGS: There are no skull fractures. There is no fluid in the visualized paranasal sinuses. There is no evidence of intracranial hemorrhage, mass effect, or shift of midline structures. There are no extra-axial fluid collections. Ventricular size is unchanged. There is some mild bilateral periventricular hypodensity consistent chronic small vessel disease, unc hanged. IMPRESSION: No acute intracranial findings on this noninfused CT scan of the brain. No significant change compar ed to prior CT scan of 07/04/2023. Called by myself to ER. RADIATION DOSE DELIVERED: Total DLP DATA REPOSITORY: All CT scans at this facility are submitted to the National Radiology Data Registry (NRDR) Dose Index Registry (DIR) with the [employer] (A[employer]). RADIATION OPTIMIZATION: All CT scans at this facility use at least one of these dose optimization te chniques: automated exposure control; mA and/or kV adjustment per patient size (includes targeted exa ms where dose is matched to clinical indication); or iterative reconstruction.
--- NOTE | 2023-08-18 10:00 | ED.GENADUL_ITS ---
Discharge Plan Disposition Patient Disposition: Admit to [facility] Condition: Stable Discharge Details Chief Complaint: [id number] Clinical Impression: Syncope, Hypoxia, Pneumonia Primary Care Provider: Miladis Medina ED Provider: Lisa Ball Home Meds and New Rx's Prescriptions: No Action melatonin 10 mg capsule 10 mg PO HS PRN olanzapine 2.5 mg tablet 2.5 mg PO QHS carbidopa-levodopa 25-250 mg tablet 1 tab PO TID Qty: 270 3RF Myrbetriq 25 mg tablet extended release 24 hr 25 mg PO DAILY Qty: 90 3RF Nuplazid 34 mg capsule 34 mg PO DAILY Qty: 90 3RF aspirin 81 mg tablet,delayed release (DR/EC) 81 mg PO DAILY Qty: 90 4RF cyanocobalamin (vitamin B-12) [Vitamin B-12] 500 mcg tablet 500 mcg PO DAILY Qty: 90 4RF atorvastatin 80 mg tablet 80 mg PO DAILY Qty: 90 3RF losartan 25 mg tablet 25 mg PO DAILY Qty: 90 3RF donepezil 10 mg tablet 10 mg PO DAILY Qty: 90 3RF calcium carb,lactat-vitamin D3 200 mg calcium -250 unit tablet 1 tab PO DAILY Medical Decision Making Emergent evaluation of altered mental status. Initial differential includes syncope, vasovagal episode, seizure. TIA or CVA. This event did not occur while eating, so less likely choking or aspiration event. Her mental status seems to be improving. At baseline she is normally very talkative and ambulatory with a walker. She has noted to be slightly hypoxic on exam, she was placed on supplemental oxygen. Will evaluate for etiology of the symptoms with lab work, urinalysis and CT imaging of her head. Lab work reviewed. CBC with mild leukocytosis. Urinalysis without evidence of infection. Head CT is unremarkable for acute process. Her chest x-ray is concerning for a possible infiltrate. Given her hypoxia and the chest x-ray findings, I will give antibiotics. Blood cultures have been sent. Given her significant syncopal episode and this pneumonia with hypoxia, patient will require hospitalization for further treatment. Discussed with the hospitalist who agrees to accept the patient. Medical Records Medical records reviewed: Yes I reviewed the patient's medical records. Lab Data Lab results reviewed: Yes I reviewed the patient's lab results. ECG Data Attestation: I personally reviewed and interpreted this ECG (s) as follows: Interpretation: Sinus 64, normal axis, no significant change from prior, no acute ischemic change HPI General Date/Time Provider Initiated Documentation: 08/18/23 09:27 . Limitations to Documentation: altered mental status . Information obtained by: family and EMS . HPI Narrative: 78-year-old female with past medical history of Parkinson's disease, dementia, hypertension presents for evaluation of altered mental status. Her caregiver provides the history. She states that the patient was in normal condition this morning and did not have any complaints. She sat down for breakfast. In as the caregiver was preparing the breakfast she states that she turned around and the patient had slumped over. When she slumped over she hit her head on the bed railing that was next to her. She was not responding. EMS reports normal vital signs and normal Accu-Chek and improvement in her mental status during transportation. Related Data Home Medications Medication Instructions Recorded Confirmed aspirin 81 mg tablet,delayed 81 mg PO DAILY #90 tabs 04/04/20 08/18/23 release cyanocobalamin (vitamin B-12) 500 500 mcg PO DAILY #90 tabs 04/04/20 08/18/23 mcg tablet (Vitamin B-12) calcium carb and lactate 200 1 tab PO DAILY 03/07/21 08/18/23 mg-vitamin D3 6.25 mcg (250 unit) tablet atorvastatin 80 mg tablet 80 mg PO DAILY #90 tabs 03/23/23 08/18/23 losartan 25 mg tablet 25 mg PO DAILY #90 tabs 03/23/23 08/18/23 donepezil 10 mg tablet 10 mg PO DAILY #90 tabs 05/27/23 08/18/23 melatonin 10 mg capsule 10 mg PO HS PRN 08/17/23 08/18/23 mirabegron 25 mg tablet,extended 25 mg PO DAILY #90 tabs 08/17/23 08/18/23 release 24 hr (Myrbetriq) olanzapine 2.5 mg tablet 2.5 mg PO QHS 08/17/23 08/18/23 pimavanserin 34 mg capsule 34 mg PO DAILY #90 caps 08/17/23 08/18/23 (Nuplazid) carbidopa 25 mg-levodopa 100 mg 2.5 tab PO TID 08/18/23 08/18/23 tablet carbidopa 25 mg-levodopa 250 mg 2.5 tab PO TID 08/18/23 08/18/23 tablet Previous Rx's Medication Instructions Recorded aspirin 81 mg tablet,delayed 81 mg PO DAILY #90 tabs 04/04/20 release cyanocobalamin (vitamin B-12) 500 500 mcg PO DAILY #90 tabs 04/04/20 mcg tablet (Vitamin B-12) atorvastatin 80 mg tablet 80 mg PO DAILY #90 tabs 03/23/23 losartan 25 mg tablet 25 mg PO DAILY #90 tabs 03/23/23 donepezil 10 mg tablet 10 mg PO DAILY #90 tabs 05/27/23 mirabegron 25 mg tablet,extended 25 mg PO DAILY #90 tabs 08/17/23 release 24 hr (Myrbetriq) pimavanserin 34 mg capsule 34 mg PO DAILY #90 caps 08/17/23 (Nuplazid) Allergies Allergy/AdvReac Type Severity Reaction Status Date / Time No Known Allergies Allergy Verified 08/18/23 11:06 General Stated Complaint: [id number] SKY: 3 PFSH All Active Problems (Updated 08/18/23 @ 13:24 by Lisa Ball MD) Pneumonia (Acute) Hypoxia (Acute) Syncope (Chronic) Syncopal episodes (Chronic) Intermittent syncope. 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 [place] Neuro Parkinson disease (Chronic) Followed by [facility] [place] [facility] Cerebrovascular disease (Chronic) Recurrent falls (Chronic) Hyperlipidemia (Chronic) Essential tremor (Chronic) Prediabetes (Chronic) Essential hypertension (Chronic) Nail dystrophy (Acute) Onychogryphosis (Chronic) Allergic rhinitis (Chronic) Medical History Palliative care patient Syncopal episodes Intermittent syncope. Head/neck imaging, heart monitor with no identifiable cause Thyroid nodule Benign Surgical History S/P colonoscopy (03/18/15) History of section Family History Mother , 71 Depression Stroke CKD (chronic kidney disease) Father , 68 Heart disease Myocardial infarction Parkinson disease Sister No problems noted. Sister No problems noted. Brother , 42 of [place] Heart disease Myocardial infarction Brother , at 49 of [place] Heart disease Myocardial infarction Brother , at 58 of [place] Heart disease Myocardial infarction Brother , at 61 of [place] Heart disease Myocardial infarction Brother , at 80 of fall No problems noted. Son , at 45 of [place] Heart disease Myocardial infarction Daughter No problems noted. Maternal Grandfather No problems noted. Maternal Grandmother No problems noted. Paternal Grandfather No problems noted. Paternal Grandmother No problems noted. Social History Smoking/Tobacco Use Status: Never Smoking risk assessment performed?: Yes Alcohol Intake: current Alcohol Intake frequency: a few times a month Drug use: Never Substance use type: does not use Counseling given: No Household members: other Details: Camper until get apartment by June Housing: other Details: Camper until get apartment by June Pets and animals: No Sexually active: No Do you think of yourself as: straight/heterosexual Current gender identity: female What is your relationship status?: How often do you talk on the phone with friends or family?: three or more times per week How often do you get together with friends or relatives?: three or more times per week Do you belong to any clubs or organized social groups?: no Panel score (0-1 are the most socially isolated patients): 1 What type of physical activity do you participate in: walking Frequency: other Details: Some Shivani/Baptism: Worship Seatbelt use: always Drive intox or ride w/intox lyft driver: No Do you feel safe at home: Yes Do you feel safe in your relationship?: Yes History History 2 Para 2 Hx # Term Pregnancies Multiple births Hx # Pregnancies Ectopic pregnancies AB induced Hx Number of Living Children 1 AB spontaneous Exam Narrative Exam Narrative: Review of Systems: All systems reviewed & are unremarkable except as noted in HPI and below: CONSTITUTIONAL: Alert Well-developed, no acute distress HEENT: NACT EYES: PERRL, no conjunctival injection CVS: RRR, No murmurs or gallops. Peripheral pulses 2+ and equal in all extremities Brisk capillary refill in all extremities. No peripheral edema RESP: Unlabored respiratory effort, Clear to auscultation bilaterally No wheezes rales or rhonchi GI: Soft, Nontender, Nondistended, No organomegaly MSK: Extremities with full range of motion, no deformity or TTP SKIN: Warm, Dry. No rashes or lesions. NEURO: No focal neurologic deficits. 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 Sensation grossly intact Normal strength throughout oriented to person, not place, is able to identify her daughter Course Vital Signs Vital signs: Vital Signs Temperature 36.1 C L 08/18/23 09:16 Pulse 66 08/18/23 09:16 Respiratory Rate 18 08/18/23 09:16 Blood Pressure 143/58 H 08/18/23 09:16 Pulse Oximetry 90 L 08/18/23 09:16 Temperature 36.1 C L 08/18/23 09:16 Temperature Source Temporal Artery Scan 08/18/23 09:16 Pulse 66 08/18/23 09:16 Respiratory Rate 18 08/18/23 09:16 Blood Pressure 143/58 H 08/18/23 09:16 Pulse Oximetry 94 08/18/23 09:32 Oxygen Delivery Method Nasal Cannula 08/18/23 09:32 Oxygen Flow Rate 2 08/18/23 09:32 Comment placed on 2 lpm oxygen 08/18/23 09:16
[2023-08-18 10:39] LABS: Abs Immature Grans 0.03 10^3/uL (0.0-0.06); Absolute Basophil Count 0.07 10^3/uL (0.0-0.2); Absolute Eosinophil Count 0.13 10^3/uL (0.0-0.7); Absolute Lymphocyte Count 1.68 10^3/uL (1.2-3.4); Absolute Monocyte Count 0.61 10^3/uL (0.1-0.8); Absolute Neutrophil Count 10.94 10^3/uL (1.2-6.7); Basophils % 0.5; HCT 47.6 % (36.0-46.0); HGB 15.4 g/dL (11.2-15.7); Immature Grans % 0.2; Lymphocytes % 12.5; MCH 27.2 pg (27.0-33.0); MCHC 32.4 % (32.0-36.0); MCV 84 fL (80-95); MPV 10.8 fL (8.0-11.0); Monocytes % 4.5; Neutrophils % 81.3; Platelet Count 347 10^3/uL (130-400); RBC 5.67 10^6/uL (3.93-5.22); RDW 13.7 % (11.7-14.6); WBC 13.46 10^3/uL (4.4-10.8)
[2023-08-18 10:40] LABS: Bilirubin Negative (Negative); Blood Negative (Negative); Clarity Clear (Clear); Glucose Negative (Negative); Ketones Trace mg/dL (Negative); Leukocyte Esterase Negative (Negative); Nitrite Negative (Negative); Specific Gravity >= 1.030 (1.005-1.025); Urobilinogen 0.2 mg/dL (Up to 0.2); pH 5.5 (5-8)
[2023-08-18 10:46] LABS: Bacteria Negative HPF (Negative); C & S Indicated? No; Casts 20-50 Hyaline LPF (Negative); Crystals Negative HPF (Negative); Epithelial Cells Few HPF (Negative); Mucus Moderate (Negative); RBC Negative HPF (0-2); WBC Negative HPF (0-5)
[2023-08-18 11:03] LABS: ALT 7 U/L (14-59); AST 18 U/L (15-37); Albumin 3.5 g/dL (3.4-5.0); Alkaline Phosphatase 99 U/L (46-116); Anion Gap 7.2 mmol/L (3-11); BUN 12 mg/dL (7-18); Bilirubin, Total 0.9 mg/dL (0.2-1.0); CO2 29.8 mmol/L (21.0-32.0); CREATININE 0.8 mg/dL (0.55-1.02); Calcium 9.4 mg/dL (8.5-10.1); Chloride 104 mmol/L (98-107); Estimated GFR 75.84 (mL/min/1.73m2); Glucose 136 mg/dL (74-106); Magnesium 2.2 mg/dL (1.8-2.4); Potassium 3.4 mmol/L (3.5-5.1); Sodium 141 mmol/L (136-145); TSH (W/Ref FT4) 3.67 uIU/mL (0.36-3.74); Total Protein 7.2 g/dL (6.4-8.2); Troponin I < 50 ng/L (<or=60)
--- NOTE | 2023-08-18 11:14 | DI.RAD_ITS ---
Exam(s) XR CHEST 1V IN DI DEPT EXAM: XR CHEST 1V IN DI DEPT CLINICAL HISTORY: AMS, hypoxia. TECHNIQUE: 2D digital imaging was performed. COMPARISON: CR,XR XR CHEST 2V PA LATERAL from 12/06/2021 FINDINGS: Single AP portable view. Heart size is upper normal. The mediastinum is not widened. Right lung is clear. There is slightly increased markings in the left lower lobe retrocardiac region just above the hemidiaphragm. May represent early infiltrate. No obvious pleural effusions IMPRESSION: Possible small area of infiltrate in left lower lobe posterior basal segment. Recommend nonportable PA and lateral views when clinically possible or alternatively CT scan. DATA REPOSITORY: RADIATION DOSE DELIVERED:
--- NOTE | 2023-08-18 12:15 | HPE_ITS ---
Date of service: 08/18/23 Time of Service: 12:15 Assessment and Plan Assessment and plan (1) CAP (community acquired pneumonia): Status: Acute Assessment and plan: - Patient had leukocytosis with white blood cell count of 13 but otherwise does not meet sepsis criteria -Chest x-ray showed questionable left lower lobe infiltrate -Given the patient is coming from [facility]-way, she was started on azithromycin and ceftriaxone, will continue -Follow-up a.m. CBC Qualifiers: Laterality: left Lung location: lower lobe of lung Qualified Code(s): J18.9 - Pneumonia, unspecified organism (2) Acute respiratory failure with hypoxia: Status: Acute Assessment and plan: - Likely secondary to pneumonia as noted above -Currently on 2 L nasal cannula -Wean as tolerated (3) Syncopal episodes: Status: Chronic Assessment and plan: - Patient has documented history of syncopal episodes for which she has had heart monitor on further imaging which was negative -Head CT in the emergency department was negative -We will monitor patient on telemetry overnight, will also consider home medication regimen as contributing cause to ongoing syncope (4) Recurrent falls: Status: Chronic Assessment and plan: -- May be due to episodes of syncope as noted above, in addition to deconditioning and dementia (5) Dementia with psychosis: Status: Acute Assessment and plan: - At this time, we will continue home dementia regimen including carbidopa levodopa, donepezil, Myrbetriq, and olanzapine (6) Cerebrovascular disease: Status: Chronic Assessment and plan: -Continue home aspirin, statin History of Present Illness History of Present Illness Chief Complaint: Syncope, LOC Narrative: 78-year-old female who is a patient at half-way presents emergency department after witnessed loss of consciousness. Patient was reportedly sitting up in her bed, and was sitting with one of her caregivers when she slumped over in her bed and hit the front of her bed rail. She was briefly lost consciousness, but regained consciousness and upon arrival to the emergency department with EMS she was back to her baseline mental status. Patient denied any ongoing lightheadedness, dizziness, chest pain, shortness of breath, cough, fever. In the emergency department the patient was noted as having normal vital signs and a normal physical exam. Noncontrast head CT did not show any acute intracranial findings. Additionally, CBC showed leukocytosis with a white blood cell count greater than 13 but otherwise normal CBC and CMP. UA was also negative, however chest x-ray showed possible small area of infiltrate in the left lower lobe posterior basal segment. Patient was given ceftriaxone and azithromycin which the emergency room physician patient hospice permission for patient with syncope potentially secondary to community-acquired pneumonia with acute hypoxic respiratory failure. Review of Systems All systems reviewed & are unremarkable except as noted in HPI and below PFSH All Active Problems (Updated 08/18/23 @ 13:24 by Lisa Ball MD) Pneumonia (Acute) Hypoxia (Acute) Syncope (Chronic) Syncopal episodes (Chronic) Intermittent syncope. 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 Head/neck imaging, heart monitor with no identifiable cause Thyroid nodule Benign Surgical History S/P colonoscopy (03/18/15) History of section Family History Mother , 71 Depression Stroke CKD (chronic kidney disease) Father , 68 Heart disease Myocardial infarction Parkinson disease Sister No problems noted. Sister No problems noted. Brother , 42 of [place] Heart disease Myocardial infarction Brother , at 49 of [place] Heart disease Myocardial infarction Brother , at 58 of [place] Heart disease Myocardial infarction Brother , at 61 of [place] Heart disease Myocardial infarction Brother , at 80 of [place] No problems noted. Son , at 45 of [place] Heart disease Myocardial infarction Daughter No problems noted. Maternal Grandfather No problems noted. Maternal Grandmother No problems noted. Paternal Grandfather No problems noted. Paternal Grandmother No problems noted. Social History Smoking/Tobacco Use Status: Never Smoking risk assessment performed?: Yes Alcohol Intake: current Alcohol Intake frequency: a few times a month Drug use: Never Substance use type: does not use Counseling given: No Household members: other Details: Camper until get apartment by June Housing: house Pets and animals: No Sexually active: No Do you think of yourself as: straight/heterosexual Current gender identity: female What is your relationship status?: How often do you talk on the phone with friends or family?: three or more times per week How often do you get together with friends or relatives?: three or more times per week Do you belong to any clubs or organized social groups?: no Panel score (0-1 are the most socially isolated patients): 1 What type of physical activity do you participate in: walking Frequency: other Details: Some Shivani/Denominational: Scientology Seatbelt use: always Drive intox or ride w/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 Do you feel safe at home: Yes Do you feel safe in your relationship?: Yes History History 2 2 Para 2 Hx # Term Pregnancies Multiple births Hx # Pregnancies Ectopic pregnancies AB induced Hx Number of Living Children 1 AB spontaneous Meds Allergies and Home Medications Allergies Allergy/AdvReac Type Severity Reaction Status Date / Time No Known Allergies Allergy Verified 08/18/23 11:06 Home Medications Medication Instructions Recorded Confirmed Type aspirin 81 mg tablet,delayed 81 mg PO DAILY #90 tabs 04/04/20 08/18/23 Rx release cyanocobalamin (vitamin B-12) 500 500 mcg PO DAILY #90 tabs 04/04/20 08/18/23 Rx mcg tablet (Vitamin B-12) calcium carb and lactate 200 1 tab PO DAILY 03/07/21 08/18/23 History mg-vitamin D3 6.25 mcg (250 unit) tablet atorvastatin 80 mg tablet 80 mg PO DAILY #90 tabs 03/23/23 08/18/23 Rx losartan 25 mg tablet 25 mg PO DAILY #90 tabs 03/23/23 08/18/23 Rx donepezil 10 mg tablet 10 mg PO DAILY #90 tabs 05/27/23 08/18/23 Rx melatonin 10 mg capsule 10 mg PO HS PRN 08/17/23 08/18/23 History mirabegron 25 mg tablet,extended 25 mg PO DAILY #90 tabs 08/17/23 08/18/23 Rx release 24 hr (Myrbetriq) olanzapine 2.5 mg tablet 2.5 mg PO DAILY 08/17/23 08/18/23 History pimavanserin 34 mg capsule 34 mg PO DAILY #90 caps 08/17/23 08/18/23 Rx (Nuplazid) carbidopa 25 mg-levodopa 100 mg 2.5 tab PO TID 08/18/23 08/18/23 History tablet carbidopa 25 mg-levodopa 250 mg 2.5 tab PO TID 08/18/23 08/18/23 History tablet Exam Narrative Exam Narrative: Elderly female laying in bed, oriented to person, [address] cannula in place, does not appear to be in any acute distress, heart regular rate rhythm, lungs clear to auscultation bilaterally Results Labs 08/18/23 10:30 08/18/23 10:30 Labs: Laboratory Results - last 24 hr 08/18/23 08/18/23 10:28 10:30 WBC 13.46 H RBC 5.67 H Hgb 15.4 Hct 47.6 H MCV 84 MCH 27.2 MCHC 32.4 RDW 13.7 Plt Count 347 MPV 10.8 Immature Gran % 0.2 Neutrophils % 81.3 Lymphocytes % 12.5 Monocytes % 4.5 Eosinophils % 1.0 Basophils % 0.5 Nucleated RBC % 0.0 Absolute Neutrophils 10.94 H Absolute Lymphocytes 1.68 Absolute Monocytes 0.61 Absolute Eosinophils 0.13 Absolute Basophils 0.07 Sodium 141 Potassium 3.4 L Chloride 104 Carbon Dioxide 29.8 Anion Gap 7.2 BUN 12 Creatinine 0.8 Est GFR (CKD-EPI 2020) 75.84 Glucose 136 H Calcium 9.4 Magnesium 2.2 Total Bilirubin 0.9 AST 18 ALT 7 L Alkaline Phosphatase 99 Troponin I < 50 Total Protein 7.2 Albumin 3.5 TSH 3.67 Urine Color Yellow Urine Clarity Clear Urine pH 5.5 Ur Specific [place] >= 1.030 H Urine Protein 100 H Urine Ketones Trace H Urine Blood Negative Urine Nitrite Negative Urine Bilirubin Negative Urine Urobilinogen 0.2 Ur Leukocyte Esterase Negative Urine RBC Negative Urine WBC Negative Ur Epithelial Cells Few Urine Crystals Negative Urine Bacteria Negative Urine Casts 20-50 Hyaline Urine Mucus Moderate Ur Culture Indicated? No Urine Glucose Negative Last Vital Signs Temp 97 F L 08/18/23 09:16 Pulse 60 08/18/23 10:31 Resp 16 08/18/23 10:31 BP 147/61 H 08/18/23 10:31 Pulse Ox 96 08/18/23 10:31 Time Spent Time spent with Patient: >75 minutes Time was spent: preparing to see the patient(eg.review tests), obtaining and/or reviewing separately otained hiistory, ordering medications,tests, procedures, referring, communicating with other health critical care paramedic, indepentently interpreting results, counseling the patient and care coordination
[2023-08-18] MEDS: cefTRIAXone 1 GM/50 ML BAG IVPB (12:35)
[2023-08-18 13:22] LABS: Troponin I < 50 ng/L (<or=60)
[2023-08-18] MEDS: AZITHROMYCIN 500 MG in Normal Saline 250 ML 250 MG IVPB (13:23)
[2023-08-18 14:38] LABS: COVID-19 PCR Negative (Negative); Influenza A PCR Negative (Negative); Influenza B PCR Negative (Negative); RSV PCR Negative (Negative)
[2023-08-18 14:46] LABS: Source Nasopharynx
[2023-08-18] MEDS: Docusate Sodium 100 MG CAP PO (17:33)
[2023-08-18] MEDS: Normal Saline Flush 10 ML SYR IVP (17:53)
[2023-08-18] MEDS: hydrALAZINE 20 MG/ML VIAL 10 MG IVP (17:53)
[2023-08-18] MEDS: Donepezil 5 MG TAB 10 MG PO (20:10)
[2023-08-19 04:15] VITALS: BP 146/71; PULSE 80; RESP 16; TEMP 36.9; O2SAT 94
[2023-08-19 06:33] LABS: HCT 44.9 % (36.0-46.0); HGB 14.7 g/dL (11.2-15.7); MCH 27.3 pg (27.0-33.0); MCHC 32.7 % (32.0-36.0); MCV 83 fL (80-95); MPV 11.2 fL (8.0-11.0); Platelet Count 358 10^3/uL (130-400); RBC 5.39 10^6/uL (3.93-5.22); RDW 14.2 % (11.7-14.6); RDW-SD 43.2 fL; WBC 11.36 10^3/uL (4.4-10.8)
[2023-08-19 06:58] LABS: Anion Gap 10.3 mmol/L (3-11); BUN 14 mg/dL (7-18); CO2 27.7 mmol/L (21.0-32.0); CREATININE 0.8 mg/dL (0.55-1.02); Calcium 8.9 mg/dL (8.5-10.1); Chloride 105 mmol/L (98-107); Estimated GFR 75.84 (mL/min/1.73m2); Glucose 84 mg/dL (74-106); Magnesium 2.1 mg/dL (1.8-2.4); Potassium 3.4 mmol/L (3.5-5.1); Sodium 143 mmol/L (136-145)
[2023-08-19 07:42] VITALS: BP 129/75; PULSE 75; RESP 17; TEMP 37.2; O2SAT 93
[2023-08-19] MEDS: Aspirin E.C. 81 MG TABEC PO (08:06)
[2023-08-19] MEDS: Mirabegron 25 MG TABCR PO (08:06)
[2023-08-19] MEDS: Atorvastatin 40 MG TAB 80 MG PO (08:06)
[2023-08-19] MEDS: Losartan 25 MG TAB PO (08:06)
--- NOTE | 2023-08-19 10:40 | INITIAL_ITS ---
Date of service: 08/19/23 Time of Service: 10:40 Care Management Initial Assmt Initial Assessment REASON FOR HOSPITALIZATION:: pneumonia PREVIOUS FUNCTIONAL STATUS/SOCIAL/FAMILY SUPPORTS:: Tori lives in her own home in [place] and has 24/7 caregivers. She has a daughter Andree who is very involved in her care and a granddaughter Kerry who is also very supportive. Anitra uses a walker for ambulatory assistance and has been receiving home health PT services. CURRENT FUNCTIONAL STATUS:: Tori was sitting up in a chair when CM met with her. She was agreeable to conversation but was quite confused. She mentioned that she had a son that a long time ago but when asked how old he was she stated my age. A lot of her responses to questions were unintelligible. CM contacted her daughter Andree who was able to provide additional information. ADVANCE DIRECTIVES:: On file. Andree [facility] Has patient been provided with info about the portal/API?: Yes Did the patient sign up for the portal?: No CODE STATUS:: Full Code INSURANCE COVERAGE / FINANCIAL ISSUES:: Medicare [employer] Senior Supplement CURRENT HOME/COMMUNITY SERVICES/EQUIPMENT:: 24/7 caregivers, walker, home health PT PRIMARY CARE PHYSICIAN:: Miladis Medina POTENTIAL DISCHARGE NEEDS:: follow up with PCP and plan of care PATIENT/FAMILY EDUCATION NEEDS:: review of discharge instructions, limitations, follow up plan, discuss [employer] Me [employer] TRANSPORTATION:: via private vehicle with daughter PLAN:: Anticipate Tori will return to her home with caregiver services. She will follow up with her PCP and plan of care and transport with caregiver. CM will follow and support discharge needs. PFSH All Active Problems (Updated 08/18/23 @ 13:24 by Lisa Ball MD) Pneumonia (Acute) Hypoxia (Acute) Syncope (Chronic) Syncopal episodes (Chronic) Intermittent syncope. 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 Head/neck imaging, heart monitor with no identifiable cause Thyroid nodule Benign Surgical History S/P colonoscopy (03/18/15) History of section Family History Mother , 71 Depression Stroke CKD (chronic kidney disease) Father , 68 Heart disease Myocardial infarction Parkinson disease Sister No problems noted. Sister No problems noted. Brother , 42 of [place] Heart disease Myocardial infarction Brother , at 49 of [place] Heart disease Myocardial infarction Brother , at 58 of [place] Heart disease Myocardial infarction Brother , at 61 of [place] Heart disease Myocardial infarction Brother , at 80 of [place] No problems noted. Son , at 45 of [place] Heart disease Myocardial infarction Daughter No problems noted. Maternal Grandfather No problems noted. Maternal Grandmother No problems noted. Paternal Grandfather No problems noted. Paternal Grandmother No problems noted. Social History Smoking/Tobacco Use Status: Never Smoking risk assessment performed?: Yes Alcohol Intake: current Alcohol Intake frequency: a few times a month Drug use: Never Substance use type: does not use Counseling given: No Household members: other Details: Camper until get apartment by June Housing: house Pets and animals: No Sexually active: No Do you think of yourself as: straight/heterosexual Current gender identity: female What is your relationship status?: How often do you talk on the phone with friends or family?: three or more times per week How often do you get together with friends or relatives?: three or more times per week Do you belong to any clubs or organized social groups?: no Panel score (0-1 are the most socially isolated patients): 1 What type of physical activity do you participate in: walking Frequency: other Details: Some Shivani/Adventist: Moravian Seatbelt use: always Drive intox or ride w/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
[2023-08-19 10:58] VITALS: BP 111/72; PULSE 76; RESP 17; TEMP 37.2; O2SAT 98
--- NOTE | 2023-08-19 11:26 | W.PM.PROGNOT ---
Date of Service Date of service: 08/19/23 Time of Service: 11:26 Assessment and Plan Assessment and plan (1) CAP (community acquired pneumonia): Status: Acute Assessment and plan: - Patient had leukocytosis with white blood cell count of 13 but otherwise does not meet sepsis criteria -Chest x-ray showed questionable left lower lobe infiltrate -Given the patient is coming from care home, she was started on azithromycin and ceftriaxone, will continue -Follow-up a.m. CBC Qualifiers: Laterality: left Lung location: lower lobe of lung Qualified Code(s): J18.9 - Pneumonia, unspecified organism (2) Acute respiratory failure with hypoxia: Status: Acute Assessment and plan: - Likely secondary to pneumonia as noted above -Had been on 2 L nasal cannula which has since been discontinued (3) Syncopal episodes: Status: Chronic Assessment and plan: - Patient has documented history of syncopal episodes for which she has had heart monitor on further imaging which was negative -Head CT in the emergency department was negative -No arrhythmia overnight, will continue to monitor on telemetry (4) Recurrent falls: Status: Chronic Assessment and plan: -- May be due to episodes of syncope as noted above, in addition to deconditioning and dementia (5) Dementia with psychosis: Status: Acute Assessment and plan: - At this time, we will continue home dementia regimen including carbidopa levodopa, donepezil, Myrbetriq, and olanzapine (6) Cerebrovascular disease: Status: Chronic Assessment and plan: -Continue home aspirin, statin Subjective Subjective Interval history since last seen: Patient observed sitting up at the edge of the bed in no acute distress. She is pleasantly confused, oriented to person but not place or situation. She states she has no complaints or concerns at this time. Exam Narrative Exam Narrative: Elderly female laying in bed, oriented to person, does not appear to be in any acute distress, heart regular rate rhythm, lungs clear to auscultation bilaterally Objective Last Vital Signs Temp 99.0 F 08/19/23 10:58 Pulse 76 08/19/23 10:58 Resp 17 08/19/23 10:58 BP 111/72 08/19/23 10:58 Pulse Ox 98 08/19/23 10:58 Laboratory Results - last 24 hr 08/18/23 08/18/23 08/19/23 12:45 12:57 05:55 WBC 11.36 H RBC 5.39 H Hgb 14.7 Hct 44.9 MCV 83 MCH 27.3 MCHC 32.7 RDW 14.2 Plt Count 358 MPV 11.2 H Sodium 143 Potassium 3.4 L Chloride 105 Carbon Dioxide 27.7 Anion Gap 10.3 BUN 14 Creatinine 0.8 Est GFR (CKD-EPI 2020) 75.84 Glucose 84 Calcium 8.9 Magnesium 2.1 Troponin I < 50 COVID-19 Source Nasopharynx SARS-CoV-2 (PCR) Negative Influenza Type A (PCR) Negative Influenza Type B (PCR) Negative RSV (PCR) Negative Time Spent with Patient Time Spent with Patient: >50 minutes Time was spent: preparing to see the patient(eg.review tests), obtaining and/or reviewing separately otained hiistory, ordering medications,tests, procedures, referring, communicating with other health health care social worker, indepentently interpreting results, counseling the patient and care coordination
[2023-08-19] MEDS: Azithromycin 250 MG TAB 500 MG PO (13:51)
[2023-08-19] MEDS: Cefpodoxime 200 MG TAB PO ×2 (13:51→20:14)
[2023-08-19] MEDS: OLANZapine 2.5 MG TAB PO (15:36)
[2023-08-19 15:37] VITALS: BP 118/56; PULSE 73; RESP 16; TEMP 37.2; O2SAT 95
[2023-08-19] MEDS: Donepezil 5 MG TAB 10 MG PO (20:14)
[2023-08-19] MEDS: Melatonin 3 MG TAB 9 MG PO (20:14)
[2023-08-19 20:27] VITALS: BP 117/82; PULSE 74; RESP 16; TEMP 36.6; O2SAT 95
[2023-08-20 00:07] VITALS: BP 128/75; PULSE 65; RESP 16; TEMP 36.8; O2SAT 95
[2023-08-20 04:47] VITALS: BP 139/96; PULSE 60; RESP 16; TEMP 36.9; O2SAT 96
[2023-08-20 07:32] VITALS: BP 145/71; PULSE 58; RESP 18; TEMP 37; O2SAT 95
[2023-08-20] MEDS: Azithromycin 250 MG TAB 500 MG PO (08:18)
[2023-08-20] MEDS: Atorvastatin 40 MG TAB 80 MG PO (08:18)
[2023-08-20] MEDS: Aspirin E.C. 81 MG TABEC PO (08:18)
[2023-08-20] MEDS: Mirabegron 25 MG TABCR PO (08:18)
[2023-08-20] MEDS: Cefpodoxime 200 MG TAB PO (08:19)
[2023-08-20] MEDS: Losartan 25 MG TAB PO (08:19)
--- NOTE | 2023-08-20 11:11 | DSE_ITS ---
Date of service: 08/20/23 Time of Service: 11:11 DS: Diagnosis Discharge Diagnosis (1) CAP (community acquired pneumonia): Status: Acute Asessment and Plan: - Patient had leukocytosis with white blood cell count of 13 but otherwise does not meet sepsis criteria -Chest x-ray showed questionable left lower lobe infiltrate - started on azithromycin and ceftriaxone, will continue for additional 5 days at discharge (2) Acute respiratory failure with hypoxia: Status: Acute Asessment and Plan: -resolved (3) Syncopal episodes: Status: Chronic (4) Recurrent falls: Status: Chronic Asessment and Plan: -no additional syncope and no abnormal findings on telemetry (5) Dementia with psychosis: Status: Acute (6) Cerebrovascular disease: Status: Chronic Discharge Plan Disposition Patient Disposition: Home Condition: Good Discharge Details Reason For Visit: CAP, Syncope Admit Date/Time: 08/18/23 12:12 Admit Provider: Deon Alarcon Attending Provider: Deon Alarcon Primary Care Provider: Miladis Medina Hospital Course Hospital Course: Patient admitted for community-acquired pneumonia and acute hypoxic respiratory failure Significant improvement on ceftriaxone and azithromycin admission has been transition to cefpodoxime and azithromycin at discharge. Additionally, telemetry did not show any arrhythmias and patient does not have any additional episodes of syncope. Home Meds and New Rx's Prescriptions: New cefpodoxime 200 mg Tablet 200 mg PO BID Qty: 10 0RF azithromycin 250 mg Tablet 500 mg PO DAILY Qty: 10 0RF Continued melatonin 10 mg capsule 10 mg PO HS PRN olanzapine 2.5 mg tablet 2.5 mg PO DAILY Rx Instructions: Pt takes at lunchtime Myrbetriq 25 mg tablet extended release 24 hr 25 mg PO DAILY Qty: 90 3RF Nuplazid 34 mg capsule 34 mg PO DAILY Qty: 90 3RF aspirin 81 mg tablet,delayed release (DR/EC) 81 mg PO DAILY Qty: 90 4RF cyanocobalamin (vitamin B-12) [Vitamin B-12] 500 mcg tablet 500 mcg PO DAILY Qty: 90 4RF atorvastatin 80 mg tablet 80 mg PO DAILY Qty: 90 3RF losartan 25 mg tablet 25 mg PO DAILY Qty: 90 3RF donepezil 10 mg tablet 10 mg PO DAILY Qty: 90 3RF calcium carb,lactat-vitamin D3 200 mg calcium -250 unit tablet 1 tab PO DAILY carbidopa-levodopa 25-100 mg tablet 2.5 tab PO TID carbidopa-levodopa 25-250 mg tablet 2.5 tab PO TID Discharge Instructions Instructions: Community Acquired Pneumonia (DC) Activity:: Activity as Tolerated Equipment/Supplies:: No Equipment Needed Diet:: As Tolerated Discharge Orders Discharge Orders: Discharge Order (Routine); Ordered 08/20/23 Ordered By: Deon Alarcon DS: Summary Time Spent with Patient providing and/or coordinating discharge services: Greater than 30 minutes Status at Discharge Functional status at discharge: independent ambulation Overall status at discharge: patient is back to baseline Mental Status: mental status grossly normal Speech and Movement: speech and movement normal Mood: congruent mood Affect: normal affect Exam Narrative Exam Narrative: Elderly female laying in bed, oriented to person, does not appear to be in any acute distress, heart regular rate rhythm, lungs clear to auscultation bilaterally Psych Mental Status: mental status grossly normal Speech and Movement: speech and movement normal Mood: congruent mood Affect: normal affect DS: Data Vitals/I&O Vitals and I&O: Vital Signs Temperature 98.6 F 08/20/23 07:32 Temperature Source Tympanic 08/20/23 07:32 Pulse 58 L 08/20/23 07:32 Pulse Rhythm Regular 08/20/23 08:26 Pulse 65 08/18/23 13:20 Respiratory Rate 18 08/20/23 07:32 Respiratory Effort Normal, Non-Labored 08/20/23 08:26 Respiratory Depth Normal 08/20/23 08:26 Respiratory Pattern Normal 08/20/23 08:26 Blood Pressure 145/71 H 08/20/23 07:32 Blood Pressure Mean 103 08/18/23 13:01 Pulse Oximetry 95 08/20/23 07:32 Respiratory End-tidal CO2 24 08/18/23 10:40 Oxygen Delivery Method Room Air 08/20/23 07:32 Oxygen Flow Rate 0 08/20/23 07:32 Pain Level 0 08/20/23 07:32 Comment RN informed of BP 08/20/23 07:32 Intake & Output 08/19/23 08/20/23 08/20/23 17:59 05:59 17:59 Intake Total 320 / 320 Output Total 300 / 300 350 / 350 Balance -300 / -300 -30 / -30 Intake: Oral 320 / 320 Output: Urine 300 / 300 350 / 350 Other: Urine Color Dark Alison Yellow Urine Appearance Clear Urine Odor Normal Comment pT dry at this time Voiding Methods Bedside Commode Bedside Commode Data Completed and Pending Labs on day of discharge: Preliminary micro results at discharge 08/18/23 12:55 Blood Culture - Preliminary Blood NO GROWTH 24 HOURS 08/18/23 12:45 Blood Culture - Preliminary Blood NO GROWTH 24 HOURS PFSH All Active Problems (Updated 08/18/23 @ 13:24 by Lisa Ball MD) Pneumonia (Acute) Hypoxia (Acute) Syncope (Chronic) Syncopal episodes (Chronic) Intermittent syncope. 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 Parkinson disease (Chronic) Followed by [facility] Cerebrovascular disease (Chronic) Recurrent falls (Chronic) Hyperlipidemia (Chronic) Essential tremor (Chronic) Prediabetes (Chronic) Essential hypertension (Chronic) Nail dystrophy (Acute) Onychogryphosis (Chronic) Allergic rhinitis (Chronic) Medical History Palliative care patient Syncopal episodes Intermittent syncope. Head/neck imaging, heart monitor with no identifiable cause Thyroid nodule Benign Surgical History S/P colonoscopy (03/18/15) History of section Family History Mother , 71 Depression Stroke CKD (chronic kidney disease) Father , 68 Heart disease Myocardial infarction Parkinson disease Sister No problems noted. Sister No problems noted. Brother , 42 of [place] Heart disease Myocardial infarction Brother , at 49 of [place] Heart disease Myocardial infarction Brother , at 58 of [place] Heart disease Myocardial infarction Brother , at 61 of [place] Heart disease Myocardial infarction Brother , at 80 of [place] No problems noted. Son , at 45 of [place] Heart disease Myocardial infarction Daughter No problems noted. Maternal Grandfather No problems noted. Maternal Grandmother No problems noted. Paternal Grandfather No problems noted. Paternal Grandmother No problems noted. Social History Smoking/Tobacco Use Status: Never Smoking risk assessment performed?: Yes Alcohol Intake: current Alcohol Intake frequency: a few times a month Drug use: Never Substance use type: does not use Counseling given: No Household members: other Details: Camper until get apartment by June Housing: house Pets and animals: No Sexually active: No Do you think of yourself as: straight/heterosexual Current gender identity: female What is your relationship status?: How often do you talk on the phone with friends or family?: three or more times per week How often do you get together with friends or relatives?: three or more times per week Do you belong to any clubs or organized social groups?: no Panel score (0-1 are the most socially isolated patients): 1 What type of physical activity do you participate in: walking Frequency: other Details: Some Shivani/Jewish: Sikh Seatbelt use: always Drive intox or ride w/intox 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
[2023-08-20 11:19] VITALS: BP 123/61; PULSE 66; RESP 16; TEMP 35.7; O2SAT 98
[2023-08-20] MEDS: OLANZapine 2.5 MG TAB PO (12:27)
--- NOTE | 2023-08-20 13:48 | PDOC.CMDIS ---
Date of service: 08/20/23 Time of Service: 13:49 LACE Index Scoring Tool Questions: Length of Stay (in days): 2 Was the patient admitted via the E.D.?: Yes Comorbidities: Cerebrovascular Disease and Dementia E.D. Visits: 2 Answers: Total Score: 12 Risk of Readmission: High Risk Care Management Discharge Plan Reason for Hospitalization: pneumonia Discharge Plan: Tori will return to her home with a resumption of her 11/04 caregiver services. She will follow up with her PCP and plan of care and transport with her daughter Andree. Patient/Family Education Needs: review of discharge instructions, limitations, follow up plan, discuss Ask Me Three
== END 2023-08-20 15:06 | disposition home or self-care (01) | DRG 193 ==
LOC: ER 13:24 → MS 13:43
PROVIDERS: Admitting Provider Family Medicine; Emergency Provider Emergency Medicine; PCP Nurse Practitioner Family; Visit Provider Family Medicine
DX: J18.9 Pneumonia, unspecified organism (principal); J96.01 Acute respiratory failure with hypoxia; E85.4 Organ-limited amyloidosis; F02.82 Dementia in other diseases classified elsewhere, unspecified severity, with psychotic disturbance; R29.6 Repeated falls; R55 Syncope and collapse; Z79.899 Other long term (current) drug therapy; N32.81 Overactive bladder; I68.0 Cerebral amyloid angiopathy; G20.A1 Parkinson's disease without dyskinesia, without mention of fluctuations; I67.9 Cerebrovascular disease, unspecified; E78.5 Hyperlipidemia, unspecified; R73.03 Prediabetes; J30.9 Allergic rhinitis, unspecified; L60.2 Onychogryphosis; I10 Essential (primary) hypertension
CPT/HCPCS: 00123; 36410; 36415; 80048; 80053; 85027; 87040; 87637; 93005; 96365; 96375; 99285; 70450; 71045; 81003; 81015; 83735; 84443; 84484; 85025; 93010; 99223; 99233; 99239; J0360; J0456; J0696

== ENCOUNTER 2023-08-30 07:36 | Emergency (ER) | payer MEDICARE, SELFPAY ==
[2023-08-30] VITALS (7 sets, daily range): BP systolic 150–165; BP diastolic 45–87; PULSE 66–71; RESP 18; TEMP 36.9; O2SAT 95–98
--- NOTE | 2023-08-30 07:30 | RT.EKG_ITS ---
APPROVED REPORT Exam: Resting ECG Reason for Exam: [facility] Patient Location: E HR:69 bpm ECG Measurements Heart Rate 69 AXIS AZ 141 P 57 QRSd 99 QRS 29 QT 403 T 52 QTc 433 Conclusion Sinus rhythm...normal P axis, V-rate 60- 99 Probable left atrial enlargement...P >50mS, <-0.10mV V1 Sinus rhythm, no significant changes fron prior 08/18/23. WD
--- NOTE | 2023-08-30 07:30 | DI.CT_ITS ---
Exam(s) CT HEAD WO EXAM: CT HEAD WO CLINICAL HISTORY: AMS. TECHNIQUE: Imaging Protocol: Axial computed tomography images with coronal and sagittal reformatted images were created and reviewed COMPARISON: CT CT HEAD WO from 08/18/2023 FINDINGS: Ventricles and Extra axial spaces: Normal in size and morphology for the patient's age. Hemorrhage: None. Cerebral parenchyma: There are areas of decreased attenuation in the white matter consistent with sma ll vessel ischemic disease. No new areas of decreased attenuation are seen. No mass effect is ident ified. Midline shift: None. Brainstem/Cerebellum: Normal. Calvarium: Normal. Visualized Paranasal sinuses/Mastoids: Clear. Soft Tissues: Unremarkable. IMPRESSION: 1. No acute intracranial process. 2. Findings were discussed with the emergency department at 8:34 a.m. on 08/30/2023. RADIATION DOSE DELIVERED: Total DLP DATA REPOSITORY: All CT scans at this facility are submitted to the National Radiology Data Registry (NRDR) Dose Index Registry (DIR) with the [employer] (A[employer]). RADIATION OPTIMIZATION: All CT scans at this facility use at least one of these dose optimization te chniques: automated exposure control; mA and/or kV adjustment per patient size (includes targeted exa ms where dose is matched to clinical indication); or iterative reconstruction.
--- NOTE | 2023-08-30 07:30 | DI.RAD_ITS ---
Exam(s) XR PORTABLE CHEST AP EXAM: XR PORTABLE CHEST AP CLINICAL HISTORY: AMS TECHNIQUE: 2D digital imaging was performed of the chest. One image was obtained. An AP view was ob tained. COMPARISON: CR XR CHEST 1V IN DI DEPT from 08/18/2023 FINDINGS: MEDIASTINUM: Normal. HEART: Normal. PULMONARY VASCULATURE: Normal. LUNGS: Clear. PLEURAL SPACE: No pleural effusion or pneumothorax. BONE:Within normal limits for the patient's age. OTHER FINDINGS:Normal. IMPRESSION: No acute pulmonary findings. DATA REPOSITORY: RADIATION DOSE DELIVERED:
[2023-08-30 08:01] LABS: Abs Immature Grans 0.03 10^3/uL (0.0-0.06); Absolute Basophil Count 0.09 10^3/uL (0.0-0.2); Absolute Eosinophil Count 0.28 10^3/uL (0.0-0.7); Absolute Lymphocyte Count 3.49 10^3/uL (1.2-3.4); Absolute Monocyte Count 0.51 10^3/uL (0.1-0.8); HCT 46.5 % (36.0-46.0); HGB 14.7 g/dL (11.2-15.7); Immature Grans % 0.3; Lymphocytes % 37.5; MCH 26.9 pg (27.0-33.0); MCHC 31.6 % (32.0-36.0); MCV 85 fL (80-95); MPV 10.6 fL (8.0-11.0); Monocytes % 5.5; Neutrophils % 52.7; Platelet Count 355 10^3/uL (130-400); RBC 5.47 10^6/uL (3.93-5.22); RDW 14.1 % (11.7-14.6); RDW-SD 44.3 fL
[2023-08-30 08:03] LABS: Lactate 4.4 mmol/L (0.6-1.4)
--- NOTE | 2023-08-30 08:09 | W.ED.GENAD ---
Discharge Plan Disposition Patient Disposition: Home Condition: Improving Discharge Details Clinical Impression: Seizure, Parkinson disease Primary Care Provider: Miladis Medina ED Provider: Ivon Mckeon Home Meds and New Rx's Prescriptions: New levetiracetam [Keppra] 500 mg tablet 500 mg PO BID Qty: 60 0RF No Action melatonin 10 mg capsule 10 mg PO HS PRN olanzapine 2.5 mg tablet 2.5 mg PO DAILY Rx Instructions: Pt takes at lunchtime Myrbetriq 25 mg tablet extended release 24 hr 25 mg PO DAILY Qty: 90 3RF Nuplazid 34 mg capsule 34 mg PO DAILY Qty: 90 3RF carbidopa-levodopa 25-250 mg tablet 1 tab PO TID Qty: 270 3RF aspirin 81 mg tablet,delayed release (DR/EC) 81 mg PO DAILY Qty: 90 4RF cyanocobalamin (vitamin B-12) [Vitamin B-12] 500 mcg tablet 500 mcg PO DAILY Qty: 90 4RF atorvastatin 80 mg tablet 80 mg PO DAILY Qty: 90 3RF losartan 25 mg tablet 25 mg PO DAILY Qty: 90 3RF donepezil 10 mg tablet 10 mg PO DAILY Qty: 90 3RF calcium carb,lactat-vitamin D3 200 mg calcium -250 unit tablet 1 tab PO DAILY cefpodoxime 200 mg Tablet 200 mg PO BID Qty: 10 0RF Discharge Instructions Referrals: Miladis Medina NP [Primary Care Provider] - Henna Denton MD [ [facility] STAFF PHYSICIAN] - 2 weeks Discharge Data Discharge Physician: Ivon Mckeon Medical Decision Making 78-year-old female with history of dementia and Parkinson's presents for evaluation altered mental status. At time my evaluation patient is arousable. She is neurologically intact. Clinically I feel it is likely patient had a seizure. EKG does not show any acute ischemic changes. Head CT unremarkable. Chest x-ray shows no acute disease. Laboratory studies show elevated lactate, likely secondary to seizure activity. Case discussed with Dr. Denton who agrees with starting on Keppra. Patient to start 500 mg twice a day and to see her in follow-up within the next 2 to 3 weeks. Repeat lactate is normal. Repeat troponin normal. Patient awake and alert at baseline able to ambulate. She will be discharged home. They understand indications to return. HPI General Date/Time Provider Initiated Documentation: 08/30/23 07:38. HPI Narrative: 78-year-old female with history of dementia and Parkinson's presents for evaluation of altered mental status. According to caregiver patient was awake at 6:30 AM and acting normally. She got out of bed and went on the commode. She then asked caregiver to turn on the television. The next thing caregiver noticed that patient was having shaking of her upper extremities and her eyes were rolled back in her head. She left the room to call 911. When she returned back to the room patient had some blood on her face. The shaking motion stopped. Patient has a history of Parkinson's but no known history of seizures. When patient's daughter arrived she was unable to recognize her. Upon arrival to the emergency department patient is able to recognize her daughter. She denies any pain. She does not recall what happened today. Patient was seen recently for somewhat similar symptoms, however at that time no tonic-clonic activity was noted. She had altered mental status thank you and was diagnosed with pneumonia. Family states that she has been in her regular state of health. She does have some decreased oral intake at baseline and has some episodes of vomiting at night. She did not have any vomiting last night. She has not had any cough or cold. No known shortness of breath. No fevers or chills. Related Data Home Medications Medication Instructions Recorded Confirmed aspirin 81 mg tablet,delayed 81 mg PO DAILY #90 tabs 04/04/20 08/24/23 release cyanocobalamin (vitamin B-12) 500 500 mcg PO DAILY #90 tabs 04/04/20 08/24/23 mcg tablet (Vitamin B-12) calcium carb and lactate 200 1 tab PO DAILY 03/07/21 08/24/23 mg-vitamin D3 6.25 mcg (250 unit) tablet atorvastatin 80 mg tablet 80 mg PO DAILY #90 tabs 03/23/23 08/24/23 losartan 25 mg tablet 25 mg PO DAILY #90 tabs 03/23/23 08/24/23 donepezil 10 mg tablet 10 mg PO DAILY #90 tabs 05/27/23 08/24/23 melatonin 10 mg capsule 10 mg PO HS PRN 08/17/23 08/24/23 mirabegron 25 mg tablet,extended 25 mg PO DAILY #90 tabs 08/17/23 08/24/23 release 24 hr (Myrbetriq) olanzapine 2.5 mg tablet 2.5 mg PO DAILY 08/17/23 08/24/23 pimavanserin 34 mg capsule 34 mg PO DAILY #90 caps 08/17/23 08/24/23 (Nuplazid) cefpodoxime 200 mg tablet 200 mg PO BID #10 tabs 08/20/23 08/24/23 carbidopa 25 mg-levodopa 250 mg 1 tab PO TID #270 tabs 08/24/23 08/24/23 tablet levetiracetam 500 mg tablet 500 mg PO BID #60 tabs 08/30/23 (Keppra) Previous Rx's Medication Instructions Recorded aspirin 81 mg tablet,delayed 81 mg PO DAILY #90 tabs 04/04/20 release cyanocobalamin (vitamin B-12) 500 500 mcg PO DAILY #90 tabs 04/04/20 mcg tablet (Vitamin B-12) atorvastatin 80 mg tablet 80 mg PO DAILY #90 tabs 03/23/23 losartan 25 mg tablet 25 mg PO DAILY #90 tabs 03/23/23 donepezil 10 mg tablet 10 mg PO DAILY #90 tabs 05/27/23 mirabegron 25 mg tablet,extended 25 mg PO DAILY #90 tabs 08/17/23 release 24 hr (Myrbetriq) pimavanserin 34 mg capsule 34 mg PO DAILY #90 caps 08/17/23 (Nuplazid) cefpodoxime 200 mg tablet 200 mg PO BID #10 tabs 08/20/23 carbidopa 25 mg-levodopa 250 mg 1 tab PO TID #270 tabs 08/24/23 tablet levetiracetam 500 mg tablet 500 mg PO BID #60 tabs 08/30/23 (Keppra) Allergies Allergy/AdvReac Type Severity Reaction Status Date / Time No Known Allergies Allergy Verified 08/24/23 14:27 General Stated Complaint: AMS/LOC SKY: 3 Review of Systems Narrative: Remainder review of systems otherwise unobtainable due to patient's condition. PFSH All Active Problems (Updated 08/30/23 @ 12:29 by Ivon Mckeon MD) Seizure (Acute) Parkinson disease (Chronic) Dementia with psychosis (Chronic) Cerebral amyloid angiopathy (Chronic) Cerebrovascular disease (Chronic) Visual field defect (Chronic) Recurrent falls (Chronic) Essential hypertension (Chronic) Prediabetes (Chronic) Hyperlipidemia (Chronic) Overactive bladder (Chronic) Essential tremor (Chronic) Nail dystrophy (Chronic) Onychogryphosis (Chronic) Allergic rhinitis (Chronic) Medical History Syncopal episodes Intermittent syncope. Head/neck imaging, heart monitor with no identifiable cause Palliative care patient Thyroid nodule Benign Surgical History S/P colonoscopy (03/18/15) History of section Family History Mother , 71 Depression Stroke CKD (chronic kidney disease) Father , 68 Heart disease Myocardial infarction Parkinson disease Sister No problems noted. Sister No problems noted. Brother , 42 [place] Heart disease Myocardial infarction Brother , at 49 [place] Heart disease Myocardial infarction Brother , at 58 [place] Heart disease Myocardial infarction Brother , at 61 [place] Heart disease Myocardial infarction Brother , at 80 of [place] No problems noted. Son , at 45 of [place] Heart disease Myocardial infarction Daughter No problems noted. Maternal Grandfather No problems noted. Maternal Grandmother No problems noted. Paternal Grandfather No problems noted. Paternal Grandmother No problems noted. Social History Smoking/Tobacco Use Status: Never Smoking risk assessment performed?: Yes Alcohol Intake: current Alcohol Intake frequency: a few times a month Drug use: Never Substance use type: does not use Counseling given: No Household members: other Details: Camper until get apartment by June Housing: house Pets and animals: No Sexually active: No Do you think of yourself as: straight/heterosexual Current gender identity: female What is your relationship status?: How often do you talk on the phone with friends or family?: three or more times per week How often do you get together with friends or relatives?: three or more times per week Do you belong to any clubs or organized social groups?: no Panel score (0-1 are the most socially isolated patients): 1 What type of physical activity do you participate in: walking Frequency: other Details: Some Shivani/Tenriism: Orthodoxy Seatbelt use: always Drive intox or ride w/intox 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 EMS stated it was a very small amount. pt able to answer yes or no questions, pt knowns , name and that she is at the hospital. History History 2 Para 2 Hx # Term Pregnancies Multiple births Hx # Pregnancies Ectopic pregnancies AB induced Hx Number of Living Children 1 AB spontaneous Exam Narrative Exam Narrative: General: non-toxic, no respiratory distress, comfortable HEENT: normocephalic, atraumatic, lids and lashes normal, PERRL, EOMI, anicteric sclera, no conjunctival injection, moist oral mucosa, dried blood around face, abrasions to lateral portion of tongue bilaterally Card: regular rate and rhythm, S1S2, no murmurs, rubs, or gallops Lungs: good air entry, clear to auscultation bilaterally. no wheezes, rales, rhonchi, or retractions Abd: soft, non-tender, non-distended, normal bowel sounds, no rebound or guarding, no peritoneal signs Musculoskeletal: full range of motion of arms and legs, no tenderness to palpation. no clubbing, cyanosis, or edema Neurologic: GCS 15, speech normal, sensation intact, appropriate for age, strength normal, sleepy but arousable, does not concentrate to complete full neuroexam Psych: alert and oriented Skin: no petechiae, no lesions, warm and dry Course Vital Signs Vital signs: Vital Signs Temperature 36.9 C 08/30/23 07:34 Pulse 71 08/30/23 07:34 Respiratory Rate 18 08/30/23 07:34 Blood Pressure 150/45 H 08/30/23 07:34 Pulse Oximetry 98 08/30/23 07:34 Temperature 36.9 C 08/30/23 07:34 Temperature Source Temporal Artery Scan 08/30/23 07:34 Pulse 71 08/30/23 07:34 Respiratory Rate 18 08/30/23 07:34 Respiratory Effort Normal 08/30/23 07:56 Blood Pressure 150/45 H 12/12/23 07:34 Pulse Oximetry 98 08/30/23 07:34 Oxygen Delivery Method Room Air 08/30/23 07:34 Oxygen Flow Rate 0 08/30/23 07:34 Lab/Test Results Lab/Test Results: Laboratory Tests Range/Units 08/30/23 07:55 WBC (4.4-10.8) 10^3/uL 9.30 RBC (3.93-5.22) 10^6/uL 5.47 H Hgb (11.2-15.7) g/dL 14.7 Hct (36.0-46.0) % 46.5 H MCV (80-95) fL 85 MCH (27.0-33.0) pg 26.9 L MCHC (32.0-36.0) % 31.6 L RDW (11.7-14.6) % 14.1 Plt Count (130-400) 10^3/uL 355 MPV (8.0-11.0) fL 10.6 Immature Gran % 0.3 Neutrophils % 52.7 Lymphocytes % 37.5 Monocytes % 5.5 Eosinophils % 3.0 Basophils % 1.0 Nucleated RBC % (0.0-0.3) % 0.0 Absolute Neutrophils (1.2-6.7) 10^3/uL 4.90 Absolute Lymphocytes (1.2-3.4) 10^3/uL 3.49 H Absolute Monocytes (0.1-0.8) 10^3/uL 0.51 Absolute Eosinophils (0.0-0.7) 10^3/uL 0.28 Absolute Basophils (0.0-0.2) 10^3/uL 0.09 VBG Lactate (0.6-1.4) mmol/L 4.4 H*
[2023-08-30 08:12] LABS: Bilirubin Negative (Negative); Blood Negative (Negative); Clarity Clear (Clear); Glucose Negative (Negative); Ketones Negative (Negative); Leukocyte Esterase Negative (Negative); Nitrite Negative (Negative); Specific Gravity >= 1.030 (1.005-1.025); Urobilinogen 0.2 mg/dL (Up to 0.2)
[2023-08-30 08:17] LABS: Bacteria Rare HPF (Negative); Crystals Negative HPF (Negative); Epithelial Cells Rare HPF (Negative); RBC 0-2 HPF (0-2); WBC 0-2 HPF (0-5)
[2023-08-30 08:18] LABS: C & S Indicated? No; Mucus Heavy (Negative)
[2023-08-30] MEDS: levETIRAcetam 1,000 MG in Normal Saline 100 ML 400 MG IVPB (08:19)
[2023-08-30 08:21] LABS: ALT 12 U/L (14-59); AST 17 U/L (15-37); Albumin 3.3 g/dL (3.4-5.0); Alkaline Phosphatase 90 U/L (46-116); Anion Gap 8.5 mmol/L (3-11); BUN 9 mg/dL (7-18); Bilirubin, Total 0.5 mg/dL (0.2-1.0); CO2 28.5 mmol/L (21.0-32.0); CREATININE 1.1 mg/dL (0.55-1.02); Chloride 105 mmol/L (98-107); Creatine Kinase 28 U/L (26-192); Estimated GFR 51.75 (mL/min/1.73m2); Glucose 99 mg/dL (74-106); Magnesium 2.1 mg/dL (1.8-2.4); Potassium 3.7 mmol/L (3.5-5.1); Sodium 142 mmol/L (136-145); Total Protein 6.8 g/dL (6.4-8.2); Troponin I < 50 ng/L (<or=60)
[2023-08-30] MEDS: Normal Saline 1,000 ML 1000 ML IV (08:48)
[2023-08-30 10:41] LABS: Lactate 1.2 mmol/L (0.6-1.4)
[2023-08-30 11:18] LABS: Troponin I < 50 ng/L (<or=60)
--- NOTE | 2023-08-31 07:22 | NUR.NOTE ---
Accessed chart to determine orders for EKG and to determine whether or not one needs to be cancelled. Nursing Note:
== END 2023-08-30 12:02 | disposition home or self-care (01) ==
PROVIDERS: Emergency Provider Emergency Medicine Emergency Medical Services; PCP Nurse Practitioner Family
DX: G40.89 Other seizures (principal); G20.A1 Parkinson's disease without dyskinesia, without mention of fluctuations; Z79.899 Other long term (current) drug therapy; Z79.82 Long term (current) use of aspirin; I10 Essential (primary) hypertension; E78.5 Hyperlipidemia, unspecified
CPT/HCPCS: 36415; 80053; 82550; 93005; 96361; 96365; 99285; 70450; 71045; 81003; 81015; 83605; 83735; 84484; 85025; 93010; J1953

== ENCOUNTER → 2023-09-01 12:34 | Outpatient (BNVA) | payer MEDICARE, SELFPAY | PROVIDERS: PCP Nurse Practitioner Family; Referring Provider Nurse Practitioner Family; Visit Provider Psychiatry & Neurology Neurology | DX: G20.A1 Parkinson's disease without dyskinesia, without mention of fluctuations (principal); F03.92 Unspecified dementia, unspecified severity, with psychotic disturbance; E85.4 Organ-limited amyloidosis; I68.0 Cerebral amyloid angiopathy; N32.81 Overactive bladder; K59.00 Constipation, unspecified; H53.40 Unspecified visual field defects | CPT/HCPCS: 99215 ==

== ENCOUNTER 2023-11-30 15:48 | Outpatient (REF) | payer MEDICARE, SELFPAY ==
[2023-11-30 21:18] LABS: Abs Immature Grans 0.02 10^3/uL (0.0-0.06); Absolute Basophil Count 0.11 10^3/uL (0.0-0.2); Absolute Lymphocyte Count 4.14 10^3/uL (1.2-3.4); Absolute Monocyte Count 0.62 10^3/uL (0.1-0.8); Absolute Neutrophil Count 5.42 10^3/uL (1.2-6.7); Eosinophils % 2.8; HCT 45.6 % (36.0-46.0); HGB 14.8 g/dL (11.2-15.7); Immature Grans % 0.2; MCH 27.6 pg (27.0-33.0); MCHC 32.5 % (32.0-36.0); MCV 85 fL (80-95); MPV 11.4 fL (8.0-11.0); Monocytes % 5.8; Neutrophils % 51.2; Platelet Count 364 10^3/uL (130-400); RBC 5.36 10^6/uL (3.93-5.22); RDW 16.7 % (11.7-14.6); RDW-SD 51.7 fL; WBC 10.61 10^3/uL (4.4-10.8)
[2023-11-30 21:48] LABS: Hemoglobin A1C 5.9 % (<5.7)
[2023-11-30 21:56] LABS: ALT 14 U/L (14-59); AST 22 U/L (15-37); Albumin 3.7 g/dL (3.4-5.0); Alkaline Phosphatase 96 U/L (46-116); Anion Gap 8.1 mmol/L (3-11); BUN 23 mg/dL (7-18); Bilirubin, Total 0.5 mg/dL (0.2-1.0); CO2 30.9 mmol/L (21.0-32.0); CREATININE 0.9 mg/dL (0.55-1.02); Calculated LDL 76 mg/dL (<100); Chloride 106 mmol/L (98-107); Cholesterol 159 mg/dL (<200); Estimated GFR 65.84 (mL/min/1.73m2); Glucose 142 mg/dL (74-106); HDL Cholesterol 60 mg/dL (40-60); Sodium 145 mmol/L (136-145); Total Protein 6.8 g/dL (6.4-8.2); Triglyceride 115 mg/dL (<150); Vitamin B12 1823 pg/mL (193-986)
[2023-12-01 19:15] LABS: Hepatitis C Ab w Rflx HCV PCR Negative (Negative)
== END 2023-11-30 15:49 | disposition home or self-care (01) ==
LOC: LBN 15:48
PROVIDERS: PCP Nurse Practitioner Family; Visit Provider Nurse Practitioner Family
DX: Z00.00 Encounter for general adult medical examination without abnormal findings (principal)
CPT/HCPCS: 80053; 80061; 86803; 82607; 83036; 85025

== ENCOUNTER → 2023-12-13 13:05 | Outpatient (BNVA) | payer MEDICARE, SELFPAY | PROVIDERS: PCP Nurse Practitioner Family; Referring Provider Nurse Practitioner Family; Visit Provider Psychiatry & Neurology Neurology | DX: N32.81 Overactive bladder (principal); F03.92 Unspecified dementia, unspecified severity, with psychotic disturbance; E85.4 Organ-limited amyloidosis; K59.00 Constipation, unspecified; G20.C Parkinsonism, unspecified | CPT/HCPCS: 99214 ==

== ENCOUNTER → 2024-03-13 13:10 | Outpatient (BNVA) | payer MEDICARE, SELFPAY | PROVIDERS: PCP Nurse Practitioner Family; Visit Provider Psychiatry & Neurology Neurology | DX: E85.4 Organ-limited amyloidosis (principal); I68.0 Cerebral amyloid angiopathy; F03.92 Unspecified dementia, unspecified severity, with psychotic disturbance; K59.00 Constipation, unspecified; N32.81 Overactive bladder | CPT/HCPCS: 99215 ==

== ENCOUNTER 2024-05-04 13:40 | Emergency (ER) | payer MEDICARE, SELFPAY ==
--- NOTE | 2024-05-04 13:30 | RT.EKG_ITS ---
APPROVED REPORT Exam: Resting ECG Reason for Exam: Seizure Patient Location: E HR:68 bpm ECG Measurements Heart Rate 68 AXIS GA 141 P 53 QRSd 88 QRS 8 QT 406 T 46 QTc 432 Conclusion Sinus rhythm, normal axis, no interval abnormalities. No STEMI
[2024-05-04 13:42] VITALS: BP 121/101; PULSE 72; RESP 20; TEMP 36.3; O2SAT 94
[2024-05-04 14:17] LABS: Abs Immature Grans 0.04 10^3/uL (0.0-0.06); Absolute Basophil Count 0.07 10^3/uL (0.0-0.2); Absolute Eosinophil Count 0.25 10^3/uL (0.0-0.7); Absolute Lymphocyte Count 2.75 10^3/uL (1.2-3.4); Absolute Monocyte Count 0.66 10^3/uL (0.1-0.8); Absolute Neutrophil Count 6.05 10^3/uL (1.2-6.7); Basophils % 0.7 %; Eosinophils % 2.5 %; HCT 43.3 % (36.0-46.0); HGB 13.7 g/dL (11.2-15.7); Immature Grans % 0.4 %; MCH 27.1 pg (27.0-33.0); MCHC 31.6 % (32.0-36.0); MCV 86 fL (80-95); MPV 10.5 fL (8.0-11.0); Monocytes % 6.7 %; Neutrophils % 61.7 %; Platelet Count 446 10^3/uL (130-400); RBC 5.06 10^6/uL (3.93-5.22); RDW 14.5 % (11.7-14.6); RDW-SD 45.1 fL; WBC 9.82 10^3/uL (4.4-10.8)
[2024-05-04 14:42] LABS: ALT 10 U/L (14-59); AST 17 U/L (15-37); Albumin 3.1 g/dL (3.4-5.0); Alkaline Phosphatase 83 U/L (46-116); Anion Gap 8.4 mmol/L (3-11); BUN 15 mg/dL (7-18); Bilirubin, Total 0.64 mg/dL (0.2-1.0); CO2 29.6 mmol/L (21.0-32.0); CREATININE 0.7 mg/dL (0.55-1.02); Calcium 9.1 mg/dL (8.5-10.1); Chloride 103 mmol/L (98-107); Estimated GFR 89.02 (mL/min/1.73m2); Glucose 140 mg/dL (74-106); Magnesium 1.9 mg/dL (1.8-2.4); Potassium 3.6 mmol/L (3.5-5.1); Sodium 141 mmol/L (136-145); TSH (W/Ref FT4) 3.05 uIU/mL (0.36-3.74); Total Protein 6.9 g/dL (6.4-8.2)
[2024-05-04 15:46] LABS: Bilirubin Negative (Negative); Blood Negative (Negative); Clarity Sl Cloudy (Clear); Glucose Negative (Negative); Ketones 15 mg/dL (Negative); Leukocyte Esterase Negative (Negative); Nitrite Negative (Negative); Specific Gravity 1.025 (1.005-1.025); Urobilinogen 0.2 mg/dL (Up to 0.2)
--- NOTE | 2024-05-04 16:16 | ED.GENADUL_ITS ---
Discharge Plan Disposition Patient Disposition: Home Condition: Stable Discharge Details Clinical Impression: Epilepsy, Essential hypertension, Cerebrovascular disease, Parkinson disease, Dementia with psychosis, Breakthrough seizure Primary Care Provider: Miladis Medina ED Provider: Henna Kumar Home Meds and New Rx's Prescriptions: No Action melatonin 10 mg capsule 10 mg PO HS PRN Nuplazid 34 mg capsule 34 mg PO DAILY Qty: 90 3RF aspirin 81 mg tablet,delayed release (DR/EC) 81 mg PO DAILY Qty: 90 4RF cyanocobalamin (vitamin B-12) [Vitamin B-12] 500 mcg tablet 500 mcg PO DAILY Qty: 90 4RF carbidopa-levodopa 25-100 mg tablet 1 tab PO TID Qty: 270 3RF Rx Instructions: Take at same times as the Sinemet 25/250mg tabs olanzapine 2.5 mg tablet 2.5 mg PO TID Qty: 270 3RF Rx Instructions: Take am, lunchtime, and dinner mirabegron [Myrbetriq] 25 mg tablet extended release 24 hr 25 mg PO DAILY Qty: 90 3RF bisacodyl 5 mg tablet,delayed release (DR/EC) 5 mg PO ONCE atorvastatin 80 mg tablet 80 mg PO DAILY Qty: 90 3RF carbidopa-levodopa 25-250 mg tablet 1 tab PO TID Qty: 270 3RF donepezil 10 mg tablet 10 mg PO DAILY Qty: 90 3RF levetiracetam [Keppra] 500 mg tablet 500 mg PO BID Qty: 180 3RF calcium carb,lactat-vitamin D3 200 mg calcium -250 unit tablet 1 tab PO DAILY losartan 25 mg tablet 25 mg PO DAILY Discharge Instructions Instructions: Seizures, Adult ED Additional Instructions: Your family member was seen in the emergency department today for evaluation of a seizure. In our department she had a full physical examination performed, had reassuring laboratory studies and had no evidence of infection in her urine. She did not require any medications for management of seizures, and should continue to take all of her home medications as prescribed. Certainly there could be some issues with Keppra at timing and cutting of the pill and you will follow-up with your neurologist to discuss changes in her medications for management of seizures. Certainly if the patient has more seizures, as fever, chills, chest pain, change in responsiveness, or any other concerning findings you can return to the emergency department for reevaluation. Thank you for allowing us to be part of your family member's care. HPI General Mode of arrival: EMS . Date/Time Provider Initiated Documentation: 05/04/24 13:49 . Limitations to Documentation: altered mental status . Information obtained by: patient, family and EMS . HPI Narrative: MDM: In brief, this is a 78-year-old female patient presenting for evaluation of a breakthrough seizure. My differential includes but is not limited to medication subtherapeutic levels/change in administration, considered electrolyte derangements, kidney injury, liver failure. Certainly considered infection including UTI, no localizing symptoms, fever, hemodynamic instability to significantly increase my concern for meningitis, pneumonia, bacteremia or sepsis. Reassuringly, the patient was seated during her event to did not sustain trauma before or during this event. Will obtain laboratory studies to include CBC, CMP, magnesium, UA, and I will send out a Keppra level which unfortunately will not result during the time that the patient is in the emergency department. At this time given the lack of trauma and the single seizure with return to baseline and no focal neurodeficits I do not see any indication to pursue advanced imaging at this time. ED Course: I reviewed the patient's laboratory studies, which include no leukocytosis, anemia, or thrombocytopenia. The chemistry panel demonstrates no significant electrolyte derangements, evidence of kidney dysfunction or liver disease. The UA is without infectious findings, and the patient did not have ongoing seizure activity while under my care in the emergency department. On reevaluation the patient is entirely back to her baseline, remaining confused and with focal tremors consistent with her Parkinson's with dementia. The patient's family reached out to the neurologist and will schedule a follow- up appointment to discuss medication changes, and they feel comfortable taking the patient home and feel that they have adequate caregiver support. At this time, the patient has had a full medical evaluation and is safe for discharge to home. They are hemodynamically stable, ambulatory, and tolerating PO. They are understanding of the follow-up plan and return precautions. They left our facility without incident. Henna Kumar MD HPI: This is a 78-year-old female patient with a past medical history significant for epilepsy on Keppra, Parkinson's with dementia, prediabetes, and hypertension who is presenting for evaluation of breakthrough seizure. History is obtained from the patient's family member and primary caregiver, who are at bedside. They were getting the patient out of the car and they noted that she experienced a tonic-clonic seizure lasting an estimated 5 minutes. The patient was seated in the car and did not fall or sustain trauma during this event. Prior to this event the patient was in her normal state of health, though the care provider notes that there have been a few doses of Keppra that were given an hour late, and given worsening ability to swallow pills they have been cutting the Keppra in 2 pieces and giving with applesauce. The patient has otherwise been without recent illness or injury, has not had fevers or chills, and has been at her baseline. After the seizure she was transported by EMS, was hemodynamically appropriate, and family notes that the patient is starting to return to her baseline. Exam: Gen: Awake and alert, in no apparent distress HEENT: Non-icteric sclera, pupils equal reactive at 3 mm bilaterally, tracks appropriately Neck: Supple Lungs: No apparent respiratory distress, normal respiratory effort. CV: Appears well perfused, strong distal pulses with regular rate Abdomen: Non-distended, soft MSK: Moves 4 extremities without apparent limitation in ROM Skin: Visualized skin without rashes, cyanosis. Neuro: Gait deferred, patient with tremulousness consistent with her Parkinson's disease. No facial droop or asymmetry, no focal motor deficits. Sensory examination challenging given the patient's limited ability to communicate. Related Data Home Medications ?Medication ?Instructions ?Recorded ?Confirmed aspirin 81 mg tablet,delayed 81 mg PO DAILY #90 tabs 04/04/20 05/04/24 release cyanocobalamin (vitamin B-12) 500 500 mcg PO DAILY #90 tabs 04/04/20 05/04/24 mcg tablet (Vitamin B-12) calcium carb and lactate 200 1 tab PO DAILY 03/07/21 05/04/24 mg-vitamin D3 6.25 mcg (250 unit) tablet melatonin 10 mg capsule 10 mg PO HS PRN 08/17/23 05/04/24 pimavanserin 34 mg capsule 34 mg PO DAILY #90 caps 08/17/23 05/04/24 (Nuplazid) atorvastatin 80 mg tablet 80 mg PO DAILY #90 tabs 11/09/23 05/04/24 carbidopa 25 mg-levodopa 250 mg 1 tab PO TID #270 tabs 11/09/23 05/04/24 tablet donepezil 10 mg tablet 10 mg PO DAILY #90 tabs 11/09/23 05/04/24 carbidopa 25 mg-levodopa 100 mg 1 tab PO TID #270 tabs 12/13/23 05/04/24 tablet levetiracetam 500 mg tablet 500 mg PO BID #180 tabs 01/19/24 05/04/24 (Keppra) bisacodyl 5 mg tablet,delayed 5 mg PO ONCE 03/13/24 05/04/24 release mirabegron 25 mg tablet,extended 25 mg PO DAILY #90 tabs 03/13/24 05/04/24 release 24 hr (Myrbetriq) olanzapine 2.5 mg tablet 2.5 mg PO TID #270 tabs 03/13/24 05/04/24 losartan 25 mg tablet 25 mg PO DAILY 05/04/24 05/04/24 Previous Rx's ?Medication ?Instructions ?Recorded aspirin 81 mg tablet,delayed 81 mg PO DAILY #90 tabs 04/04/20 release cyanocobalamin (vitamin B-12) 500 500 mcg PO DAILY #90 tabs 04/04/20 mcg tablet (Vitamin B-12) pimavanserin 34 mg capsule 34 mg PO DAILY #90 caps 08/17/23 (Nuplazid) atorvastatin 80 mg tablet 80 mg PO DAILY #90 tabs 11/09/23 carbidopa 25 mg-levodopa 250 mg 1 tab PO TID #270 tabs 11/09/23 tablet donepezil 10 mg tablet 10 mg PO DAILY #90 tabs 11/09/23 carbidopa 25 mg-levodopa 100 mg 1 tab PO TID #270 tabs 12/13/23 tablet levetiracetam 500 mg tablet 500 mg PO BID #180 tabs 01/19/24 (Keppra) mirabegron 25 mg tablet,extended 25 mg PO DAILY #90 tabs 03/13/24 release 24 hr (Myrbetriq) olanzapine 2.5 mg tablet 2.5 mg PO TID #270 tabs 03/13/24 Allergies Allergy/AdvReac Type Severity Reaction Status Date / Time No Known Allergies Allergy Verified 03/13/24 13:15 General Stated Complaint: Seizure SKY: 3 Course Vital Signs Vital signs: Vital Signs Temperature 36.3 C L 08/16/24 13:42 Pulse 72 05/04/24 13:42 Respiratory Rate 20 05/04/24 13:42 Blood Pressure 121/101 H 05/04/24 13:42 Pulse Oximetry 94 05/04/24 13:42 Temperature 36.3 C L 05/04/24 13:42 Pulse 72 05/04/24 13:42 Respiratory Rate 20 05/04/24 13:42 Respiratory Effort Normal 05/04/24 13:53 Respiratory Depth Normal 05/04/24 13:53 Respiratory Pattern Normal 05/04/24 13:53 Blood Pressure 121/101 H 05/04/24 13:42 Pulse Oximetry 94 05/04/24 13:42 Oxygen Delivery Method Room Air 05/04/24 13:42 Oxygen Flow Rate 0 05/04/24 13:42 Pain Level 4 05/04/24 13:42 Lab/Test Results Lab/Test Results: Laboratory Tests Range/Units 05/04/24 05/04/24 14:07 15:26 WBC (4.4-10.8) 10^3/uL 9.82 RBC (3.93-5.22) 10^6/uL 5.06 Hgb (11.2-15.7) g/dL 13.7 Hct (36.0-46.0) % 43.3 MCV (80-95) fL 86 MCH (27.0-33.0) pg 27.1 MCHC (32.0-36.0) % 31.6 L RDW (11.7-14.6) % 14.5 Plt Count (130-400) 10^3/uL 446 H MPV (8.0-11.0) fL 10.5 Immature Gran % % 0.4 Neutrophils % % 61.7 Lymphocytes % % 28.0 Monocytes % % 6.7 Eosinophils % % 2.5 Basophils % % 0.7 Nucleated RBC % (0.0-0.3) % 0.0 Absolute Neutrophils (1.2-6.7) 10^3/uL 6.05 Absolute Lymphocytes (1.2-3.4) 10^3/uL 2.75 Absolute Monocytes (0.1-0.8) 10^3/uL 0.66 Absolute Eosinophils (0.0-0.7) 10^3/uL 0.25 Absolute Basophils (0.0-0.2) 10^3/uL 0.07 Sodium (136-145) mmol/L 141 Potassium (3.5-5.1) mmol/L 3.6 Chloride (98-107) mmol/L 103 Carbon Dioxide (21.0-32.0) mmol/L 29.6 Anion Gap (3-11) mmol/L 8.4 BUN (7-18) mg/dL 15 Creatinine (0.55-1.02) mg/dL 0.7 Est GFR (CKD-EPI 2020) (mL/min/1.73m2) 89.02 Glucose (74-106) mg/dL 140 H Calcium (8.5-10.1) mg/dL 9.1 Magnesium (1.8-2.4) mg/dL 1.9 Total Bilirubin (0.2-1.0) mg/dL 0.64 AST (15-37) U/L 17 ALT (14-59) U/L 10 L Alkaline Phosphatase (46-116) U/L 83 Total Protein (6.4-8.2) g/dL 6.9 Albumin (3.4-5.0) g/dL 3.1 L TSH (0.36-3.74) uIU/mL 3.05 Urine Color (Yellow) Yellow Urine Clarity (Clear) Sl Cloudy Urine pH (5-8) 7.0 Ur Specific [place] (1.005-1.025) 1.025 Urine Protein (Neg-Trace) mg/dL Trace Urine Ketones (Negative) mg/dL 15 H Urine Blood (Negative) Negative Urine Nitrite (Negative) Negative Urine Bilirubin (Negative) Negative Urine Urobilinogen (Up to 0.2) mg/dL 0.2 Ur Leukocyte Esterase (Negative) Negative Urine Glucose (Negative) mg/dL Negative Medical Decision Making Quality:SDOH Health Related Social Needs: No Data to Display PFSH All Active Problems (Updated 05/04/24 @ 16:17 by Henna Kumar MD) Breakthrough seizure (Acute) DNR (do not resuscitate) (Acute) See February 2024 COLST: DNR/DNI, no feeding tube, does want transfer to hospital, evaluation, IV antibiotics and IV hydration. Admit to hospice as soon as eligible. 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 Head/neck imaging, heart monitor with no identifiable cause Thyroid nodule Benign Surgical History S/P colonoscopy (03/18/15) History of section Family History Mother , 71 Depression Stroke CKD (chronic kidney disease) Father , 68 Heart disease Myocardial infarction Parkinson disease Sister No problems noted. Sister No problems noted. Brother , 42 of [place] Heart disease Myocardial infarction Brother , at 49 of [place] Heart disease Myocardial infarction Brother , at 58 of [place] Heart disease Myocardial infarction Brother , at 61 of [place] Heart disease Myocardial infarction Brother , at 80 of fall No problems noted. Son , at 45 of [place] Heart disease Myocardial infarction Daughter No problems noted. Maternal Grandfather No problems noted. Maternal Grandmother No problems noted. Paternal Grandfather No problems noted. Paternal Grandmother No problems noted. Social History Smoking/Tobacco Use Status: Never Smoking risk assessment performed?: Yes Alcohol Intake: current Alcohol Intake frequency: a few times a month Drug use: Never Substance use type: does not use Counseling given: No Household members: other Details: Camper until get apartment by June Housing: house Pets and animals: No Sexually active: No Do you think of yourself as: straight/heterosexual Current gender identity: female What is your relationship status?: How often do you talk on the phone with friends or family?: three or more times per week How often do you get together with friends or relatives?: three or more times per week Do you belong to any clubs or organized social groups?: no Panel score (0-1 are the most socially isolated patients): 1 What type of physical activity do you participate in: walking Frequency: other Details: Some Shivani/Confucianist: Gnosticism Seatbelt use: always Drive intox or ride w/intox 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 EMS stated it was a very small amount. pt able to answer yes or no questions, pt knowns , name and that she is at the hospital. History History 2 Para 2 Hx # Term Pregnancies Multiple births Hx # Pregnancies Ectopic pregnancies AB induced Hx Number of Living Children 1 AB spontaneous
[2024-05-06 13:34] LABS: Levetiracetam 23.4 mcg/mL
== END 2024-05-04 16:36 | disposition home or self-care (01) ==
PROVIDERS: Emergency Provider Emergency Medicine; PCP Nurse Practitioner Family
DX: G40.909 Epilepsy, unspecified, not intractable, without status epilepticus (principal); G20.A1 Parkinson's disease without dyskinesia, without mention of fluctuations; F02.82 Dementia in other diseases classified elsewhere, unspecified severity, with psychotic disturbance; I10 Essential (primary) hypertension; E78.5 Hyperlipidemia, unspecified; Z79.899 Other long term (current) drug therapy
CPT/HCPCS: 80053; 93005; 99284; 80177; 81003; 83735; 84443; 85025; 93010

== ENCOUNTER 2024-05-07 08:56 | Emergency (ER) | payer MEDICARE, SELFPAY ==
[2024-05-07 08:56] VITALS: BP 131/64; PULSE 79; RESP 20; TEMP 36.3; O2SAT 94
--- NOTE | 2024-05-07 09:10 | DI.CT_ITS ---
Exam(s) CT HEAD WO EXAM: CT HEAD WO CLINICAL HISTORY: breakthrough seizures. TECHNIQUE: Imaging Protocol: Axial computed tomography images with coronal and sagittal reformatted images were created and reviewed COMPARISON: CT CT HEAD WO from 08/30/2023 FINDINGS: Ventricles and Extra axial spaces: Normal in size and morphology for the patient's age. Hemorrhage: None. Cerebral parenchyma: No evidence of acute infarct or mass. Mild white matter changes of small vesse l disease. Mild atrophy. Midline shift: None. Brainstem/Cerebellum: Normal. Calvarium: Normal. Visualized Paranasal sinuses:Clear. Mastoids: Clear. Soft Tissues: Unremarkable. ORBITS: Unremarkable. PITUITARY: Not enlarged. IMPRESSION: No acute intracranial process. RADIATION DOSE DELIVERED: Total DLP DATA REPOSITORY: All CT scans at this facility are submitted to the National Radiology Data Registry (NRDR) Dose Index Registry (DIR) with the [employer] (A[employer]). RADIATION OPTIMIZATION: All CT scans at this facility use at least one of these dose optimization te chniques: automated exposure control; mA and/or kV adjustment per patient size (includes targeted exa ms where dose is matched to clinical indication); or iterative reconstruction.
--- NOTE | 2024-05-07 09:10 | DI.RAD_ITS ---
Exam(s) XR CHEST 1V IN DI DEPT EXAM: XR CHEST 1V IN DI DEPT CLINICAL HISTORY: difficulty swallowing, r/o PNA TECHNIQUE: 2D digital imaging was performed. COMPARISON: CT CT CHEST/ABD/PEL W from 07/04/2023 CR XR PORTABLE CHEST AP from 08/30/2023 FINDINGS: Leads overlie the chest. LUNGS: Clear. No pleural abnormality seen. HEART: Within normal limits for projection. AORTA: Normal diameter. BONES: Unremarkable for age. Soft tissues: Unremarkable. IMPRESSION: No acute findings. DATA REPOSITORY: RADIATION DOSE DELIVERED:
--- NOTE | 2024-05-07 09:13 | ED.GENADUL_ITS ---
Discharge Plan Disposition Patient Disposition: Home Condition: Good Discharge Details Clinical Impression: Breakthrough seizure Primary Care Provider: Miladis Medina ED Provider: Gabbie Bellamy Home Meds and New Rx's Prescriptions: Continued melatonin 10 mg capsule 10 mg PO HS PRN Nuplazid 34 mg capsule 34 mg PO DAILY Qty: 90 3RF aspirin 81 mg tablet,delayed release (DR/EC) 81 mg PO DAILY Qty: 90 4RF cyanocobalamin (vitamin B-12) [Vitamin B-12] 500 mcg tablet 500 mcg PO DAILY Qty: 90 4RF carbidopa-levodopa 25-100 mg tablet 1 tab PO TID Qty: 270 3RF Rx Instructions: Take at same times as the Sinemet 25/250mg tabs olanzapine 2.5 mg tablet 2.5 mg PO TID Qty: 270 3RF Rx Instructions: Take am, lunchtime, and dinner mirabegron [Myrbetriq] 25 mg tablet extended release 24 hr 25 mg PO DAILY Qty: 90 3RF bisacodyl 5 mg tablet,delayed release (DR/EC) 5 mg PO ONCE atorvastatin 80 mg tablet 80 mg PO DAILY Qty: 90 3RF carbidopa-levodopa 25-250 mg tablet 1 tab PO TID Qty: 270 3RF donepezil 10 mg tablet 10 mg PO DAILY Qty: 90 3RF Changed levetiracetam [Keppra] 500 mg tablet 1,000 mg PO BID Qty: 180 3RF Discharge Instructions Additional Instructions: Please follow-up with Dr. Denton on the as scheduled. Please increase the dosage of Keppra to 1000 mg twice a day, this can be crushed and added to apple sauce. Please return to emergency care if seizures last longer than 5 minutes or [id number], chest pains, no return to baseline, seizures accompanied by signs of infection such as fever, or if you very worried and would like Nidia to be rechecked again immediately. Otherwise, you may call Dr. Denton's office if Tori has a seizure to discuss the episode. Referrals: [facility] [Provider Group] HPI General Date/Time Provider Initiated Documentation: 05/07/24 10:13 . HPI Narrative: Tori is a 78-year-old female with history of dementia, Parkinson's, new onset epilepsy treated with Keppra 500 mg twice daily who presents to the emergency department via EMS for grand mal seizure activity lasting approximately 4 and half minutes. resolved without intervention. Caregiver Kenyetta reports that she had bilateral limb jerking and frothing at the mouth with tongue biting that occurred after taking her pills, she vomited up her pills after taking them. No cyanosis or loss of bowel/bladder control. She has since returned to baseline per caregiver and daughter Andree. Denies recent fever/chills, headache, trauma, cough, nausea/vomiting, change in p.o. intake, smelly urine/dysuria, change in bowel movements, change in baseline mental status, wounds/rashes. She is followed by Dr. Denton here at [facility]; no obvious etiology of seizures identified after normal scans. She does have a DNR/POLST form she is prescribed medications to be taken 3 times a day, supposed be given at 8 AM, noon, and 5 PM; morning dose is usually given at 9 AM. Fingerstick en route 98 per EMS. Physical exam reassuring. Patient is pleasantly confused, denies concerns at this time. Fox. No obvious facial droop or focal neuro deficits. Speech is clear. No new tongue lesions. Head is atraumatic. No raccoon eyes or Cornelius sign. Easy work of breathing, lung sounds clear bilaterally. Abdomen soft, nondistended, nontender to palpation. Moving extremities equally. No pedal edema. D/dx includes but is not limited to: Breakthrough seizure due to late administration of morning medication, intracranial hemorrhage/mass, liver or kidney dysfunction, electrolyte derangement, occult infection such as UTI or pneumonia. I independently interpreted the following tests: CBC and CMP reassuring, only mild hypokalemia with potassium 3.[address] unremarkable, no intracranial hemorrhage noted, this was confirmed by radiologist. CXR reassuring, no obvious infiltrates noted. Discussed case with Dr. Denton, patient's neurologist. She recommends increasing dose of Keppra to 1000 twice daily, this can be crushed. 1000 mg loading dose to be given today in the emergency department. She does have a follow-up scheduled on . She recommends calling office if Tori has a repeat seizure, only needs to seek emergency care if seizures greater than 5 minutes or [id number]. Overall workup today reassuring. Likely breakthrough seizure due to subtherap eutic Keppra dosing. Will increase dosing as instructed by Dr. Denton. 1000 mg loading dose given in the emergency department today. Reviewed discharge instructions with patient's daughter and caregiver, they are agreeable with plan of care and intend to follow-up with neurology as scheduled. Educated on red flags indicate need for return to emergency care. Related Data Home Medications ?Medication ?Instructions ?Recorded ?Confirmed aspirin 81 mg tablet,delayed 81 mg PO DAILY #90 tabs 04/04/20 05/07/24 release cyanocobalamin (vitamin B-12) 500 500 mcg PO DAILY #90 tabs 04/04/20 05/07/24 mcg tablet (Vitamin B-12) melatonin 10 mg capsule 10 mg PO HS PRN 08/17/23 05/07/24 pimavanserin 34 mg capsule 34 mg PO DAILY #90 caps 08/17/23 05/07/24 (Nuplazid) atorvastatin 80 mg tablet 80 mg PO DAILY #90 tabs 11/09/23 05/07/24 carbidopa 25 mg-levodopa 250 mg 1 tab PO TID #270 tabs 11/09/23 05/07/24 tablet donepezil 10 mg tablet 10 mg PO DAILY #90 tabs 11/09/23 05/07/24 carbidopa 25 mg-levodopa 100 mg 1 tab PO TID #270 tabs 12/13/23 05/07/24 tablet bisacodyl 5 mg tablet,delayed 5 mg PO ONCE 03/13/24 05/07/24 release mirabegron 25 mg tablet,extended 25 mg PO DAILY #90 tabs 03/13/24 05/07/24 release 24 hr (Myrbetriq) olanzapine 2.5 mg tablet 2.5 mg PO TID #270 tabs 03/13/24 05/07/24 levetiracetam 500 mg tablet 1,000 mg (2 x 500 mg) PO BID #180 05/07/24 05/07/24 (Keppra) tabs Previous Rx's ?Medication ?Instructions ?Recorded aspirin 81 mg tablet,delayed 81 mg PO DAILY #90 tabs 04/04/20 release cyanocobalamin (vitamin B-12) 500 500 mcg PO DAILY #90 tabs 04/04/20 mcg tablet (Vitamin B-12) pimavanserin 34 mg capsule 34 mg PO DAILY #90 caps 08/17/23 (Nuplazid) atorvastatin 80 mg tablet 80 mg PO DAILY #90 tabs 11/09/23 carbidopa 25 mg-levodopa 250 mg 1 tab PO TID #270 tabs 11/09/23 tablet donepezil 10 mg tablet 10 mg PO DAILY #90 tabs 11/09/23 carbidopa 25 mg-levodopa 100 mg 1 tab PO TID #270 tabs 12/13/23 tablet mirabegron 25 mg tablet,extended 25 mg PO DAILY #90 tabs 03/13/24 release 24 hr (Myrbetriq) olanzapine 2.5 mg tablet 2.5 mg PO TID #270 tabs 03/13/24 levetiracetam 500 mg tablet 1,000 mg (2 x 500 mg) PO BID #180 05/07/24 (Keppra) tabs Allergies Allergy/AdvReac Type Severity Reaction Status Date / Time No Known Allergies Allergy Verified 05/07/24 09:12 General Stated Complaint: Seizure SKY: 3 Review of Systems Narrative: see HPI Exam Const General: cooperative, healthy appearing, comfortable and no acute distress Nutritional Appearance: average body habitus Orientation: awake and confused Limitations: altered mental status (per baseline, dementia) [facility] Head: normal to inspection, no palpable skull fracture, normocephalic and atraumatic Ears: hearing grossly normal bilaterally General nose exam: external nose normal Mouth: oral mucosae normal and tongue normal Eyes Eyelids: eyelids normal Pupils: PERRL EOM: No nystagmus Resp Effort & Inspection: normal respiratory effort and able to speak in complete sentences Auscultation: clear to auscultation bilaterally Cardio Rate: regular rate Rhythm: regular rhythm GI Inspection: normal to inspection and non-distended Palpation: soft, not firm, no guarding and nontender Skin General skin exam: no rashes or lesions noted Neuro General: no focal motor deficits Cranial Nerves: facial strength normal, able to rotate head bilaterally and no nystagmus Motor: muscle tone normal throughout Sensory Exam: no sensory deficits noted Course Vital Signs Vital signs: Vital Signs Temperature 36.3 C L 05/07/24 08:56 Pulse 79 05/07/24 08:56 Respiratory Rate 20 05/07/24 08:56 Pulse Oximetry 94 05/07/24 08:56 Temperature 36.3 C L 05/07/24 08:56 Temperature Source Tympanic 05/07/24 08:56 Pulse 79 05/07/24 08:56 Respiratory Rate 20 05/07/24 08:56 Pulse Oximetry 94 05/07/24 08:56 Oxygen Delivery Method Room Air 05/07/24 08:56 Oxygen Flow Rate 0 05/07/24 08:56 Pain Level 2 05/07/24 08:56 Medical Decision Making Quality:SDOH Health Related Social Needs: No Data to Display PFSH All Active Problems (Updated 05/07/24 @ 10:51 by Gabbie Trinh) Breakthrough seizure (Acute) DNR (do not resuscitate) (Acute) See February 2024 COLST: DNR/DNI, no feeding tube, does want transfer to hospital, evaluation, IV antibiotics and IV hydration. Admit to hospice as soon as eligible. 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 Head/neck imaging, heart monitor with no identifiable cause Thyroid nodule Benign Surgical History S/P colonoscopy (03/18/15) History of section Family History Mother , 71 Depression Stroke CKD (chronic kidney disease) Father , 68 Heart disease Myocardial infarction Parkinson disease Sister No problems noted. Sister No problems noted. Brother , 42 of [place] Heart disease Myocardial infarction Brother , at 49 of [place] Heart disease Myocardial infarction Brother , at 58 of [place] Heart disease Myocardial infarction Brother , at 61 of [place] Heart disease Myocardial infarction Brother , at 80 of [place] No problems noted. Son , at 45 of [place] Heart disease Myocardial infarction Daughter No problems noted. Maternal Grandfather No problems noted. Maternal Grandmother No problems noted. Paternal Grandfather No problems noted. Paternal Grandmother No problems noted. Social History Smoking/Tobacco Use Status: Never Smoking risk assessment performed?: Yes Alcohol Intake: current Alcohol Intake frequency: a few times a month Drug use: Never Substance use type: does not use Counseling given: No Household members: other Details: Camper until get apartment by June Housing: house Pets and animals: No Sexually active: No Do you think of yourself as: straight/heterosexual Current gender identity: female What is your relationship status?: How often do you talk on the phone with friends or family?: three or more times per week How often do you get together with friends or relatives?: three or more times per week Do you belong to any clubs or organized social groups?: no Panel score (0-1 are the most socially isolated patients): 1 What type of physical activity do you participate in: walking Frequency: other Details: Some Shivani/Amish: Christian Seatbelt use: always Drive intox or ride w/intox race car driver: No Do you feel safe at home: Yes Do you feel safe in your relationship?: Yes Additional Social history: caregiver called ems because pt eyes rolled in back on head, some blood came from mouth. EMS stated it was a very small amount. pt able to answer yes or no questions, pt knowns , name and that she is at the hospital. History History 2 Para 2 Hx # Term Pregnancies Multiple births Hx # Pregnancies Ectopic pregnancies AB induced Hx Number of Living Children 1 AB spontaneous
[2024-05-07 09:36] LABS: Abs Immature Grans 0.04 10^3/uL (0.0-0.06); Absolute Basophil Count 0.07 10^3/uL (0.0-0.2); Absolute Eosinophil Count 0.29 10^3/uL (0.0-0.7); Absolute Lymphocyte Count 2.44 10^3/uL (1.2-3.4); Absolute Monocyte Count 0.52 10^3/uL (0.1-0.8); Absolute Neutrophil Count 6.32 10^3/uL (1.2-6.7); Basophils % 0.7 %; HCT 43.2 % (36.0-46.0); HGB 13.7 g/dL (11.2-15.7); Immature Grans % 0.4 %; Lymphocytes % 25.2 %; MCH 26.9 pg (27.0-33.0); MCHC 31.7 % (32.0-36.0); MCV 85 fL (80-95); MPV 10.9 fL (8.0-11.0); Monocytes % 5.4 %; Neutrophils % 65.3 %; Platelet Count 409 10^3/uL (130-400); RBC 5.09 10^6/uL (3.93-5.22); RDW 14.4 % (11.7-14.6); RDW-SD 44.7 fL; WBC 9.68 10^3/uL (4.4-10.8)
[2024-05-07 09:55] LABS: AST 20 U/L (15-37); Albumin 3.1 g/dL (3.4-5.0); Alkaline Phosphatase 82 U/L (46-116); Anion Gap 9.1 mmol/L (3-11); BUN 13 mg/dL (7-18); Bilirubin, Total 0.99 mg/dL (0.2-1.0); CO2 25.9 mmol/L (21.0-32.0); CREATININE 0.7 mg/dL (0.55-1.02); Calcium 8.8 mg/dL (8.5-10.1); Chloride 105 mmol/L (98-107); Estimated GFR 89.02 (mL/min/1.73m2); Glucose 131 mg/dL (74-106); Potassium 3.3 mmol/L (3.5-5.1); Sodium 140 mmol/L (136-145); Total Protein 6.6 g/dL (6.4-8.2)
[2024-05-07 09:58] LABS: ALT < 6 U/L (14-59)
[2024-05-07 11:36] VITALS: BP 131/64; PULSE 72; RESP 18; TEMP 36.5; O2SAT 98
[2024-05-07] MEDS: levETIRAcetam Oral Solution 100 MG/ML 1000 MG PO (11:37)
== END 2024-05-07 11:54 | disposition home or self-care (01) ==
PROVIDERS: Emergency Provider Nurse Practitioner Family; PCP Nurse Practitioner Family
DX: R56.9 Unspecified convulsions (principal); G20.A1 Parkinson's disease without dyskinesia, without mention of fluctuations; F02.80 Dementia in other diseases classified elsewhere, unspecified severity, without behavioral disturbance, psychotic disturbance, mood disturbance, and anxiety
CPT/HCPCS: 80053; 99284; 70450; 71045; 85025; 99283

== ENCOUNTER 2024-05-07 12:52 | Observation (INO) | payer MEDICARE, SELFPAY ==
[2024-05-07] VITALS (47 sets, daily range): BP systolic 100–180; BP diastolic 42–122; PULSE 45–129; RESP 16–18; TEMP 36.6–37.6; O2SAT 94–989
--- NOTE | 2024-05-07 12:45 | DI.CT_ITS ---
Exam(s) CT ABDOMEN PELVIS W EXAM: CT ABDOMEN PELVIS W CLINICAL HISTORY: abd pain on exam. TECHNIQUE: Imaging Protocol: Axial computed tomography images with coronal and sagittal reformatted images were created and reviewed CONTRAST MATERIAL: Intravenous: Omnipaque 350 Contrast volume:91 ml Oral: no COMPARISON: CT CT CHEST/ABD/PEL W from 07/04/2023 FINDINGS: ABDOMEN and PELVIS: Exam limited by respiratory motion. Lung Bases: No acute findings. Liver: Normal density. No suspicious mass. Gallbladder and biliary tract: No radiodense calculus. No biliary dilation. Pancreas: Normal density. No abnormal calcifications or inflammatory process. No evidence of mass. Spleen: Normal. Kidneys: Normal size, contour and axis. No radiodense stones. No obstructive uropathy. No suspicious masses seen. Adrenal glands: No masses seen. Vasculature: Abdominal aorta non-dilated. Severe atherosclerotic changes. Soft tissues: Unremarkable. Bladder: Mild wall thickening. No calculi.No focal mass. Bowel: No obstruction. No bowel wall thickening. Appendix normal. Question of small duodenal diver ticula. Peritoneal cavity: No ascites. No focal collection. No mesenteric inflammatory response. Bones: Unremarkable for age. Reproductive organs: Unremarkable. Lymph nodes: No pathologically enlarged lymph nodes. IMPRESSION:: No acute abnormality in the abdomen or pelvis. RADIATION DOSE DELIVERED: Total DLP DATA REPOSITORY: All CT scans at this facility are submitted to the National Radiology Data Registry (NRDR) Dose Index Registry (DIR) with the [employer] (ACR). RADIATION OPTIMIZATION: All CT scans at this facility use at least one of these dose optimization te chniques: automated exposure control; mA and/or kV adjustment per patient size (includes targeted exa ms where dose is matched to clinical indication); or iterative reconstruction.
--- NOTE | 2024-05-07 12:54 | W.ED.GENAD ---
Discharge Plan Discharge Details Chief Complaint: Seizure Primary Care Provider: Miladis Medina ED Provider: Gabbie Bellamy Home Meds and New Rx's Prescriptions: No Action melatonin 10 mg capsule 10 mg PO HS PRN Nuplazid 34 mg capsule 34 mg PO DAILY Qty: 90 3RF aspirin 81 mg tablet,delayed release (DR/EC) 81 mg PO DAILY Qty: 90 4RF cyanocobalamin (vitamin B-12) [Vitamin B-12] 500 mcg tablet 500 mcg PO DAILY Qty: 90 4RF carbidopa-levodopa 25-100 mg tablet 1 tab PO TID Qty: 270 3RF Rx Instructions: Take at same times as the Sinemet 25/250mg tabs olanzapine 2.5 mg tablet 2.5 mg PO TID Qty: 270 3RF Rx Instructions: Take am, lunchtime, and dinner mirabegron [Myrbetriq] 25 mg tablet extended release 24 hr 25 mg PO DAILY Qty: 90 3RF bisacodyl 5 mg tablet,delayed release (DR/EC) 5 mg PO ONCE atorvastatin 80 mg tablet 80 mg PO DAILY Qty: 90 3RF carbidopa-levodopa 25-250 mg tablet 1 tab PO TID Qty: 270 3RF donepezil 10 mg tablet 10 mg PO DAILY Qty: 90 3RF levetiracetam [Keppra] 500 mg tablet 1,000 mg PO BID Qty: 180 3RF HPI General Date/Time Provider Initiated Documentation: 05/07/24 14:29. HPI Narrative: Tori is a 78-year-old female with history of dementia, Parkinson's, and epilepsy who presents to the emergency department via EMS accompanied by her daughter Andree and caregiver Anette for evaluation after seizure. This is her second seizure today and second emergency department visit for. They report that as soon as she got home she had a 3-1/2-minute seizure with bilateral limb jerking foaming at the mouth, and cyanosis, states that she did not seem to be breathing during this episode. She did vomit afterwards, vomited up the keppra given PO prior to discharge. Unclear if she had loss of bowel or bladder control. She has returned to baseline since arriving to the emergency department. No recent illness, patient has recently been in good health. Does have decreased appetite per baseline. On exam Tori is alert and cooperative, though unable to participate fully in neuro exam due to baseline mental status. Abdomen is soft, though it does appear she is uncomfortable with palpation of abdomen. PERRL. She does answer questions. Moving all extremities equally. 1245: Discussed case with Dr. Denton, patient's neurologist. She recommends giving 2 g Keppra IV as patient vomited earlier dose. Teleneuro to be consulted. 1645:Family is at bedside. Pt currently sleeping, daughter Andree reports that this is usual for her when sundowning. Still awaiting teleneuro consult. Handoff report given to MELANI Magdaleno evening MARUO. Related Data Home Medications ?Medication ?Instructions ?Recorded ?Confirmed aspirin 81 mg tablet,delayed 81 mg PO DAILY #90 tabs 04/04/20 05/07/24 release cyanocobalamin (vitamin B-12) 500 500 mcg PO DAILY #90 tabs 04/04/20 05/07/24 mcg tablet (Vitamin B-12) melatonin 10 mg capsule 10 mg PO HS PRN 08/17/23 05/07/24 pimavanserin 34 mg capsule 34 mg PO DAILY #90 caps 08/17/23 05/07/24 (Nuplazid) atorvastatin 80 mg tablet 80 mg PO DAILY #90 tabs 11/09/23 05/07/24 carbidopa 25 mg-levodopa 250 mg 1 tab PO TID #270 tabs 11/09/23 05/07/24 tablet donepezil 10 mg tablet 10 mg PO DAILY #90 tabs 11/09/23 05/07/24 carbidopa 25 mg-levodopa 100 mg 1 tab PO TID #270 tabs 12/13/23 05/07/24 tablet bisacodyl 5 mg tablet,delayed 5 mg PO ONCE 03/13/24 05/07/24 release mirabegron 25 mg tablet,extended 25 mg PO DAILY #90 tabs 03/13/24 05/07/24 release 24 hr (Myrbetriq) olanzapine 2.5 mg tablet 2.5 mg PO TID #270 tabs 03/13/24 05/07/24 levetiracetam 500 mg tablet 1,000 mg (2 x 500 mg) PO BID #180 05/07/24 05/07/24 (Keppra) tabs Previous Rx's ?Medication ?Instructions ?Recorded aspirin 81 mg tablet,delayed 81 mg PO DAILY #90 tabs 04/04/20 release cyanocobalamin (vitamin B-12) 500 500 mcg PO DAILY #90 tabs 04/04/20 mcg tablet (Vitamin B-12) pimavanserin 34 mg capsule 34 mg PO DAILY #90 caps 08/17/23 (Nuplazid) atorvastatin 80 mg tablet 80 mg PO DAILY #90 tabs 11/09/23 carbidopa 25 mg-levodopa 250 mg 1 tab PO TID #270 tabs 11/09/23 tablet donepezil 10 mg tablet 10 mg PO DAILY #90 tabs 11/09/23 carbidopa 25 mg-levodopa 100 mg 1 tab PO TID #270 tabs 12/13/23 tablet mirabegron 25 mg tablet,extended 25 mg PO DAILY #90 tabs 03/13/24 release 24 hr (Myrbetriq) olanzapine 2.5 mg tablet 2.5 mg PO TID #270 tabs 03/13/24 levetiracetam 500 mg tablet 1,000 mg (2 x 500 mg) PO BID #180 05/07/24 (Keppra) tabs Allergies Allergy/AdvReac Type Severity Reaction Status Date / Time No Known Allergies Allergy Verified 05/07/24 12:47 General Stated Complaint: Seizure SKY: 3 Review of Systems Narrative: see HPI Exam Narrative Exam Narrative: Const General: cooperative, healthy appearing, comfortable and no acute distress Nutritional Appearance: average body habitus Orientation: awake and confused Limitations: altered mental status (per baseline, dementia), has returned to baseline mental status per caregiver HENAK Head: normal to inspection, no palpable skull fracture, normocephalic and atraumatic Ears: hearing grossly normal bilaterally General nose exam: external nose normal Mouth: oral mucosae normal and tongue normal, no new lesions or bleeding in mouth Eyes Eyelids: eyelids normal Pupils: PERRL EOM: No nystagmus, unable to cooperate with EOMs per dementia Resp Effort & Inspection: normal respiratory effort and able to speak in complete sentences Auscultation: clear to auscultation bilaterally Cardio Rate: regular rate Rhythm: regular rhythm GI Inspection: normal to inspection and non-distended Palpation: soft, not firm, appears tender to palpation with pt drawing away and protesting with exam Skin General skin exam: no rashes or lesions noted Neuro General: no focal motor deficits Cranial Nerves: facial strength normal, able to rotate head bilaterally and no nystagmus Motor: muscle tone normal throughout Sensory Exam: no sensory deficits noted Course Vital Signs Vital signs: Vital Signs Temperature 36.6 C 05/07/24 12:41 Pulse 83 05/07/24 12:41 Respiratory Rate 17 05/07/24 12:41 Blood Pressure 146/109 H 05/07/24 12:41 Pulse Oximetry 94 05/07/24 12:41 Temperature 36.6 C 05/07/24 12:41 Temperature Source Temporal Artery Scan 05/07/24 12:41 Pulse 83 05/07/24 12:41 Respiratory Rate 17 05/07/24 12:41 Respiratory Effort Normal, Non-Labored 05/07/24 12:45 Respiratory Depth Normal 05/07/24 12:45 Respiratory Pattern Normal 05/07/24 12:45 Blood Pressure 146/109 H 05/07/24 12:41 Blood Pressure Position Sitting 05/07/24 12:41 Pulse Oximetry 94 05/07/24 12:41 Oxygen Delivery Method Room Air 05/07/24 12:41 Oxygen Flow Rate 0 05/07/24 12:41 Medical Decision Making Quality:SDOH Health Related Social Needs: No Data to Display PFSH All Active Problems (Updated 05/07/24 @ 10:51 by Gabbie Trinh) Breakthrough seizure (Acute) DNR (do not resuscitate) (Acute) See February 2024 COLST: DNR/DNI, no feeding tube, does want transfer to hospital, evaluation, IV antibiotics and IV hydration. Admit to hospice as soon as eligible. 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 Head/neck imaging, heart monitor with no identifiable cause Thyroid nodule Benign Surgical History S/P colonoscopy (03/18/15) History of section Family History Mother , 71 Depression Stroke CKD (chronic kidney disease) Father , 68 Heart disease Myocardial infarction Parkinson disease Sister No problems noted. Sister No problems noted. Brother , 42 of [place] Heart disease Myocardial infarction Brother , at 49 of [place] Heart disease Myocardial infarction Brother , at 58 of [place] Heart disease Myocardial infarction Brother , at 61 of [place] Heart disease Myocardial infarction Brother , at 80 of [place] No problems noted. Son , at 45 of [place] Heart disease Myocardial infarction Daughter No problems noted. Maternal Grandfather No problems noted. Maternal Grandmother No problems noted. Paternal Grandfather No problems noted. Paternal Grandmother No problems noted. Social History Smoking/Tobacco Use Status: Never Smoking risk assessment performed?: Yes Alcohol Intake: current Alcohol Intake frequency: a few times a month Drug use: Never Substance use type: does not use Counseling given: No Household members: other Details: Camper until get apartment by June Housing: house Pets and animals: No Sexually active: No Do you think of yourself as: straight/heterosexual Current gender identity: female What is your relationship status?: How often do you talk on the phone with friends or family?: three or more times per week How often do you get together with friends or relatives?: three or more times per week Do you belong to any clubs or organized social groups?: no Panel score (0-1 are the most socially isolated patients): 1 What type of physical activity do you participate in: walking Frequency: other Details: Some Shivani/Pentecostal: Restorationist Seatbelt use: always Drive intox or ride w/intox wrecking car driver: No Do you feel safe at home: Yes Do you feel safe in your relationship?: Yes Additional Social history: caregiver called ems because pt eyes rolled in back on head, some blood came from mouth. EMS stated it was a very small amount. pt able to answer yes or no questions, pt knowns , name and that she is at the hospital. History History 2 Para 2 Hx # Term Pregnancies Multiple births Hx # Pregnancies Ectopic pregnancies AB induced Hx Number of Living Children 1 AB spontaneous
[2024-05-07] MEDS: Omnipaque 350 MG/ML 100 ML BTL IJ (13:29)
[2024-05-07] MEDS: Normal Saline - Diluent 50 ML VIAL IJ (13:31)
[2024-05-07] MEDS: levETIRAcetam 2,000 MG in Normal Saline 100 ML 400 MG IVPB (13:49)
[2024-05-07 17:08] LABS: Bilirubin Negative (Negative); Blood Negative (Negative); Clarity Clear (Clear); Glucose Negative (Negative); Ketones 15 mg/dL (Negative); Leukocyte Esterase Negative (Negative); Nitrite Negative (Negative); Specific Gravity 1.015 (1.005-1.025); Urobilinogen 0.2 mg/dL (Up to 0.2)
[2024-05-07 17:27] LABS: Magnesium 2.2 mg/dL (1.8-2.4)
[2024-05-07 17:31] LABS: ALT 6 U/L (14-59); AST 19 U/L (15-37); Albumin 3.1 g/dL (3.4-5.0); Alkaline Phosphatase 80 U/L (46-116); Anion Gap 6.9 mmol/L (3-11); BUN 12 mg/dL (7-18); Bilirubin, Total 0.57 mg/dL (0.2-1.0); CO2 30.1 mmol/L (21.0-32.0); CREATININE 0.7 mg/dL (0.55-1.02); Chloride 105 mmol/L (98-107); Estimated GFR 89.02 (mL/min/1.73m2); Glucose 86 mg/dL (74-106); Potassium 3.7 mmol/L (3.5-5.1); Sodium 142 mmol/L (136-145); Total Protein 6.6 g/dL (6.4-8.2)
--- NOTE | 2024-05-07 18:38 | W.PM.HP.N ---
Date of service: 05/07/24 Time of Service: 18:39 Assessment and Plan Assessment and plan (1) Seizure: Status: Acute Assessment and plan: Breakthrough seizures in patient with known seizure disorder. No precipitant apparent at present. Will add on Keppra level to pre-treatment blood and contact family about any possible recent medication changes. Otherwise will resume usual regimen of Keppra and monitor overnight. Patient remains DNR. History of Present Illness History of Present Illness Chief Complaint: seizure Narrative: 78 female with h/o seizure disorder, Parkinson's, dementia. ER reports seizures have been well controlled since November, currently on Keppra 1000 bid. Brought to ER today due to multiple seizures today. Patient has reportedly otherwise been well, and I am not aware of any new medications. Work up of note for negative head CT, normal CBC, normal electrolytes save K 3.3, glucose 131 and negative U/A. neurology contacted and advised Keppra 2 gm IV. Patient has had no seizures here in ER and has been resting quietly. I was asked to evaluate for admission. Patient unable to provide any history. Review of Systems Narrative: unable PFSH All Active Problems (Updated 05/07/24 @ 18:46 by Elver Ivan MD) Seizure (Acute) Breakthrough seizure (Acute) DNR (do not resuscitate) (Acute) See February 2024 COLST: DNR/DNI, no feeding tube, does want transfer to hospital, evaluation, IV antibiotics and IV hydration. Admit to hospice as soon as eligible. 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 Head/neck imaging, heart monitor with no identifiable cause Thyroid nodule Benign Surgical History S/P colonoscopy (03/18/15) History of section Family History Mother , 71 Depression Stroke CKD (chronic kidney disease) Father , 68 Heart disease Myocardial infarction Parkinson disease Sister No problems noted. Sister No problems noted. Brother , 42 of [place] Heart disease Myocardial infarction Brother , at 49 of [place] Heart disease Myocardial infarction Brother , at 58 of [place] Heart disease Myocardial infarction Brother , at 61 of [place] Heart disease Myocardial infarction Brother , at 80 of [place] No problems noted. Son , at 45 of [place] Heart disease Myocardial infarction Daughter No problems noted. Maternal Grandfather No problems noted. Maternal Grandmother No problems noted. Paternal Grandfather No problems noted. Paternal Grandmother No problems noted. Social History Smoking/Tobacco Use Status: Never Smoking risk assessment performed?: Yes Alcohol Intake: current Alcohol Intake frequency: a few times a month Drug use: Never Substance use type: does not use Counseling given: No Household members: other Details: Camper until get apartment by June Housing: house Pets and animals: No Sexually active: No Do you think of yourself as: straight/heterosexual Current gender identity: female What is your relationship status?: How often do you talk on the phone with friends or family?: three or more times per week How often do you get together with friends or relatives?: three or more times per week Do you belong to any clubs or organized social groups?: no Panel score (0-1 are the most socially isolated patients): 1 What type of physical activity do you participate in: walking Frequency: other Details: Some Shivani/Latter Day: Episcopalian Seatbelt use: always Drive intox or ride w/intox 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 EMS stated it was a very small amount. pt able to answer yes or no questions, pt knowns , name and that she is at the hospital. History History 2 Para 2 Hx # Term Pregnancies Multiple births Hx # Pregnancies Ectopic pregnancies AB induced Hx Number of Living Children 1 AB spontaneous Meds Allergies and Home Medications Allergies Allergy/AdvReac Type Severity Reaction Status Date / Time No Known Allergies Allergy Verified 05/07/24 12:47 Home Medications ?Medication ?Instructions ?Recorded ?Confirmed ?Type aspirin 81 mg tablet,delayed 81 mg PO DAILY #90 tabs 04/04/20 05/07/24 Rx release cyanocobalamin (vitamin B-12) 500 500 mcg PO DAILY #90 tabs 04/04/20 05/07/24 Rx mcg tablet (Vitamin B-12) melatonin 10 mg capsule 10 mg PO HS PRN 08/17/23 05/07/24 History pimavanserin 34 mg capsule 34 mg PO DAILY #90 caps 08/17/23 05/07/24 Rx (Nuplazid) atorvastatin 80 mg tablet 80 mg PO DAILY #90 tabs 11/09/23 05/07/24 Rx carbidopa 25 mg-levodopa 250 mg 1 tab PO TID #270 tabs 11/09/23 05/07/24 Rx tablet donepezil 10 mg tablet 10 mg PO DAILY #90 tabs 11/09/23 05/07/24 Rx carbidopa 25 mg-levodopa 100 mg 1 tab PO TID #270 tabs 12/13/23 05/07/24 Rx tablet bisacodyl 5 mg tablet,delayed 5 mg PO ONCE 03/13/24 05/07/24 History release mirabegron 25 mg tablet,extended 25 mg PO DAILY #90 tabs 03/13/24 05/07/24 Rx release 24 hr (Myrbetriq) olanzapine 2.5 mg tablet 2.5 mg PO TID #270 tabs 03/13/24 05/07/24 Rx levetiracetam 500 mg tablet 1,000 mg (2 x 500 mg) PO BID #180 05/07/24 05/07/24 Rx (Keppra) tabs Exam Narrative Exam Narrative: 143/48, 56, 36.6, 17, 98% RA. HEENT atraumatic; neck supple; lungs clear; heart RRR; abdomen soft and NT; extremities w/o edema; neuro opens eyes briefly to voice, Ox1, follows one step commands, PERRL, no facial asymettry, moves all 4s Results Labs 05/07/24 17:00 Labs: Laboratory Results - last 24 hr 05/07/24 17:00 Sodium 142 Potassium 3.7 Chloride 105 Carbon Dioxide 30.1 Anion Gap 6.9 BUN 12 Creatinine 0.7 Est GFR (CKD-EPI 2020) 89.02 Glucose 86 Calcium 9.0 Magnesium 2.2 Total Bilirubin 0.57 AST 19 ALT 6 L Alkaline Phosphatase 80 Total Protein 6.6 Albumin 3.1 L Urine Color Yellow Urine Clarity Clear Urine pH 7.0 Ur Specific [place] 1.015 Urine Protein Trace Urine Ketones 15 H Urine Blood Negative Urine Nitrite Negative Urine Bilirubin Negative Urine Urobilinogen 0.2 Ur Leukocyte Esterase Negative Urine Glucose Negative Last Vital Signs Temp 36.6 C 05/07/24 12:41 Pulse 56 L 05/07/24 18:16 Resp 17 05/07/24 12:41 BP 143/48 H 05/07/24 18:16 Pulse Ox 98 05/07/24 18:20 Time Spent Time spent with Patient: 40-54 minutes Time was spent: preparing to see the patient(eg.review tests), obtaining and/or reviewing separately otained hiistory, ordering medications,tests, procedures, referring, communicating with other health special needs caregiver and indepentently interpreting results
[2024-05-07] MEDS: LORazepam 2 MG/ML VIAL 1 MG IVP (21:15)
[2024-05-07 22:58] LABS: Lab Add On Test DONE
--- NOTE | 2024-05-08 07:23 | W.PC.ACHO ---
Registration Status: Primary Language: Preferred Language: ED Information & Data Chief Complaint Seizure 05/07/24 12:57 Triage Note Pt here this morning after a 05/07/24 12:41 seizure. Arrived home after discharge and had another seizure lasting 3.5 minutes per family. Pt transported back postictal Medical / Surgical History (Last Reviewed 05/07/24 @ 18:44 by Elver Ivan MD) Syncopal episodes Thyroid nodule (Last Reviewed 05/07/24 @ 18:44 by Elver Ivan MD) S/P colonoscopy (03/18/15) History of section Most Recent Vital Signs Temperature 37.1 C 05/07/24 21:54 Temperature Source Temporal Artery Scan 05/07/24 21:54 Pulse 103 H 05/07/24 21:54 Pulse Rhythm Regular 05/07/24 20:53 Respiratory Rate 18 05/07/24 21:54 Respiratory Effort Normal, Non-Labored 05/07/24 20:53 Respiratory Depth Shallow 05/07/24 20:53 Respiratory Pattern Normal 05/07/24 20:53 Blood Pressure 100/70 05/07/24 21:54 Blood Pressure Mean 78 05/07/24 20:31 Blood Pressure Position Sitting 05/07/24 12:41 Pulse Oximetry 96 05/07/24 21:54 Oxygen Delivery Method Nasal Cannula 05/07/24 21:54 Oxygen Flow Rate 1 05/07/24 21:54 Pain Level 0 05/07/24 20:53 Allergies No Known Allergies Allergy (Verified 05/07/24 12:47) Precautions Isolation Standard precaution 05/07/24 12:45 Active Medications Generic Name Dose Route Start Last Admin Trade Name Darrellq PRN Reason Stop Dose Admin Atorvastatin Calcium 80 mg 05/07/24 21:00 05/07/24 23:10 Atorvastatin 40 Mg Tab PO Not Given QPM YVONNE Carbidopa/Levodopa 1 tab 05/07/24 20:00 05/07/24 23:10 Carbidopa 25/Levodopa 100 Tab PO Not Given TID YVONNE Carbidopa/Levodopa 1 tab 05/07/24 20:00 05/07/24 23:10 Carbidopa 25/Levodopa 250 Tab PO Not Given TID YVONNE Iohexol 100 ml 05/07/24 13:30 05/07/24 13:29 Omnipaque 350 Mg/Ml 100 Ml Btl IJ 06/06/24 23:59 100 ml DIRECTED YVONNE Administration Sodium Chloride 50 ml 05/07/24 13:30 05/07/24 13:31 Normal Saline - Diluent 50 Ml Vial IJ 50 ml .FOR DI USE YVONNE Administration IV IV Catheter Type [Right Saline Lock Antecubital] IV Catheter Gauge [Right 18 Antecubital] Diet Orders Category Date Time Status Regular/Normal [DIET] Nutrition 05/08/24 Breakfast Active Diagnostics 05/07/24 05/07/24 Range/Units 22:48 17:00 Sodium 142 (136-145) mmol/L Potassium 3.7 (3.5-5.1) mmol/L Chloride 105 (98-107) mmol/L Carbon Dioxide 30.1 (21.0-32.0) mmol/L Anion Gap 6.9 (3-11) mmol/L BUN 12 (7-18) mg/dL Creatinine 0.7 (0.55-1.02) mg/dL Est GFR (CKD-EPI 2020) 89.02 (mL/min/1.73m2) Glucose 86 (74-106) mg/dL Calcium 9.0 (8.5-10.1) mg/dL Magnesium 2.2 (1.8-2.4) mg/dL Total Bilirubin 0.57 (0.2-1.0) mg/dL AST 19 (15-37) U/L ALT 6 L (14-59) U/L Alkaline Phosphatase 80 (46-116) U/L Total Protein 6.6 (6.4-8.2) g/dL Albumin 3.1 L (3.4-5.0) g/dL Urine Color Yellow (Yellow) Urine Clarity Clear (Clear) Urine pH 7.0 (5-8) Ur Specific [place] 1.015 (1.005-1.025) Urine Protein Trace (Neg-Trace) mg/dL Urine Ketones 15 H (Negative) mg/dL Urine Blood Negative (Negative) Urine Nitrite Negative (Negative) Urine Bilirubin Negative (Negative) Urine Urobilinogen 0.2 (Up to 0.2) mg/dL Ur Leukocyte Esterase Negative (Negative) Urine Glucose Negative (Negative) mg/dL Levetiracetam Pending Add-On Test Request DONE Intake and Output - 24 Hour Total 05/07/24 12:32 thru 05/07/24 22:35 Intake Total 120 Balance 120 Weight 63.503 kg Intake: IV 120 Other: Urine Color Yellow Comment purewick Voiding Methods Incontinent Falls Risk Assessment History of Falls Admit Due to Fall 05/07/24 20:53 Contributing Factors Confusion,Impairments, 05/07/24 20:53 Incontinence Tubes/Lines None 05/07/24 20:53 Gait Evaluation W/any additional score 05/07/24 20:53 Cognition Cognitive impairment 05/07/24 20:53 Fall Total Score 69 05/07/24 20:53 Level of Risk High Risk 05/07/24 20:53 Problems (Last Reviewed 05/07/24 @ 18:44 by Elver Ivan MD) Seizure (Acute) v v v v v v v v v Sending and/or Receiving Nurses: Please use comment section below to note any information pertinent to the patient hand-off not included above. Information / Comments: Pt has Dx of dementia, Parkinson's, seizure disorder. Takes Keppra for seizure, but had breakthrough seizure at home this morning. Family brought Pt to ED; was given PO Keppra and discharged. Seized again upon arrival to home. Vomited with loss of PO keppra. Returned to ED where she rec'd 2g keppra IVP. Neuro tele consult ordered. ; difficult to keep telemetry leads in place. Report received from: Malcom Granados at 2025 on 05/07/24
[2024-05-08 07:42] VITALS: BP 129/56; PULSE 68; RESP 16; TEMP 36.8; O2SAT 99
[2024-05-08 08:36] VITALS: O2SAT 97
--- NOTE | 2024-05-08 11:10 | INITIAL_ITS ---
Date of service: 05/08/24 Time of Service: 11:10 Care Management Initial Assmt Initial Assessment Reason for Hospitalization: Seizure Functional Status/Living Situation Patient Presentation: Sitting in chair between caregivers. Appears confused, does not make eye contact but is looking toward caregivers. Town of Residence: [place] Resides with: Child Significant Other/Family: Local Caregiver/Guardian: Daughter Andree. Employment Status: Retired Instrumental Activities of Daily Living (ADLs): Requires support (All ADLs related to advanced dementia and weakness ) Medications Medication Management: No Issues/Barriers identified (Managed by caregivers) Advance Directives Advance Directives: Do you have an Advance Directive: Y 12/13/23 15:47 AD On File at [facility]: Y 12/13/23 15:47 Date Asked 12/11/21 12/13/23 15:47 AD Date Reviewed 05/07/24 05/08/24 09:24 COLST On File at [facility] Yes 05/04/24 14:56 COLST Date Scanned Comment: Andree as agent. Karen as alternate. Code Status Resuscitation Status DNR/DNI Insurance Coverage/Financial Issues Insurance: Medicare, Aetna Supplemental, ACO Care Team Visit Care Team Role Provider Type Miladis Medina NP Primary Care Provider NURSE PRACTITIONER MELANI Magdaleno Emergency Provider [facility]IC[facility] [employer] ADMINISTRATOR Elver Ivan MD Admit Provider [facility] STAFF PHYSICIAN Attending Provider Discharge Potential Discharge Needs: Consult, PT Evaluation and PCP F/U Appt Anticipated Barriers to Discharge: None Identified Patient/Family Education Needs: Review discharge instructions, discuss Ask Me Three Transportation: EMS (related to mental status and weakness ) Plan: Observation stay, less than 24 hours. Tori will return home with medication changes and close outpatient follow up. She will transport via EMS, and resume current supports as well as have new orders for RN/PT/MATHEMATICIAN. PFSH All Active Problems (Updated 05/09/24 @ 00:09 by DOROTHY LIU) Seizure (Acute) Breakthrough seizure (Acute) DNR (do not resuscitate) (Acute) See February 2024 COLST: DNR/DNI, no feeding tube, does want transfer to hospital , evaluation, IV antibiotics and IV hydration. Admit to hospice as soon as eligible. 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 Head/neck imaging, heart monitor with no identifiable cause Thyroid nodule Benign Surgical History S/P colonoscopy (03/18/15) History of section Family History Mother , 71 Depression Stroke CKD (chronic kidney disease) Father , 68 Heart disease Myocardial infarction Parkinson disease Sister No problems noted. Sister No problems noted. Brother , 42 of [place] Heart disease Myocardial infarction Brother , at 49 of [place] Heart disease Myocardial infarction Brother , at 58 of [place] Heart disease Myocardial infarction Brother , at 61 of [place] Heart disease Myocardial infarction Brother , at 80 of [place] No problems noted. Son , at 45 of [place] Heart disease Myocardial infarction Daughter No problems noted. Maternal Grandfather No problems noted. Maternal Grandmother No problems noted. Paternal Grandfather No problems noted. Paternal Grandmother No problems noted. Social History Smoking/Tobacco Use Status: Never Smoking risk assessment performed?: Yes Alcohol Intake: current Alcohol Intake frequency: a few times a month Drug use: Never Substance use type: does not use Counseling given: No Household members: other Details: Camper until get apartment by June Housing: house Pets and animals: No Sexually active: No Do you think of yourself as: straight/heterosexual Current gender identity: female What is your relationship status?: How often do you talk on the phone with friends or family?: three or more times per week How often do you get together with friends or relatives?: three or more times per week Do you belong to any clubs or organized social groups?: no Panel score (0-1 are the most socially isolated patients): 1 What type of physical activity do you participate in: walking Frequency: other Details: Some Shivani/Taoist: Cheondoism Seatbelt use: always Drive intox or ride w/intox front end driver: No Do you feel safe at home: Yes Do you feel safe in your relationship?: Yes Additional Social history: caregiver called ems because pt eyes rolled in back on head, some blood came from mouth. EMS stated it was a very small amount. pt able to answer yes or no questions, pt knowns , name and that she is at the hospital. History History 2 Para 2 Hx # Term Pregnancies Multiple births Hx # Pregnancies Ectopic pregnancies AB induced Hx Number of Living Children 1 AB spontaneous SDOH(Care Management) Screening Will the Patient Participate in the Screening?: Unable to obtain Anticipated HH Services Anticipated HH Services at Discharge [facility] Needed, MATHEMATICIAN, OT, PT and RN Anticipated Date of Discharge: 05/08/24. Following Provider: Miladis Medina.
[2024-05-08] MEDS: levETIRAcetam Oral Solution 100 MG/ML 1000 MG PO (12:06)
--- NOTE | 2024-05-08 12:10 | PHA.REVIEW2 ---
Pharmacy Admission Review Admission Clinical Review Admission Pharmacy Review: Seizure (Acute) No Known Allergies Allergy (Verified 05/07/24 12:47) Resuscitation Status DNR/DNI Height 5 ft 3 in Weight 63.503 kg Pharmacy Admission Review Renal Dosing Renal Dosing: BUN 12 mg/dL (7-18) 05/07/24 17:00 Creatinine 0.7 mg/dL (0.55-1.02) 05/07/24 17:00 Medications needing adjustments: Reviewed (crcl = 42, currently no adjustments needed) Anticoagulation Anticoagulation: Creatinine 0.7 mg/dL (0.55-1.02) 05/07/24 17:00 DVT Prophylaxis: Reviewed (none - pt likely discharging today, if not will reach out to provider for recommendations) Therapeutic Anticoagulation: N/A Opiate Usage Evaluate Pain Scale/Pains Meds: N/A (not on opiates) Relevant Labs Relevant Labs: Sodium 142 mmol/L (136-145) 05/07/24 17:00 Potassium 3.7 mmol/L (3.5-5.1) 05/07/24 17:00 Chloride 105 mmol/L (98-107) 05/07/24 17:00 Magnesium 2.2 mg/dL (1.8-2.4) 05/07/24 17:00 DM Control DM Control: Reviewed (prediabetes - last a1c 11/30/23 = 5.9%) Insulin Dosing, Diabetic Medication: not on any antidiabetic medications Cardiac Review BP, HR, EF%: Reviewed List meds needing interventions: n/a QTc Review QTc: Reviewed (QTc = 432 05/04/24) IV to PO Switch IV Medications: N/A (keppra IV x 1 in ED, now all meds PO) Home Meds Home Med List reviewed: Reviewed Medication adherence barriers identified?: pt having difficulty swallowing pills - nursing requested pharmacist review of home med list and to notate which meds may or may not be crushed -- meds reviewed, list given with alternatives for meds that cannot be crushed Current Meds Current Medication Order Review: Reviewed Comments: keppra increased from 500 mg BID to 1000 mg BID (Rx sent for liquid form)
[2024-05-08] MEDS: Carbidopa 25/Levodopa 100 TAB PO (13:00)
--- NOTE | 2024-05-08 13:48 | DSE_ITS ---
Date of service: 05/08/24 Time of Service: 13:48 DS: Diagnosis Discharge Diagnosis (1) Seizure: Status: Acute Discharge Plan Disposition Patient Disposition: Home Condition: Poor Discharge Details Reason For Visit: Seizure Admit Date/Time: 05/07/24 18:49 Admit Provider: Elver Ivan Attending Provider: Elver Ivan [facility] Hospital Course: This is a 78-year-old female with a history of dementia, Parkinson's disease, and epilepsy, presented to the emergency department via EMS on 05/07/24 for evaluation of seizure activity. Her family reported the patient experienced a tonic-clonic seizure lasting approximately 5 minutes while seated in the car, with no trauma sustained. There were a few recent missed doses of Keppra, with the medication being administered in split doses mixed with applesauce due to worsening swallowing difficulties. The patient did not experience fever, chills, or recent illnesses. Post-seizure, she vomited and was transported by EMS to the emergency department. The patient was stable, with laboratory studies showing no significant abnormalities, and the chemistry panel revealed no major electrolyte disturbances. Neurological assessment showed return to baseline with persistent confusion and focal tremors consistent with Parkinson's disease and dementia. No ongoing seizure activity was noted while under ED care. A 1000 mg loading dose of Keppra was administered in the ED. Patient was discharged to home. Patient returned via EMS with a second seizure and second visit to the emergency department. Patient experienced a grand mal seizure lasting approximately 3.5 minutes with bilateral limb jerking, foaming at the mouth, and cyanosis. She vomited after the seizure, expelling her Keppra dose taken orally prior to earlier ED visit discharge. There was no confirmed loss of bowel or bladder control. The seizure resolved, and the patient returned to her baseline state upon arrival to the emergency department. There have been no recent changes in health status except for decreased appetite. Mental Status: Alert and cooperative, though limited by baseline mental status. Abdomen: Soft, slightly uncomfortable with palpation. Neurological Exam: PERRL, answers questions, moving all extremities equally. Other Findings: No facial droop, focal neurological deficits, or new tongue lesions. Easy work of breathing, clear lung sounds bilaterally. Abdomen soft, nondistended, and nontender. No pedal edema. Tests and Results: * CBC and CMP: Reassuring; mild hypokalemia with potassium 3.3 noted, repleted. * Head CT: Unremarkable; no intracranial hemorrhage. * CXR: Reassuring; no obvious infiltrates. Consultations: * Neurology: Dr. Denton recommended increasing oral Keppra dose to 1000 mg twice a day ? prescribed oral liquid. * Seizure: Likely a breakthrough seizure due to subtherapeutic Keppra dosing. No identifiable precipitant. * Plan includes: * Increase oral Keppra dose to 1000 mg twice daily. * Recieved a 1000 mg loading dose in the emergency department. * Follow-up with neurology as scheduled on 05/15/24. * Contact neurology if seizures recur or if seizures last longer than 5 minutes or are [id number]. * Return to the emergency department if seizures last longer than 5 minutes or occur [id number], or if any new symptoms arise. Home Meds and New Rx's Prescriptions: New levetiracetam [Keppra] 100 mg/mL solution 1,000 mg PO BID 30 Days Qty: 600 0RF levetiracetam [Keppra] 100 mg/mL solution 1,000 mg PO BID Qty: 200 0RF Continued melatonin 10 mg capsule 10 mg PO HS PRN Nuplazid 34 mg capsule 34 mg PO DAILY Qty: 90 3RF aspirin 81 mg tablet,delayed release (DR/EC) 81 mg PO DAILY Qty: 90 4RF cyanocobalamin (vitamin B-12) [Vitamin B-12] 500 mcg tablet 500 mcg PO DAILY Qty: 90 4RF carbidopa-levodopa 25-100 mg tablet 1 tab PO TID Qty: 270 3RF Rx Instructions: Take at same times as the Sinemet 25/250mg tabs olanzapine 2.5 mg tablet 2.5 mg PO TID Qty: 270 3RF Rx Instructions: Take am, lunchtime, and dinner mirabegron [Myrbetriq] 25 mg tablet extended release 24 hr 25 mg PO DAILY Qty: 90 3RF bisacodyl 5 mg tablet,delayed release (DR/EC) 5 mg PO ONCE atorvastatin 80 mg tablet 80 mg PO DAILY Qty: 90 3RF carbidopa-levodopa 25-250 mg tablet 1 tab PO TID Qty: 270 3RF donepezil 10 mg tablet 10 mg PO DAILY Qty: 90 3RF Discontinued levetiracetam [Keppra] 500 mg tablet 1,000 mg PO BID Qty: 180 3RF Discharge Instructions Instructions: Preventing falls in adults, Seizures Additional Instructions: Per recommendation of Dr Denton, increase Keppra to 1000 mg twice a day. A prescription for oral liquid has been sent, locally so she has some to get started with, and a full prescription [facility] as [facility]. Stand Alone Forms: Nursing Discharge Form Referrals: Miladis Medina NP [Primary Care Provider] - 05/16/24 11:00 am (1-2 weeks post hospitalization appt) Activity:: Activity as Tolerated Equipment/Supplies:: No Equipment Needed Diet:: As Tolerated Discharge Orders Discharge Orders: Discharge Order (Routine); Ordered 05/08/24 Ordered By: Midny Samuel Discharge Data Discharge Date/Time-TO BE ENTERED AT DEPARTURE: 05/08/24 16:22 DS: Summary Time Spent with Patient providing and/or coordinating discharge services: Greater than 30 minutes Status at Discharge Functional status at discharge: uses cane/walker Overall status at discharge: patient is back to baseline Mental Status: mental status grossly normal Speech and Movement: speech and movement normal Mood: congruent mood Affect: normal affect Quality:SDOH Health Related Social Needs: No Data to Display Exam Narrative Exam Narrative: Const General: cooperative, healthy appearing, comfortable and no acute distress Nutritional Appearance: average body habitus Orientation: awake and confused Limitations: altered mental status (per baseline, dementia), has returned to baseline mental status per caregiver HENMT Head: normal to inspection, no palpable skull fracture, normocephalic and atraumatic Ears: hearing grossly normal bilaterally General nose exam: external nose normal Mouth: oral mucosae normal and tongue normal, no new lesions or bleeding in mouth Eyes Eyelids: eyelids normal Pupils: PERRL EOM: No nystagmus, unable to cooperate with EOMs per dementia Resp Effort & Inspection: normal respiratory effort and able to speak in complete sentences Auscultation: clear to auscultation bilaterally Cardio Rate: regular rate Rhythm: regular rhythm GI Inspection: normal to inspection and non-distended Palpation: soft, not firm, not tender to palpation Skin General skin exam: no rashes or lesions noted Neuro General: no focal motor deficits Cranial Nerves: facial strength normal, able to rotate head bilaterally and no nystagmus Motor: muscle tone normal throughout Sensory Exam: no sensory deficits noted Psych Mental Status: mental status grossly normal Speech and Movement: speech and movement normal Mood: congruent mood Affect: normal affect DS: Data Vitals/I&O Vitals and I&O: Vital Signs Temperature 36.8 C 05/08/24 07:42 Temperature Source Temporal Artery Scan 05/08/24 07:42 Pulse 68 05/08/24 07:42 Pulse Rhythm Regular 05/07/24 20:53 Respiratory Rate 16 05/08/24 07:42 Respiratory Effort Normal, Non-Labored 05/07/24 20:53 Respiratory Depth Shallow 05/07/24 20:53 Respiratory Pattern Normal 05/07/24 20:53 Blood Pressure 129/56 L 05/08/24 07:42 Blood Pressure Mean 78 05/07/24 20:31 Blood Pressure Position Sitting 05/07/24 12:41 Pulse Oximetry 97 05/08/24 08:36 Oxygen Delivery Method Room Air 05/08/24 08:36 Oxygen Flow Rate 0 05/08/24 08:36 Pain Level 0 05/07/24 20:53 Intake & Output 05/07/24 05/08/24 05/08/24 23:59 11:59 23:59 Intake Total 120 / 120 250 / 250 Balance 120 / 120 250 / 250 Weight 63.503 kg Intake: IV 120 / 120 10 / 10 Oral 240 / 240 Other: Urine Color Yellow Yellow Urine Appearance Clear Urine Odor Normal Comment purewick Brief; incontinent of urine. Voiding Methods Incontinent Diaper Incontinent Data Completed and Pending Labs on day of discharge: Labs from last 24 hours 05/07/24 05/07/24 05/07/24 22:48 17:00 09:27 Sodium 142 Potassium 3.7 Chloride 105 Carbon Dioxide 30.1 Anion Gap 6.9 BUN 12 Creatinine 0.7 Est GFR (CKD-EPI 2020) 89.02 Glucose 86 Calcium 9.0 Magnesium 2.2 Total Bilirubin 0.57 AST 19 ALT 6 L Alkaline Phosphatase 80 Total Protein 6.6 Albumin 3.1 L Urine Color Yellow Urine Clarity Clear Urine pH 7.0 Ur Specific [place] 1.015 Urine Protein Trace Urine Ketones 15 H Urine Blood Negative Urine Nitrite Negative Urine Bilirubin Negative Urine Urobilinogen 0.2 Ur Leukocyte Esterase Negative Urine Glucose Negative Levetiracetam Pending Add-On Test Request DONE PFSH All Active Problems (Updated 05/07/24 @ 18:46 by Elver Ivan MD) Seizure (Acute) Breakthrough seizure (Acute) DNR (do not resuscitate) (Acute) See February 2024 COLST: DNR/DNI, no feeding tube, does want transfer to hospital, evaluation, IV antibiotics and IV hydration. Admit to hospice as soon as eligible. 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 Head/neck imaging, heart monitor with no identifiable cause Thyroid nodule Benign Surgical History S/P colonoscopy (03/18/15) History of section Family History Mother , 71 Depression Stroke CKD (chronic kidney disease) Father , 68 Heart disease Myocardial infarction Parkinson disease Sister No problems noted. Sister No problems noted. Brother , 42 of [place] Heart disease Myocardial infarction Brother , at 49 of [place] Heart disease Myocardial infarction Brother , at 58 of [place] Heart disease Myocardial infarction Brother , at 61 of [place] Heart disease Myocardial infarction Brother , at 80 of fall No problems noted. Son , at 45 of [place] Heart disease Myocardial infarction Daughter No problems noted. Maternal Grandfather No problems noted. Maternal Grandmother No problems noted. Paternal Grandfather No problems noted. Paternal Grandmother No problems noted. Social History Smoking/Tobacco Use Status: Never Smoking risk assessment performed?: Yes Alcohol Intake: current Alcohol Intake frequency: a few times a month Drug use: Never Substance use type: does not use Counseling given: No Household members: other Details: Mortoner until get apartment by June Housing: house Pets and animals: No Sexually active: No Do you think of yourself as: straight/heterosexual Current gender identity: female What is your relationship status?: How often do you talk on the phone with friends or family?: three or more times per week How often do you get together with friends or relatives?: three or more times per week Do you belong to any clubs or organized social groups?: no Panel score (0-1 are the most socially isolated patients): 1 What type of physical activity do you participate in: walking Frequency: other Details: Some Shivani/Mu-Ism: Sikhism Seatbelt use: always Drive intox or ride w/intox 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 EMS stated it was a very small amount. pt able to answer yes or no questions, pt knowns , name and that she is at the hospital. History History 2 Para 2 Hx # Term Pregnancies Multiple births Hx # Pregnancies Ectopic pregnancies AB induced Hx Number of Living Children 1 AB spontaneous Time Spent with Patient Time Spent with Patient: 45-69 minutes Time was spent: preparing to see the patient(eg.review tests), ordering medications,tests, procedures, referring, communicating with other health care p carrillofessionals, indepentently interpreting results, counseling the patient and care coordination
--- NOTE | 2024-05-08 19:31 | PDOC.HHF2F_ITS ---
Home Health Referral Home Health Orders Clinical synopsis of why skilled professionals are needed: This is a 78-year-old female with a history of dementia, Parkinson's disease, and epilepsy, presented to the emergency department via EMS on 05/07/24 for evaluation of seizure activity. Her family reported the patient experienced a tonic-clonic seizure lasting approximately 5 minutes while seated in the car, with no trauma sustained. There were a few recent missed doses of Keppra, with the medication being administered in split doses mixed with applesauce due to worsening swallowing difficulties. The patient did not experience fever, chills, or recent illnesses. Post-seizure, she vomited and was transported by EMS to the emergency department. The patient was stable, with laboratory studies showing no significant abnormalities, and the chemistry panel revealed no major electrolyte disturbances. Neurological assessment showed return to baseline with persistent confusion and focal tremors consistent with Parkinson's disease and dementia. No ongoing seizure activity was noted while under ED care. A 1000 mg loading dose of Keppra was administered in the ED. Patient was discharged to home. Patient returned via EMS with a second seizure and second visit to the emergency department. Patient experienced a grand mal seizure lasting approximately 3.5 minutes with bilateral limb jerking, foaming at the mouth, and cyanosis. She vomited after the seizure, expelling her Keppra dose taken orally prior to earlier ED visit discharge. There was no confirmed loss of bowel or bladder control. The seizure resolved, and the patient returned to her baseline state upon arrival to the emergency department. There have been no recent changes in health status except for decreased appetite. Mental Status: Alert and cooperative, though limited by baseline mental status. Abdomen: Soft, slightly uncomfortable with palpation. Neurological Exam: PERRL, answers questions, moving all extremities equally. Other Findings: No facial droop, focal neurological deficits, or new tongue lesions. Easy work of breathing, clear lung sounds bilaterally. Abdomen soft, nondistended, and nontender. No pedal edema. Tests and Results: * CBC and CMP: Reassuring; mild hypokalemia with potassium 3.3 noted, repleted. * Head CT: Unremarkable; no intracranial hemorrhage. * CXR: Reassuring; no obvious infiltrates. Consultations: * Neurology: Dr. Denton recommended increasing oral Keppra dose to 1000 mg twice a day ? prescribed oral liquid. * Seizure: Likely a breakthrough seizure due to subtherapeutic Keppra dosing. No identifiable precipitant. * Plan includes: * Increase oral Keppra dose to 1000 mg twice daily. * Recieved a 1000 mg loading dose in the emergency department. * Follow-up with neurology as scheduled on 05/15/24. * Contact neurology if seizures recur or if seizures last longer than 5 minutes or are [id number]. * Return to the emergency department if seizures last longer than 5 minutes or occur nvqj-[id number]-[id number], or if any new symptoms arise. Registered Nurse: Check all that apply Instruct on new or changed medication(s)/assess compliance: Ordered Physical Therapist: Check all that apply Increase strength & endurance for safe mobility at home: Ordered To design/establish home maintenance program: Ordered Fall reduction therapy program for patient with history of frequent falls: Ordered Home safety evaluation and teaching/gait training including stair management (if applicable): Ordered Drying Can Worker: Assist with community resources: Ordered Assist with watermaster care planning: Ordered Home Bound Status Requires the aid of supportive device (check all that apply): Cane (prn) and Walker (prn) Patient has a condition such that leaving home is medically contraindicated (Describe): Seizure disorder Describe why leaving home would require a considerable and taxing effort: Requires frequent rest periods Encounter Date and Reason: I certify that a FTF encounter for this patient was performed on May 08, 2024 and that such encounter was related to the primary reason the patient requires h ome health services. The encounter was conducted in the following manner: * By me as the certifying physician, SERVICE LINE BUS CLEANER, PA or * By an inpatient physician, SERVICE LINE BUS CLEANER or PA during an inpatient stay who communicated findings to me, Certification And Authentication I certify that I composed the above information based on my clinical judgment relating to this patient's medical condition and, if applicable, clinical findings communicated to me by the NPP or inpatient physician who performed the FTF encounter. Name of Provider that will be monitoring home health services: Miladis Medina
--- NOTE | 2024-05-08 22:50 | PDOC.EEG ---
Neurology EEG EEG: [facility] Department of Neurology INPATIENT EEG REPORT Date of Recordin05/08/24 Interpreting Physician: Dr. Henna Denton Reason for study: Tori Krause is a 78 year-old with dementia admitted with breakthrough seizures, not back to baseline. Current Medications: Home Medications ?Medication ?Instructions ?Recorded ?Confirmed ?Type aspirin 81 mg tablet,delayed 81 mg PO DAILY #90 tabs 04/04/20 05/07/24 Rx release cyanocobalamin (vitamin B-12) 500 500 mcg PO DAILY #90 tabs 04/04/20 05/07/24 Rx mcg tablet (Vitamin B-12) melatonin 10 mg capsule 10 mg PO HS PRN 08/17/23 05/07/24 History pimavanserin 34 mg capsule 34 mg PO DAILY #90 caps 08/17/23 05/07/24 Rx (Nuplazid) atorvastatin 80 mg tablet 80 mg PO DAILY #90 tabs 11/09/23 05/07/24 Rx carbidopa 25 mg-levodopa 250 mg 1 tab PO TID #270 tabs 11/09/23 05/07/24 Rx tablet donepezil 10 mg tablet 10 mg PO DAILY #90 tabs 11/09/23 05/07/24 Rx carbidopa 25 mg-levodopa 100 mg 1 tab PO TID #270 tabs 12/13/23 05/07/24 Rx tablet bisacodyl 5 mg tablet,delayed 5 mg PO ONCE 03/13/24 05/07/24 History release mirabegron 25 mg tablet,extended 25 mg PO DAILY #90 tabs 03/13/24 05/07/24 Rx release 24 hr (Myrbetriq) olanzapine 2.5 mg tablet 2.5 mg PO TID #270 tabs 03/13/24 05/07/24 Rx levetiracetam 100 mg/mL oral 1,000 mg (10 mL) PO BID #200 mL 05/08/24 Rx solution (Keppra) levetiracetam 100 mg/mL oral 1,000 mg (10 mL) PO BID 30 days 05/08/24 Rx solution (Keppra) #600 mL METHODS: A 21 channel digitized electroencephalogram was performed in the [facility] Med/Surg Floor or ICU. The 10/20 international system of electrode placement was used and bipolar and referential electrode montages were recorded. In addition to EEG the patient was monitored for EKG and lateral/vertical eye movements. Activation procedures of photic stimulation and hyperventilation were performed if applicable. Video was used during activation procedures and during events where applicable. The duration of the recording was 1 hour and 53 minutes. DESCRIPTION OF EEG: The patient was noted to be awake and drowsy during the recording. During maximal wakefulness an 8-Hz posterior background rhythm was present which was well-modulated, symmetrical, reactive to eye opening, and of moderate voltage. With eye opening the background activity changed to a low voltage mixture of alpha, beta, and occasional theta range frequencies. Faster frequencies were present in the bilateral anterior head regions. There was a normal anterior-posterior voltage gradient. During drowsiness, there was attenuation of the posterior dominant background rhythm and vertex waves. No stage II sleep was recorded. Activating Procedures: Photic stimulation and hyperventilation were not performed. EKG: EKG revealed normal sinus rhythm/sinus bradycardia. INTERPRETATION: This EEG is abnormal due to mild generalized slowing and slowing of the background rhythm. . PRIOR EEG: none CLINICAL CORRELATION: The background slowing is suggestive of a mild diffuse cerebral encephalopathy of broad differential including toxic-metabolic etiology. No focal regions of cerebral dysfunction or epileptiform activity was present. No sleep was recorded during the study which reduces the sensitivity of the exam. Clinical correlation is advised. Henna Denton MD Date of service: 05/08/24
[2024-05-10 10:45] LABS: Levetiracetam 29.6 mcg/mL
== END 2024-05-08 16:22 | disposition home or self-care (01) ==
LOC: ER 17:25 → MS 20:41
PROVIDERS: Admitting Provider General Practice; Emergency Provider Physician Assistant; PCP Nurse Practitioner Family; Visit Provider General Practice
DX: G40.909 Epilepsy, unspecified, not intractable, without status epilepticus (principal); Z79.899 Other long term (current) drug therapy; Z66 Do not resuscitate; R54 Age-related physical debility; E85.4 Organ-limited amyloidosis; I68.0 Cerebral amyloid angiopathy; G20.A1 Parkinson's disease without dyskinesia, without mention of fluctuations; F02.82 Dementia in other diseases classified elsewhere, unspecified severity, with psychotic disturbance; R10.9 Unspecified abdominal pain; R29.6 Repeated falls; I10 Essential (primary) hypertension; R73.03 Prediabetes; E78.5 Hyperlipidemia, unspecified; N32.81 Overactive bladder; E87.6 Hypokalemia
CPT/HCPCS: 00123; 80053; 95813; 96365; 96375; 99284; 99285; 70450; 71045; 74177; 80177; 81003; 83735; 85025; 99222; 99239; 99283; G0378; J1953; J2060; J3490

== ENCOUNTER → 2024-05-08 08:00 | Outpatient (BNVA) | payer MEDICARE, SELFPAY | PROVIDERS: PCP Nurse Practitioner Family; Referring Provider Nurse Practitioner Family; Visit Provider Psychiatry & Neurology Neurology ==

== ENCOUNTER 2024-05-11 09:39 | Emergency (ER) | payer MEDICARE, SELFPAY ==
[2024-05-11 09:40] VITALS: BP 124/59; PULSE 54; RESP 16; TEMP 36.9; O2SAT 93
--- NOTE | 2024-05-11 10:00 | DI.CT_ITS ---
Exam(s) CT BRAIN NECK CTA EXAM: CT BRAIN NECK CTA CLINICAL HISTORY: slurred speech, possible status epilepticus. TECHNIQUE: Imaging Protocol: Axial CT angiography was performed with multi-slice acquisition and mu lti-planar and MIP reconstructions. CONTRAST MATERIAL: Intravenous: Omnipaque 350 Contrast volume:100 ml COMPARISON: CT CT HEAD WO from 08/30/[address] HEAD WO from 05/07/2024 FINDINGS: CT Head W/O and W contrast: Ventricles and Extra axial spaces: Mildly dilated, consistent with degree of atrophy. Unchanged from prior. Hemorrhage: None. Cerebral parenchyma: No evidence of acute infarct or mass. Mild atrophy. Mild white matter change s of small vessel disease. Midline shift: None. Brainstem/Cerebellum: No acute findings.. Calvarium: Normal. Visualized Paranasal sinuses/Mastoids: Clear. Soft Tissues: Unremarkable. Enhancement: Normal. CTA Brain W: Internal Carotid Arteries: Petrous: Normal. Cavernous: Normal. Cerebral: Normal. Middle Cerebral Arteries: Right: No aneurysm, occlusion or significant stenosis. Left: No aneurysm, occlusion or significant stenosis. Anterior Cerebral Arteries: Right: No aneurysm, occlusion or significant stenosis. Left: No aneurysm, occlusion or significant stenosis. Posterior cerebral Arteries: Right: No aneurysm, occlusion or significant stenosis. Left: No aneurysm, occlusion or significant stenosis. Vertebral Arteries: Right: No aneurysm, occlusion or significant stenosis. Left: No aneurysm, occlusion or significant stenosis. Basilar Artery: No aneurysm, occlusion or significant stenosis. CTA Neck W: Common Carotid: Right: Minimal calcific plaque. No dissection, occlusion or significant stenosis. Left: Mild calcific plaque at common carotid bulb. No dissection, occlusion or significant stenosis. External Carotid: Right: No dissection, occlusion or significant stenosis. Left: No dissection, occlusion or significant stenosis. Internal Carotid: Right: No dissection, occlusion or significant stenosis. Left: No dissection, occlusion or significant stenosis. Vertebral Artery: Right: No dissection, occlusion or significant stenosis. Left: No dissection, occlusion or significant stenosis. Lung Apices: No acute findings. Bones: No acute abnormality. Degenerative changes in the spine. Soft Tissues: Normal. IMPRESSION: 1. CTA brain: Normal CTA examination of the [place]. 2. Head CT: No acute abnormality.. 3. CTA neck: Mild calcific plaque at the common carotid bulbs. No evidence of significant stenosis o r dissection. RADIATION DOSE DELIVERED: Total DLP DATA REPOSITORY: All CT scans at this facility are submitted to the National Radiology Data Registry (NRDR) Dose Index Registry (DIR) with the [employer] (ACR). RADIATION OPTIMIZATION: All CT scans at this facility use at least one of these dose optimization te chniques: automated exposure control; mA and/or kV adjustment per patient size (includes targeted exa ms where dose is matched to clinical indication); or iterative reconstruction.
--- NOTE | 2024-05-11 10:03 | ED.GENADUL_ITS ---
Discharge Plan Disposition Patient Disposition: Home Condition: Stable Discharge Details Clinical Impression: Seizure Primary Care Provider: Miladis Medina ED Provider: Marco A Hilton Home Meds and New Rx's Prescriptions: New diazepam 15 mg/2 spray (7.5/0.1mL x 2) spray,non-aerosol 15 mg intranasal ONCE Qty: 2 0RF Rx Instructions: administer 1 spray in each nostril; may repeat with second kit after 4 hours. Do not use for more than 1 seizure every 5 days, or more than 5 seizures per month Continued melatonin 10 mg capsule 10 mg PO HS PRN Nuplazid 34 mg capsule 34 mg PO DAILY Qty: 90 3RF aspirin 81 mg tablet,delayed release (DR/EC) 81 mg PO DAILY Qty: 90 4RF cyanocobalamin (vitamin B-12) [Vitamin B-12] 500 mcg tablet 500 mcg PO DAILY Qty: 90 4RF carbidopa-levodopa 25-100 mg tablet 1 tab PO TID Qty: 270 3RF Rx Instructions: Take at same times as the Sinemet 25/250mg tabs olanzapine 2.5 mg tablet 2.5 mg PO TID Qty: 270 3RF Rx Instructions: Take am, lunchtime, and dinner mirabegron [Myrbetriq] 25 mg tablet extended release 24 hr 25 mg PO DAILY Qty: 90 3RF bisacodyl 5 mg tablet,delayed release (DR/EC) 5 mg PO ONCE atorvastatin 80 mg tablet 80 mg PO DAILY Qty: 90 3RF carbidopa-levodopa 25-250 mg tablet 1 tab PO TID Qty: 270 3RF donepezil 10 mg tablet 10 mg PO DAILY Qty: 90 3RF levetiracetam [Keppra] 100 mg/mL solution 1,000 mg PO BID 30 Days Qty: 600 0RF levetiracetam [Keppra] 100 mg/mL solution 1,000 mg PO BID Qty: 200 0RF Discharge Instructions Instructions: Diazepam, Palliative Care, Seizures, Adult ED Additional Instructions: You were seen in the emergency department for your mother seizure activity. She has 24/7 care at home but you are going to search for hospice placement and we have provided some contact information for your her laboratory values do not show any severe derangement from prolonged seizure activity and the CTA of her head and neck are negative for any acute stroke. Her labs showed no severe signs of infection or other electrolyte abnormality of a dangerous level. She had a mildly low level of potassium that we will likely replete with normal p.o. intake, you may add an [id number] supplement or vitamin containing potassium as well. I have sent a prescription for intranasal benzodiazepine for seizure intervention at home. Please pick this up to [facility] [place]. Please continue with your follow-up with neurology in 4 days, I will contact their office to let them know your concerns with her mobility and possibly they can do a telehealth visit at that time. Please return to the emergency department for any other emergent concerns. Referrals: [facility] [Provider Group] Miladis Medina NP [Primary Care Provider] - Discharge Data Discharge Date/Time-TO BE ENTERED AT DEPARTURE: 05/11/24 14:46 HPI General Date/Time Provider Initiated Documentation: 05/11/24 10:02 . HPI Narrative: 78 year-old female presents to ED today by EMS with a chief complaint of seizure activity witnesed by family at home- was recently here with similar presentation and received TeleNeuro consult- started on 500mg BID Keppra, and was upped to 1000mg BID Keppra by our Neuro service over the phone with further seizure activity with onset just prior to arrival, reportedly seized for 8.5 minutes. Patient has complex history of dementia and Parkinson's, is DNI/DNR, lives with her daughter at home and has extensive HomeHealth services. Quality described as convulsive activity for prolonged period of time, patient has slurred speech but has chronic speech problems with periods of lucidity, no radiation to focal weakness, sensory deficit, patient is not totally alert to answer reliable questions but denies chest pain and denies fever or cough. Severity is described as unable to quantify. Palliating factors include midazolam given by EMS en route. Provoking factors include nothing specific. Events leading up to the incident/Associated Symptoms: Patient has neuro follow-up scheduled in 4 days here at [facility]. Patient not anticoagulated. Related Data Home Medications ?Medication ?Instructions ?Recorded ?Confirmed aspirin 81 mg tablet,delayed 81 mg PO DAILY #90 tabs 04/04/20 05/11/24 release cyanocobalamin (vitamin B-12) 500 500 mcg PO DAILY #90 tabs 04/04/20 05/11/24 mcg tablet (Vitamin B-12) melatonin 10 mg capsule 10 mg PO HS PRN 08/17/23 05/11/24 pimavanserin 34 mg capsule 34 mg PO DAILY #90 caps 08/17/23 05/11/24 (Nuplazid) atorvastatin 80 mg tablet 80 mg PO DAILY #90 tabs 11/09/23 05/11/24 carbidopa 25 mg-levodopa 250 mg 1 tab PO TID #270 tabs 11/09/23 05/11/24 tablet donepezil 10 mg tablet 10 mg PO DAILY #90 tabs 11/09/23 05/11/24 carbidopa 25 mg-levodopa 100 mg 1 tab PO TID #270 tabs 12/13/23 05/11/24 tablet bisacodyl 5 mg tablet,delayed 5 mg PO ONCE 03/13/24 05/11/24 release mirabegron 25 mg tablet,extended 25 mg PO DAILY #90 tabs 03/13/24 05/11/24 release 24 hr (Myrbetriq) olanzapine 2.5 mg tablet 2.5 mg PO TID #270 tabs 03/13/24 05/11/24 levetiracetam 100 mg/mL oral 1,000 mg (10 mL) PO BID #200 mL 05/08/24 05/11/24 solution (Keppra) levetiracetam 100 mg/mL oral 1,000 mg (10 mL) PO BID 30 days 05/08/24 05/11/24 solution (Keppra) #600 mL diazepam 15 mg (0.2 mL) intranasal ONCE 2 05/11/24 doses #2 sprays Previous Rx's ?Medication ?Instructions ?Recorded aspirin 81 mg tablet,delayed 81 mg PO DAILY #90 tabs 04/04/20 release cyanocobalamin (vitamin B-12) 500 500 mcg PO DAILY #90 tabs 04/04/20 mcg tablet (Vitamin B-12) pimavanserin 34 mg capsule 34 mg PO DAILY #90 caps 08/17/23 (Nuplazid) atorvastatin 80 mg tablet 80 mg PO DAILY #90 tabs 11/09/23 carbidopa 25 mg-levodopa 250 mg 1 tab PO TID #270 tabs 11/09/23 tablet donepezil 10 mg tablet 10 mg PO DAILY #90 tabs 11/09/23 carbidopa 25 mg-levodopa 100 mg 1 tab PO TID #270 tabs 12/13/23 tablet mirabegron 25 mg tablet,extended 25 mg PO DAILY #90 tabs 03/13/24 release 24 hr (Myrbetriq) olanzapine 2.5 mg tablet 2.5 mg PO TID #270 tabs 03/13/24 levetiracetam 100 mg/mL oral 1,000 mg (10 mL) PO BID #200 mL 05/08/24 solution (Keppra) levetiracetam 100 mg/mL oral 1,000 mg (10 mL) PO BID 30 days 05/08/24 solution (Keppra) #600 mL diazepam 15 mg (0.2 mL) intranasal ONCE 2 05/11/24 doses #2 sprays Allergies Allergy/AdvReac Type Severity Reaction Status Date / Time No Known Allergies Allergy Verified 05/07/24 12:47 General Stated Complaint: Seizure SKY: 3 Review of Systems All systems reviewed & are unremarkable except as noted in HPI and below Exam Narrative Exam Narrative: GENERAL APPEARANCE: Well-nourished, non-toxic, awake and alert, atraumatic, no acute distress. SKIN: Warm, pink, dry, intact, without rashes/lesions/ulcerations. HEAD: Normocephalic, atraumatic, normal hair distribution for gender/age. EYES: Normal conjunctiva, no exudates on lids/lashes. ENT: Nares patent, no circumoral cyanosis, no facial swelling NECK: Supple, trachea midline, painless cervical ROM. LUNGS/CHEST: Lungs CTA bilaterally- no rhonchi/rales/wheezes diffusely, non- labored respirations, normal A/P diameter, symmetrical expansion, no chest wall deformity HEART (CV/PV): Regular rate and rhythm without murmur, no peripheral edema, no JVD. ABDOMEN: Soft, non-distended, no guarding. MSK: Normal ROM, no swelling/deformity to bilateral UEs or LEs, moving all extremities without weakness, no cyanosis, spine midline without tenderness, normal curvature. NEURO: Mental Status -chronically demented, speaking in gibberish with periods of lucid speech No facial droop, no forehead involvement, not participatory in cerebellar testing Motor: No focal weakness - strength 5/5 in bilateral UEs and LEs, proximal and distal, symmetric, able to lift all extremities against gravity without issue Sensory: sensation intact to light touch globally. Gait NT-patient does not walk PSYCH: euthymic, cooperative, pleasant, appropriate speech Course Vital Signs Vital signs: Vital Signs Temperature 36.9 C 05/11/24 09:40 Pulse 54 L 05/11/24 09:40 Respiratory Rate 16 05/11/24 09:40 Blood Pressure 124/59 L 05/11/24 09:40 Pulse Oximetry 93 05/11/24 09:40 Temperature 36.9 C 05/11/24 09:40 Pulse 54 L 05/11/24 09:40 Respiratory Rate 16 05/11/24 09:40 Blood Pressure 124/59 L 05/11/24 09:40 Pulse Oximetry 93 05/11/24 09:40 Oxygen Delivery Method Room Air 05/11/24 09:40 Oxygen Flow Rate 0 05/11/24 09:40 Medical Decision Making This dictation utilizes [id number] dictation software and may contain unedited grammatical errors. 78 year-old female presents to ED today by EMS with a chief complaint of seizure activity witnesed by family at home- was recently here with similar presentation and received TeleNeuro consult- started on 500mg BID Keppra, and was upped to 1000mg BID Keppra by our Neuro service over the phone with further seizure activity with onset just prior to arrival, reportedly seized for 8.5 minutes. Patient has complex history of dementia and Parkinson's, is DNI/DNR, lives with her daughter at home and has extensive HomeHealth services. Quality described as convulsive activity for prolonged period of time, patient has slurred speech but has chronic speech problems with periods of lucidity, no radiation to focal weakness, sensory deficit, patient is not totally alert to answer reliable questions but denies chest pain and denies fever or cough. Severity is described as unable to quantify. Palliating factors include midazolam given by EMS en route. Provoking factors include nothing specific. Events leading up to the incident/Associated Symptoms: Patient has neuro follow-up scheduled in 4 days here at [facility]. Patients' medical history: Syncopal episodes, seizure, breakthrough seizures, palliative care patient, Parkinson's plus syndromes, epilepsy, history of CVA, prediabetes, hyperlipidemia, essential tremor. Family and social history: Lives at home with daughter with extensive home health s ervices. Pertinent exam findings / vital signs include slurred speech, difficult neuroexam with complex baseline, no focal weakness, vision appears intact, patient does have moments of lucidity with nonslurred speech. Differential / pathologies of concern include seizure, status epilepticus, cerebrovascular accident, dementia and cognitive decline. Diagnostic studies of: -CBC, CMP, magnesium, troponin, ammonia, lipase, TSH, CK, CTA Brain & Neck, Keppra level sent. -CBC shows no major leukocytosis, no anemia, CMP is benign with a mild low potassium, patient can take supplements at home and high potassium diet at home -CK is negative-do not suspect status epilepticus -Lipase negative -Ammonia negative -Troponin negative -TSH within normal limits -CTA shows no acute stroke Interventions of: -Loaded with 2 g of Keppra to get to 40 mg/kg with her home dose given today without vomiting, discussed palliative care options with family. They will call neurology office for possible dosage adjustments of Keppra ED Course/Assessment/Plan: 78-year-old female presents with possible seizure activity at home, has had breakthrough seizures seen here recently, is a palliative care patient, has complex parkinsonian and dementia history with slurred speech but also periods of lucidity here in the ED, CTA of the head and neck shows no acute stroke, labs are reassuring for no major episodes of prolonged anaerobic metabolism like an status epilepticus, patient is palliative care and has home health services do not feel this warrants admission, I do recommend that they follow-up with their continued neurology appointments next 1 in 4 days. Strict return criteria for further episodes of seizure activity I did send intranasal diazepam for seizure at home. Findings not consistent with status epilepticus, stroke, dangerous electrolyte abnormality, ACS. Disposition of seizure. Patient verbalized understanding of the plan and return to ED criteria and engaged in shared decision making. Medical Records Medical records reviewed: Yes I reviewed the patient's medical records. Imaging Data Radiologic Study: Attestation: I personally reviewed and interpreted this imaging study as follows: Imaging: CT Scan Radiologist's impression: EXAM: CT BRAIN NECK CTA CLINICAL HISTORY: slurred speech, possible status epilepticus. TECHNIQUE: Imaging Protocol: Axial CT angiography was performed with multi- slice acquisition and multi-planar and MIP reconstructions. CONTRAST MATERIAL: Intravenous: Omnipaque 350 Contrast volume:100 ml COMPARISON: CT CT HEAD WO from 08/30/[address] HEAD WO from 05/07/2024 FINDINGS: CT Head W/O and W contrast: Ventricles and Extra axial spaces: Mildly dilated, consistent with degree of atrophy. Unchanged from prior. Hemorrhage: None. Cerebral parenchyma: No evidence of acute infarct or mass. Mild atrophy. Mild white matter changes of small vessel disease. Midline shift: None. Brainstem/Cerebellum: No acute findings.. Calvarium: Normal. Visualized Paranasal sinuses/Mastoids: Clear. Soft Tissues: Unremarkable. Enhancement: Normal. CTA Brain W: Internal Carotid Arteries: Petrous: Normal. Cavernous: Normal. Cerebral: Normal. Middle Cerebral Arteries: Right: No aneurysm, occlusion or significant stenosis. Left: No aneurysm, occlusion or significant stenosis. Anterior Cerebral Arteries: Right: No aneurysm, occlusion or significant stenosis. Left: No aneurysm, occlusion or significant stenosis. Posterior cerebral Arteries: Right: No aneurysm, occlusion or significant stenosis. Left: No aneurysm, occlusion or significant stenosis. Vertebral Arteries: Right: No aneurysm, occlusion or significant stenosis. Left: No aneurysm, occlusion or significant stenosis. Basilar Artery: No aneurysm, occlusion or significant stenosis. CTA Neck W: Common Carotid: Right: Minimal calcific plaque. No dissection, occlusion or significant stenosis. Left: Mild calcific plaque at common carotid bulb. No dissection, occlusion or significant stenosis. External Carotid: Right: No dissection, occlusion or significant stenosis. Left: No dissection, occlusion or significant stenosis. Internal Carotid: Right: No dissection, occlusion or significant stenosis. Left: No dissection, occlusion or significant stenosis. Vertebral Artery: Right: No dissection, occlusion or significant stenosis. Left: No dissection, occlusion or significant stenosis. Lung Apices: No acute findings. Bones: No acute abnormality. Degenerative changes in the spine. Soft Tissues: Normal. IMPRESSION: 1. CTA brain: Normal CTA examination of the [place]. 2. Head CT: No acute abnormality.. 3. CTA neck: Mild calcific plaque at the common carotid bulbs. No evidence of significant stenosis or dissection. Lab Data Lab results reviewed: Yes I reviewed the patient's lab results. Labs: Laboratory Tests Range/Units 05/11/24 05/11/24 05/11/24 10:25 10:25 10:25 WBC (4.4-10.8) 10^3/uL 8.80 RBC (3.93-5.22) 10^6/uL 5.40 H Hgb (11.2-15.7) g/dL 14.4 Hct (36.0-46.0) % 45.6 MCV (80-95) fL 84 MCH (27.0-33.0) pg 26.7 L MCHC (32.0-36.0) % 31.6 L RDW (11.7-14.6) % 14.6 Plt Count (130-400) 10^3/uL 370 MPV (8.0-11.0) fL 10.6 Immature Gran % % 0.5 Neutrophils % % 73.1 Lymphocytes % % 17.3 Monocytes % % 6.6 Eosinophils % % 1.9 Basophils % % 0.6 Nucleated RBC % (0.0-0.3) % 0.0 Absolute Neutrophils (1.2-6.7) 10^3/uL 6.44 Absolute Lymphocytes (1.2-3.4) 10^3/uL 1.52 Absolute Monocytes (0.1-0.8) 10^3/uL 0.58 Absolute Eosinophils (0.0-0.7) 10^3/uL 0.17 Absolute Basophils (0.0-0.2) 10^3/uL 0.05 Sodium (136-145) mmol/L 142 Potassium (3.5-5.1) mmol/L 3.2 L Chloride (98-107) mmol/L 104 Carbon Dioxide (21.0-32.0) mmol/L 32.3 H Anion Gap (3-11) mmol/L 5.7 BUN (7-18) mg/dL 11 Creatinine (0.55-1.02) mg/dL 0.7 Est GFR (CKD-EPI 2020) (mL/min/1.73m2) 89.02 Glucose (74-106) mg/dL 105 Calcium (8.5-10.1) mg/dL 9.3 Magnesium (1.8-2.4) mg/dL 2.0 Total Bilirubin (0.2-1.0) mg/dL 0.71 AST (15-37) U/L 16 ALT (14-59) U/L < 6 L Alkaline Phosphatase (46-116) U/L 82 Ammonia (11-32) umol/L 26 Creatine Kinase (26-192) U/L 19 L Cancelled Troponin I (< or =60) ng/L < 50 Cancelled Total Protein (6.4-8.2) g/dL 6.7 Albumin (3.4-5.0) g/dL 3.1 L Lipase (16-77) U/L 53 TSH (0.36-3.74) uIU/mL Range/Units 05/11/24 10:25 WBC (4.4-10.8) 10^3/uL RBC (3.93-5.22) 10^6/uL Hgb (11.2-15.7) g/dL Hct (36.0-46.0) % MCV (80-95) fL MCH (27.0-33.0) pg MCHC (32.0-36.0) % RDW (11.7-14.6) % Plt Count (130-400) 10^3/uL MPV (8.0-11.0) fL Immature Gran % % Neutrophils % % Lymphocytes % % Monocytes % % Eosinophils % % Basophils % % Nucleated RBC % (0.0-0.3) % Absolute Neutrophils (1.2-6.7) 10^3/uL Absolute Lymphocytes (1.2-3.4) 10^3/uL Absolute Monocytes (0.1-0.8) 10^3/uL Absolute Eosinophils (0.0-0.7) 10^3/uL Absolute Basophils (0.0-0.2) 10^3/uL Sodium (136-145) mmol/L Potassium (3.5-5.1) mmol/L Chloride (98-107) mmol/L Carbon Dioxide (21.0-32.0) mmol/L Anion Gap (3-11) mmol/L BUN (7-18) mg/dL Creatinine (0.55-1.02) mg/dL Est GFR (CKD-EPI 2020) (mL/min/1.73m2) Glucose (74-106) mg/dL Calcium (8.5-10.1) mg/dL Magnesium (1.8-2.4) mg/dL Total Bilirubin (0.2-1.0) mg/dL AST (15-37) U/L ALT (14-59) U/L Alkaline Phosphatase (46-116) U/L Ammonia (11-32) umol/L Creatine Kinase (26-192) U/L Troponin I (< or =60) ng/L Total Protein (6.4-8.2) g/dL Albumin (3.4-5.0) g/dL Lipase (16-77) U/L Cancelled TSH (0.36-3.74) uIU/mL 3.30 Quality:SDOH Health Related Social Needs: No Data to Display PFSH All Active Problems (Updated 05/11/24 @ 12:09 by MELANI Ricardo) Seizure (Acute) Seizure (Acute) Breakthrough seizure (Acute) DNR (do not resuscitate) (Acute) See February 2024 COLST: DNR/DNI, no feeding tube, does want transfer to hospital, evaluation, IV antibiotics and IV hydration. Admit to hospice as soon as eligible. 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 Head/neck imaging, heart monitor with no identifiable cause Thyroid nodule Benign Surgical History S/P colonoscopy (03/18/15) History of section Family History Mother , 71 Depression Stroke CKD (chronic kidney disease) Father , 68 Heart disease Myocardial infarction Parkinson disease Sister No problems noted. Sister No problems noted. Brother , 42 of [place] Heart disease Myocardial infarction Brother , at 49 of [place] Heart disease Myocardial infarction Brother , at 58 of [place] Heart disease Myocardial infarction Brother , at 61 of [place] Heart disease Myocardial infarction Brother , at 80 of [place] No problems noted. Son , at 45 of [place] Heart disease Myocardial infarction Daughter No problems noted. Maternal Grandfather No problems noted. Maternal Grandmother No problems noted. Paternal Grandfather No problems noted. Paternal Grandmother No problems noted. Social History Smoking/Tobacco Use Status: Never Smoking risk assessment performed?: Yes Alcohol Intake: current Alcohol Intake frequency: holidays/special occasions only Drug use: Never Substance use type: does not use Counseling given: No Household members: other Details: Camper until get apartment by June Housing: house Pets and animals: No Sexually active: No Do you think of yourself as: straight/heterosexual Current gender identity: female What is your relationship status?: How often do you talk on the phone with friends or family?: three or more times per week How often do you get together with friends or relatives?: three or more times per week Do you belong to any clubs or organized social groups?: no Panel score (0-1 are the most socially isolated patients): 1 What type of physical activity do you participate in: walking Frequency: other Details: Some Shivani/Temple: [employer] Seatbelt use: always Drive intox or ride w/intox speedboat driver: No Do you feel safe at home: Yes Do you feel safe in your relationship?: Yes History History 2 Para 2 Hx # Term Pregnancies Multiple births Hx # Pregnancies Ectopic pregnancies AB induced Hx Number of Living Children 1 AB spontaneous
[2024-05-11 10:35] LABS: Abs Immature Grans 0.04 10^3/uL (0.0-0.06); Absolute Basophil Count 0.05 10^3/uL (0.0-0.2); Absolute Eosinophil Count 0.17 10^3/uL (0.0-0.7); Absolute Lymphocyte Count 1.52 10^3/uL (1.2-3.4); Absolute Monocyte Count 0.58 10^3/uL (0.1-0.8); Absolute Neutrophil Count 6.44 10^3/uL (1.2-6.7); Basophils % 0.6 %; Eosinophils % 1.9 %; HCT 45.6 % (36.0-46.0); HGB 14.4 g/dL (11.2-15.7); Immature Grans % 0.5 %; Lymphocytes % 17.3 %; MCH 26.7 pg (27.0-33.0); MCHC 31.6 % (32.0-36.0); MCV 84 fL (80-95); MPV 10.6 fL (8.0-11.0); Monocytes % 6.6 %; Neutrophils % 73.1 %; Platelet Count 370 10^3/uL (130-400); RDW 14.6 % (11.7-14.6); RDW-SD 45.1 fL
[2024-05-11] MEDS: Omnipaque 350 MG/ML 100 ML BTL 70 ML IJ (10:37)
[2024-05-11] MEDS: Normal Saline - Diluent 50 ML VIAL IJ (10:37)
[2024-05-11 11:00] LABS: AST 16 U/L (15-37); Albumin 3.1 g/dL (3.4-5.0); Alkaline Phosphatase 82 U/L (46-116); Ammonia 26 umol/L (11-32); Anion Gap 5.7 mmol/L (3-11); BUN 11 mg/dL (7-18); Bilirubin, Total 0.71 mg/dL (0.2-1.0); CO2 32.3 mmol/L (21.0-32.0); CREATININE 0.7 mg/dL (0.55-1.02); Chloride 104 mmol/L (98-107); Creatine Kinase 19 U/L (26-192); Estimated GFR 89.02 (mL/min/1.73m2); Glucose 105 mg/dL (74-106); Lipase 53 U/L (16-77); Potassium 3.2 mmol/L (3.5-5.1); Sodium 142 mmol/L (136-145); Total Protein 6.7 g/dL (6.4-8.2); Troponin I < 50 ng/L (< or =60)
[2024-05-11 11:01] LABS: ALT < 6 U/L (14-59)
[2024-05-11 11:10] LABS: Calcium 9.3 mg/dL (8.5-10.1)
--- NOTE | 2024-05-11 20:30 | NUR.NOTE ---
Access chart to reconcile EKG orders with EKG's in [facility]. Nursing Note:
[2024-05-13 15:26] LABS: Levetiracetam 68.5 mcg/mL
--- NOTE | 2024-05-14 10:30 | NUR.NOTE ---
Access chart to reconcile EKG orders to EKG's in [facility]. No EKG found, order cancelled. Nursing Note:
== END 2024-05-11 14:46 | disposition home or self-care (01) ==
PROVIDERS: Emergency Provider Physician Assistant; PCP Nurse Practitioner Family
DX: G40.89 Other seizures (principal); G20.A1 Parkinson's disease without dyskinesia, without mention of fluctuations; F02.80 Dementia in other diseases classified elsewhere, unspecified severity, without behavioral disturbance, psychotic disturbance, mood disturbance, and anxiety; I10 Essential (primary) hypertension; E78.5 Hyperlipidemia, unspecified
CPT/HCPCS: 36415; 70496; 70498; 80053; 82550; 83690; 96365; 99285; 80177; 82140; 83735; 84443; 84484; 85025; 99284; J1953; J3490

== ENCOUNTER → 2024-05-15 06:29 | Outpatient (BNVA) | payer MEDICARE, SELFPAY | PROVIDERS: PCP Nurse Practitioner Family; Referring Provider Nurse Practitioner Family; Visit Provider Psychiatry & Neurology Neurology ==